=== PATIENT | male | born 1975 | race Caucasian/White ===

== ENCOUNTER 2016-11-05 21:11 | Inpatient (IN) | payer OTHER ==
--- NOTE | 2016-11-05 21:33 | HP ---
CIWA Score - CIWA Score Nausea/Vomitin-Mild Nausea/No Vomiting Muscle Tremors: 3 Anxiety: 3 Agitation: 3 Paroxysmal Sweats: 2 Orientation: 1-Uncertain about Date Tacttile Disturbances: 1-Very Mild Itch/Numbness Auditory Disturbances: 0-None Visual Disturbances: 0-None Headache: 2-Mild CIWA-Ar Total Score: 16 Admission ROS BHS - HPI Chief Complaint: WITHDRAWAL SYMPTOMS Allergies/Adverse Reactions: Allergies Allergy/AdvReac Type Severity Reaction Status Date / Time No Known Allergies Allergy Verified 11/05/16 21:30 History of Present Illness: 41 Y.O. MAN WITH AN EXTENSIVE HISTORY OF ALCOHOL AND MARIJUANA DEPENDENCE IS SEEKING DETOX. HIS LAST ADMISSION HERE WAS IN 2012. HE REPORTS HE DOES NOT HAVE A SIGNIFICANT PERIOD OF SOBRIETY. Exam Limitations: Intoxication - Ebola screening Have you traveled outside of the country in the last 21 days: No Have you had contact with anyone from an Ebola affected area: No Do you have a fever: No - Review of Systems Constitutional: Loss of Appetite EENT: reports: No Symptoms Reported Respiratory: reports: No Symptoms reported Cardiac: reports: No Symptoms Reported GI: reports: No Symptoms Reported : reports: No Symptoms Reported Musculoskeletal: reports: No Symptoms Reported Integumentary: reports: No Symptoms Reported Neuro: reports: Numbness, Seizure (2 YEARS PRIOR), Tingling, Tremors Endocrine: reports: No Symptoms Reported Hematology: reports: No Symptoms Reported Psychiatric: reports: Mood/Affect Appropiate Other Systems: Reviewed and Negative Patient History - Patient Medical History Hx Anemia: No Hx Asthma: No Hx Chronic Obstructive Pulmonary Disease (COPD): No Hx Cancer: No Hx Cardiac Disorders: No Hx Congestive Heart Failure: No Hx Hypertension: No Hx Hypercholesterolemia: No Hx Pacemaker: No HX Cerebrovascular Accident: No Hx Seizures: Yes (alcohol related-last episode was in 2014) Hx Dementia: No Hx Diabetes: No Hx Gastrointestinal Disorders: No Hx Liver Disease: No Hx Genitourinary Disorders: Yes (KIDNEY STONES.) Hx Sexually Transmitted Disorders: No Hx Renal Disease (ESRD): No Hx Thyroid Disease: No Hx Human Immunodeficiency Virus (HIV): No (NEG. ) Hx Hepatitis C: No Hx Depression: Yes Hx Suicide Attempt: Yes Hx Bipolar Disorder: No Hx Schizophrenia: No - Patient Surgical History Past Surgical History: Yes Hx Neurologic Surgery: No Hx Cataract Extraction: No Hx Cardiac Surgery: No Hx Lung Surgery: No Hx Breast Surgery: No Hx Breast Biopsy: No Hx Abdominal Surgery: No Hx Appendectomy: No Hx Cholecystectomy: No Hx Genitourinary Surgery: No Hx Section: No Hx Orthopedic Surgery: No Other Surgical History: removal of kidney stones, right /tendon repair, right hnad Anesthesia Reaction: No - PPD History Previous Implant?: Yes Documented Results: Negative w/o proof Implanted On Prior [facility] Admission?: Yes Date: 04/05/13 PPD to be Administered?: Yes - Reproductive History Patient is a Female of Child Bearing Age (11 -55 yrs old): No - Smoking Cessation Smoking history: Current every day smoker Have you smoked in the past 12 months: Yes Aproximately how many cigarettes per day: 20 Cigars Per Day: 0 Hx Chewing Tobacco Use: No Initiated information on smoking cessation: Yes 'Breaking Loose' booklet given: 11/05/16 - Substance & Tx. History Hx Alcohol Use: Yes Hx Substance Use: Yes Substance Use Type: Alcohol, Marijuana Hx Substance Use Treatment: Yes (DETOX AND REHAB ) - Substances Abused Alcohol Route: Oral Frequency: Daily Amount used: 1 GALLON OF [place] Age of first use: 7 Date of Last Use: 11/05/16 Marijuana/Hashish Route: Smoking Frequency: Daily Amount used: 2-3 BLUNTS Age of first use: 7 Date of Last Use: 11/05/16 Family Disease History - Family Disease History Family Disease History: CA: Mother ( ) Admission Physical Exam BHS - Vital Signs Vital Signs: Last Vital Signs Temp Pulse Resp BP Pulse Ox 97.5 F L 112 H 18 110/64 11/05/16 21:42 11/05/16 21:42 11/05/16 21:42 11/05/16 21:42 - Physical General Appearance: Yes: Intoxicated, Anxious HEENTM: Yes: Hearing grossly Normal, Normal ENT Inspection, Normocephalic, Normal Voice Respiratory: Yes: Chest Non-Tender, Lungs Clear, Normal Breath Sounds, No Respiratory Distress, No Accessory Muscle Use Neck: Yes: No masses,lesions,Nodules, Trachea in good position Breast: Yes: Breast Exam Deferred Cardiology: Yes: Tachycardia Abdominal: Yes: Normal Bowel Sounds, Non Tender, Flat, Soft Genitourinary: Yes: Other (NO COMPLAINTS REPORTED) Back: Yes: Normal Inspection Musculoskeletal: Yes: full range of Motion, Gait Steady, Pelvis Stable Extremities: Yes: Normal Capillary Refill, Normal Inspection, Normal Range of Motion, Non-Tender Neurological: Yes: Alert, Normal Mood/Affect, Normal Response Integumentary: Yes: Normal Color, Dry, Warm Lymphatic: Yes: Within Normal Limits - Diagnostic (1) Alcohol dependence with uncomplicated withdrawal Current Visit: Yes Status: Chronic (2) Cannabis dependence, uncomplicated Current Visit: Yes Status: Chronic (3) History of seizure Current Visit: Yes Status: Chronic Cleared for Admission [facility] - Detox or Rehab [facility] Level of Care: Medically Managed Detox Regimen/Protocol: Librium [facility] Breath Alcohol Content Breath Alcohol Content: 0.087 Vital Signs - Vital Signs Vital Signs Refused: No Temperature: 97.5 F Temperature Source: Oral Pulse Rate: 112 Respiratory Rate: 18 Blood Pressure: 110/64 BP Location: Left Arm Blood Pressure Position: Sitting - Height Height: 5 ft 9 in - Weight Weight: 140 lb Weight Measurement Method: Standing Scale Body Mass Index (BMI): 20.7 - Bowel Function Bowel Movement: No Urine Drug Screen - Test Device Lot Number: [id number] Expiration Date: 07/06/18 - Control Is Test Valid: Yes - Results Drug Screen Negative: No Urine Drug Screen Results: THC-Marijuana
[2016-11-05 21:42] VITALS: BMI 20.7
[2016-11-05] MEDS ORDERED: MAGNESIUM CITRATE 300 ML BOTTLE PO PRN (22:08)
[2016-11-05] MEDS ORDERED: ACETAMINOPHEN 325 MG TABLET (FP) PO PRN (22:08)
[2016-11-05] MEDS ORDERED: hydrOXYzine PAMOATE 50 MG CAPSULE (FP) PO PRN (22:08)
[2016-11-05] MEDS ORDERED: guaiFENesin/D-METHORPHAN HB 10 ML UNIT-DOSE CUPS PO PRN (22:08)
[2016-11-05] MEDS ORDERED: MENTHOL/PHENOL 1 EACH UD MM PRN (22:08)
[2016-11-05] MEDS ORDERED: MAGNESIUM HYDROX 2400MG/30ML ORAL SUSPENSION 30 ML CUP PO PRN (22:08)
[2016-11-05] MEDS ORDERED: chlordiazePOXIDE HCL 25 MG CAPSULE PO PRN (22:08)
[2016-11-05] MEDS ORDERED: LOPERAMIDE HCL 2 MG CAPSULE PO PRN (22:08)
[2016-11-05] MEDS ORDERED: NICOTINE POLACRILEX 2 MG GUM BUC PRN (22:08)
[2016-11-05] MEDS ORDERED: chlordiazePOXIDE HCL 25 MG CAPSULE PO ONE (22:08)
[2016-11-05] MEDS ORDERED: MAG HYDROX/AL HYDROX/SIMETH 30 ML UNIT-DOSE CUP PO PRN (22:08)
[2016-11-05] MEDS ORDERED: P-EPHED 60MG/TRIPROLIDI 2.5MG TABLET PO PRN (22:08)
[2016-11-06] MEDS: diphenhydrAMINE HCL 50 MG CAPSULE PO PRN ×2 (00:44→22:13)
[2016-11-06] MEDS: chlordiazePOXIDE HCL 25 MG CAPSULE PO SCH ×5 (00:52→22:13)
[2016-11-06 10:26] LABS: ALBUMIN 3.4 g/dl (3.4-5.0); ALK PHOS 48 U/L (45-117); ANION GAP 11 (8-16); BILIRUBIN,TOTAL 0.2 mg/dL (0.2-1.0); CALCIUM 8.3 mg/dL (8.5-10.1); CO2 28 mmol/L (21-32); CREATININE 0.6 mg/dL (0.7-1.3); GLUCOSE,RANDOM 75 mg/dL (74-106); SGOT/AST 40 U/L (15-37); SGPT/ALT 57 U/L (12-78); TOT PROT 5.9 g/dl (6.4-8.2)
[2016-11-06 10:29] LABS: URINE APPEARANCE CLEAR; URINE BILIRUBIN NEGATIVE (NEGATIVE); URINE BLOOD NEGATIVE (NEGATIVE); URINE COLOR LTYELLOW; URINE GLUCOSE (UA) NEGATIVE (NEGATIVE); URINE KETONE NEGATIVE (NEGATIVE); URINE LEUK ESTERASE NEGATIVE (NEGATIVE); URINE NITRITE NEGATIVE (NEGATIVE); URINE PROTEIN NEGATIVE (NEGATIVE); URINE UROBILINOGEN NEGATIVE E.U./dl (0.2-1.0)
[2016-11-06] MEDS: NICOTINE 21 MG/24 HOURS TOPICAL PATCH TD SCH (10:29)
[2016-11-06] MEDS: PRENATAL VITAMINS W/ FOLIC ACID TABLET (FP) PO SCH (10:29)
[2016-11-06 10:32] LABS: MCH 34.8 pg (25.7-33.7); MCHC 34.3 g/dl (32.0-35.9); MEAN CELL VOLUME 101.6 fl (80-96); MEAN PLT VOLUME 6.8 fl (7.5-11.1); PLATELET COUNT 431 K/MM3 (134-434); RDW 14.7 % (11.9-15.9)
--- NOTE | 2016-11-06 14:58 | PN ---
S CIWA - CIWA Score Nausea/Vomitin Muscle Tremors: 4-Moderate,w/Arms Extend Anxiety: 4-Mod. Anxious/Guarded Agitation: 4-Moderately Restless Paroxysmal Sweats: No Perspiration Orientation: 0-Oriented Tacttile Disturbances: 1-Very Mild Itch/Numbness Auditory Disturbances: 0-None Visual Disturbances: 0-None Headache: 3-Moderate CIWA-Ar Total Score: 19 BHS Progress Note (SOAP) Subjective: Anxious, sweating, nausea, headache, tremor, chills Objective: 11/06/16 14:57 Last Vital Signs Temp Pulse Resp BP Pulse Ox 97 F L 114 H 19 127/71 11/06/16 13:42 11/06/16 13:42 11/06/16 13:42 11/06/16 13:42 Laboratory Tests 11/06/16 11/06/16 11/06/16 07:45 07:45 07:45 WBC 7.0 D RBC 3.75 L D Hgb 13.1 D Hct 38.1 D MCV 101.6 H MCHC 34.3 RDW 14.7 Plt Count 431 D MPV 6.8 L Sodium 144 Potassium 4.3 Chloride 105 Carbon Dioxide 28 Anion Gap 11 BUN 14 D Creatinine 0.6 L D Creat Clearance w eGFR > 60 Random Glucose 75 D Calcium 8.3 L Total Bilirubin 0.2 D AST 40 H ALT 57 D Alkaline Phosphatase 48 D Total Protein 5.9 L D Albumin 3.4 D Urine Color Urine Appearance Urine pH Ur Specific [place] Urine Protein Urine Glucose (UA) Urine Ketones Urine Blood Urine Nitrite Urine Bilirubin Urine Urobilinogen Ur Leukocyte Esterase RPR Titer Nonreactive 11/06/16 07:45 WBC RBC Hgb Hct MCV MCHC RDW Plt Count MPV Sodium Potassium Chloride Carbon Dioxide Anion Gap BUN Creatinine Creat Clearance w eGFR Random Glucose Calcium Total Bilirubin AST ALT Alkaline Phosphatase Total Protein Albumin Urine Color Ltyellow Urine Appearance Clear Urine pH 6.0 Ur Specific [place] 1.018 Urine Protein Negative Urine Glucose (UA) Negative Urine Ketones Negative Urine Blood Negative Urine Nitrite Negative Urine Bilirubin Negative Urine Urobilinogen Negative Ur Leukocyte Esterase Negative RPR Titer Labs noted Assessment: 11/06/16 14:58 Withdrawal symptoms Plan: Continue detox
[2016-11-06] MEDS: THIAMINE HCL 100 MG TABLET (FP) PO SCH (22:13)
[2016-11-07] MEDS: chlordiazePOXIDE HCL 25 MG CAPSULE PO SCH ×3 (05:38→17:43)
[2016-11-07] MEDS: PRENATAL VITAMINS W/ FOLIC ACID TABLET (FP) PO SCH (10:20)
[2016-11-07] MEDS: NICOTINE 21 MG/24 HOURS TOPICAL PATCH TD SCH (10:20)
--- NOTE | 2016-11-07 11:04 | PN ---
S CIWA - CIWA Score Nausea/Vomitin-No Nausea/No Vomiting Muscle Tremors: 4-Moderate,w/Arms Extend Anxiety: 3 Agitation: 3 Paroxysmal Sweats: 3 Orientation: 0-Oriented Tacttile Disturbances: 0-None Auditory Disturbances: 0-None Visual Disturbances: 0-None Headache: 0-None Present CIWA-Ar Total Score: 13 BHS Progress Note (SOAP) Subjective: Anxiety,tremors,sweating,interrupted sleep,restless Objective: 11/07/16 11:03 Vital Signs - 8 hr 11/07/16 11/07/16 11/07/16 03:42 06:26 09:40 Temperature 96.4 F L 97 F L Pulse Rate 86 80 Respiratory 18 18 18 Rate Blood Pressure 144/97 134/83 Laboratory Tests 11/06/16 11/06/16 11/06/16 07:45 07:45 07:45 WBC 7.0 D RBC 3.75 L D Hgb 13.1 D Hct 38.1 D MCV 101.6 H MCHC 34.3 RDW 14.7 Plt Count 431 D MPV 6.8 L Sodium 144 Potassium 4.3 Chloride 105 Carbon Dioxide 28 Anion Gap 11 BUN 14 D Creatinine 0.6 L D Creat Clearance w eGFR > 60 Random Glucose 75 D Calcium 8.3 L Total Bilirubin 0.2 D AST 40 H ALT 57 D Alkaline Phosphatase 48 D Total Protein 5.9 L D Albumin 3.4 D Urine Color Urine Appearance Urine pH Ur Specific [place] Urine Protein Urine Glucose (UA) Urine Ketones Urine Blood Urine Nitrite Urine Bilirubin Urine Urobilinogen Ur Leukocyte Esterase RPR Titer Nonreactive 11/06/16 07:45 WBC RBC Hgb Hct MCV MCHC RDW Plt Count MPV Sodium Potassium Chloride Carbon Dioxide Anion Gap BUN Creatinine Creat Clearance w eGFR Random Glucose Calcium Total Bilirubin AST ALT Alkaline Phosphatase Total Protein Albumin Urine Color Ltyellow Urine Appearance Clear Urine pH 6.0 Ur Specific [place] 1.018 Urine Protein Negative Urine Glucose (UA) Negative Urine Ketones Negative Urine Blood Negative Urine Nitrite Negative Urine Bilirubin Negative Urine Urobilinogen Negative Ur Leukocyte Esterase Negative RPR Titer labs noted Assessment: 11/07/16 11:03 Withdrawal sx. Plan: Continue detox
[2016-11-07] MEDS ORDERED: INFLUENZA VACCINE 45 MCG/0.5 ML (MDV 16-17) IM ONE (12:00)
[2016-11-07] MEDS: IBUPROFEN 400 MG TABLET (FP) PO PRN ×2 (17:44→23:42)
[2016-11-07] MEDS: chlordiazePOXIDE 5 MG CAPSULE PO SCH (22:14)
[2016-11-07] MEDS: THIAMINE HCL 100 MG TABLET (FP) PO SCH (22:14)
[2016-11-07] MEDS: diphenhydrAMINE HCL 50 MG CAPSULE PO PRN (22:14)
[2016-11-08] MEDS: chlordiazePOXIDE 5 MG CAPSULE PO SCH ×3 (05:39→17:18)
[2016-11-08] MEDS: PRENATAL VITAMINS W/ FOLIC ACID TABLET (FP) PO SCH (10:19)
[2016-11-08] MEDS: NICOTINE 21 MG/24 HOURS TOPICAL PATCH TD SCH (10:19)
--- NOTE | 2016-11-08 10:32 | PN ---
BHS Progress Note (SOAP) Subjective: Sweating,interrupted sleep,restless Objective: 11/08/16 10:30 Vital Signs - 8 hr 11/08/16 11/08/16 11/08/16 03:29 06:10 09:30 Temperature 96.0 F L 97.9 F Pulse Rate 85 99 H Respiratory 18 16 18 Rate Blood Pressure 116/79 121/75 Laboratory Tests 11/06/16 11/06/16 11/06/16 07:45 07:45 07:45 WBC 7.0 D RBC 3.75 L D Hgb 13.1 D Hct 38.1 D MCV 101.6 H MCHC 34.3 RDW 14.7 Plt Count 431 D MPV 6.8 L Sodium 144 Potassium 4.3 Chloride 105 Carbon Dioxide 28 Anion Gap 11 BUN 14 D Creatinine 0.6 L D Creat Clearance w eGFR > 60 Random Glucose 75 D Calcium 8.3 L Total Bilirubin 0.2 D AST 40 H ALT 57 D Alkaline Phosphatase 48 D Total Protein 5.9 L D Albumin 3.4 D Urine Color Urine Appearance Urine pH Ur Specific [place] Urine Protein Urine Glucose (UA) Urine Ketones Urine Blood Urine Nitrite Urine Bilirubin Urine Urobilinogen Ur Leukocyte Esterase RPR Titer Nonreactive 11/06/16 07:45 WBC RBC Hgb Hct MCV MCHC RDW Plt Count MPV Sodium Potassium Chloride Carbon Dioxide Anion Gap BUN Creatinine Creat Clearance w eGFR Random Glucose Calcium Total Bilirubin AST ALT Alkaline Phosphatase Total Protein Albumin Urine Color Ltyellow Urine Appearance Clear Urine pH 6.0 Ur Specific [place] 1.018 Urine Protein Negative Urine Glucose (UA) Negative Urine Ketones Negative Urine Blood Negative Urine Nitrite Negative Urine Bilirubin Negative Urine Urobilinogen Negative Ur Leukocyte Esterase Negative RPR Titer labs noted Assessment: 11/08/16 10:31 Withdrawal sx. Plan: Continue detox
[2016-11-08] MEDS: chlordiazePOXIDE HCL 10 MG CAPSULE PO SCH (22:19)
[2016-11-08] MEDS: THIAMINE HCL 100 MG TABLET (FP) PO SCH (22:19)
[2016-11-08] MEDS: diphenhydrAMINE HCL 50 MG CAPSULE PO PRN (22:19)
--- NOTE | 2016-11-08 23:01 | EKG ---
Test Reason : Blood Pressure : / mmHG Vent. Rate : 095 BPM Atrial Rate : 095 BPM P-R Int : 180 ms QRS Dur : 086 ms QT Int : 330 ms P-R-T Axes : 057 081 057 degrees QTc Int : 414 ms NORMAL SINUS RHYTHM POSSIBLE LEFT ATRIAL ENLARGEMENT NONSPECIFIC T WAVE ABNORMALITY BORDERLINE ECG WHEN COMPARED WITH ECG OF 10-FEB-2015 17:41, NO SIGNIFICANT CHANGE WAS FOUND Confirmed by PRUDENCE BROUSSARD, CRHIST ([id number]) on 11/08/2016 11:01:02 PM Referred By: Confirmed By:CHRIST FOSS MD
[2016-11-09] MEDS: diphenhydrAMINE HCL 50 MG CAPSULE PO PRN (00:19)
[2016-11-09] MEDS: chlordiazePOXIDE HCL 10 MG CAPSULE PO SCH (05:26)
[2016-11-09 06:07] VITALS: BP 114/77; PULSE 93; TEMP 96.7
[2016-11-09] MEDS: NICOTINE 21 MG/24 HOURS TOPICAL PATCH TD SCH (09:29)
[2016-11-09] MEDS: PRENATAL VITAMINS W/ FOLIC ACID TABLET (FP) PO SCH (09:29)
--- NOTE | 2016-11-09 10:26 | DS ---
[facility] Detox Discharge Summary Admission Date: 11/05/16 Discharge Date: 11/09/16 - History Present History: Alcohol Dependence, Cannabis Dependence Additional Comments: DETOX COMPLETED. ALERT O X 3. NAD. Pertinent Past History: SEIZURE HX HX KIDNEY STONES - Physical Exam Results Vital Signs: Vital Signs Temperature 96.7 F L 11/09/16 06:06 Pulse Rate 93 H 11/09/16 06:06 Respiratory Rate 16 11/09/16 06:06 Blood Pressure 114/77 11/09/16 06:06 O2 Sat by Pulse Oximetry (%) Pertinent Admission Physical Exam Findings: WITHDRAWAL SX Laboratory Last Values WBC 7.0 K/mm3 (4.0-10.0) D 11/06/16 07:45 RBC 3.75 M/mm3 (4.00-5.60) L D 11/06/16 07:45 Hgb 13.1 GM/dL (11.7-16.9) D 11/06/16 07:45 Hct 38.1 % (35.4-49) D 11/06/16 07:45 MCV 101.6 fl (80-96) H 11/06/16 07:45 MCHC 34.3 g/dl (32.0-35.9) 11/06/16 07:45 RDW 14.7 % (11.9-15.9) 11/06/16 07:45 Plt Count 431 K/MM3 (134-434) D 11/06/16 07:45 MPV 6.8 fl (7.5-11.1) L 11/06/16 07:45 Sodium 144 mmol/L (136-145) 11/06/16 07:45 Potassium 4.3 mmol/L (3.5-5.1) 11/06/16 07:45 Chloride 105 mmol/L (98-107) 11/06/16 07:45 Carbon Dioxide 28 mmol/L (21-32) 11/06/16 07:45 Anion Gap 11 (8-16) 11/06/16 07:45 BUN 14 mg/dL (7-18) D 11/06/16 07:45 Creatinine 0.6 mg/dL (0.7-1.3) L D 11/06/16 07:45 Creat Clearance w eGFR > 60 (>60) 11/06/16 07:45 Random Glucose 75 mg/dL (74-106) D 11/06/16 07:45 Calcium 8.3 mg/dL (8.5-10.1) L 11/06/16 07:45 Total Bilirubin 0.2 mg/dL (0.2-1.0) D 11/06/16 07:45 AST 40 U/L (15-37) H 11/06/16 07:45 ALT 57 U/L (12-78) D 11/06/16 07:45 Alkaline Phosphatase 48 U/L (45-117) D 11/06/16 07:45 Total Protein 5.9 g/dl (6.4-8.2) L D 11/06/16 07:45 Albumin 3.4 g/dl (3.4-5.0) D 11/06/16 07:45 Urine Color Ltyellow 11/06/16 07:45 Urine Appearance Clear 11/06/16 07:45 Urine pH 6.0 (5.0-8.0) 11/06/16 07:45 Ur Specific [place] 1.018 (1.001-1.035) 11/06/16 07:45 Urine Protein Negative (NEGATIVE) 11/06/16 07:45 Urine Glucose (UA) Negative (NEGATIVE) 11/06/16 07:45 Urine Ketones Negative (NEGATIVE) 11/06/16 07:45 Urine Blood Negative (NEGATIVE) 11/06/16 07:45 Urine Nitrite Negative (NEGATIVE) 11/06/16 07:45 Urine Bilirubin Negative (NEGATIVE) 11/06/16 07:45 Urine Urobilinogen Negative E.U./dl (0.2-1.0) 11/06/16 07:45 Ur Leukocyte Esterase Negative (NEGATIVE) 11/06/16 07:45 RPR Titer Nonreactive (NONREACTIVE) 11/06/16 07:45 - Treatment Hospital Course: Detox Protocol Followed, Detoxed Safely, Responded well, Discharged Condition Good, Rehab Referral Accepted - Medication Discharge Medications: Ambulatory Orders NK [No Known Home Medication] 11/06/16 - Diagnosis (1) Seizure Status: Active (2) Alcohol dependence with uncomplicated withdrawal Status: Acute (3) Cannabis dependence, uncomplicated Status: Acute (4) History of seizure Status: Chronic - AMA Did Patient Leave Against Medical Advice: No
== END 2016-11-09 09:52 | disposition home or self-care (01) | DRG 775 ==
LOC: YASAS 21:11 → Y3N 21:14
PROVIDERS: ADMIT Internal Medicine; ATTEND Internal Medicine
PROC: HZ2ZZZZ Detoxification Services for Substance Abuse Treatment (ICD-10-PCS; principal; 2016-11-05)
DX: F10.230 Alcohol dependence with withdrawal, uncomplicated (principal); F12.20 Cannabis dependence, uncomplicated; F17.210 Nicotine dependence, cigarettes, uncomplicated; R00.0 Tachycardia, unspecified; Z86.69 Personal history of other diseases of the nervous system and sense organs; Z87.442 Personal history of urinary calculi; Z91.5 Personal history of self-harm
CPT/HCPCS: 36415; 80053; 81003; 85027; 86593; 93005; 93010; G0008; Q2037

== ENCOUNTER 2017-08-10 08:31 | Inpatient (IN) | payer OTHER ==
[2017-08-10 09:54] VITALS: BMI 21.4
--- NOTE | 2017-08-10 10:32 | HP ---
CIWA Score - CIWA Score Nausea/Vomitin-Int. Nausea w/Dry Heave Muscle Tremors: 4-Moderate,w/Arms Extend Anxiety: 4-Mod. Anxious/Guarded Agitation: 1-Slight > Activity Paroxysmal Sweats: 3 Orientation: 0-Oriented Tacttile Disturbances: 1-Very Mild Itch/Numbness Auditory Disturbances: 0-None Visual Disturbances: 0-None Headache: 2-Mild CIWA-Ar Total Score: 19 Admission ROS [facility] - HPI Chief Complaint: I want detox from alcohol and marijuana, I'm using too much Allergies/Adverse Reactions: Allergies Allergy/AdvReac Type Severity Reaction Status Date / Time No Known Allergies Allergy Verified 08/10/17 10:01 History of Present Illness: 42 y/o man presented to [facility] requesting detox from alcohol and cannabis dependence. Patient stated that he was here at [facility] in November 2016 for detox and is presently interested in rehab. He reports history of alcohol related seizure with last breakthrough seizure 2 weeks ago. Exam Limitations: No Limitations - Ebola screening Have you traveled outside of the country in the last 21 days: No (N) Have you had contact with anyone from an Ebola affected area: No Have you been sick,other than usual withdrawal symptoms: No Do you have a fever: No - Review of Systems Constitutional: Diaphoresis, Loss of Appetite, Changes in sleep EENT: reports: Blurred Vision (sometimes) Respiratory: reports: No Symptoms reported Cardiac: reports: No Symptoms Reported GI: reports: Poor Appetite : reports: No Symptoms Reported Musculoskeletal: reports: No Symptoms Reported Integumentary: reports: No Symptoms Reported Neuro: reports: Headache, Numbness, Seizure (seizure alcohol related 2 weeks ago ; usually have seizure 2-3 times/year), Tingling, Tremors Endocrine: reports: Increased Urine (during the daytime somewhat with alcohol consumption) Hematology: reports: No Symptoms Reported Psychiatric: reports: Anxious, Depressed (depressed: lost job 6 months ago, got laid off. Lost family, got ) Patient History - Patient Medical History Hx Anemia: No Hx Asthma: No Hx Chronic Obstructive Pulmonary Disease (COPD): No Hx Cancer: No Hx Cardiac Disorders: No Hx Congestive Heart Failure: No Hx Hypertension: No Hx Hypercholesterolemia: No Hx Pacemaker: No HX Cerebrovascular Accident: No Hx Seizures: Yes (alcohol related-last episode was 2 weeks ago) Hx Dementia: No Hx Diabetes: No Hx Gastrointestinal Disorders: No Hx Liver Disease: No Hx Genitourinary Disorders: No Hx Sexually Transmitted Disorders: No Hx Renal Disease (ESRD): No Hx Thyroid Disease: No Hx Human Immunodeficiency Virus (HIV): No (NEG. 2 year ago, agree to retesting) Hx Hepatitis C: No Hx Depression: Yes (depressed x 2 years due to divorce) Hx Suicide Attempt: Yes (3 years ago OD on anxiety pills (30 pills), passed out/ hospitalized x 2 wks) Hx Bipolar Disorder: No Hx Schizophrenia: No Other Medical History: denies - Patient Surgical History Past Surgical History: Yes Hx Neurologic Surgery: No Hx Cataract Extraction: No Hx Cardiac Surgery: No Hx Lung Surgery: No Hx Breast Surgery: No Hx Breast Biopsy: No Hx Abdominal Surgery: No Hx Appendectomy: No Hx Cholecystectomy: No Hx Genitourinary Surgery: No Hx Section: No Hx Orthopedic Surgery: No Other Surgical History: removal of R kidney stones 10 yrs ago, right /tendon repair R hand 6yrs ago Anesthesia Reaction: No - PPD History Previous Implant?: Yes Documented Results: Negative w/proof Implanted On Prior [facility] Admission?: Yes Date: 11/07/16 Results: 0 mm PPD to be Administered?: No - Reproductive History Patient is a Female of Child Bearing Age (11 -55 yrs old): No (male patient) - Smoking Cessation Smoking history: Current every day smoker Have you smoked in the past 12 months: Yes Aproximately how many cigarettes per day: 20 (started at age 7; 1ppd started 2006) Cigars Per Day: 0 Hx Chewing Tobacco Use: No Initiated information on smoking cessation: Yes 'Breaking Loose' booklet given: 08/10/17 - Substance & Tx. History Substance Use Type: Alcohol, Marijuana Hx Substance Use Treatment: Yes - Substances Abused Alcohol-vodka/beer Route: Oral Frequency: Daily Amount used: 2-3 pts vodka daily and 6 six pack beer daily (18 ounce beer) Age of first use: 8 Date of Last Use: 08/10/17 (last drink 1 hour ago) Marijuana Route: Smoking Frequency: 3-6 times per week Amount used: $20 Age of first use: 12 Date of Last Use: 08/10/17 Family Disease History - Family Disease History Family Disease History: CA: Mother ( age 65 from breast cancer mets to bone) Admission Physical Exam [facility] - Vital Signs Vital Signs: Vital Signs - 24 hr 08/10/17 09:52 Temperature 97.1 F L Pulse Rate 109 H Respiratory 18 Rate Blood Pressure 128/82 - Physical General Appearance: Yes: Within Normal Limits HEENTM: Yes: Within Normal Limits, EOMI, Hearing grossly Normal Respiratory: Yes: Within Normal Limits, Chest Non-Tender, Lungs Clear, Normal Breath Sounds Neck: Yes: Within Normal Limits, No masses,lesions,Nodules, Supple Breast: Yes: Within Normal Limits Cardiology: Yes: Within Normal Limits, S1, S2, Tachycardia (apical rate 112 bpm) Abdominal: Yes: Within Normal Limits Genitourinary: Yes: Within Normal Limits Back: Yes: Within Normal Limits, Normal Inspection Musculoskeletal: Yes: Within Normal Limits, full range of Motion, Gait Steady Extremities: Yes: Within Normal Limits Neurological: Yes: Within Normal Limits, 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 NML intact, Fully Oriented, Alert Integumentary: Yes: Within Normal Limits Lymphatic: Yes: Within Normal Limits - Diagnostic (1) Depression Current Visit: Yes Status: Chronic (2) Anxiety Current Visit: Yes Status: Chronic (3) Alcohol dependence with uncomplicated withdrawal Current Visit: Yes Status: Acute (4) Cannabis dependence, uncomplicated Current Visit: Yes Status: Chronic (5) History of seizure Current Visit: Yes Status: Acute (6) Nicotine dependence Current Visit: Yes Status: Chronic Cleared for Admission [facility] - Detox or Rehab [facility] Level of Care: Medically Managed [facility] Breath Alcohol Content Breath Alcohol Content: 0.220 Urine Drug Screen - Results Drug Screen Negative: No Urine Drug Screen Results: THC-Marijuana
[2017-08-10] MEDS ORDERED: MAG HYDROX/AL HYDROX/SIMETH 30 ML UNIT-DOSE CUP PO PRN (11:07)
[2017-08-10] MEDS ORDERED: MENTHOL/PHENOL 1 EACH UD MM PRN (11:07)
[2017-08-10] MEDS ORDERED: ACETAMINOPHEN 325 MG TABLET (FP) PO PRN (11:07)
[2017-08-10] MEDS ORDERED: IBUPROFEN 400 MG TABLET (FP) PO PRN (11:07)
[2017-08-10] MEDS ORDERED: MAGNESIUM HYDROX 2400MG/30ML ORAL SUSPENSION 30 ML CUP PO PRN (11:07)
[2017-08-10] MEDS ORDERED: guaiFENesin/D-METHORPHAN HB 10 ML UNIT-DOSE CUPS PO PRN (11:07)
[2017-08-10] MEDS ORDERED: MAGNESIUM CITRATE 300 ML BOTTLE PO PRN (11:07)
[2017-08-10] MEDS ORDERED: LOPERAMIDE HCL 2 MG CAPSULE PO PRN (11:07)
[2017-08-10] MEDS ORDERED: P-EPHED 60MG/TRIPROLIDI 2.5MG TABLET PO PRN (11:07)
[2017-08-10] MEDS: chlordiazePOXIDE HCL 25 MG CAPSULE PO SCH ×3 (12:22→22:17)
[2017-08-10] MEDS ORDERED: NICOTINE 21 MG/24 HOURS TOPICAL PATCH TD SCH (13:00)
[2017-08-10] MEDS: NICOTINE 21 MG/24 HOURS TOPICAL PATCH TD SCH (13:51)
[2017-08-10] MEDS: PHENYTOIN NA EXTENDED 100 MG CAPSULE (FP) PO SCH ×2 (13:56→22:17)
[2017-08-10] MEDS: chlordiazePOXIDE HCL 25 MG CAPSULE PO PRN (13:57)
[2017-08-10] MEDS ORDERED: PHENYTOIN NA EXTENDED 100 MG CAPSULE (FP) PO SCH (14:00)
--- NOTE | 2017-08-10 15:36 | EKG ---
Test Reason : Blood Pressure : / mmHG Vent. Rate : 097 BPM Atrial Rate : 097 BPM P-R Int : 174 ms QRS Dur : 084 ms QT Int : 360 ms P-R-T Axes : 069 083 065 degrees QTc Int : 457 ms POOR DATA QUALITY, INTERPRETATION MAY BE ADVERSELY AFFECTED NORMAL SINUS RHYTHM NORMAL ECG WHEN COMPARED WITH ECG OF 05-NOV-2016 21:56, NO SIGNIFICANT CHANGE WAS FOUND Confirmed by DESTINY BROUSSARD, FLORA ([id number]) on 08/10/2017 3:36:19 PM Referred By: Confirmed By:FLORA DIXON MD
[2017-08-10 15:50] LABS: URINE APPEARANCE SLCLOUDY; URINE BILIRUBIN NEGATIVE (NEGATIVE); URINE BLOOD NEGATIVE (NEGATIVE); URINE COLOR YELLOW; URINE GLUCOSE (UA) NEGATIVE (NEGATIVE); URINE KETONE TRACE (NEGATIVE); URINE LEUK ESTERASE NEGATIVE (NEGATIVE); URINE NITRITE NEGATIVE (NEGATIVE); URINE PROTEIN NEGATIVE (NEGATIVE); URINE UROBILINOGEN NEGATIVE mg/dL (0.2-1.0)
--- NOTE | 2017-08-10 17:30 | CONSULT ---
[facility] Psychiatric Consult - Data Date of interview: 08/10/17 Admission source: [facility] Identifying data: Pt. is a 42 year old male, , father of one, unemployed and homeless. Substance Abuse History: Following information confirmed by Mr. Traore: - Smoking Cessation. Smoking history: Current every day smoker. Have you smoked in the past 12 months: Yes. Aproximately how many cigarettes per day: 20 ( started at age 7; 1ppd started 2006). Cigars Per Day: 0. Hx Chewing Tobacco Use: No. Initiated information on smoking cessation: Yes. 'Breaking Loose' booklet given: 08/10/17. - Substance & Tx. History. Substance Use Type: Alcohol, Marijuana. Hx Substance Use Treatment: Yes. - Substances Abused. Alcohol-vodka/beer. Route: Oral. Frequency: Daily. Amount used: 2-3 pts vodka daily and 6 six pack beer daily (18 ounce beer). Age of first use: 8. Date of Last Use: 08/10/17 (last drink 1 hour ago). Marijuana. Route: Smoking. Frequency: 3-6 times per week. Amount used: $20. Age of first use: 12. Date of Last Use: 08/10/17 Medical History: Seizures (alcohol related last epiosde 2 weeks ago) Psychiatric History: Pt. denies h/o psychiatric hospitalizations and OPC. Pt. reports taking the medication trazodone after it was prescribed to him approximately 6-7 years ago by his PCP. Reports not taking trazodone in several years. Pt. reports h/o one suicide attempt approximately 8 years ago by overdosing on pills. Pt. currently denies suicidal and homicidal ideation. Physical/Sexual Abuse/Trauma History: Denies. Mental Status Exam - Mental Status Exam Alert and Oriented to: Time, Place, Person Cognitive Function: Good Patient Appearance: Unkempt Mood: Sad Affect: Mood Congruent Patient Behavior: Appropriate, Cooperative Speech Pattern: Appropriate Voice Loudness: Normal Thought Process: Goal Oriented Thought Disorder: Not Present Hallucinations: Denies Suicidal Ideation: Denies Homicidal Ideation: Denies Insight/Judgement: Poor Sleep: Poorly Appetite: Fair Muscle strength/Tone: Normal Gait/Station: Normal Psychiatric Findings - Problem List ([place] 1, 2,3) (1) Alcohol dependence with uncomplicated withdrawal Current Visit: Yes Status: Acute (2) Cannabis dependence, uncomplicated Current Visit: Yes Status: Chronic (3) Insomnia Current Visit: Yes Status: Acute (4) Nicotine dependence Current Visit: Yes Status: Chronic - Initial Treatment Plan Initial Treatment Plan: Psychoeducation provided. Detoxification in progress. Trazodone 50mg qhs ordered for insomnia. Pt. reports favorable effects from taking trazodone. Benefits and side effects (Priapism) discussed. Verbal consent given. Will continue to monitor.
[2017-08-10] MEDS: THIAMINE HCL 100 MG TABLET (FP) PO SCH (22:16)
[2017-08-10] MEDS: traZODone HCL 50 MG TABLET (FP) PO SCH (22:17)
[2017-08-11] MEDS: chlordiazePOXIDE HCL 25 MG CAPSULE PO SCH ×4 (05:18→22:35)
[2017-08-11] MEDS: PHENYTOIN NA EXTENDED 100 MG CAPSULE (FP) PO SCH ×3 (05:18→22:35)
[2017-08-11] MEDS ORDERED: PHENYTOIN NA EXTENDED 100 MG CAPSULE (FP) PO ONE (05:57)
--- NOTE | 2017-08-11 06:00 | PN ---
[facility] Progress Note Note: dilantin level less than 2.5,will give loadind dose of dilantin 300 mgs po now then tid.seizure precaution, repeat dilantin level in am
--- NOTE | 2017-08-11 09:51 | PN ---
[facility] CIWA - CIWA Score Nausea/Vomitin Muscle Tremors: 3 Anxiety: 3 Agitation: 3 Paroxysmal Sweats: 2 Orientation: 0-Oriented Tacttile Disturbances: 1-Very Mild Itch/Numbness Auditory Disturbances: 1-Very Mild Visual Disturbances: 0-None Headache: 2-Mild CIWA-Ar Total Score: 18 [facility] Progress Note (SOAP) Subjective: ALERT,IRRITABLE,ANXIOUS,INTERRUPTED SLEEP,TREMOR Objective: 08/11/17 09:48 Vital Signs Temperature 96 F L 08/11/17 09:33 Pulse Rate 92 H 08/11/17 09:33 Respiratory Rate 18 08/11/17 09:33 Blood Pressure 143/92 08/11/17 09:33 O2 Sat by Pulse Oximetry (%) EKG NSR NORMAL ECG Assessment: 08/11/17 09:49 WITHDRAWAL SYMPTOM Plan: CONTINUE DETOX,HAD LODING DOSE OF DILANTIN 300 MGS PO THS AM THEN 100 MGS PO TID ,REPEAT DILANTIN LEVEL IN AM,SEIZURE PRECAUTION,LAST SEIZURE 1 WEEK AGO
[2017-08-11 10:05] LABS: HEMATOCRIT 45.7 % (35.4-49); HEMOGLOBIN 15.2 GM/dL (11.7-16.9); MCH 33.2 pg (25.7-33.7); MCHC 33.2 g/dl (32.0-35.9); MEAN CELL VOLUME 99.7 fl (80-96); MEAN PLT VOLUME 7.6 fl (7.5-11.1); PLATELET COUNT 356 K/MM3 (134-434); RBC 4.59 M/mm3 (4.00-5.60); RDW 14.6 % (11.9-15.9); WHITE BLOOD COUNT 7.5 K/mm3 (4.0-10.0)
[2017-08-11] MEDS: PRENATAL VITAMINS W/ FOLIC ACID TABLET (FP) PO SCH (10:13)
[2017-08-11] MEDS: NICOTINE 21 MG/24 HOURS TOPICAL PATCH TD SCH (10:13)
[2017-08-11 10:42] LABS: CHLORIDE 101 mmol/L (98-107); POTASSIUM 3.7 mmol/L (3.5-5.1); SODIUM 137 mmol/L (136-145)
[2017-08-11 10:49] LABS: ALBUMIN 4.5 g/dl (3.4-5.0); ALK PHOS 89 U/L (45-117); ANION GAP 10 (8-16); BILIRUBIN,TOTAL 0.3 mg/dL (0.2-1.0); BLOOD UREA NITROGEN 7 mg/dL (7-18); CALCIUM 9.1 mg/dL (8.5-10.1); CO2 26 mmol/L (21-32); CREATININE 0.9 mg/dL (0.7-1.3); GLUCOSE,RANDOM 190 mg/dL (74-106); SGOT/AST 36 U/L (15-37); SGPT/ALT 26 U/L (12-78); TOT PROT 7.8 g/dl (6.4-8.2)
[2017-08-11] MEDS ORDERED: FLU VACCINE QUAD 60 MCG/0.5 ML (MDV 17-18) IM ONE (12:00)
[2017-08-11] MEDS: traZODone HCL 50 MG TABLET (FP) PO SCH (22:35)
[2017-08-11] MEDS: THIAMINE HCL 100 MG TABLET (FP) PO SCH (22:35)
[2017-08-12] MEDS: chlordiazePOXIDE HCL 25 MG CAPSULE PO PRN ×2 (01:55→13:58)
[2017-08-12] MEDS: chlordiazePOXIDE HCL 25 MG CAPSULE PO SCH (05:21)
[2017-08-12] MEDS: PHENYTOIN NA EXTENDED 100 MG CAPSULE (FP) PO SCH ×3 (05:21→22:21)
[2017-08-12] MEDS: PRENATAL VITAMINS W/ FOLIC ACID TABLET (FP) PO SCH (10:23)
[2017-08-12] MEDS: chlordiazePOXIDE 5 MG CAPSULE PO SCH ×3 (10:23→22:21)
[2017-08-12] MEDS: NICOTINE 21 MG/24 HOURS TOPICAL PATCH TD SCH (10:23)
--- NOTE | 2017-08-12 10:24 | PN ---
S CIWA - CIWA Score Nausea/Vomitin Muscle Tremors: 3 Anxiety: 3 Agitation: 2 Paroxysmal Sweats: 1-Minimal Palms Moist Orientation: 0-Oriented Tacttile Disturbances: 1-Very Mild Itch/Numbness Auditory Disturbances: 1-Very Mild Visual Disturbances: 0-None Headache: 2-Mild CIWA-Ar Total Score: 16 [facility] Progress Note (SOAP) Subjective: ALERT,IRRITABLE,ANXIOUS,INTERRUPTED SLEEP,TREMOR Objective: 08/12/17 10:22 Vital Signs Temperature 97.9 F 08/12/17 10:08 Pulse Rate 94 H 08/12/17 10:08 Respiratory Rate 18 08/12/17 10:08 Blood Pressure 141/76 08/12/17 10:08 O2 Sat by Pulse Oximetry (%) Laboratory Last Values WBC 7.5 K/mm3 (4.0-10.0) 08/11/17 06:00 RBC 4.59 M/mm3 (4.00-5.60) D 08/11/17 06:00 Hgb 15.2 GM/dL (11.7-16.9) D 08/11/17 06:00 Hct 45.7 % (35.4-49) D 08/11/17 06:00 MCV 99.7 fl (80-96) H 08/11/17 06:00 MCH 33.2 pg (25.7-33.7) 08/11/17 06:00 MCHC 33.2 g/dl (32.0-35.9) 08/11/17 06:00 RDW 14.6 % (11.9-15.9) 08/11/17 06:00 Plt Count 356 K/MM3 (134-434) 08/11/17 06:00 MPV 7.6 fl (7.5-11.1) D 08/11/17 06:00 Sodium 137 mmol/L (136-145) 08/11/17 06:00 Potassium 3.7 mmol/L (3.5-5.1) 08/11/17 06:00 Chloride 101 mmol/L (98-107) 08/11/17 06:00 Carbon Dioxide 26 mmol/L (21-32) 08/11/17 06:00 Anion Gap 10 (8-16) 08/11/17 06:00 BUN 7 mg/dL (7-18) D 08/11/17 06:00 Creatinine 0.9 mg/dL (0.7-1.3) D 08/11/17 06:00 Creat Clearance w eGFR > 60 (>60) 08/11/17 06:00 Random Glucose 190 mg/dL (74-106) H D 08/11/17 06:00 Calcium 9.1 mg/dL (8.5-10.1) 08/11/17 06:00 Total Bilirubin 0.3 mg/dL (0.2-1.0) D 08/11/17 06:00 AST 36 U/L (15-37) 08/11/17 06:00 ALT 26 U/L (12-78) D 08/11/17 06:00 Alkaline Phosphatase 89 U/L (45-117) D 08/11/17 06:00 Total Protein 7.8 g/dl (6.4-8.2) D 08/11/17 06:00 Albumin 4.5 g/dl (3.4-5.0) D 08/11/17 06:00 Urine Color Yellow 08/10/17 13:00 Urine Appearance Slcloudy 08/10/17 13:00 Urine pH 5.0 (5.0-8.0) 08/10/17 13:00 Ur Specific [place] 1.014 (1.001-1.035) 08/10/17 13:00 Urine Protein Negative (NEGATIVE) 08/10/17 13:00 Urine Glucose (UA) Negative (NEGATIVE) 08/10/17 13:00 Urine Ketones Trace (NEGATIVE) H 08/10/17 13:00 Urine Blood Negative (NEGATIVE) 08/10/17 13:00 Urine Nitrite Negative (NEGATIVE) 08/10/17 13:00 Urine Bilirubin Negative (NEGATIVE) 08/10/17 13:00 Urine Urobilinogen Negative mg/dL (0.2-1.0) 08/10/17 13:00 Phenytoin < 2.5 ug/ml (10.0-20.0) L 08/10/17 11:15 RPR Titer Nonreactive (NONREACTIVE) 08/11/17 06:00 Hepatitis C Antibody 0.1 s/co ratio (0.0-0.9) 08/10/17 11:00 HIV 1&2 Antibody Screen Negative 08/10/17 11:00 HIV P24 Antigen Negative 08/10/17 11:00 REPAET DILANTIN LEVEL PENDING Assessment: 08/12/17 10:23 WITHDRAWAL SYMPTOM Plan: CONTINUE DETOX,CONTINUE DILANTIN 100 MGS PO TID,SEIZURE PRECAUTION
--- NOTE | 2017-08-12 10:28 | PN ---
[facility] Progress Note Note: INITIAL GLUCOSE 200,BGM MONITORING BID
[2017-08-12] MEDS: NICOTINE POLACRILEX 4 MG GUM BUC PRN ×2 (17:57→22:24)
[2017-08-12] MEDS: THIAMINE HCL 100 MG TABLET (FP) PO SCH (22:21)
[2017-08-12] MEDS: traZODone HCL 50 MG TABLET (FP) PO SCH (22:21)
[2017-08-13] MEDS: chlordiazePOXIDE 5 MG CAPSULE PO SCH (05:29)
[2017-08-13] MEDS: PHENYTOIN NA EXTENDED 100 MG CAPSULE (FP) PO SCH ×3 (05:30→22:25)
[2017-08-13] MEDS: NICOTINE 21 MG/24 HOURS TOPICAL PATCH TD SCH (10:26)
[2017-08-13] MEDS: PRENATAL VITAMINS W/ FOLIC ACID TABLET (FP) PO SCH (10:26)
--- NOTE | 2017-08-13 10:26 | PN ---
[facility] Progress Note (SOAP) Subjective: tremor anxiety agitation Objective: 08/13/17 10:25 Vital Signs Temperature 97.7 F 08/13/17 06:31 Pulse Rate 83 08/13/17 06:31 Respiratory Rate 18 08/13/17 06:31 Blood Pressure 125/69 08/13/17 06:31 O2 Sat by Pulse Oximetry (%) Laboratory Last Values WBC 7.5 K/mm3 (4.0-10.0) 08/11/17 06:00 RBC 4.59 M/mm3 (4.00-5.60) D 08/11/17 06:00 Hgb 15.2 GM/dL (11.7-16.9) D 08/11/17 06:00 Hct 45.7 % (35.4-49) D 08/11/17 06:00 MCV 99.7 fl (80-96) H 08/11/17 06:00 MCH 33.2 pg (25.7-33.7) 08/11/17 06:00 MCHC 33.2 g/dl (32.0-35.9) 08/11/17 06:00 RDW 14.6 % (11.9-15.9) 08/11/17 06:00 Plt Count 356 K/MM3 (134-434) 08/11/17 06:00 MPV 7.6 fl (7.5-11.1) D 08/11/17 06:00 Sodium 137 mmol/L (136-145) 08/11/17 06:00 Potassium 3.7 mmol/L (3.5-5.1) 08/11/17 06:00 Chloride 101 mmol/L (98-107) 08/11/17 06:00 Carbon Dioxide 26 mmol/L (21-32) 08/11/17 06:00 Anion Gap 10 (8-16) 08/11/17 06:00 BUN 7 mg/dL (7-18) D 08/11/17 06:00 Creatinine 0.9 mg/dL (0.7-1.3) D 08/11/17 06:00 Creat Clearance w eGFR > 60 (>60) 08/11/17 06:00 POC Glucometer 161 UNITS (80-120) 08/12/17 16:36 Random Glucose 190 mg/dL (74-106) H D 08/11/17 06:00 Calcium 9.1 mg/dL (8.5-10.1) 08/11/17 06:00 Total Bilirubin 0.3 mg/dL (0.2-1.0) D 08/11/17 06:00 AST 36 U/L (15-37) 08/11/17 06:00 ALT 26 U/L (12-78) D 08/11/17 06:00 Alkaline Phosphatase 89 U/L (45-117) D 08/11/17 06:00 Total Protein 7.8 g/dl (6.4-8.2) D 08/11/17 06:00 Albumin 4.5 g/dl (3.4-5.0) D 08/11/17 06:00 Urine Color Yellow 08/10/17 13:00 Urine Appearance Slcloudy 08/10/17 13:00 Urine pH 5.0 (5.0-8.0) 08/10/17 13:00 Ur Specific [place] 1.014 (1.001-1.035) 08/10/17 13:00 Urine Protein Negative (NEGATIVE) 08/10/17 13:00 Urine Glucose (UA) Negative (NEGATIVE) 08/10/17 13:00 Urine Ketones Trace (NEGATIVE) H 08/10/17 13:00 Urine Blood Negative (NEGATIVE) 08/10/17 13:00 Urine Nitrite Negative (NEGATIVE) 08/10/17 13:00 Urine Bilirubin Negative (NEGATIVE) 08/10/17 13:00 Urine Urobilinogen Negative mg/dL (0.2-1.0) 08/10/17 13:00 Phenytoin 12.4 ug/ml (10.0-20.0) D 08/12/17 08:00 RPR Titer Nonreactive (NONREACTIVE) 08/11/17 06:00 Hepatitis C Antibody 0.1 s/co ratio (0.0-0.9) 08/10/17 11:00 HIV 1&2 Antibody Screen Negative 08/10/17 11:00 HIV P24 Antigen Negative 08/10/17 11:00 lab noted Assessment: 08/13/17 10:26 withdrawal sx Plan: continue detox
[2017-08-13] MEDS: chlordiazePOXIDE HCL 10 MG CAPSULE PO SCH ×3 (11:00→22:25)
[2017-08-13] MEDS: NICOTINE POLACRILEX 4 MG GUM BUC PRN ×2 (15:45→22:25)
[2017-08-13] MEDS: traZODone HCL 50 MG TABLET (FP) PO SCH (22:25)
[2017-08-13] MEDS: THIAMINE HCL 100 MG TABLET (FP) PO SCH (22:25)
[2017-08-14] MEDS: PHENYTOIN NA EXTENDED 100 MG CAPSULE (FP) PO SCH (05:20)
[2017-08-14] MEDS: chlordiazePOXIDE HCL 10 MG CAPSULE PO SCH (05:20)
[2017-08-14] MEDS: NICOTINE POLACRILEX 4 MG GUM BUC PRN (05:22)
--- NOTE | 2017-08-14 08:29 | DS ---
[facility] Detox Discharge Summary Admission Date: 08/10/17 - History Present History: Alcohol Dependence, Cannabis Dependence Additional Comments: FOLLOW UP WITH AFTER CARE PROGRAM ARRANGEMENT Pertinent Past History: NICOTINE DEPENDENCE SEIZURE ANXIETY - Physical Exam Results Vital Signs: Vital Signs Temperature 97 F L 08/14/17 06:04 Pulse Rate 88 08/14/17 06:04 Respiratory Rate 18 08/14/17 06:04 Blood Pressure 142/79 08/14/17 06:04 O2 Sat by Pulse Oximetry (%) Pertinent Admission Physical Exam Findings: WITHDRAWAL SYMPTOM - Treatment Hospital Course: Detox Protocol Followed, Detoxed Safely, Responded well, Discharged Condition Good Patient has Accepted a Rehab Referral to: [facility] - Medication Discharge Medications: Ambulatory Orders Phenytoin Na Extended [Dilantin -] 100 mg PO TID 08/10/17 - Diagnosis (1) Alcohol dependence with uncomplicated withdrawal Current Visit: Yes Status: Acute (2) History of seizure Current Visit: Yes Status: Acute (3) Anxiety Current Visit: Yes Status: Chronic (4) Cannabis dependence, uncomplicated Current Visit: Yes Status: Chronic (5) Nicotine dependence Current Visit: Yes Status: Chronic (6) Weight decreased Current Visit: No Status: Active (7) Asthmatic bronchitis Current Visit: No Status: Acute - AMA Did Patient Leave Against Medical Advice: No
[2017-08-14 10:22] VITALS: BP 136/92; PULSE 103; TEMP 97.7
== END 2017-08-14 09:30 | disposition home or self-care (01) | DRG 775 ==
LOC: YASAS 08:31 → Y6N 11:26
PROVIDERS: ADMIT Internal Medicine; ATTEND Internal Medicine
PROC: HZ2ZZZZ Detoxification Services for Substance Abuse Treatment (ICD-10-PCS; principal; 2017-08-10)
DX: F10.230 Alcohol dependence with withdrawal, uncomplicated (principal); F12.20 Cannabis dependence, uncomplicated; F17.210 Nicotine dependence, cigarettes, uncomplicated; F41.9 Anxiety disorder, unspecified; G47.00 Insomnia, unspecified; G40.509 Epileptic seizures related to external causes, not intractable, without status epilepticus; R63.4 Abnormal weight loss; Z68.21 Body mass index [BMI] 21.0-21.9, adult
CPT/HCPCS: 36415; 80053; 80185; 81003; 82962; 85027; 86593; 86803; 87389; 90688; 93005; 93010

== ENCOUNTER 2017-08-17 11:48 | Inpatient (IN) | payer OTHER ==
[2017-08-17 12:31] VITALS: BMI 22.1
[2017-08-17] MEDS ORDERED: ACETAMINOPHEN 325 MG TABLET (FP) PO PRN (13:43)
[2017-08-17] MEDS ORDERED: IBUPROFEN 400 MG TABLET (FP) PO PRN (13:43)
[2017-08-17] MEDS ORDERED: guaiFENesin/D-METHORPHAN HB 10 ML UNIT-DOSE CUPS PO PRN (13:43)
[2017-08-17] MEDS ORDERED: MAGNESIUM HYDROX 2400MG/30ML ORAL SUSPENSION 30 ML CUP PO PRN (13:43)
[2017-08-17] MEDS ORDERED: P-EPHED 60MG/TRIPROLIDI 2.5MG TABLET PO PRN (13:43)
[2017-08-17] MEDS ORDERED: MAG HYDROX/AL HYDROX/SIMETH 30 ML UNIT-DOSE CUP PO PRN (13:43)
[2017-08-17] MEDS ORDERED: MAGNESIUM CITRATE 300 ML BOTTLE PO PRN (13:43)
[2017-08-17] MEDS ORDERED: MENTHOL/PHENOL 1 EACH UD MM PRN (13:43)
[2017-08-17] MEDS ORDERED: LOPERAMIDE HCL 2 MG CAPSULE PO PRN (13:43)
--- NOTE | 2017-08-17 13:43 | HP ---
[facility] Re[facility] Assess/Revision - Admission History Admitted to Rehab from: [facility] - Vital signs Vital Signs: Vital Signs Period Temp Pulse Resp BP Sys/Angel Pulse Ox Last 24 Hr 98.3 F 115 18 130/90 - Findings Detox History & Physical reviewed: Yes Concur with findings: Yes
--- NOTE | 2017-08-17 13:49 | HP ---
[facility] Re[facility] Assess/Revision - Vital signs Vital Signs: Vital Signs Period Temp Pulse Resp BP Sys/Angel Pulse Ox Last 24 Hr 98.3 F 115 18 130/90 Inpatient Rehab Admission - Initial Determination Are CD services needed?: Yes Free of communicable disease: Yes Not in need of hospitalization: Yes - Rehab Admission Criteria Poor recovery environment: Yes Comorbidities: Yes
[2017-08-17] MEDS: PHENYTOIN NA EXTENDED 100 MG CAPSULE (FP) PO SCH ×2 (16:13→21:26)
--- NOTE | 2017-08-17 21:04 | PN ---
[facility] Progress Note Note: Psychiatry Attending's on-call note : Made aware of patient's arrival to unit. Asked to enter medications orders. Admitted from [facility].Complaint : insomnia. Diagnosed with MDD/Anxiety Disorder (self-report). Mr Traore admits to past treatment with seroquel. NOT adherent for over two months.Dose : uncertain. Wishes to resume that medication. Records ([facility]) : read. Side effects/benefits discussed. Consent (verbal) given. Seroquel 50 mg po hs. Ordered. Spoke to patient via telephone.
[2017-08-17] MEDS: THIAMINE HCL 100 MG TABLET (FP) PO SCH (21:26)
[2017-08-17] MEDS: QUEtiapine FUMARATE 50 MG TABLET PO SCH (21:27)
[2017-08-17 23:37] LABS: URINE APPEARANCE CLEAR; URINE BILIRUBIN NEGATIVE (NEGATIVE); URINE BLOOD NEGATIVE (NEGATIVE); URINE COLOR LTYELLOW; URINE GLUCOSE (UA) NEGATIVE (NEGATIVE); URINE KETONE NEGATIVE (NEGATIVE); URINE LEUK ESTERASE NEGATIVE (NEGATIVE); URINE NITRITE NEGATIVE (NEGATIVE); URINE PROTEIN NEGATIVE (NEGATIVE); URINE UROBILINOGEN NEGATIVE mg/dL (0.2-1.0)
[2017-08-18] MEDS: PHENYTOIN NA EXTENDED 100 MG CAPSULE (FP) PO SCH ×3 (06:26→21:50)
[2017-08-18] MEDS: NICOTINE POLACRILEX 4 MG GUM BUC PRN ×4 (06:27→21:52)
[2017-08-18] MEDS: NICOTINE 21 MG/24 HOURS TOPICAL PATCH TD SCH (10:09)
[2017-08-18] MEDS: PRENATAL VITAMINS W/ FOLIC ACID TABLET (FP) PO SCH (10:09)
[2017-08-18] MEDS: hydrOXYzine PAMOATE 50 MG CAPSULE (FP) PO PRN ×3 (10:10→21:52)
[2017-08-18] MEDS ORDERED: PHENYTOIN NA EXTENDED 100 MG CAPSULE (FP) PO ONE (11:57)
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
[2017-08-18] MEDS: QUEtiapine FUMARATE 50 MG TABLET PO SCH (21:50)
[2017-08-18] MEDS: THIAMINE HCL 100 MG TABLET (FP) PO SCH (21:50)
[2017-08-18] MEDS ORDERED: QUEtiapine FUMARATE 25 MG TABLET (FP) PO SCH (22:00)
[2017-08-19] MEDS: PHENYTOIN NA EXTENDED 100 MG CAPSULE (FP) PO SCH ×3 (06:24→21:32)
[2017-08-19] MEDS: hydrOXYzine PAMOATE 50 MG CAPSULE (FP) PO PRN ×3 (06:24→21:33)
[2017-08-19] MEDS: NICOTINE POLACRILEX 4 MG GUM BUC PRN ×3 (08:56→21:33)
[2017-08-19] MEDS: PRENATAL VITAMINS W/ FOLIC ACID TABLET (FP) PO SCH (09:00)
[2017-08-19] MEDS: NICOTINE 21 MG/24 HOURS TOPICAL PATCH TD SCH (09:00)
[2017-08-19] MEDS: THIAMINE HCL 100 MG TABLET (FP) PO SCH (21:32)
[2017-08-19] MEDS: QUEtiapine FUMARATE 50 MG TABLET PO SCH (21:32)
[2017-08-20] MEDS: hydrOXYzine PAMOATE 50 MG CAPSULE (FP) PO PRN ×3 (06:22→21:28)
[2017-08-20] MEDS: PHENYTOIN NA EXTENDED 100 MG CAPSULE (FP) PO SCH ×3 (06:22→21:27)
[2017-08-20] MEDS: NICOTINE POLACRILEX 4 MG GUM BUC PRN ×5 (06:23→21:29)
[2017-08-20] MEDS: NICOTINE 21 MG/24 HOURS TOPICAL PATCH TD SCH (09:43)
[2017-08-20] MEDS: PRENATAL VITAMINS W/ FOLIC ACID TABLET (FP) PO SCH (09:43)
[2017-08-20] MEDS: THIAMINE HCL 100 MG TABLET (FP) PO SCH (21:27)
[2017-08-20] MEDS: QUEtiapine FUMARATE 50 MG TABLET PO SCH (21:27)
[2017-08-21] MEDS: PHENYTOIN NA EXTENDED 100 MG CAPSULE (FP) PO SCH ×3 (06:17→21:22)
[2017-08-21] MEDS: NICOTINE POLACRILEX 4 MG GUM BUC PRN ×3 (06:18→21:23)
[2017-08-21] MEDS: hydrOXYzine PAMOATE 50 MG CAPSULE (FP) PO PRN ×4 (06:19→21:22)
[2017-08-21] MEDS: PRENATAL VITAMINS W/ FOLIC ACID TABLET (FP) PO SCH (10:38)
[2017-08-21] MEDS: NICOTINE 21 MG/24 HOURS TOPICAL PATCH TD SCH (10:39)
[2017-08-21] MEDS: THIAMINE HCL 100 MG TABLET (FP) PO SCH (21:22)
[2017-08-21] MEDS: QUEtiapine FUMARATE 50 MG TABLET PO SCH (21:22)
[2017-08-22] MEDS: PHENYTOIN NA EXTENDED 100 MG CAPSULE (FP) PO SCH ×3 (06:19→21:39)
[2017-08-22] MEDS: NICOTINE POLACRILEX 4 MG GUM BUC PRN ×4 (06:20→21:40)
[2017-08-22] MEDS: hydrOXYzine PAMOATE 50 MG CAPSULE (FP) PO PRN ×4 (06:20→21:39)
[2017-08-22] MEDS: PRENATAL VITAMINS W/ FOLIC ACID TABLET (FP) PO SCH (10:29)
[2017-08-22] MEDS: NICOTINE 21 MG/24 HOURS TOPICAL PATCH TD SCH (10:30)
--- NOTE | 2017-08-22 10:43 | PN ---
Psychiatric Progress Note Vital Signs: Vital Signs Period Temp Pulse Resp BP Sys/Angel Pulse Ox Last 24 Hr 97.8 F 74 16-18 111/69 Date of Session: 08/22/17 Chief Complaint:: "anxious" HPI: Patient is addressing alcohol, nicotine dependence comorbid anxiety, mood disorder and insomnia. ROS: WNL Current Medications: Active Medications Generic Name Dose Route Start Last Admin Trade Name Freq PRN Reason Stop Dose Admin Acamprosate 666 mg 08/22/17 14:00 Campral - PO TID JEB Acetaminophen 650 mg 08/17/17 13:43 08/18/17 21:50 Tylenol - PO 650 mg Q4H PRN Administration FEVER Al Hydroxide/Mg Hydroxide 30 ml 08/17/17 13:43 Mylanta Oral Suspension - PO Q6H PRN DYSPEPSIA Eucalyptus/Menthol/Phenol/Sorbitol 1 each 08/17/17 13:43 Cepastat Lozenge - MM Q4H PRN SORE THROAT Guaifenesin 10 ml 08/17/17 13:43 Robitussin Dm - PO Q6H PRN COUGH Hydroxyzine Pamoate 50 mg 08/17/17 13:43 08/22/17 10:31 Vistaril - PO 50 mg Q4H PRN Administration AGITATION Ibuprofen 400 mg 08/17/17 13:43 Motrin - PO Q6H PRN Pain level 4-6 Loperamide HCl 4 mg 08/17/17 13:43 Imodium - PO Q6H PRN DIARRHEA Magnesium Citrate 300 ml 08/17/17 13:43 Citroma - PO Q48H PRN CONSTIPATION Magnesium Hydroxide 30 ml 08/17/17 13:43 Milk Of Magnesia - PO DAILY PRN CONSTIPATION Nicotine 21 mg 08/18/17 10:00 08/22/17 10:30 Nicoderm Patch - TD 21 mg DAILY JEB Administration Nicotine Polacrilex 4 mg 08/17/17 13:43 08/22/17 06:20 Nicorette Gum - BUC 4 mg Q2H PRN Administration NICOTINE REPLACEMENT RX Phenytoin Sodium 100 mg 08/17/17 14:00 08/22/17 06:19 Dilantin - PO 100 mg TID JEB Administration Multivit/Folic Acid/Iron 1 tab 08/18/17 10:00 08/22/17 10:29 Vitamins (Sjr) - PO 1 tab DAILY JEB Administration Pseudoephedrine/Triprolidine 1 combo 08/17/17 13:43 Actifed - PO TID PRN NASAL CONGESTION Quetiapine Fumarate 75 mg 08/22/17 10:34 Seroquel - PO 08/22/17 10:35 ONCE ONE Quetiapine Fumarate 75 mg 08/22/17 22:00 Seroquel - PO BID JEB Thiamine HCl 100 mg 08/17/17 22:00 08/21/17 21:22 Vitamin B1 - PO 100 mg HS JEB Administration Provider note:: Patient reports he feels very anxious and craving for drinking, he reports that feels very uncomfortable "shanae and hand tremors", reviewed medications with the patient, will add Campral 666 mg po tid, patient made aware of Vistaaril PRN for anxiety order, increase seroquel, continue to monitor progress. Psychoeducation regarding medications and supportive therapy provided. Total face to face time:: 15 Mental Status Exam - Mental Status Exam Alert and Oriented to: Time, Place, Person Cognitive Function: Grossly Intact Patient Appearance: Unkempt (fine hands tremor) Mood: Sad, Anxious Affect: Mood Congruent Patient Behavior: Cooperative Speech Pattern: Clear, Appropriate Voice Loudness: Normal Thought Process: Goal Oriented Thought Disorder: Not Present Hallucinations: Denies Suicidal Ideation: Denies Homicidal Ideation: Denies Insight/Judgement: Fair Sleep: Fair Appetite: Fair Muscle strength/Tone: Normal Gait/Station: Normal Psychiatric Treatment Plan - Problem List (1) Alcohol dependence Current Visit: Yes (2) Mood disorder Current Visit: Yes (3) History of seizure Current Visit: No (4) Insomnia Current Visit: No (5) Anxiety Current Visit: No (6) Nicotine dependence Current Visit: No
[2017-08-22] MEDS ORDERED: QUEtiapine FUMARATE 25 MG TABLET (FP) PO ONE (10:57)
[2017-08-22] MEDS: ACAMPROSATE CALCIUM 333 MG TABLET.DR PO SCH ×2 (14:10→21:38)
[2017-08-22] MEDS: QUEtiapine FUMARATE 25 MG TABLET (FP) PO SCH (21:39)
[2017-08-22] MEDS: THIAMINE HCL 100 MG TABLET (FP) PO SCH (21:39)
[2017-08-23] MEDS: PHENYTOIN NA EXTENDED 100 MG CAPSULE (FP) PO SCH ×3 (06:08→21:33)
[2017-08-23] MEDS: ACAMPROSATE CALCIUM 333 MG TABLET.DR PO SCH ×3 (06:08→21:33)
[2017-08-23] MEDS: hydrOXYzine PAMOATE 50 MG CAPSULE (FP) PO PRN ×4 (06:09→21:35)
[2017-08-23] MEDS: NICOTINE POLACRILEX 4 MG GUM BUC PRN ×4 (06:10→21:35)
[2017-08-23] MEDS: NICOTINE 21 MG/24 HOURS TOPICAL PATCH TD SCH (09:51)
[2017-08-23] MEDS: PRENATAL VITAMINS W/ FOLIC ACID TABLET (FP) PO SCH (09:51)
[2017-08-23] MEDS: QUEtiapine FUMARATE 25 MG TABLET (FP) PO SCH ×2 (09:51→21:33)
[2017-08-23] MEDS: THIAMINE HCL 100 MG TABLET (FP) PO SCH (21:34)
[2017-08-24] MEDS: PHENYTOIN NA EXTENDED 100 MG CAPSULE (FP) PO SCH ×3 (06:18→21:35)
[2017-08-24] MEDS: ACAMPROSATE CALCIUM 333 MG TABLET.DR PO SCH ×3 (06:18→21:34)
[2017-08-24] MEDS: NICOTINE POLACRILEX 4 MG GUM BUC PRN ×4 (06:19→21:37)
[2017-08-24] MEDS: hydrOXYzine PAMOATE 50 MG CAPSULE (FP) PO PRN ×4 (06:19→21:37)
[2017-08-24] MEDS: NICOTINE 21 MG/24 HOURS TOPICAL PATCH TD SCH (10:16)
[2017-08-24] MEDS: PRENATAL VITAMINS W/ FOLIC ACID TABLET (FP) PO SCH (10:16)
[2017-08-24] MEDS: QUEtiapine FUMARATE 25 MG TABLET (FP) PO SCH ×2 (10:16→21:35)
--- NOTE | 2017-08-24 11:35 | PN ---
[facility] Progress Note (SOAP) Subjective: c/o insomnia Objective: 08/24/17 11:35 Vital Signs - 24 hr 08/24/17 08/24/17 08/24/17 00:30 03:30 07:21 Temperature 97.8 F Pulse Rate 79 Respiratory 18 18 Rate Blood Pressure 116/85 Laboratory Tests 08/17/17 08/18/17 08/19/17 21:00 07:30 06:25 POC Glucometer 103 Urine Color Ltyellow Urine Appearance Clear Urine pH 6.0 Ur Specific [place] 1.004 Urine Protein Negative Urine Glucose (UA) Negative Urine Ketones Negative Urine Blood Negative Urine Nitrite Negative Urine Bilirubin Negative Urine Urobilinogen Negative Ur Leukocyte Esterase Negative Phenytoin 8.7 L D 08/20/17 08/21/17 08/22/17 06:21 06:20 06:19 POC Glucometer 100 105 106 Urine Color Urine Appearance Urine pH Ur Specific [place] Urine Protein Urine Glucose (UA) Urine Ketones Urine Blood Urine Nitrite Urine Bilirubin Urine Urobilinogen Ur Leukocyte Esterase Phenytoin 08/24/17 06:16 POC Glucometer 102 Urine Color Urine Appearance Urine pH Ur Specific [place] Urine Protein Urine Glucose (UA) Urine Ketones Urine Blood Urine Nitrite Urine Bilirubin Urine Urobilinogen Ur Leukocyte Esterase Phenytoin labs reveiwed Assessment: 08/24/17 11:35 benadryl prn ordered 50mg qHS
[2017-08-24] MEDS ORDERED: PT OWN MED DRAWER 7, Y5N ONE (19:37)
[2017-08-24] MEDS: THIAMINE HCL 100 MG TABLET (FP) PO SCH (21:35)
[2017-08-25] MEDS: ACAMPROSATE CALCIUM 333 MG TABLET.DR PO SCH ×3 (06:17→21:25)
[2017-08-25] MEDS: NICOTINE POLACRILEX 4 MG GUM BUC PRN ×4 (06:18→21:26)
[2017-08-25] MEDS: hydrOXYzine PAMOATE 50 MG CAPSULE (FP) PO PRN ×4 (06:18→21:26)
[2017-08-25] MEDS: PHENYTOIN NA EXTENDED 100 MG CAPSULE (FP) PO SCH ×3 (06:18→21:25)
[2017-08-25] MEDS: PRENATAL VITAMINS W/ FOLIC ACID TABLET (FP) PO SCH (10:06)
[2017-08-25] MEDS: NICOTINE 21 MG/24 HOURS TOPICAL PATCH TD SCH (10:06)
[2017-08-25] MEDS: QUEtiapine FUMARATE 25 MG TABLET (FP) PO SCH ×2 (10:06→21:25)
[2017-08-25] MEDS: THIAMINE HCL 100 MG TABLET (FP) PO SCH (21:25)
[2017-08-26] MEDS: ACAMPROSATE CALCIUM 333 MG TABLET.DR PO SCH ×3 (06:34→21:19)
[2017-08-26] MEDS: PHENYTOIN NA EXTENDED 100 MG CAPSULE (FP) PO SCH ×3 (06:34→21:19)
[2017-08-26] MEDS: hydrOXYzine PAMOATE 50 MG CAPSULE (FP) PO PRN ×4 (06:35→21:18)
[2017-08-26] MEDS: NICOTINE POLACRILEX 4 MG GUM BUC PRN ×4 (06:36→21:19)
[2017-08-26] MEDS: PRENATAL VITAMINS W/ FOLIC ACID TABLET (FP) PO SCH (10:14)
[2017-08-26] MEDS: QUEtiapine FUMARATE 25 MG TABLET (FP) PO SCH ×2 (10:14→21:19)
[2017-08-26] MEDS: NICOTINE 21 MG/24 HOURS TOPICAL PATCH TD SCH (10:15)
[2017-08-26] MEDS: THIAMINE HCL 100 MG TABLET (FP) PO SCH (21:18)
[2017-08-27] MEDS: ACAMPROSATE CALCIUM 333 MG TABLET.DR PO SCH ×3 (06:40→21:21)
[2017-08-27] MEDS: PHENYTOIN NA EXTENDED 100 MG CAPSULE (FP) PO SCH ×3 (06:41→21:21)
[2017-08-27] MEDS: hydrOXYzine PAMOATE 50 MG CAPSULE (FP) PO PRN ×4 (06:41→21:21)
[2017-08-27] MEDS: QUEtiapine FUMARATE 25 MG TABLET (FP) PO SCH ×2 (09:58→21:21)
[2017-08-27] MEDS: NICOTINE 21 MG/24 HOURS TOPICAL PATCH TD SCH (09:58)
[2017-08-27] MEDS: NICOTINE POLACRILEX 4 MG GUM BUC PRN ×4 (09:59→21:21)
[2017-08-27] MEDS: PRENATAL VITAMINS W/ FOLIC ACID TABLET (FP) PO SCH (09:59)
[2017-08-27] MEDS: THIAMINE HCL 100 MG TABLET (FP) PO SCH (21:21)
[2017-08-28] MEDS: PHENYTOIN NA EXTENDED 100 MG CAPSULE (FP) PO SCH ×3 (06:21→21:35)
[2017-08-28] MEDS: ACAMPROSATE CALCIUM 333 MG TABLET.DR PO SCH ×3 (06:21→21:35)
[2017-08-28] MEDS: NICOTINE POLACRILEX 4 MG GUM BUC PRN ×4 (06:21→21:36)
[2017-08-28] MEDS: hydrOXYzine PAMOATE 50 MG CAPSULE (FP) PO PRN ×4 (06:21→21:35)
[2017-08-28] MEDS: QUEtiapine FUMARATE 25 MG TABLET (FP) PO SCH ×2 (10:17→21:35)
[2017-08-28] MEDS: PRENATAL VITAMINS W/ FOLIC ACID TABLET (FP) PO SCH (10:17)
[2017-08-28] MEDS: NICOTINE 21 MG/24 HOURS TOPICAL PATCH TD SCH (10:18)
[2017-08-28] MEDS: THIAMINE HCL 100 MG TABLET (FP) PO SCH (21:35)
[2017-08-29] MEDS: hydrOXYzine PAMOATE 50 MG CAPSULE (FP) PO PRN ×5 (02:10→21:36)
[2017-08-29] MEDS: PHENYTOIN NA EXTENDED 100 MG CAPSULE (FP) PO SCH ×3 (06:17→21:35)
[2017-08-29] MEDS: ACAMPROSATE CALCIUM 333 MG TABLET.DR PO SCH ×3 (06:17→21:35)
[2017-08-29] MEDS: NICOTINE POLACRILEX 4 MG GUM BUC PRN ×4 (06:18→21:37)
[2017-08-29] MEDS: QUEtiapine FUMARATE 25 MG TABLET (FP) PO SCH (10:09)
[2017-08-29] MEDS: PRENATAL VITAMINS W/ FOLIC ACID TABLET (FP) PO SCH (10:09)
[2017-08-29] MEDS: NICOTINE 21 MG/24 HOURS TOPICAL PATCH TD SCH (10:09)
--- NOTE | 2017-08-29 15:42 | PN ---
Psychiatric Progress Note Vital Signs: Vital Signs Period Temp Pulse Resp BP Sys/Angel Pulse Ox Last 24 Hr 97.8 F 81 18-18 115/79 Date of Session: 08/29/17 Chief Complaint:: progress update HPI: Patient is addressing alcohol, nicotine dependence comorbid anxiety, mood disorder and insomnia. ROS: WNL Current Medications: Active Medications Generic Name Dose Route Start Last Admin Trade Name Freq PRN Reason Stop Dose Admin Acamprosate 666 mg 08/22/17 14:00 08/29/17 14:24 Campral - PO 666 mg TID JEB Administration Acetaminophen 650 mg 08/17/17 13:43 08/18/17 21:50 Tylenol - PO 650 mg Q4H PRN Administration FEVER Al Hydroxide/Mg Hydroxide 30 ml 08/17/17 13:43 Mylanta Oral Suspension - PO Q6H PRN DYSPEPSIA Diphenhydramine HCl 50 mg 08/24/17 11:35 Benadryl - PO HS PRN INSOMNIA Eucalyptus/Menthol/Phenol/Sorbitol 1 each 08/17/17 13:43 Cepastat Lozenge - MM Q4H PRN SORE THROAT Guaifenesin 10 ml 08/17/17 13:43 Robitussin Dm - PO Q6H PRN COUGH Hydroxyzine Pamoate 50 mg 08/17/17 13:43 08/29/17 14:24 Vistaril - PO 50 mg Q4H PRN Administration AGITATION Ibuprofen 400 mg 08/17/17 13:43 Motrin - PO Q6H PRN Pain level 4-6 Loperamide HCl 4 mg 08/17/17 13:43 Imodium - PO Q6H PRN DIARRHEA Magnesium Citrate 300 ml 08/17/17 13:43 Citroma - PO Q48H PRN CONSTIPATION Magnesium Hydroxide 30 ml 08/17/17 13:43 Milk Of Magnesia - PO DAILY PRN CONSTIPATION Nicotine 21 mg 08/18/17 10:00 08/29/17 10:09 Nicoderm Patch - TD 21 mg DAILY JEB Administration Nicotine Polacrilex 4 mg 08/17/17 13:43 08/29/17 14:24 Nicorette Gum - BUC 4 mg Q2H PRN Administration NICOTINE REPLACEMENT RX Phenytoin Sodium 100 mg 08/17/17 14:00 08/29/17 14:23 Dilantin - PO 100 mg TID JEB Administration Multivit/Folic Acid/Iron 1 tab 08/18/17 10:00 08/29/17 10:09 Vitamins (Sjr) - PO 1 tab DAILY JEB Administration Pseudoephedrine/Triprolidine 1 combo 08/17/17 13:43 Actifed - PO TID PRN NASAL CONGESTION Quetiapine Fumarate 150 mg 08/29/17 15:32 Seroquel - PO BID JEB Thiamine HCl 100 mg 08/17/17 22:00 08/28/17 21:35 Vitamin B1 - PO 100 mg HS JEB Administration Medication(s) Change(s): increase seroquel 150 mg po bid Current Side Effect: No Lab tests ordered: No Lab tests reviewed: Yes Provider note:: Patient was seen today, he continues to c/o anxiety, mood swings and irritability, reports was on seroquel 300 mg po bid, reviewed medications with the patient, will increase 150 mg po bid, continue to monitor. He reports that Campral effective, he craiving for alcohol have decreased. Side- effects and benefits discussed with the patient, will continue to monitor progress. Total face to face time:: 25 Mental Status Exam - Mental Status Exam Alert and Oriented to: Time, Place, Person Cognitive Function: Good Patient Appearance: Well Groomed Mood: Depressed, Sad, Anxious Affect: Appropriate, Mood Congruent Patient Behavior: Cooperative Speech Pattern: Clear Voice Loudness: Normal Thought Process: Goal Oriented Thought Disorder: Not Present Hallucinations: Denies Suicidal Ideation: Denies Homicidal Ideation: Denies Insight/Judgement: Fair Sleep: Fair Appetite: Fair Muscle strength/Tone: Normal Gait/Station: Normal Psychiatric Treatment Plan - Problem List (1) Alcohol dependence Current Visit: Yes (2) Mood disorder Current Visit: Yes (3) History of seizure Current Visit: No (4) Insomnia Current Visit: No (5) Anxiety Current Visit: No (6) Nicotine dependence Current Visit: No
[2017-08-29] MEDS: THIAMINE HCL 100 MG TABLET (FP) PO SCH (21:35)
[2017-08-29] MEDS: QUEtiapine FUMARATE 50 MG TABLET PO SCH (21:36)
[2017-08-30] MEDS: hydrOXYzine PAMOATE 50 MG CAPSULE (FP) PO PRN ×5 (02:17→23:50)
[2017-08-30] MEDS: PHENYTOIN NA EXTENDED 100 MG CAPSULE (FP) PO SCH ×3 (06:17→21:31)
[2017-08-30] MEDS: ACAMPROSATE CALCIUM 333 MG TABLET.DR PO SCH ×3 (06:17→21:31)
[2017-08-30] MEDS: NICOTINE POLACRILEX 4 MG GUM BUC PRN ×3 (06:18→21:33)
[2017-08-30] MEDS: PRENATAL VITAMINS W/ FOLIC ACID TABLET (FP) PO SCH (10:37)
[2017-08-30] MEDS: QUEtiapine FUMARATE 50 MG TABLET PO SCH ×2 (10:37→21:31)
[2017-08-30] MEDS: NICOTINE 21 MG/24 HOURS TOPICAL PATCH TD SCH (10:38)
[2017-08-30] MEDS: THIAMINE HCL 100 MG TABLET (FP) PO SCH (21:31)
[2017-08-30] MEDS: diphenhydrAMINE HCL 50 MG CAPSULE PO PRN (21:32)
[2017-08-31] MEDS: PHENYTOIN NA EXTENDED 100 MG CAPSULE (FP) PO SCH ×3 (06:13→21:44)
[2017-08-31] MEDS: ACAMPROSATE CALCIUM 333 MG TABLET.DR PO SCH ×3 (06:13→21:44)
[2017-08-31] MEDS: NICOTINE POLACRILEX 4 MG GUM BUC PRN ×3 (06:14→21:46)
[2017-08-31] MEDS: hydrOXYzine PAMOATE 50 MG CAPSULE (FP) PO PRN ×3 (06:14→14:02)
[2017-08-31] MEDS: NICOTINE 21 MG/24 HOURS TOPICAL PATCH TD SCH (10:15)
[2017-08-31] MEDS: PRENATAL VITAMINS W/ FOLIC ACID TABLET (FP) PO SCH (10:15)
[2017-08-31] MEDS: QUEtiapine FUMARATE 50 MG TABLET PO SCH ×2 (10:15→21:44)
[2017-08-31] MEDS: diphenhydrAMINE HCL 50 MG CAPSULE PO PRN (21:46)
[2017-08-31] MEDS: THIAMINE HCL 100 MG TABLET (FP) PO SCH (22:21)
[2017-09-01] MEDS: hydrOXYzine PAMOATE 50 MG CAPSULE (FP) PO PRN ×5 (01:00→21:29)
[2017-09-01] MEDS: NICOTINE POLACRILEX 4 MG GUM BUC PRN ×4 (06:07→21:30)
[2017-09-01] MEDS: PHENYTOIN NA EXTENDED 100 MG CAPSULE (FP) PO SCH ×3 (06:07→21:28)
[2017-09-01] MEDS: ACAMPROSATE CALCIUM 333 MG TABLET.DR PO SCH ×3 (06:07→21:28)
[2017-09-01] MEDS: PRENATAL VITAMINS W/ FOLIC ACID TABLET (FP) PO SCH (10:20)
[2017-09-01] MEDS: NICOTINE 21 MG/24 HOURS TOPICAL PATCH TD SCH (10:20)
[2017-09-01] MEDS: QUEtiapine FUMARATE 50 MG TABLET PO SCH ×2 (10:21→21:28)
[2017-09-01] MEDS: THIAMINE HCL 100 MG TABLET (FP) PO SCH (21:28)
[2017-09-02] MEDS: ACAMPROSATE CALCIUM 333 MG TABLET.DR PO SCH ×3 (06:15→21:29)
[2017-09-02] MEDS: PHENYTOIN NA EXTENDED 100 MG CAPSULE (FP) PO SCH ×3 (06:15→21:29)
[2017-09-02] MEDS: NICOTINE POLACRILEX 4 MG GUM BUC PRN ×4 (06:16→21:30)
[2017-09-02] MEDS: hydrOXYzine PAMOATE 50 MG CAPSULE (FP) PO PRN ×3 (06:16→14:09)
[2017-09-02] MEDS: PRENATAL VITAMINS W/ FOLIC ACID TABLET (FP) PO SCH (10:19)
[2017-09-02] MEDS: QUEtiapine FUMARATE 50 MG TABLET PO SCH ×2 (10:19→21:29)
[2017-09-02] MEDS: NICOTINE 21 MG/24 HOURS TOPICAL PATCH TD SCH (10:20)
[2017-09-02] MEDS: THIAMINE HCL 100 MG TABLET (FP) PO SCH (21:29)
[2017-09-02] MEDS: diphenhydrAMINE HCL 50 MG CAPSULE PO PRN (21:30)
[2017-09-03] MEDS: PHENYTOIN NA EXTENDED 100 MG CAPSULE (FP) PO SCH ×3 (06:22→21:25)
[2017-09-03] MEDS: ACAMPROSATE CALCIUM 333 MG TABLET.DR PO SCH ×3 (06:22→21:25)
[2017-09-03] MEDS: hydrOXYzine PAMOATE 50 MG CAPSULE (FP) PO PRN ×4 (06:23→21:25)
[2017-09-03] MEDS: NICOTINE POLACRILEX 4 MG GUM BUC PRN ×4 (06:24→21:26)
[2017-09-03] MEDS: QUEtiapine FUMARATE 50 MG TABLET PO SCH ×2 (10:13→21:25)
[2017-09-03] MEDS: PRENATAL VITAMINS W/ FOLIC ACID TABLET (FP) PO SCH (10:13)
[2017-09-03] MEDS: NICOTINE 21 MG/24 HOURS TOPICAL PATCH TD SCH (10:13)
[2017-09-03] MEDS: THIAMINE HCL 100 MG TABLET (FP) PO SCH (21:25)
[2017-09-03] MEDS: diphenhydrAMINE HCL 50 MG CAPSULE PO PRN (23:42)
[2017-09-04] MEDS: hydrOXYzine PAMOATE 50 MG CAPSULE (FP) PO PRN ×4 (06:10→21:37)
[2017-09-04] MEDS: PHENYTOIN NA EXTENDED 100 MG CAPSULE (FP) PO SCH ×3 (06:10→21:36)
[2017-09-04] MEDS: ACAMPROSATE CALCIUM 333 MG TABLET.DR PO SCH ×3 (06:10→21:36)
[2017-09-04] MEDS: NICOTINE POLACRILEX 4 MG GUM BUC PRN ×4 (06:11→21:38)
[2017-09-04] MEDS: QUEtiapine FUMARATE 50 MG TABLET PO SCH ×2 (10:27→21:36)
[2017-09-04] MEDS: PRENATAL VITAMINS W/ FOLIC ACID TABLET (FP) PO SCH (10:27)
[2017-09-04] MEDS: NICOTINE 21 MG/24 HOURS TOPICAL PATCH TD SCH (10:27)
[2017-09-04] MEDS: THIAMINE HCL 100 MG TABLET (FP) PO SCH (21:36)
[2017-09-05] MEDS: ACAMPROSATE CALCIUM 333 MG TABLET.DR PO SCH ×3 (06:14→21:26)
[2017-09-05] MEDS: PHENYTOIN NA EXTENDED 100 MG CAPSULE (FP) PO SCH ×3 (06:14→21:26)
[2017-09-05] MEDS: hydrOXYzine PAMOATE 50 MG CAPSULE (FP) PO PRN ×4 (06:17→21:27)
[2017-09-05] MEDS: NICOTINE POLACRILEX 4 MG GUM BUC PRN ×4 (06:17→21:27)
[2017-09-05] MEDS: QUEtiapine FUMARATE 50 MG TABLET PO SCH ×2 (10:17→21:26)
[2017-09-05] MEDS: NICOTINE 21 MG/24 HOURS TOPICAL PATCH TD SCH (10:17)
[2017-09-05] MEDS: PRENATAL VITAMINS W/ FOLIC ACID TABLET (FP) PO SCH (10:17)
[2017-09-05] MEDS: THIAMINE HCL 100 MG TABLET (FP) PO SCH (21:26)
[2017-09-06] MEDS: PHENYTOIN NA EXTENDED 100 MG CAPSULE (FP) PO SCH ×3 (06:07→21:29)
[2017-09-06] MEDS: ACAMPROSATE CALCIUM 333 MG TABLET.DR PO SCH ×3 (06:07→21:29)
[2017-09-06] MEDS: NICOTINE POLACRILEX 4 MG GUM BUC PRN ×4 (06:08→21:30)
[2017-09-06] MEDS: hydrOXYzine PAMOATE 50 MG CAPSULE (FP) PO PRN ×4 (06:08→21:29)
[2017-09-06] MEDS: PRENATAL VITAMINS W/ FOLIC ACID TABLET (FP) PO SCH (10:26)
[2017-09-06] MEDS: NICOTINE 21 MG/24 HOURS TOPICAL PATCH TD SCH (10:26)
[2017-09-06] MEDS: QUEtiapine FUMARATE 50 MG TABLET PO SCH ×2 (10:26→21:29)
[2017-09-06] MEDS: THIAMINE HCL 100 MG TABLET (FP) PO SCH (21:29)
[2017-09-07] MEDS: diphenhydrAMINE HCL 50 MG CAPSULE PO PRN (00:34)
[2017-09-07] MEDS: NICOTINE POLACRILEX 4 MG GUM BUC PRN ×4 (06:14→21:27)
[2017-09-07] MEDS: hydrOXYzine PAMOATE 50 MG CAPSULE (FP) PO PRN ×4 (06:14→21:26)
[2017-09-07] MEDS: PHENYTOIN NA EXTENDED 100 MG CAPSULE (FP) PO SCH ×3 (06:14→21:26)
[2017-09-07] MEDS: ACAMPROSATE CALCIUM 333 MG TABLET.DR PO SCH ×3 (06:14→21:26)
[2017-09-07] MEDS: NICOTINE 21 MG/24 HOURS TOPICAL PATCH TD SCH (10:15)
[2017-09-07] MEDS: QUEtiapine FUMARATE 50 MG TABLET PO SCH ×2 (10:15→21:26)
[2017-09-07] MEDS: PRENATAL VITAMINS W/ FOLIC ACID TABLET (FP) PO SCH (10:15)
[2017-09-07] MEDS: THIAMINE HCL 100 MG TABLET (FP) PO SCH (21:26)
[2017-09-08] MEDS: diphenhydrAMINE HCL 50 MG CAPSULE PO PRN (01:01)
[2017-09-08] MEDS: ACAMPROSATE CALCIUM 333 MG TABLET.DR PO SCH ×3 (06:10→21:30)
[2017-09-08] MEDS: PHENYTOIN NA EXTENDED 100 MG CAPSULE (FP) PO SCH ×3 (06:10→21:30)
[2017-09-08] MEDS: hydrOXYzine PAMOATE 50 MG CAPSULE (FP) PO PRN ×4 (06:11→21:31)
[2017-09-08] MEDS: NICOTINE POLACRILEX 4 MG GUM BUC PRN ×4 (06:11→21:32)
[2017-09-08] MEDS: QUEtiapine FUMARATE 50 MG TABLET PO SCH ×2 (10:15→21:30)
[2017-09-08] MEDS: PRENATAL VITAMINS W/ FOLIC ACID TABLET (FP) PO SCH (10:16)
[2017-09-08] MEDS: NICOTINE 21 MG/24 HOURS TOPICAL PATCH TD SCH (10:16)
[2017-09-08] MEDS: THIAMINE HCL 100 MG TABLET (FP) PO SCH (21:30)
[2017-09-09] MEDS: ACAMPROSATE CALCIUM 333 MG TABLET.DR PO SCH ×3 (06:34→21:51)
[2017-09-09] MEDS: NICOTINE POLACRILEX 4 MG GUM BUC PRN ×4 (06:34→21:52)
[2017-09-09] MEDS: PHENYTOIN NA EXTENDED 100 MG CAPSULE (FP) PO SCH ×3 (06:34→21:51)
[2017-09-09] MEDS: hydrOXYzine PAMOATE 50 MG CAPSULE (FP) PO PRN ×4 (06:34→21:52)
[2017-09-09] MEDS: PRENATAL VITAMINS W/ FOLIC ACID TABLET (FP) PO SCH (10:21)
[2017-09-09] MEDS: QUEtiapine FUMARATE 50 MG TABLET PO SCH ×2 (10:21→21:51)
[2017-09-09] MEDS: NICOTINE 21 MG/24 HOURS TOPICAL PATCH TD SCH (10:23)
[2017-09-09] MEDS: THIAMINE HCL 100 MG TABLET (FP) PO SCH (21:51)
[2017-09-10] MEDS: ACAMPROSATE CALCIUM 333 MG TABLET.DR PO SCH ×3 (06:25→21:43)
[2017-09-10] MEDS: hydrOXYzine PAMOATE 50 MG CAPSULE (FP) PO PRN ×4 (06:25→21:43)
[2017-09-10] MEDS: NICOTINE POLACRILEX 4 MG GUM BUC PRN ×4 (06:25→21:45)
[2017-09-10] MEDS: PHENYTOIN NA EXTENDED 100 MG CAPSULE (FP) PO SCH ×3 (06:25→21:43)
[2017-09-10] MEDS: NICOTINE 21 MG/24 HOURS TOPICAL PATCH TD SCH (10:36)
[2017-09-10] MEDS: QUEtiapine FUMARATE 50 MG TABLET PO SCH ×2 (10:36→21:43)
[2017-09-10] MEDS: PRENATAL VITAMINS W/ FOLIC ACID TABLET (FP) PO SCH (10:36)
[2017-09-10] MEDS: THIAMINE HCL 100 MG TABLET (FP) PO SCH (21:43)
[2017-09-11] MEDS: ACAMPROSATE CALCIUM 333 MG TABLET.DR PO SCH ×3 (06:04→21:36)
[2017-09-11] MEDS: PHENYTOIN NA EXTENDED 100 MG CAPSULE (FP) PO SCH ×3 (06:04→21:37)
[2017-09-11] MEDS: hydrOXYzine PAMOATE 50 MG CAPSULE (FP) PO PRN ×4 (06:05→21:37)
[2017-09-11] MEDS: NICOTINE POLACRILEX 4 MG GUM BUC PRN ×4 (06:05→21:38)
[2017-09-11] MEDS: QUEtiapine FUMARATE 50 MG TABLET PO SCH ×2 (10:40→21:36)
[2017-09-11] MEDS: NICOTINE 21 MG/24 HOURS TOPICAL PATCH TD SCH (10:41)
[2017-09-11] MEDS: PRENATAL VITAMINS W/ FOLIC ACID TABLET (FP) PO SCH (10:41)
[2017-09-11] MEDS: THIAMINE HCL 100 MG TABLET (FP) PO SCH (21:37)
[2017-09-12] MEDS: ACAMPROSATE CALCIUM 333 MG TABLET.DR PO SCH ×3 (06:07→21:20)
[2017-09-12] MEDS: PHENYTOIN NA EXTENDED 100 MG CAPSULE (FP) PO SCH ×3 (06:07→21:20)
[2017-09-12] MEDS: NICOTINE POLACRILEX 4 MG GUM BUC PRN ×4 (06:08→21:21)
[2017-09-12] MEDS: hydrOXYzine PAMOATE 50 MG CAPSULE (FP) PO PRN ×4 (06:08→21:20)
[2017-09-12] MEDS: NICOTINE 21 MG/24 HOURS TOPICAL PATCH TD SCH (10:40)
[2017-09-12] MEDS: QUEtiapine FUMARATE 50 MG TABLET PO SCH ×2 (10:40→21:20)
[2017-09-12] MEDS: PRENATAL VITAMINS W/ FOLIC ACID TABLET (FP) PO SCH (10:40)
[2017-09-12] MEDS: THIAMINE HCL 100 MG TABLET (FP) PO SCH (21:20)
[2017-09-13] MEDS: PHENYTOIN NA EXTENDED 100 MG CAPSULE (FP) PO SCH ×3 (06:04→21:33)
[2017-09-13] MEDS: ACAMPROSATE CALCIUM 333 MG TABLET.DR PO SCH ×3 (06:04→21:33)
[2017-09-13] MEDS: NICOTINE POLACRILEX 4 MG GUM BUC PRN ×4 (06:04→21:35)
[2017-09-13] MEDS: hydrOXYzine PAMOATE 50 MG CAPSULE (FP) PO PRN ×4 (06:04→21:33)
[2017-09-13] MEDS: NICOTINE 21 MG/24 HOURS TOPICAL PATCH TD SCH (10:18)
[2017-09-13] MEDS: PRENATAL VITAMINS W/ FOLIC ACID TABLET (FP) PO SCH (10:18)
[2017-09-13] MEDS: QUEtiapine FUMARATE 50 MG TABLET PO SCH ×2 (10:18→21:33)
[2017-09-13] MEDS: THIAMINE HCL 100 MG TABLET (FP) PO SCH (21:33)
[2017-09-14] MEDS: hydrOXYzine PAMOATE 50 MG CAPSULE (FP) PO PRN ×2 (06:07→10:20)
[2017-09-14] MEDS: PHENYTOIN NA EXTENDED 100 MG CAPSULE (FP) PO SCH (06:07)
[2017-09-14] MEDS: NICOTINE POLACRILEX 4 MG GUM BUC PRN (06:07)
[2017-09-14] MEDS: ACAMPROSATE CALCIUM 333 MG TABLET.DR PO SCH (06:07)
[2017-09-14 06:58] VITALS: BP 144/73; PULSE 93; TEMP 98.3
[2017-09-14] MEDS: QUEtiapine FUMARATE 50 MG TABLET PO SCH (10:20)
[2017-09-14] MEDS: PRENATAL VITAMINS W/ FOLIC ACID TABLET (FP) PO SCH (10:20)
--- NOTE | 2017-09-14 10:34 | PN ---
Psychiatric Progress Note Vital Signs: Vital Signs Period Temp Pulse Resp BP Sys/Angel Pulse Ox Last 24 Hr 98.3 F 93 16-18 144/73 Date of Session: 09/14/17 Chief Complaint:: discharge visit HPI: Patient is addressing alcohol, nicotine dependence comorbid anxiety, mood disorder and insomnia. ROS: Alcohol related seizures medically managed. Current Medications: Active Medications Generic Name Dose Route Start Last Admin Trade Name Freq PRN Reason Stop Dose Admin Acamprosate 666 mg 08/22/17 14:00 09/14/17 06:07 Campral - PO 666 mg TID JEB Administration Acetaminophen 650 mg 08/17/17 13:43 08/18/17 21:50 Tylenol - PO 650 mg Q4H PRN Administration FEVER Al Hydroxide/Mg Hydroxide 30 ml 08/17/17 13:43 Mylanta Oral Suspension - PO Q6H PRN DYSPEPSIA Diphenhydramine HCl 50 mg 08/24/17 11:35 09/08/17 01:01 Benadryl - PO 50 mg HS PRN Administration INSOMNIA Eucalyptus/Menthol/Phenol/Sorbitol 1 each 08/17/17 13:43 Cepastat Lozenge - MM Q4H PRN SORE THROAT Guaifenesin 10 ml 08/17/17 13:43 Robitussin Dm - PO Q6H PRN COUGH Hydroxyzine Pamoate 50 mg 08/17/17 13:43 09/14/17 10:20 Vistaril - PO 50 mg Q4H PRN Administration AGITATION Ibuprofen 400 mg 08/17/17 13:43 Motrin - PO Q6H PRN Pain level 4-6 Loperamide HCl 4 mg 08/17/17 13:43 Imodium - PO Q6H PRN DIARRHEA Magnesium Citrate 300 ml 08/17/17 13:43 Citroma - PO Q48H PRN CONSTIPATION Magnesium Hydroxide 30 ml 08/17/17 13:43 Milk Of Magnesia - PO DAILY PRN CONSTIPATION Nicotine 21 mg 08/18/17 10:00 09/13/17 10:18 Nicoderm Patch - TD 21 mg DAILY JEB Administration Nicotine Polacrilex 4 mg 08/17/17 13:43 09/14/17 06:07 Nicorette Gum - BUC 4 mg Q2H PRN Administration NICOTINE REPLACEMENT RX Phenytoin Sodium 100 mg 08/17/17 14:00 09/14/17 06:07 Dilantin - PO 100 mg TID JEB Administration Multivit/Folic Acid/Iron 1 tab 08/18/17 10:00 09/14/17 10:20 Vitamins (Sjr) - PO 1 tab DAILY JEB Administration Pseudoephedrine/Triprolidine 1 combo 08/17/17 13:43 Actifed - PO TID PRN NASAL CONGESTION Quetiapine Fumarate 150 mg 08/29/17 22:00 09/14/17 10:20 Seroquel - PO 150 mg BID JEB Administration Thiamine HCl 100 mg 08/17/17 22:00 09/13/17 21:33 Vitamin B1 - PO 100 mg HS JEB Administration Current Side Effect: No Lab tests ordered: No Lab tests reviewed: Yes Provider note:: Patient has completed today his treatment and met his goals, will continue to address his issues at [facility] in the [facility] term inpatient treatment program. Patient reports ahs been feeling much better, he is less anxious, his sleep habit improved and reports no craiving for alcohol since has been taking Campral. Patient focused on importance to continue maintain abstinence, utilazing all supports available to porevent relapses, patient was enouraged to use alterantive ways to prevent relapses, scripts for Campar and Seroquel for 30 days e-transferred to [facility] pharmacy. Patient is stable for discharge today. Total face to face time:: 35 Mental Status Exam - Mental Status Exam Alert and Oriented to: Time, Place, Person Cognitive Function: Good Patient Appearance: Well Groomed Mood: Hopeful Affect: Appropriate, Mood Congruent Patient Behavior: Appropriate, Cooperative Speech Pattern: Clear, Appropriate Voice Loudness: Normal Thought Process: Intact, Goal Oriented Thought Disorder: Not Present Hallucinations: Denies Suicidal Ideation: Denies Homicidal Ideation: Denies Insight/Judgement: Fair Sleep: Well Appetite: Good Muscle strength/Tone: Normal Gait/Station: Normal Psychiatric Treatment Plan - Problem List (1) Alcohol dependence Current Visit: Yes (2) Mood disorder Current Visit: Yes (3) History of seizure Current Visit: No (4) Insomnia Current Visit: No (5) Anxiety Current Visit: No (6) Nicotine dependence Current Visit: No
[2017-09-14] MEDS: NICOTINE 21 MG/24 HOURS TOPICAL PATCH TD SCH (10:36)
== END 2017-09-14 12:30 | disposition home or self-care (01) | DRG 772 ==
LOC: YASAS 11:48 → Y5N 14:35
PROVIDERS: ADMIT Psychiatry & Neurology Psychiatry; ATTEND Psychiatry & Neurology Psychiatry
PROC: HZ42ZZZ Group Counseling for Substance Abuse Treatment, Cognitive-Behavioral (ICD-10-PCS; principal; 2017-08-17)
DX: F10.20 Alcohol dependence, uncomplicated (principal); F17.210 Nicotine dependence, cigarettes, uncomplicated; F39 Unspecified mood [affective] disorder; F41.9 Anxiety disorder, unspecified; G47.00 Insomnia, unspecified; Z86.69 Personal history of other diseases of the nervous system and sense organs
CPT/HCPCS: 36415; 80185; 81003; 82962

== ENCOUNTER 2017-12-12 19:13 | Inpatient (IN) | payer OTHER ==
[2017-12-12 22:35] VITALS: BMI 26.6
--- NOTE | 2017-12-13 01:24 | HP ---
CIWA Score - CIWA Score Nausea/Vomitin-Mild Nausea/No Vomiting Muscle Tremors: 4-Moderate,w/Arms Extend Anxiety: 4-Mod. Anxious/Guarded Agitation: 4-Moderately Restless Paroxysmal Sweats: No Perspiration Orientation: 0-Oriented Tacttile Disturbances: 0-None Auditory Disturbances: 0-None Visual Disturbances: 0-None Headache: 4-Moderately Severe CIWA-Ar Total Score: 17 Admission ROS S - HPI Chief Complaint: alcohol withdrawal symptoms Allergies/Adverse Reactions: Allergies Allergy/AdvReac Type Severity Reaction Status Date / Time No Known Allergies Allergy Verified 08/17/17 13:25 History of Present Illness: 42 years old male with a long history of alcohol dependence is seeking admission to detox. Patient has been in previous detox and reports 9 months of sobriety. He has past medical history of seizures, asthmatic bronchitis, depression and anxiety. He reports suicide attempt in 2016 and denies suicidal ideation at this time. Exam Limitations: No Limitations - Ebola screening Have you traveled outside of the country in the last 21 days: No ([place]) Have you had contact with anyone from an Ebola affected area: No Have you been sick,other than usual withdrawal symptoms: No Do you have a fever: No - Review of Systems Constitutional: Chills, Malaise, Night Sweats, Changes in sleep EENT: reports: Other (uses prescription glasses) Respiratory: reports: No Symptoms reported Cardiac: reports: No Symptoms Reported GI: reports: Poor Appetite, Poor Fluid Intake, Abdominal cramping : reports: No Symptoms Reported Musculoskeletal: reports: No Symptoms Reported Integumentary: reports: Dryness, Flushing Neuro: reports: Tingling, Tremors Endocrine: reports: No Symptoms Reported Hematology: reports: No Symptoms Reported Psychiatric: reports: Anxious, Depressed Other Systems: Reviewed and Negative Patient History - Patient Medical History Hx Anemia: No Hx Asthma: No Hx Chronic Obstructive Pulmonary Disease (COPD): No Hx Cancer: No Hx Cardiac Disorders: No Hx Congestive Heart Failure: No Hx Hypertension: No Hx Hypercholesterolemia: No Hx Pacemaker: No HX Cerebrovascular Accident: No Hx Seizures: Yes (Phenytoin) Hx Dementia: No Hx Diabetes: No Hx Gastrointestinal Disorders: No Hx Liver Disease: No Hx Genitourinary Disorders: No Hx Sexually Transmitted Disorders: No Hx Renal Disease (ESRD): No Hx Thyroid Disease: No Hx Human Immunodeficiency Virus (HIV): No (Negative 2015) Hx Hepatitis C: No Hx Depression: Yes (Remeron, Seroquel) Hx Suicide Attempt: No (Attempt in 2016, denies suicidal ideation now) Hx Bipolar Disorder: No Hx Schizophrenia: No - Patient Surgical History Past Surgical History: Yes Hx Neurologic Surgery: No Hx Cataract Extraction: No Hx Cardiac Surgery: No Hx Lung Surgery: No Hx Breast Surgery: No Hx Breast Biopsy: No Hx Abdominal Surgery: No Hx Appendectomy: No Hx Cholecystectomy: No Hx Genitourinary Surgery: No Hx Section: No Hx Orthopedic Surgery: No Other Surgical History: removal of R kidney stones 10 yrs ago, right /tendon repair R hand 6yrs ago Anesthesia Reaction: No - PPD History Previous Implant?: Yes Documented Results: Negative w/proof Implanted On Prior [facility] Admission?: Yes Date: 11/07/16 Results: 0 mm PPD to be Administered?: Yes - Reproductive History Patient is a Female of Child Bearing Age (11 -55 yrs old): No (Male) - Smoking Cessation Smoking history: Current every day smoker Have you smoked in the past 12 months: Yes Aproximately how many cigarettes per day: 40 Cigars Per Day: 0 Hx Chewing Tobacco Use: No Initiated information on smoking cessation: Yes 'Breaking Loose' booklet given: 12/13/17 - Substance & Tx. History Hx Alcohol Use: Yes Substance Use Type: Alcohol Hx Substance Use Treatment: Yes ([facility]) - Substances Abused Alcohol Route: Oral Frequency: Daily Amount used: BEER - 6 packs, GIN/VODKA - 2 Gallons Age of first use: 8 Date of Last Use: 12/12/17 Family Disease History - Family Disease History Family Disease History: CA: Mother ( age 65 from breast cancer mets to bone) Admission Physical Exam S - Vital Signs Vital Signs: Vital Signs - 24 hr 12/12/17 22:33 Temperature 98.7 F Pulse Rate 108 H Respiratory 20 Rate Blood Pressure 135/82 - Physical General Appearance: Yes: Moderate Distress, Tremorous, Irritable, Sweating, Anxious HEENTM: Yes: EOMI, Normal ENT Inspection, Normal Voice, SARIAH Respiratory: Yes: Lungs Clear, Normal Breath Sounds, No Respiratory Distress Neck: Yes: Supple Breast: Yes: Breast Exam Deferred Cardiology: Yes: Tachycardia Abdominal: Yes: Normal Bowel Sounds, Soft Genitourinary: Yes: Within Normal Limits Back: Yes: Normal Inspection Musculoskeletal: Yes: Within Normal Limits Extremities: Yes: Tremors Neurological: Yes: Alert, Normal Mood/Affect Integumentary: Yes: Dry Lymphatic: Yes: Within Normal Limits - Diagnostic (1) Seizure Current Visit: Yes Status: Acute (2) Alcohol dependence with uncomplicated withdrawal Current Visit: Yes Status: Chronic (3) Asthmatic bronchitis Current Visit: Yes Status: Chronic (4) Anxiety Current Visit: Yes Status: Chronic (5) Depression Current Visit: Yes Status: Chronic Qualifiers: Depression Type: unspecified Qualified Code(s): F32.9 - Major depressive disorder, single episode, unspecified (6) Nicotine dependence Current Visit: Yes Status: Chronic Cleared for Admission [facility] - Detox or Rehab [facility] Level of Care: Medically Managed Detox Regimen/Protocol: Librium [facility] Breath Alcohol Content Breath Alcohol Content: 0.102 Urine Drug Screen - Results Drug Screen Negative: Yes
[2017-12-13] MEDS ORDERED: chlordiazePOXIDE HCL 25 MG CAPSULE PO PRN (01:35)
[2017-12-13] MEDS ORDERED: MAG HYDROX/AL HYDROX/SIMETH 30 ML UNIT-DOSE CUP PO PRN (01:35)
[2017-12-13] MEDS ORDERED: MAGNESIUM HYDROX 2400MG/30ML ORAL SUSPENSION 30 ML CUP PO PRN (01:35)
[2017-12-13] MEDS ORDERED: ACETAMINOPHEN 325 MG TABLET (FP) PO PRN (01:35)
[2017-12-13] MEDS ORDERED: MENTHOL/PHENOL 1 EACH UD MM PRN (01:35)
[2017-12-13] MEDS ORDERED: MAGNESIUM CITRATE 300 ML BOTTLE PO PRN (01:35)
[2017-12-13] MEDS ORDERED: chlordiazePOXIDE HCL 25 MG CAPSULE PO ONE (01:35)
[2017-12-13] MEDS ORDERED: P-EPHED 60MG/TRIPROLIDI 2.5MG TABLET PO PRN (01:35)
[2017-12-13] MEDS ORDERED: IBUPROFEN 400 MG TABLET (FP) PO PRN (01:35)
[2017-12-13] MEDS ORDERED: LOPERAMIDE HCL 2 MG CAPSULE PO PRN (01:35)
[2017-12-13] MEDS ORDERED: guaiFENesin/D-METHORPHAN HB 10 ML UNIT-DOSE CUPS PO PRN (01:35)
[2017-12-13] MEDS: chlordiazePOXIDE HCL 25 MG CAPSULE PO SCH ×4 (06:00→22:27)
[2017-12-13] MEDS: PHENYTOIN NA EXTENDED 100 MG CAPSULE (FP) PO SCH ×3 (07:00→22:28)
[2017-12-13] MEDS: NICOTINE 14 MG/24 HOURS TOPICAL PATCH TD SCH (10:15)
[2017-12-13] MEDS: levETIRAcetam 500 MG TABLET (FP) PO SCH ×2 (10:15→22:28)
[2017-12-13] MEDS: PRENATAL VITAMINS W/ FOLIC ACID TABLET (FP) PO SCH (10:15)
[2017-12-13] MEDS: ASPIRIN 81 MG CHEWABLE TABLETS PO SCH (10:15)
--- NOTE | 2017-12-13 11:39 | PN ---
[facility] Progress Note Note: ADMITTED EARLIER TODAY.C/O BACK PAIN AND FATIGUE. ALERT O X 3. PLAN: MOTRIN PRN INCREASE PO FLUIDS
--- NOTE | 2017-12-13 13:31 | CONSULT ---
[facility] Psychiatric Consult - Data Date of interview: 12/13/17 Admission source: [facility] Identifying data: Readmission to [facility] for this 42 y/o male seeking detox treatment on for alcohol and cannabis dependence ( toxicology is negative on admission).Patient is ,a father of one, homeless,unemployed and supported on food stamps. Substance Abuse History: Confirmed by patient in this session.Details in current [facility] report : Smoking history: Current every day smoker. Have you smoked in the past 12 months: Yes. Aproximately how many cigarettes per day: 40. Cigars Per Day: 0. Hx Chewing Tobacco Use: No. Initiated information on smoking cessation: Yes. 'Breaking Loose' booklet given: 12/13/17. - Substance & Tx. History. Hx Alcohol Use: Yes. Substance Use Type: Alcohol. Hx Substance Use Treatment: Yes ([facility]). - Substances Abused. Alcohol. Route: Oral. Frequency: Daily. Amount used: BEER - 6 packs, GIN/VODKA - 2 Gallons. Age of first use: 8. Date of Last Use: 12/12/17 Medical History: History of withdrawal-related seizures,lithotripsy 10 years ago and orthosurgery (tendon repair in right hand). Psychiatric History: No reported history of psychiatric hospitalizations.Patient sees a psychiatrist, Dr Meehan, at a mental health clinic in [facility], for medication management.Diagnosed with MDD and Anxiety Disorder.Prescribed a regimen of seroquel 300 mg/bid + remeron 45 mg/hs.Mr Traore denies history of suicide attempts in this interview. Physical/Sexual Abuse/Trauma History: Patient denies. Additional Comment: Drug Screen is negative. Mental Status Exam - Mental Status Exam Alert and Oriented to: Time, Place, Person Cognitive Function: Good Patient Appearance: Well Groomed (tattoos on both forearms) Mood: Withdrawn, Anxious Affect: Mood Congruent Patient Behavior: Fatigued, Cooperative Speech Pattern: Clear, Appropriate Voice Loudness: Normal Thought Process: Goal Oriented Thought Disorder: Not Present Hallucinations: Denies Suicidal Ideation: Denies Homicidal Ideation: Denies Insight/Judgement: Poor Sleep: Poorly, Difficulty falling asleep Appetite: Good Muscle strength/Tone: Normal Gait/Station: Normal Psychiatric Findings - Problem List ([place] 1, 2,3) (1) Alcohol dependence with uncomplicated withdrawal Current Visit: Yes Status: Chronic (2) Nicotine dependence Current Visit: Yes Status: Acute (3) MDD (major depressive disorder) Current Visit: Yes Status: Chronic Comment: As per existing records and self -report. (4) Insomnia Current Visit: Yes Status: Acute - Initial Treatment Plan Initial Treatment Plan: Psychoeducation.Sleep hygiene.Detoxification.Medications : remeron 15 mg po hs + seroquel 200 mg po hs.Side effects/benefits of both drugs are discussed with the patient.Mr Traore agrees with this careplan.Observation.
--- NOTE | 2017-12-13 13:53 | EKG ---
Test Reason : Blood Pressure : / mmHG Vent. Rate : 120 BPM Atrial Rate : 120 BPM P-R Int : 126 ms QRS Dur : 088 ms QT Int : 328 ms P-R-T Axes : 065 082 037 degrees QTc Int : 463 ms SINUS TACHYCARDIA OTHERWISE NORMAL ECG WHEN COMPARED WITH ECG OF 17-AUG-2017 22:39, NO SIGNIFICANT CHANGE WAS FOUND Confirmed by JOSE G ORDAZ MD ([id number]) on 12/13/2017 1:53:01 PM Referred By: Confirmed By:JOSE G ORDAZ MD
[2017-12-13] MEDS: NICOTINE POLACRILEX 2 MG GUM BC PRN ×2 (17:33→22:32)
[2017-12-13] MEDS: THIAMINE HCL 100 MG TABLET (FP) PO SCH (22:27)
[2017-12-13] MEDS: ATORVASTATIN CA 10 MG TABLET (FP) PO SCH (22:28)
[2017-12-13] MEDS: MIRTAZAPINE 15 MG TABLET (FP) PO SCH (22:28)
[2017-12-13] MEDS: QUEtiapine FUMARATE 200 MG TABLET PO SCH (22:28)
[2017-12-13] MEDS: MELATONIN 5 MG TABLETS PO PRN (22:30)
[2017-12-13 23:11] LABS: URINE APPEARANCE CLEAR; URINE BILIRUBIN NEGATIVE (<2.0 mg/dL); URINE COLOR YELLOW; URINE GLUCOSE (UA) NEGATIVE (NEGATIVE); URINE KETONE NEGATIVE (NEGATIVE); URINE LEUK ESTERASE NEGATIVE (NEGATIVE); URINE NITRITE NEGATIVE (NEGATIVE); URINE PROTEIN NEGATIVE (NEGATIVE); URINE UROBILINOGEN NEGATIVE mg/dL (0.2-1.0)
[2017-12-14] MEDS: chlordiazePOXIDE HCL 25 MG CAPSULE PO SCH ×4 (05:25→23:04)
[2017-12-14] MEDS: PHENYTOIN NA EXTENDED 100 MG CAPSULE (FP) PO SCH ×3 (05:25→23:04)
[2017-12-14 10:05] LABS: HEMATOCRIT 41.3 % (35.4-49); HEMOGLOBIN 14.3 GM/dL (11.7-16.9); MCH 32.8 pg (25.7-33.7); MCHC 34.5 g/dl (32.0-35.9); MEAN CELL VOLUME 94.9 fl (80-96); MEAN PLT VOLUME 7.6 fl (7.5-11.1); PLATELET COUNT 318 K/MM3 (134-434); RBC 4.36 M/mm3 (4.00-5.60); RDW 13.6 % (11.9-15.9); WHITE BLOOD COUNT 8.2 K/mm3 (4.0-10.0)
[2017-12-14 10:13] LABS: CHLORIDE 110 mmol/L (98-107); SODIUM 142 mmol/L (136-145)
[2017-12-14] MEDS: PRENATAL VITAMINS W/ FOLIC ACID TABLET (FP) PO SCH (10:17)
[2017-12-14] MEDS: levETIRAcetam 500 MG TABLET (FP) PO SCH ×2 (10:18→23:04)
[2017-12-14] MEDS: NICOTINE 14 MG/24 HOURS TOPICAL PATCH TD SCH (10:18)
[2017-12-14] MEDS: ASPIRIN 81 MG CHEWABLE TABLETS PO SCH (10:18)
[2017-12-14 10:35] LABS: ALBUMIN 3.5 g/dl (3.4-5.0); ALK PHOS 90 U/L (45-117); ANION GAP 8 (8-16); BILIRUBIN,TOTAL 0.4 mg/dL (0.2-1.0); BLOOD UREA NITROGEN 12 mg/dL (7-18); CALCIUM 8.2 mg/dL (8.5-10.1); CO2 24 mmol/L (21-32); CREATININE 0.7 mg/dL (0.7-1.3); GLUCOSE,RANDOM 103 mg/dL (74-106); SGOT/AST 27 U/L (15-37); SGPT/ALT 25 U/L (12-78); TOT PROT 6.1 g/dl (6.4-8.2)
--- NOTE | 2017-12-14 11:22 | PN ---
[facility] CIWA - CIWA Score Nausea/Vomitin-No Nausea/No Vomiting Muscle Tremors: 4-Moderate,w/Arms Extend Anxiety: 4-Mod. Anxious/Guarded Agitation: 4-Moderately Restless Paroxysmal Sweats: 1-Minimal Palms Moist Orientation: 0-Oriented Tacttile Disturbances: 0-None Auditory Disturbances: 0-None Visual Disturbances: 0-None Headache: 0-None Present CIWA-Ar Total Score: 13 S Progress Note (SOAP) Subjective: ANXIETY,SWEATS,TREMORS,FATIGUE. Objective: 12/14/17 11:21 Vital Signs 12/14/17 12/14/17 12/14/17 03:30 06:22 06:30 Temperature 97.1 F L Pulse Rate 86 Respiratory 18 18 18 Rate Blood Pressure 106/69 12/14/17 09:22 Temperature 98.8 F Pulse Rate 83 Respiratory 18 Rate Blood Pressure 132/76 Laboratory Last Values WBC 8.2 K/mm3 (4.0-10.0) 12/14/17 07:00 RBC 4.36 M/mm3 (4.00-5.60) 12/14/17 07:00 Hgb 14.3 GM/dL (11.7-16.9) 12/14/17 07:00 Hct 41.3 % (35.4-49) 12/14/17 07:00 MCV 94.9 fl (80-96) 12/14/17 07:00 MCH 32.8 pg (25.7-33.7) 12/14/17 07:00 MCHC 34.5 g/dl (32.0-35.9) 12/14/17 07:00 RDW 13.6 % (11.9-15.9) 12/14/17 07:00 Plt Count 318 K/MM3 (134-434) 12/14/17 07:00 MPV 7.6 fl (7.5-11.1) 12/14/17 07:00 Sodium 142 mmol/L (136-145) 12/14/17 07:00 Potassium 4.0 mmol/L (3.5-5.1) 12/14/17 07:00 Chloride 110 mmol/L (98-107) H 12/14/17 07:00 Carbon Dioxide 24 mmol/L (21-32) 12/14/17 07:00 Anion Gap 8 (8-16) 12/14/17 07:00 BUN 12 mg/dL (7-18) D 12/14/17 07:00 Creatinine 0.7 mg/dL (0.7-1.3) D 12/14/17 07:00 Creat Clearance w eGFR > 60 (>60) 12/14/17 07:00 Random Glucose 103 mg/dL (74-106) D 12/14/17 07:00 Calcium 8.2 mg/dL (8.5-10.1) L 12/14/17 07:00 Total Bilirubin 0.4 mg/dL (0.2-1.0) D 12/14/17 07:00 AST 27 U/L (15-37) D 12/14/17 07:00 ALT 25 U/L (12-78) 12/14/17 07:00 Alkaline Phosphatase 90 U/L (45-117) 12/14/17 07:00 Total Protein 6.1 g/dl (6.4-8.2) L D 12/14/17 07:00 Albumin 3.5 g/dl (3.4-5.0) D 12/14/17 07:00 Urine Color Yellow 12/13/17 21:29 Urine Appearance Clear 12/13/17 21:29 Urine pH 5.0 (5.0-8.0) 12/13/17 21:29 Ur Specific [place] 1.025 (1.001-1.035) 12/13/17 21:29 Urine Protein Negative (NEGATIVE) 12/13/17 21:29 Urine Glucose (UA) Negative (NEGATIVE) 12/13/17 21:29 Urine Ketones Negative (NEGATIVE) 12/13/17 21:29 Urine Blood Negative (NEGATIVE) 12/13/17 21:29 Urine Nitrite Negative (NEGATIVE) 12/13/17 21:29 Urine Bilirubin Negative (<2.0 mg/dL) 12/13/17 21:29 Urine Urobilinogen Negative mg/dL (0.2-1.0) 12/13/17 21:29 Ur Leukocyte Esterase Negative (NEGATIVE) 12/13/17 21:29 Assessment: 12/14/17 11:21 WITHDRAWAL SX Plan: CONTINUE DETOX
[2017-12-14] MEDS: NICOTINE POLACRILEX 2 MG GUM BC PRN (14:54)
[2017-12-14] MEDS: QUEtiapine FUMARATE 200 MG TABLET PO SCH (23:05)
[2017-12-14] MEDS: ATORVASTATIN CA 10 MG TABLET (FP) PO SCH (23:05)
[2017-12-14] MEDS: MIRTAZAPINE 15 MG TABLET (FP) PO SCH (23:05)
[2017-12-14] MEDS: MELATONIN 5 MG TABLETS PO PRN (23:06)
[2017-12-14] MEDS: THIAMINE HCL 100 MG TABLET (FP) PO SCH (23:29)
[2017-12-15] MEDS: chlordiazePOXIDE 5 MG CAPSULE PO SCH ×4 (05:09→22:13)
[2017-12-15] MEDS: PHENYTOIN NA EXTENDED 100 MG CAPSULE (FP) PO SCH ×3 (05:09→22:12)
[2017-12-15] MEDS: PRENATAL VITAMINS W/ FOLIC ACID TABLET (FP) PO SCH (10:16)
[2017-12-15] MEDS: ASPIRIN 81 MG CHEWABLE TABLETS PO SCH (10:16)
[2017-12-15] MEDS: levETIRAcetam 500 MG TABLET (FP) PO SCH ×2 (10:16→22:12)
[2017-12-15] MEDS: NICOTINE 14 MG/24 HOURS TOPICAL PATCH TD SCH (10:17)
[2017-12-15] MEDS: NICOTINE POLACRILEX 2 MG GUM BC PRN ×3 (10:18→22:19)
--- NOTE | 2017-12-15 12:18 | PN ---
S CIWA - CIWA Score Nausea/Vomitin-No Nausea/No Vomiting Muscle Tremors: 3 Anxiety: 4-Mod. Anxious/Guarded Agitation: 3 Paroxysmal Sweats: 1-Minimal Palms Moist Orientation: 0-Oriented Tacttile Disturbances: 0-None Auditory Disturbances: 0-None Visual Disturbances: 0-None Headache: 0-None Present CIWA-Ar Total Score: 11 BHS Progress Note (SOAP) Subjective: ANXIETY,SWEATS. OOB AMBULATING WITH STEADY GAIT, Objective: 12/15/17 12:17 Vital Signs 12/15/17 12/15/17 06:19 10:00 Temperature 97.9 F 96.8 F L Pulse Rate 82 92 H Respiratory 18 16 Rate Blood Pressure 101/65 119/74 Laboratory Tests 12/13/17 12/14/17 12/14/17 21:29 07:00 07:00 WBC 8.2 RBC 4.36 Hgb 14.3 Hct 41.3 MCV 94.9 MCH 32.8 MCHC 34.5 RDW 13.6 Plt Count 318 MPV 7.6 Sodium 142 Potassium 4.0 Chloride 110 H Carbon Dioxide 24 Anion Gap 8 BUN 12 D Creatinine 0.7 D Creat Clearance w eGFR > 60 Random Glucose 103 D Calcium 8.2 L Total Bilirubin 0.4 D AST 27 D ALT 25 Alkaline Phosphatase 90 Total Protein 6.1 L D Albumin 3.5 D Urine Color Yellow Urine Appearance Clear Urine pH 5.0 Ur Specific [place] 1.025 Urine Protein Negative Urine Glucose (UA) Negative Urine Ketones Negative Urine Blood Negative Urine Nitrite Negative Urine Bilirubin Negative Urine Urobilinogen Negative Ur Leukocyte Esterase Negative RPR Titer 12/14/17 07:00 WBC RBC Hgb Hct MCV MCH MCHC RDW Plt Count MPV Sodium Potassium Chloride Carbon Dioxide Anion Gap BUN Creatinine Creat Clearance w eGFR Random Glucose Calcium Total Bilirubin AST ALT Alkaline Phosphatase Total Protein Albumin Urine Color Urine Appearance Urine pH Ur Specific [place] Urine Protein Urine Glucose (UA) Urine Ketones Urine Blood Urine Nitrite Urine Bilirubin Urine Urobilinogen Ur Leukocyte Esterase RPR Titer Nonreactive Assessment: 12/15/17 12:18 WITHDRAWAL SX Plan: CONTINUE DETOX
[2017-12-15] MEDS ORDERED: ALBUTEROL SO4 18 GM HFA INHALER IH PRN (12:23)
[2017-12-15] MEDS: THIAMINE HCL 100 MG TABLET (FP) PO SCH (22:12)
[2017-12-15] MEDS: ATORVASTATIN CA 10 MG TABLET (FP) PO SCH (22:12)
[2017-12-15] MEDS: MIRTAZAPINE 15 MG TABLET (FP) PO SCH (22:13)
[2017-12-15] MEDS: QUEtiapine FUMARATE 200 MG TABLET PO SCH (22:13)
[2017-12-15] MEDS: MELATONIN 5 MG TABLETS PO PRN (22:18)
[2017-12-16] MEDS ORDERED: chlordiazePOXIDE HCL 10 MG CAPSULE PO SCH (05:00)
[2017-12-16] MEDS: PHENYTOIN NA EXTENDED 100 MG CAPSULE (FP) PO SCH (05:29)
[2017-12-16 06:20] VITALS: BP 122/77; PULSE 87; TEMP 96.4
--- NOTE | 2017-12-16 18:01 | PN ---
[facility] Progress Note (SOAP) Subjective: Patient denies current Detox symptoms and reports that he feels well overall. Objective: PATIENT A & O X 3, OBSERVED AMBULATING ON UNIT. NO ACUTE DISTRESS. 12/16/17 18:00 Vital Signs Temperature 96.4 F L 12/16/17 06:19 Pulse Rate 87 12/16/17 06:19 Respiratory Rate 18 12/16/17 06:19 Blood Pressure 122/77 12/16/17 06:19 O2 Sat by Pulse Oximetry (%) Laboratory Tests 12/13/17 12/14/17 12/14/17 21:29 07:00 07:00 WBC 8.2 RBC 4.36 Hgb 14.3 Hct 41.3 MCV 94.9 MCH 32.8 MCHC 34.5 RDW 13.6 Plt Count 318 MPV 7.6 Sodium 142 Potassium 4.0 Chloride 110 H Carbon Dioxide 24 Anion Gap 8 BUN 12 D Creatinine 0.7 D Creat Clearance w eGFR > 60 Random Glucose 103 D Calcium 8.2 L Total Bilirubin 0.4 D AST 27 D ALT 25 Alkaline Phosphatase 90 Total Protein 6.1 L D Albumin 3.5 D Urine Color Yellow Urine Appearance Clear Urine pH 5.0 Ur Specific [place] 1.025 Urine Protein Negative Urine Glucose (UA) Negative Urine Ketones Negative Urine Blood Negative Urine Nitrite Negative Urine Bilirubin Negative Urine Urobilinogen Negative Ur Leukocyte Esterase Negative RPR Titer 12/14/17 07:00 WBC RBC Hgb Hct MCV MCH MCHC RDW Plt Count MPV Sodium Potassium Chloride Carbon Dioxide Anion Gap BUN Creatinine Creat Clearance w eGFR Random Glucose Calcium Total Bilirubin AST ALT Alkaline Phosphatase Total Protein Albumin Urine Color Urine Appearance Urine pH Ur Specific [place] Urine Protein Urine Glucose (UA) Urine Ketones Urine Blood Urine Nitrite Urine Bilirubin Urine Urobilinogen Ur Leukocyte Esterase RPR Titer Nonreactive LABS NOTED. Assessment: 12/16/17 18:00 COMPLETION OF DETOX REGIMEN. Plan: PATIENT SCHEDULED FOR DISCHARGE FROM DETOX UNIT TODAY.
--- NOTE | 2017-12-16 18:06 | DS ---
[facility] Detox Discharge Summary Admission Date: 12/12/17 Discharge Date: 12/16/17 - History Present History: Alcohol Dependence Additional Comments: PATIENT GOING HOME FOR THE WEEKEND, THEN WILL GO TO [facility] ([place] ) ON 12/18/2017 FOR AFTERCARE. PATIENT WAS DISCHARGED FROM DETOX UNIT IN STABLE MEDICAL CONDITION. Pertinent Past History: History of Seizure, Depression, Anxiety, Asthmatic Bronchitis, Nicotine Dependence. - Physical Exam Results Vital Signs: Vital Signs Temperature 96.4 F L 12/16/17 06:19 Pulse Rate 87 12/16/17 06:19 Respiratory Rate 18 12/16/17 06:19 Blood Pressure 122/77 12/16/17 06:19 O2 Sat by Pulse Oximetry (%) Pertinent Admission Physical Exam Findings: WITHDRAWAL SYMPTOMS. Laboratory Tests 12/13/17 12/14/17 12/14/17 21:29 07:00 07:00 WBC 8.2 RBC 4.36 Hgb 14.3 Hct 41.3 MCV 94.9 MCH 32.8 MCHC 34.5 RDW 13.6 Plt Count 318 MPV 7.6 Sodium 142 Potassium 4.0 Chloride 110 H Carbon Dioxide 24 Anion Gap 8 BUN 12 D Creatinine 0.7 D Creat Clearance w eGFR > 60 Random Glucose 103 D Calcium 8.2 L Total Bilirubin 0.4 D AST 27 D ALT 25 Alkaline Phosphatase 90 Total Protein 6.1 L D Albumin 3.5 D Urine Color Yellow Urine Appearance Clear Urine pH 5.0 Ur Specific [place] 1.025 Urine Protein Negative Urine Glucose (UA) Negative Urine Ketones Negative Urine Blood Negative Urine Nitrite Negative Urine Bilirubin Negative Urine Urobilinogen Negative Ur Leukocyte Esterase Negative RPR Titer 12/14/17 07:00 WBC RBC Hgb Hct MCV MCH MCHC RDW Plt Count MPV Sodium Potassium Chloride Carbon Dioxide Anion Gap BUN Creatinine Creat Clearance w eGFR Random Glucose Calcium Total Bilirubin AST ALT Alkaline Phosphatase Total Protein Albumin Urine Color Urine Appearance Urine pH Ur Specific [place] Urine Protein Urine Glucose (UA) Urine Ketones Urine Blood Urine Nitrite Urine Bilirubin Urine Urobilinogen Ur Leukocyte Esterase RPR Titer Nonreactive LABS NOTED. - Treatment Hospital Course: Detox Protocol Followed, Detoxed Safely, Responded well, Discharged Condition Good, Rehab Referral Accepted Patient has Accepted a Rehab Referral to: [facility] ([place] - Medication Discharge Medications: Ambulatory Orders Aspirin 81 mg PO DAILY 12/13/17 Atorvastatin Ca [Lipitor] 10 mg PO HS 12/13/17 Mirtazapine [Remeron [DO NOT STOCK]] 45 mg PO DAILY 12/13/17 Quetiapine Fumarate [Seroquel] 300 mg PO BID 12/13/17 levETIRAcetam [Keppra -] 500 mg PO BID 12/13/17 Albuterol Sulfate Inhaler - [Ventolin Hfa Inhaler -] 1 - 2 inh PO Q4H PRN - Diagnosis (1) Weight decreased Status: Active (2) Alcohol dependence with uncomplicated withdrawal Status: Acute (3) Insomnia Status: Acute Qualifiers: Insomnia type: unspecified Qualified Code(s): G47.00 - Insomnia, unspecified (4) Nicotine dependence Status: Acute Qualifiers: Nicotine product type: cigarettes Substance use status: in withdrawal Qualified Code(s): F17.213 - Nicotine dependence, cigarettes, with withdrawal (5) Seizure Status: Acute (6) Anxiety Status: Chronic (7) Asthmatic bronchitis Status: Chronic Qualifiers: Asthma severity: mild Asthma persistence: intermittent Asthma complication type: uncomplicated Qualified Code(s): J45.20 - Mild intermittent asthma, uncomplicated (8) MDD (major depressive disorder) Status: Chronic Qualifiers: Major depression recurrence: unspecified whether recurrent Active/ Remission status: remission status unspecified Qualified Code(s): F32.9 - Major depressive disorder, single episode, unspecified - AMA Did Patient Leave Against Medical Advice: No
== END 2017-12-16 09:00 | disposition home or self-care (01) | DRG 776 ==
LOC: YASAS 19:13 → Y3N 23:52
PROVIDERS: ADMIT Internal Medicine; ATTEND Internal Medicine
PROC: HZ2ZZZZ Detoxification Services for Substance Abuse Treatment (ICD-10-PCS; principal; 2017-12-12)
DX: F17.213 Nicotine dependence, cigarettes, with withdrawal (principal); F41.9 Anxiety disorder, unspecified; F33.9 Major depressive disorder, recurrent, unspecified; G47.00 Insomnia, unspecified; J45.20 Mild intermittent asthma, uncomplicated; Z86.69 Personal history of other diseases of the nervous system and sense organs; Z91.5 Personal history of self-harm
CPT/HCPCS: 36415; 80053; 81003; 85027; 86593; 93005; 93010

== ENCOUNTER 2018-01-03 19:06 | Inpatient (IN) | payer OTHER ==
[2018-01-03 20:56] VITALS: BMI 23.6
--- NOTE | 2018-01-03 23:51 | HP ---
CIWA Score - CIWA Score Nausea/Vomitin (vomiting x 2) Muscle Tremors: 3 Anxiety: 4-Mod. Anxious/Guarded Agitation: 1-Slight > Activity Paroxysmal Sweats: 1-Minimal Palms Moist Orientation: 0-Oriented Tacttile Disturbances: 0-None Auditory Disturbances: 0-None Visual Disturbances: 0-None Headache: 4-Moderately Severe CIWA-Ar Total Score: 16 Admission ROS S - HPI Chief Complaint: Alcohol withdrawal symptoms Allergies/Adverse Reactions: Allergies Allergy/AdvReac Type Severity Reaction Status Date / Time No Known Allergies Allergy Verified 12/13/17 03:19 History of Present Illness: 42 years old male with a long history of alcohol dependence is seeking admission to detox. Patient has been in previous detox and reports 9 months of sobriety. He has past medical history of seizures, asthmatic bronchitis, depression and anxiety. He reports suicide attempt in 2016 and denies suicidal ideation at this time. Exam Limitations: No Limitations - Ebola screening Have you traveled outside of the country in the last 21 days: No Have you had contact with anyone from an Ebola affected area: No Have you been sick,other than usual withdrawal symptoms: No Do you have a fever: No - Review of Systems Constitutional: Chills, Malaise, Changes in sleep, Weakness EENT: reports: No Symptoms Reported Respiratory: reports: No Symptoms reported Cardiac: reports: No Symptoms Reported GI: reports: Poor Appetite, Poor Fluid Intake, Vomiting (x 2), Abdominal cramping : reports: No Symptoms Reported Musculoskeletal: reports: No Symptoms Reported Integumentary: reports: Dryness, Flushing Neuro: reports: Tingling, Tremors Endocrine: reports: No Symptoms Reported Hematology: reports: No Symptoms Reported Psychiatric: reports: Anxious, Depressed Other Systems: Reviewed and Negative Patient History - Patient Medical History Hx Anemia: No Hx Asthma: No Hx Chronic Obstructive Pulmonary Disease (COPD): No Hx Cancer: No Hx Cardiac Disorders: No Hx Congestive Heart Failure: No Hx Hypertension: No Hx Hypercholesterolemia: No Hx Pacemaker: No HX Cerebrovascular Accident: No Hx Seizures: Yes (Phenytoin) Hx Dementia: No Hx Diabetes: No Hx Gastrointestinal Disorders: No Hx Liver Disease: No Hx Genitourinary Disorders: No Hx Sexually Transmitted Disorders: No Hx Renal Disease (ESRD): No Hx Thyroid Disease: No Hx Human Immunodeficiency Virus (HIV): No (Negative 2015) Hx Hepatitis C: No Hx Depression: Yes (Remeron, Seroquel) Hx Suicide Attempt: No (Attempt in 2016, denies suicidal ideation now) Hx Bipolar Disorder: No Hx Schizophrenia: No - Patient Surgical History Past Surgical History: Yes Hx Neurologic Surgery: No Hx Cataract Extraction: No Hx Cardiac Surgery: No Hx Lung Surgery: No Hx Abdominal Surgery: No Hx Appendectomy: No Hx Cholecystectomy: No Hx Genitourinary Surgery: No Hx Section: No Hx Orthopedic Surgery: No Other Surgical History: removal of R kidney stones 10 yrs ago, right /tendon repair R hand 6yrs ago Anesthesia Reaction: No - PPD History Previous Implant?: Yes Documented Results: Negative w/proof Date: 12/15/17 Results: 0 mm PPD to be Administered?: No - Reproductive History Patient is a Female of Child Bearing Age (11 -55 yrs old): No (Male) - Smoking Cessation Smoking history: Current every day smoker Have you smoked in the past 12 months: Yes Aproximately how many cigarettes per day: 40 Cigars Per Day: 0 Hx Chewing Tobacco Use: No Initiated information on smoking cessation: Yes 'Breaking Loose' booklet given: 01/03/18 Family Disease History - Family Disease History Family Disease History: CA: Mother ( age 65 from breast cancer mets to bone) Admission Physical Exam [facility] - Vital Signs Vital Signs: Vital Signs - 24 hr 01/03/18 20:53 Temperature 97.8 F Pulse Rate 100 H Respiratory 18 Rate Blood Pressure 160/98 - Physical General Appearance: Yes: Moderate Distress, Tremorous, Irritable, Sweating, Anxious HEENTM: Yes: EOMI, Normal ENT Inspection, Normocephalic, Normal Voice, SARIAH Respiratory: Yes: Lungs Clear, Normal Breath Sounds, No Respiratory Distress Neck: Yes: Supple Breast: Yes: Breast Exam Deferred Cardiology: Yes: Regular Rhythm, Regular Rate, S1, S2 Abdominal: Yes: Normal Bowel Sounds, Soft Genitourinary: Yes: Within Normal Limits Back: Yes: Normal Inspection Neurological: Yes: Alert, Normal Mood/Affect Lymphatic: Yes: Within Normal Limits - Diagnostic (1) Alcohol dependence with uncomplicated withdrawal Current Visit: Yes Status: Chronic (2) Nicotine dependence Current Visit: Yes Status: Chronic Qualifiers: Nicotine product type: cigarettes Substance use status: in withdrawal Qualified Code(s): F17.213 - Nicotine dependence, cigarettes, with withdrawal (3) Seizure Current Visit: Yes Status: Chronic (4) Anxiety Current Visit: Yes Status: Chronic (5) Asthmatic bronchitis Current Visit: No Status: Chronic Qualifiers: Asthma severity: mild Asthma persistence: intermittent Asthma complication type: uncomplicated Qualified Code(s): J45.20 - Mild intermittent asthma, uncomplicated (6) Cannabis dependence, uncomplicated Current Visit: Yes Status: Chronic (7) Depression Current Visit: Yes Status: Chronic Qualifiers: Depression Type: unspecified Qualified Code(s): F32.9 - Major depressive disorder, single episode, unspecified Cleared for Admission S - Detox or Rehab [facility] Level of Care: Medically Managed Detox Regimen/Protocol: Librium [facility] Breath Alcohol Content Breath Alcohol Content: 0.198 Urine Drug Screen - Results Drug Screen Negative: No Urine Drug Screen Results: THC-Marijuana, BZO-Benzodiazepines
[2018-01-03] MEDS ORDERED: guaiFENesin/D-METHORPHAN HB 10 ML UNIT-DOSE CUPS PO PRN (23:53)
[2018-01-03] MEDS ORDERED: MAGNESIUM CITRATE 300 ML BOTTLE PO PRN (23:53)
[2018-01-03] MEDS ORDERED: P-EPHED 60MG/TRIPROLIDI 2.5MG TABLET PO PRN (23:53)
[2018-01-03] MEDS ORDERED: MAGNESIUM HYDROX 2400MG/30ML ORAL SUSPENSION 30 ML CUP PO PRN (23:53)
[2018-01-03] MEDS ORDERED: ACETAMINOPHEN 325 MG TABLET (FP) PO PRN (23:53)
[2018-01-03] MEDS ORDERED: chlordiazePOXIDE HCL 25 MG CAPSULE PO PRN (23:53)
[2018-01-03] MEDS ORDERED: chlordiazePOXIDE HCL 25 MG CAPSULE PO ONE (23:53)
[2018-01-03] MEDS ORDERED: LOPERAMIDE HCL 2 MG CAPSULE PO PRN (23:53)
[2018-01-03] MEDS ORDERED: IBUPROFEN 400 MG TABLET (FP) PO PRN (23:53)
[2018-01-03] MEDS ORDERED: MENTHOL/PHENOL 1 EACH UD MM PRN (23:53)
[2018-01-04] MEDS ORDERED: chlordiazePOXIDE HCL 25 MG CAPSULE PO PRN ×2 (00:11)
[2018-01-04] MEDS: chlordiazePOXIDE HCL 25 MG CAPSULE PO SCH ×6 (01:39→22:27)
[2018-01-04] MEDS ORDERED: cloNIDine HCL 0.1 MG TABLET PO ONE (01:44)
[2018-01-04] MEDS ORDERED: ALBUTEROL SO4 18 GM HFA INHALER IH PRN (01:44)
[2018-01-04] MEDS ORDERED: chlordiazePOXIDE HCL 25 MG CAPSULE PO SCH ×2 (05:00)
--- NOTE | 2018-01-04 07:41 | CONSULT ---
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 Reports no psychiatric hospitalization history, reports withdrawal symptoms. Substance Abuse History: Urine Drug Screen Results: THC-Marijuana, BZO- Benzodiazepines. - Smoking Cessation. Smoking history: Current every day smoker. Have you smoked in the past 12 months: Yes. Aproximately how many cigarettes per day: 40. Cigars Per Day: 0. Hx Chewing Tobacco Use: No. Initiated information on smoking cessation: Yes. 'Breaking Loose' booklet given : 01/03/18 Medical History: Asthma Psychiatric History: Patient reports history of depression and anxiety, MDD, denies suicidal, homicidal history, reports taking prior to admission: Seroquel 300mg po bid. Remeron 45mg po qhs Physical/Sexual Abuse/Trauma History: Denies Additional Comment: Urine Drug Screen Results: THC-Marijuana, BZO- Benzodiazepines. Seroquel 300mg po bid. Remeron 45mg po qhs Mental Status Exam - Mental Status Exam Alert and Oriented to: Person Cognitive Function: Fair Patient Appearance: Unkempt Mood: Sad Affect: Flat Patient Behavior: Appropriate Speech Pattern: Appropriate Voice Loudness: Mildly Soft/Quiet Thought Process: Circumstantial Thought Disorder: Being Controlled Hallucinations: Denies Suicidal Ideation: Denies Homicidal Ideation: Denies Insight/Judgement: Fair Sleep: Difficulty falling asleep Appetite: Weight loss Muscle strength/Tone: Mild Hypotonicity Gait/Station: Normal Additional Comments: Seroquel 300mg po bid. Remeron 45mg po qhs Psychiatric Findings - Problem List ([place] 1, 2,3) (1) Alcohol dependence with uncomplicated withdrawal Current Visit: Yes Status: Chronic (2) Anxiety Current Visit: Yes Status: Chronic (3) Cannabis dependence, uncomplicated Current Visit: Yes Status: Chronic (4) Nicotine dependence Current Visit: Yes Status: Chronic Qualifiers: Nicotine product type: cigarettes Substance use status: in withdrawal Qualified Code(s): F17.213 - Nicotine dependence, cigarettes, with withdrawal (5) Mood disorder Current Visit: No Status: Acute (6) MDD (major depressive disorder) Current Visit: No Status: Chronic Qualifiers: Major depression recurrence: unspecified whether recurrent Active/ Remission status: remission status unspecified Qualified Code(s): F32.9 - Major depressive disorder, single episode, unspecified Comment: As per existing records and self-report. - Initial Treatment Plan Initial Treatment Plan: Seroquel 300mg po bid. Remeron 45mg po qhs
[2018-01-04 10:03] LABS: HEMATOCRIT 45.2 % (35.4-49); HEMOGLOBIN 15.5 GM/dL (11.7-16.9); MCH 32.8 pg (25.7-33.7); MCHC 34.3 g/dl (32.0-35.9); MEAN CELL VOLUME 95.6 fl (80-96); MEAN PLT VOLUME 7.3 fl (7.5-11.1); PLATELET COUNT 321 K/MM3 (134-434); RBC 4.73 M/mm3 (4.00-5.60); RDW 14.3 % (11.9-15.9); WHITE BLOOD COUNT 6.9 K/mm3 (4.0-10.0)
[2018-01-04 10:24] LABS: BLOOD UREA NITROGEN 7 mg/dL (7-18)
[2018-01-04 10:26] LABS: ALBUMIN 3.9 g/dl (3.4-5.0); ALK PHOS 94 U/L (45-117); ANION GAP 11 (8-16); BILIRUBIN,TOTAL 0.5 mg/dL (0.2-1.0); CALCIUM 8.4 mg/dL (8.5-10.1); CHLORIDE 105 mmol/L (98-107); CO2 26 mmol/L (21-32); CREATININE 0.7 mg/dL (0.7-1.3); GLUCOSE,RANDOM 81 mg/dL (74-106); SGOT/AST 45 U/L (15-37); SGPT/ALT 39 U/L (12-78); SODIUM 142 mmol/L (136-145); TOT PROT 6.7 g/dl (6.4-8.2)
[2018-01-04] MEDS: ASPIRIN 81 MG CHEWABLE TABLETS PO SCH (10:29)
[2018-01-04] MEDS: MIRTAZAPINE 15 MG TABLET (FP) PO SCH (10:29)
[2018-01-04] MEDS: QUEtiapine FUMARATE 300 MG TABLET PO SCH ×2 (10:29→22:27)
[2018-01-04] MEDS: levETIRAcetam 500 MG TABLET (FP) PO SCH ×2 (10:29→22:27)
[2018-01-04] MEDS: PRENATAL VITAMINS W/ FOLIC ACID TABLET (FP) PO SCH (10:29)
[2018-01-04] MEDS: NICOTINE 14 MG/24 HOURS TOPICAL PATCH TD SCH (10:30)
--- NOTE | 2018-01-04 11:33 | PN ---
S CIWA - CIWA Score Nausea/Vomitin Muscle Tremors: 3 Anxiety: 2 Agitation: 2 Paroxysmal Sweats: 1-Minimal Palms Moist Orientation: 0-Oriented Tacttile Disturbances: 1-Very Mild Itch/Numbness Auditory Disturbances: 1-Very Mild Visual Disturbances: 0-None Headache: 2-Mild CIWA-Ar Total Score: 15 S Progress Note (SOAP) Subjective: alert,irritable,anxious,interrupted sleep,tremor Objective: 01/04/18 11:31 Vital Signs Temperature 98.2 F 01/04/18 09:55 Pulse Rate 96 H 01/04/18 09:55 Respiratory Rate 18 01/04/18 09:55 Blood Pressure 128/73 01/04/18 09:55 O2 Sat by Pulse Oximetry (%) ekg sinus tachycardia prolong qt 338/438 Laboratory Last Values WBC 6.9 K/mm3 (4.0-10.0) 01/04/18 07:00 RBC 4.73 M/mm3 (4.00-5.60) 01/04/18 07:00 Hgb 15.5 GM/dL (11.7-16.9) 01/04/18 07:00 Hct 45.2 % (35.4-49) 01/04/18 07:00 MCV 95.6 fl (80-96) 01/04/18 07:00 MCH 32.8 pg (25.7-33.7) 01/04/18 07:00 MCHC 34.3 g/dl (32.0-35.9) 01/04/18 07:00 RDW 14.3 % (11.9-15.9) 01/04/18 07:00 Plt Count 321 K/MM3 (134-434) 01/04/18 07:00 MPV 7.3 fl (7.5-11.1) L 01/04/18 07:00 Sodium 142 mmol/L (136-145) 01/04/18 07:00 Potassium 4.0 mmol/L (3.5-5.1) 01/04/18 07:00 Chloride 105 mmol/L (98-107) 01/04/18 07:00 Carbon Dioxide 26 mmol/L (21-32) 01/04/18 07:00 Anion Gap 11 (8-16) 01/04/18 07:00 BUN 7 mg/dL (7-18) D 01/04/18 07:00 Creatinine 0.7 mg/dL (0.7-1.3) 01/04/18 07:00 Creat Clearance w eGFR > 60 (>60) 01/04/18 07:00 Random Glucose 81 mg/dL (74-106) D 01/04/18 07:00 Calcium 8.4 mg/dL (8.5-10.1) L 01/04/18 07:00 Total Bilirubin 0.5 mg/dL (0.2-1.0) D 01/04/18 07:00 AST 45 U/L (15-37) H D 01/04/18 07:00 ALT 39 U/L (12-78) D 01/04/18 07:00 Alkaline Phosphatase 94 U/L (45-117) 01/04/18 07:00 Total Protein 6.7 g/dl (6.4-8.2) 01/04/18 07:00 Albumin 3.9 g/dl (3.4-5.0) 01/04/18 07:00 Assessment: 01/04/18 11:33 withdrawal symptom Plan: continue detox
[2018-01-04 13:59] LABS: URINE APPEARANCE CLEAR; URINE BILIRUBIN NEGATIVE (<2.0 mg/dL); URINE BLOOD NEGATIVE (NEGATIVE); URINE COLOR YELLOW; URINE GLUCOSE (UA) NEGATIVE (NEGATIVE); URINE KETONE 1+ (NEGATIVE); URINE LEUK ESTERASE NEGATIVE (NEGATIVE); URINE NITRITE NEGATIVE (NEGATIVE); URINE PROTEIN NEGATIVE (NEGATIVE)
[2018-01-04] MEDS: THIAMINE HCL 100 MG TABLET (FP) PO SCH (22:27)
[2018-01-04] MEDS: MELATONIN 5 MG TABLETS PO PRN (22:27)
[2018-01-04] MEDS: ATORVASTATIN CA 10 MG TABLET (FP) PO SCH (22:27)
[2018-01-04] MEDS: NICOTINE POLACRILEX 2 MG GUM BC PRN (22:30)
[2018-01-05] MEDS ORDERED: chlordiazePOXIDE HCL 25 MG CAPSULE PO SCH (05:00)
[2018-01-05] MEDS ORDERED: chlordiazePOXIDE 5 MG CAPSULE PO SCH (05:00)
[2018-01-05] MEDS: chlordiazePOXIDE HCL 25 MG CAPSULE PO SCH ×4 (06:02→22:15)
--- NOTE | 2018-01-05 10:24 | EKG ---
Test Reason : Blood Pressure : / mmHG Vent. Rate : 101 BPM Atrial Rate : 101 BPM P-R Int : 122 ms QRS Dur : 082 ms QT Int : 338 ms P-R-T Axes : 074 082 063 degrees QTc Int : 438 ms SINUS TACHYCARDIA EARLY REPOLARIZATION Confirmed by NOAH PITTS MD ([id number]) on 01/05/2018 10:24:42 AM Referred By: Confirmed By:NOAH PITTS MD
[2018-01-05] MEDS: ASPIRIN 81 MG CHEWABLE TABLETS PO SCH (11:02)
[2018-01-05] MEDS: NICOTINE 14 MG/24 HOURS TOPICAL PATCH TD SCH (11:02)
[2018-01-05] MEDS: PRENATAL VITAMINS W/ FOLIC ACID TABLET (FP) PO SCH (11:02)
[2018-01-05] MEDS: QUEtiapine FUMARATE 300 MG TABLET PO SCH ×2 (11:02→22:15)
[2018-01-05] MEDS: levETIRAcetam 500 MG TABLET (FP) PO SCH ×2 (11:02→22:15)
[2018-01-05] MEDS: MIRTAZAPINE 15 MG TABLET (FP) PO SCH (11:03)
--- NOTE | 2018-01-05 12:24 | PN ---
S CIWA - CIWA Score Nausea/Vomitin Muscle Tremors: 3 Anxiety: 2 Agitation: 1-Slight > Activity Paroxysmal Sweats: 1-Minimal Palms Moist Orientation: 0-Oriented Tacttile Disturbances: 1-Very Mild Itch/Numbness Auditory Disturbances: 1-Very Mild Visual Disturbances: 0-None Headache: 2-Mild CIWA-Ar Total Score: 14 S Progress Note (SOAP) Subjective: alert,irritable,anxious,interrupted sleep,tremor Objective: 01/05/18 12:23 Vital Signs Temperature 97.2 F L 01/05/18 09:00 Pulse Rate 97 H 01/05/18 09:00 Respiratory Rate 18 01/05/18 09:00 Blood Pressure 121/74 01/05/18 09:00 O2 Sat by Pulse Oximetry (%) Laboratory Last Values WBC 6.9 K/mm3 (4.0-10.0) 01/04/18 07:00 RBC 4.73 M/mm3 (4.00-5.60) 01/04/18 07:00 Hgb 15.5 GM/dL (11.7-16.9) 01/04/18 07:00 Hct 45.2 % (35.4-49) 01/04/18 07:00 MCV 95.6 fl (80-96) 01/04/18 07:00 MCH 32.8 pg (25.7-33.7) 01/04/18 07:00 MCHC 34.3 g/dl (32.0-35.9) 01/04/18 07:00 RDW 14.3 % (11.9-15.9) 01/04/18 07:00 Plt Count 321 K/MM3 (134-434) 01/04/18 07:00 MPV 7.3 fl (7.5-11.1) L 01/04/18 07:00 Sodium 142 mmol/L (136-145) 01/04/18 07:00 Potassium 4.0 mmol/L (3.5-5.1) 01/04/18 07:00 Chloride 105 mmol/L (98-107) 01/04/18 07:00 Carbon Dioxide 26 mmol/L (21-32) 01/04/18 07:00 Anion Gap 11 (8-16) 01/04/18 07:00 BUN 7 mg/dL (7-18) D 01/04/18 07:00 Creatinine 0.7 mg/dL (0.7-1.3) 01/04/18 07:00 Creat Clearance w eGFR > 60 (>60) 01/04/18 07:00 Random Glucose 81 mg/dL (74-106) D 01/04/18 07:00 Calcium 8.4 mg/dL (8.5-10.1) L 01/04/18 07:00 Total Bilirubin 0.5 mg/dL (0.2-1.0) D 01/04/18 07:00 AST 45 U/L (15-37) H D 01/04/18 07:00 ALT 39 U/L (12-78) D 01/04/18 07:00 Alkaline Phosphatase 94 U/L (45-117) 01/04/18 07:00 Total Protein 6.7 g/dl (6.4-8.2) 01/04/18 07:00 Albumin 3.9 g/dl (3.4-5.0) 01/04/18 07:00 Urine Color Yellow 01/04/18 10:45 Urine Appearance Clear 01/04/18 10:45 Urine pH 5.0 (5.0-8.0) 01/04/18 10:45 Ur Specific [place] 1.016 (1.001-1.035) 01/04/18 10:45 Urine Protein Negative (NEGATIVE) 01/04/18 10:45 Urine Glucose (UA) Negative (NEGATIVE) 01/04/18 10:45 Urine Ketones 1+ (NEGATIVE) H 01/04/18 10:45 Urine Blood Negative (NEGATIVE) 01/04/18 10:45 Urine Nitrite Negative (NEGATIVE) 01/04/18 10:45 Urine Bilirubin Negative (<2.0 mg/dL) 01/04/18 10:45 Urine Urobilinogen 2.0 mg/dL (0.2-1.0) 01/04/18 10:45 Ur Leukocyte Esterase Negative (NEGATIVE) 01/04/18 10:45 RPR Titer Nonreactive (NONREACTIVE) 01/04/18 07:00 Assessment: 01/05/18 12:24 withdrawal symptom Plan: continue detox
[2018-01-05] MEDS: ATORVASTATIN CA 10 MG TABLET (FP) PO SCH (22:15)
[2018-01-05] MEDS: THIAMINE HCL 100 MG TABLET (FP) PO SCH (22:15)
[2018-01-06] MEDS ORDERED: chlordiazePOXIDE HCL 10 MG CAPSULE PO SCH (05:00)
[2018-01-06] MEDS ORDERED: chlordiazePOXIDE 5 MG CAPSULE PO SCH (05:00)
[2018-01-06] MEDS: chlordiazePOXIDE 5 MG CAPSULE PO SCH ×4 (05:45→22:22)
[2018-01-06] MEDS: MAG HYDROX/AL HYDROX/SIMETH 30 ML UNIT-DOSE CUP PO PRN ×2 (05:46→19:51)
[2018-01-06] MEDS: PRENATAL VITAMINS W/ FOLIC ACID TABLET (FP) PO SCH (10:41)
[2018-01-06] MEDS: NICOTINE 14 MG/24 HOURS TOPICAL PATCH TD SCH (10:41)
[2018-01-06] MEDS: QUEtiapine FUMARATE 300 MG TABLET PO SCH ×2 (10:41→22:22)
[2018-01-06] MEDS: levETIRAcetam 500 MG TABLET (FP) PO SCH ×2 (10:41→22:22)
[2018-01-06] MEDS: ASPIRIN 81 MG CHEWABLE TABLETS PO SCH (10:41)
[2018-01-06] MEDS: MIRTAZAPINE 15 MG TABLET (FP) PO SCH (10:43)
--- NOTE | 2018-01-06 11:55 | PN ---
S Progress Note Note: c/o of restlessness, difficulty sleeping, anxious Vital Signs Temperature 97.9 F 01/06/18 10:00 Pulse Rate 96 H 01/06/18 10:00 Respiratory Rate 18 01/06/18 10:00 Blood Pressure 137/89 01/06/18 10:00 O2 Sat by Pulse Oximetry (%) Laboratory Last Values WBC 6.9 K/mm3 (4.0-10.0) 01/04/18 07:00 RBC 4.73 M/mm3 (4.00-5.60) 01/04/18 07:00 Hgb 15.5 GM/dL (11.7-16.9) 01/04/18 07:00 Hct 45.2 % (35.4-49) 01/04/18 07:00 MCV 95.6 fl (80-96) 01/04/18 07:00 MCH 32.8 pg (25.7-33.7) 01/04/18 07:00 MCHC 34.3 g/dl (32.0-35.9) 01/04/18 07:00 RDW 14.3 % (11.9-15.9) 01/04/18 07:00 Plt Count 321 K/MM3 (134-434) 01/04/18 07:00 MPV 7.3 fl (7.5-11.1) L 01/04/18 07:00 Sodium 142 mmol/L (136-145) 01/04/18 07:00 Potassium 4.0 mmol/L (3.5-5.1) 01/04/18 07:00 Chloride 105 mmol/L (98-107) 01/04/18 07:00 Carbon Dioxide 26 mmol/L (21-32) 01/04/18 07:00 Anion Gap 11 (8-16) 01/04/18 07:00 BUN 7 mg/dL (7-18) D 01/04/18 07:00 Creatinine 0.7 mg/dL (0.7-1.3) 01/04/18 07:00 Creat Clearance w eGFR > 60 (>60) 01/04/18 07:00 Random Glucose 81 mg/dL (74-106) D 01/04/18 07:00 Calcium 8.4 mg/dL (8.5-10.1) L 01/04/18 07:00 Total Bilirubin 0.5 mg/dL (0.2-1.0) D 01/04/18 07:00 AST 45 U/L (15-37) H D 01/04/18 07:00 ALT 39 U/L (12-78) D 01/04/18 07:00 Alkaline Phosphatase 94 U/L (45-117) 01/04/18 07:00 Total Protein 6.7 g/dl (6.4-8.2) 01/04/18 07:00 Albumin 3.9 g/dl (3.4-5.0) 01/04/18 07:00 Urine Color Yellow 01/04/18 10:45 Urine Appearance Clear 01/04/18 10:45 Urine pH 5.0 (5.0-8.0) 01/04/18 10:45 Ur Specific [place] 1.016 (1.001-1.035) 01/04/18 10:45 Urine Protein Negative (NEGATIVE) 01/04/18 10:45 Urine Glucose (UA) Negative (NEGATIVE) 01/04/18 10:45 Urine Ketones 1+ (NEGATIVE) H 01/04/18 10:45 Urine Blood Negative (NEGATIVE) 01/04/18 10:45 Urine Nitrite Negative (NEGATIVE) 01/04/18 10:45 Urine Bilirubin Negative (<2.0 mg/dL) 01/04/18 10:45 Urine Urobilinogen 2.0 mg/dL (0.2-1.0) 01/04/18 10:45 Ur Leukocyte Esterase Negative (NEGATIVE) 01/04/18 10:45 RPR Titer Nonreactive (NONREACTIVE) 01/04/18 07:00 AOx3, in no distress no adventitious breath sounds ambulating in the unit with out difficulty withdrawal sx continue detox continue to monitor
[2018-01-06] MEDS: NICOTINE POLACRILEX 2 MG GUM BC PRN ×2 (17:15→22:25)
[2018-01-06] MEDS: ATORVASTATIN CA 10 MG TABLET (FP) PO SCH (22:22)
[2018-01-06] MEDS: THIAMINE HCL 100 MG TABLET (FP) PO SCH (22:22)
[2018-01-06] MEDS: MELATONIN 5 MG TABLETS PO PRN (22:22)
[2018-01-07] MEDS ORDERED: chlordiazePOXIDE HCL 10 MG CAPSULE PO SCH (05:00)
[2018-01-07] MEDS: chlordiazePOXIDE HCL 10 MG CAPSULE PO SCH ×4 (05:46→22:43)
--- NOTE | 2018-01-07 08:51 | DS ---
[facility] Detox Discharge Summary Admission Date: 01/03/18 Discharge Date: 01/07/18 - History Present History: Alcohol Dependence Additional Comments: 42 years old male admitted 01/03/18 for alcohol withdrawal sx completed alcohol detox regimen tolerated well denies alcohol withdrawal sx alert oriented x 3 no acute distress social with peers in day room aftercare [facility]' brief motivational intervention to maintain sobriety - Physical Exam Results Vital Signs: Vital Signs Temperature 97.7 F 01/07/18 06:00 Pulse Rate 90 01/07/18 06:00 Respiratory Rate 18 01/07/18 06:00 Blood Pressure 122/71 01/07/18 06:00 O2 Sat by Pulse Oximetry (%) Pertinent Admission Physical Exam Findings: alcohol withdrawal sx Vital Signs Temperature 97.7 F 01/07/18 06:00 Pulse Rate 90 01/07/18 06:00 Respiratory Rate 18 01/07/18 06:00 Blood Pressure 122/71 01/07/18 06:00 O2 Sat by Pulse Oximetry (%) Laboratory Last Values WBC 6.9 K/mm3 (4.0-10.0) 01/04/18 07:00 RBC 4.73 M/mm3 (4.00-5.60) 01/04/18 07:00 Hgb 15.5 GM/dL (11.7-16.9) 01/04/18 07:00 Hct 45.2 % (35.4-49) 01/04/18 07:00 MCV 95.6 fl (80-96) 01/04/18 07:00 MCH 32.8 pg (25.7-33.7) 01/04/18 07:00 MCHC 34.3 g/dl (32.0-35.9) 01/04/18 07:00 RDW 14.3 % (11.9-15.9) 01/04/18 07:00 Plt Count 321 K/MM3 (134-434) 01/04/18 07:00 MPV 7.3 fl (7.5-11.1) L 01/04/18 07:00 Sodium 142 mmol/L (136-145) 01/04/18 07:00 Potassium 4.0 mmol/L (3.5-5.1) 01/04/18 07:00 Chloride 105 mmol/L (98-107) 01/04/18 07:00 Carbon Dioxide 26 mmol/L (21-32) 01/04/18 07:00 Anion Gap 11 (8-16) 01/04/18 07:00 BUN 7 mg/dL (7-18) D 01/04/18 07:00 Creatinine 0.7 mg/dL (0.7-1.3) 01/04/18 07:00 Creat Clearance w eGFR > 60 (>60) 01/04/18 07:00 Random Glucose 81 mg/dL (74-106) D 01/04/18 07:00 Calcium 8.4 mg/dL (8.5-10.1) L 01/04/18 07:00 Total Bilirubin 0.5 mg/dL (0.2-1.0) D 01/04/18 07:00 AST 45 U/L (15-37) H D 01/04/18 07:00 ALT 39 U/L (12-78) D 01/04/18 07:00 Alkaline Phosphatase 94 U/L (45-117) 01/04/18 07:00 Total Protein 6.7 g/dl (6.4-8.2) 01/04/18 07:00 Albumin 3.9 g/dl (3.4-5.0) 01/04/18 07:00 Urine Color Yellow 01/04/18 10:45 Urine Appearance Clear 01/04/18 10:45 Urine pH 5.0 (5.0-8.0) 01/04/18 10:45 Ur Specific [place] 1.016 (1.001-1.035) 01/04/18 10:45 Urine Protein Negative (NEGATIVE) 01/04/18 10:45 Urine Glucose (UA) Negative (NEGATIVE) 01/04/18 10:45 Urine Ketones 1+ (NEGATIVE) H 01/04/18 10:45 Urine Blood Negative (NEGATIVE) 01/04/18 10:45 Urine Nitrite Negative (NEGATIVE) 01/04/18 10:45 Urine Bilirubin Negative (<2.0 mg/dL) 01/04/18 10:45 Urine Urobilinogen 2.0 mg/dL (0.2-1.0) 01/04/18 10:45 Ur Leukocyte Esterase Negative (NEGATIVE) 01/04/18 10:45 RPR Titer Nonreactive (NONREACTIVE) 01/04/18 07:00 lab noted - Treatment Hospital Course: Detox Protocol Followed, Detoxed Safely, Responded well, Discharged Condition Good, Rehab Referral Accepted Patient has Accepted a Rehab Referral to: [facility] - Medication Discharge Medications: Ambulatory Orders Mirtazapine [Remeron -] 45 mg PO DAILY #30 tab 01/04/18 Quetiapine Fumarate [Seroquel] 300 mg PO BID #60 tablet 01/04/18 levETIRAcetam [Keppra -] 500 mg PO BID #60 tablet 01/07/18 - Diagnosis (1) Asthma Current Visit: Yes Status: Chronic Qualifiers: Asthma severity: mild Asthma persistence: intermittent Asthma complication type: with status asthmaticus Qualified Code(s): J45.22 - Mild intermittent asthma with status asthmaticus (2) Alcohol dependence with uncomplicated withdrawal Current Visit: Yes Status: Acute (3) Nicotine dependence Current Visit: Yes Status: Acute Qualifiers: Nicotine product type: cigarettes Substance use status: in withdrawal Qualified Code(s): F17.213 - Nicotine dependence, cigarettes, with withdrawal (4) Seizure Current Visit: Yes Status: Chronic - AMA Did Patient Leave Against Medical Advice: No
[2018-01-07] MEDS: PRENATAL VITAMINS W/ FOLIC ACID TABLET (FP) PO SCH (10:29)
[2018-01-07] MEDS: ASPIRIN 81 MG CHEWABLE TABLETS PO SCH (10:29)
[2018-01-07] MEDS: MIRTAZAPINE 15 MG TABLET (FP) PO SCH (10:30)
[2018-01-07] MEDS: NICOTINE 14 MG/24 HOURS TOPICAL PATCH TD SCH (10:30)
[2018-01-07] MEDS: levETIRAcetam 500 MG TABLET (FP) PO SCH ×2 (10:30→22:43)
[2018-01-07] MEDS: QUEtiapine FUMARATE 300 MG TABLET PO SCH ×2 (10:30→22:42)
--- NOTE | 2018-01-07 12:16 | PN ---
[facility] Progress Note Note: patient became depressed that not able to transfer from detox to rehab [facility] patient expressed fear of relapse that craving for alcohol sinus tachycardia denies chest pain no dizziness no shortness of breath patient is asymptomatic playing cards with peers in day room cardiac [id number] begin propranolol
[2018-01-07] MEDS: NICOTINE POLACRILEX 2 MG GUM BC PRN (17:21)
[2018-01-07] MEDS ORDERED: QUEtiapine FUMARATE 100 MG TABLET (FP) ONE (20:26)
[2018-01-07] MEDS: ATORVASTATIN CA 10 MG TABLET (FP) PO SCH (22:42)
[2018-01-07] MEDS: MELATONIN 5 MG TABLETS PO PRN (22:43)
[2018-01-07] MEDS: THIAMINE HCL 100 MG TABLET (FP) PO SCH (22:43)
[2018-01-08] MEDS: NICOTINE POLACRILEX 2 MG GUM BC PRN ×2 (00:14→10:27)
[2018-01-08] MEDS: MAG HYDROX/AL HYDROX/SIMETH 30 ML UNIT-DOSE CUP PO PRN (04:00)
[2018-01-08 06:22] VITALS: TEMP 97.3
--- NOTE | 2018-01-08 08:48 | PN ---
S Progress Note (SOAP) Subjective: alert,no complaint Objective: 01/08/18 08:47 Vital Signs Temperature 97.3 F L 01/08/18 06:22 Pulse Rate 89 01/08/18 06:22 Respiratory Rate 18 01/08/18 06:22 Blood Pressure 134/80 01/08/18 06:22 O2 Sat by Pulse Oximetry (%) Assessment: 01/08/18 08:47 detox completed,no withdrawal symptom Plan: discharge today,follow up with after care program as arrangement
--- NOTE | 2018-01-08 08:51 | DS ---
[facility] Detox Discharge Summary Admission Date: 01/03/18 Discharge Date: 01/08/18 - History Present History: Alcohol Dependence, Cannabis Dependence Additional Comments: follow up with after care program as arrangement Pertinent Past History: ncotine dependence asthma seizure anxiety and depression insomnia - Physical Exam Results Vital Signs: Vital Signs Temperature 97.3 F L 01/08/18 06:22 Pulse Rate 89 01/08/18 06:22 Respiratory Rate 18 01/08/18 06:22 Blood Pressure 134/80 01/08/18 06:22 O2 Sat by Pulse Oximetry (%) Pertinent Admission Physical Exam Findings: withdrawal signs and symptom Vital Signs Temperature 97.3 F L 01/08/18 06:22 Pulse Rate 89 01/08/18 06:22 Respiratory Rate 18 01/08/18 06:22 Blood Pressure 134/80 01/08/18 06:22 O2 Sat by Pulse Oximetry (%) Laboratory Last Values WBC 6.9 K/mm3 (4.0-10.0) 01/04/18 07:00 RBC 4.73 M/mm3 (4.00-5.60) 01/04/18 07:00 Hgb 15.5 GM/dL (11.7-16.9) 01/04/18 07:00 Hct 45.2 % (35.4-49) 01/04/18 07:00 MCV 95.6 fl (80-96) 01/04/18 07:00 MCH 32.8 pg (25.7-33.7) 01/04/18 07:00 MCHC 34.3 g/dl (32.0-35.9) 01/04/18 07:00 RDW 14.3 % (11.9-15.9) 01/04/18 07:00 Plt Count 321 K/MM3 (134-434) 01/04/18 07:00 MPV 7.3 fl (7.5-11.1) L 01/04/18 07:00 Sodium 142 mmol/L (136-145) 01/04/18 07:00 Potassium 4.0 mmol/L (3.5-5.1) 01/04/18 07:00 Chloride 105 mmol/L (98-107) 01/04/18 07:00 Carbon Dioxide 26 mmol/L (21-32) 01/04/18 07:00 Anion Gap 11 (8-16) 01/04/18 07:00 BUN 7 mg/dL (7-18) D 01/04/18 07:00 Creatinine 0.7 mg/dL (0.7-1.3) 01/04/18 07:00 Creat Clearance w eGFR > 60 (>60) 01/04/18 07:00 Random Glucose 81 mg/dL (74-106) D 01/04/18 07:00 Calcium 8.4 mg/dL (8.5-10.1) L 01/04/18 07:00 Total Bilirubin 0.5 mg/dL (0.2-1.0) D 01/04/18 07:00 AST 45 U/L (15-37) H D 01/04/18 07:00 ALT 39 U/L (12-78) D 01/04/18 07:00 Alkaline Phosphatase 94 U/L (45-117) 01/04/18 07:00 Total Protein 6.7 g/dl (6.4-8.2) 01/04/18 07:00 Albumin 3.9 g/dl (3.4-5.0) 01/04/18 07:00 Urine Color Yellow 01/04/18 10:45 Urine Appearance Clear 01/04/18 10:45 Urine pH 5.0 (5.0-8.0) 01/04/18 10:45 Ur Specific [place] 1.016 (1.001-1.035) 01/04/18 10:45 Urine Protein Negative (NEGATIVE) 01/04/18 10:45 Urine Glucose (UA) Negative (NEGATIVE) 01/04/18 10:45 Urine Ketones 1+ (NEGATIVE) H 01/04/18 10:45 Urine Blood Negative (NEGATIVE) 01/04/18 10:45 Urine Nitrite Negative (NEGATIVE) 01/04/18 10:45 Urine Bilirubin Negative (<2.0 mg/dL) 01/04/18 10:45 Urine Urobilinogen 2.0 mg/dL (0.2-1.0) 01/04/18 10:45 Ur Leukocyte Esterase Negative (NEGATIVE) 01/04/18 10:45 RPR Titer Nonreactive (NONREACTIVE) 01/04/18 07:00 - Treatment Hospital Course: Detox Protocol Followed, Detoxed Safely, Responded well, Discharged Condition Good, Rehab Referral Accepted Patient has Accepted a Re[facility] Referral to: [facility] - Medication Discharge Medications: Ambulatory Orders Mirtazapine [Remeron -] 45 mg PO DAILY #30 tab 01/04/18 Quetiapine Fumarate [Seroquel] 300 mg PO BID #60 tablet 01/04/18 levETIRAcetam [Keppra -] 500 mg PO BID #60 tablet 01/07/18 - Diagnosis (1) Alcohol dependence with uncomplicated withdrawal Current Visit: Yes Status: Acute (2) Cannabis dependence, uncomplicated Current Visit: Yes Status: Chronic (3) Nicotine dependence Current Visit: Yes Status: Acute Qualifiers: Nicotine product type: cigarettes Substance use status: in withdrawal Qualified Code(s): F17.213 - Nicotine dependence, cigarettes, with withdrawal (4) Seizure Current Visit: Yes Status: Chronic (5) Insomnia Current Visit: No Status: Acute (6) History of asthma Current Visit: Yes Status: Chronic
[2018-01-08 09:47] VITALS: BP 112/65; PULSE 87
[2018-01-08] MEDS: PRENATAL VITAMINS W/ FOLIC ACID TABLET (FP) PO SCH (10:24)
[2018-01-08] MEDS: ASPIRIN 81 MG CHEWABLE TABLETS PO SCH (10:24)
[2018-01-08] MEDS: MIRTAZAPINE 15 MG TABLET (FP) PO SCH (10:24)
[2018-01-08] MEDS: NICOTINE 14 MG/24 HOURS TOPICAL PATCH TD SCH (10:24)
[2018-01-08] MEDS: QUEtiapine FUMARATE 300 MG TABLET PO SCH (10:24)
[2018-01-08] MEDS: levETIRAcetam 500 MG TABLET (FP) PO SCH (10:27)
== END 2018-01-08 12:46 | disposition home or self-care (01) | DRG 775 ==
LOC: YASAS 19:06 → Y6N 22:36
PROVIDERS: ADMIT Surgery; ATTEND Surgery
PROC: HZ2ZZZZ Detoxification Services for Substance Abuse Treatment (ICD-10-PCS; principal; 2018-01-03)
DX: F10.230 Alcohol dependence with withdrawal, uncomplicated (principal); F12.20 Cannabis dependence, uncomplicated; F17.210 Nicotine dependence, cigarettes, uncomplicated; F39 Unspecified mood [affective] disorder; F41.9 Anxiety disorder, unspecified; F32.9 Major depressive disorder, single episode, unspecified; J45.22 Mild intermittent asthma with status asthmaticus; G40.909 Epilepsy, unspecified, not intractable, without status epilepticus; Z91.5 Personal history of self-harm
CPT/HCPCS: 36415; 80053; 81003; 84443; 85027; 86593; 93005; 93010; J0735

== ENCOUNTER 2018-01-08 13:06 | Inpatient (IN) | payer OTHER ==
[2018-01-08 13:36] VITALS: BMI 24.2
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
--- NOTE | 2018-01-08 14:09 | HP ---
MAR[facility]SSARD Rehab Assess/Revision - Admission History Admitted to Rehab from: [facility] [place] Date of Admission to Rehab: 01/08/18 - Vital signs Vital Signs: Vital Signs Period Temp Pulse Resp BP Sys/Angel Pulse Ox Last 24 Hr 98.6 F 104 20 122/71 - Findings Detox History & Physical reviewed: Yes Concur with findings: Yes Comments/Additional Findings: transferred from detox to rehab admission as per protocol Inpatient Rehab Admission - Rehab Admission Criteria Previous failed treatment: Yes Poor recovery environment: Yes Comorbidities: Yes Lacks judgement: No Patient is meeting Inpatient Rehab admission criteria:: Yes
[2018-01-08] MEDS ORDERED: MENTHOL/PHENOL 1 EACH UD MM PRN (14:10)
[2018-01-08] MEDS ORDERED: P-EPHED 60MG/TRIPROLIDI 2.5MG TABLET PO PRN (14:10)
[2018-01-08] MEDS ORDERED: MAGNESIUM CITRATE 300 ML BOTTLE PO PRN (14:10)
[2018-01-08] MEDS ORDERED: MAGNESIUM HYDROX 2400MG/30ML ORAL SUSPENSION 30 ML CUP PO PRN (14:10)
[2018-01-08] MEDS ORDERED: LOPERAMIDE HCL 2 MG CAPSULE PO PRN (14:10)
[2018-01-08] MEDS ORDERED: guaiFENesin/D-METHORPHAN HB 10 ML UNIT-DOSE CUPS PO PRN (14:10)
[2018-01-08] MEDS ORDERED: MAG HYDROX/AL HYDROX/SIMETH 30 ML UNIT-DOSE CUP PO PRN (14:10)
[2018-01-08] MEDS ORDERED: ALBUTEROL SO4 18 GM HFA INHALER IH PRN (14:10)
[2018-01-08] MEDS: ATORVASTATIN CA 10 MG TABLET (FP) PO SCH (21:33)
[2018-01-08] MEDS: levETIRAcetam 500 MG TABLET (FP) PO SCH (21:33)
[2018-01-08] MEDS: QUEtiapine FUMARATE 300 MG TABLET PO SCH (21:33)
[2018-01-08] MEDS: MIRTAZAPINE 15 MG TABLET (FP) PO SCH (21:33)
[2018-01-08] MEDS: THIAMINE HCL 100 MG TABLET (FP) PO SCH (21:34)
[2018-01-08] MEDS: MELATONIN 5 MG TABLETS PO PRN (21:34)
[2018-01-08] MEDS: SUVOREXANT 10 MG TABLET PO PRN (21:35)
[2018-01-08] MEDS: NICOTINE POLACRILEX 2 MG GUM BUC PRN (22:11)
[2018-01-09] MEDS: QUEtiapine FUMARATE 300 MG TABLET PO SCH ×2 (09:41→21:33)
[2018-01-09] MEDS: ASPIRIN 81 MG CHEWABLE TABLETS PO SCH (09:41)
[2018-01-09] MEDS: levETIRAcetam 500 MG TABLET (FP) PO SCH ×2 (09:41→21:33)
[2018-01-09] MEDS: PRENATAL VITAMINS W/ FOLIC ACID TABLET (FP) PO SCH (09:41)
[2018-01-09] MEDS: NICOTINE 14 MG/24 HOURS TOPICAL PATCH TD PRN (09:44)
[2018-01-09] MEDS: NICOTINE POLACRILEX 2 MG GUM BUC PRN ×2 (09:45→21:34)
[2018-01-09] MEDS: ATORVASTATIN CA 10 MG TABLET (FP) PO SCH (21:33)
[2018-01-09] MEDS: MELATONIN 5 MG TABLETS PO PRN (21:33)
[2018-01-09] MEDS: SUVOREXANT 10 MG TABLET PO PRN (21:33)
[2018-01-09] MEDS: MIRTAZAPINE 15 MG TABLET (FP) PO SCH (21:33)
[2018-01-09] MEDS: THIAMINE HCL 100 MG TABLET (FP) PO SCH (21:33)
[2018-01-10] MEDS: PRENATAL VITAMINS W/ FOLIC ACID TABLET (FP) PO SCH (09:43)
[2018-01-10] MEDS: ASPIRIN 81 MG CHEWABLE TABLETS PO SCH (09:43)
[2018-01-10] MEDS: QUEtiapine FUMARATE 300 MG TABLET PO SCH ×2 (09:43→21:22)
[2018-01-10] MEDS: levETIRAcetam 500 MG TABLET (FP) PO SCH ×2 (09:43→21:22)
[2018-01-10] MEDS: NICOTINE 14 MG/24 HOURS TOPICAL PATCH TD PRN (09:44)
[2018-01-10] MEDS: NICOTINE POLACRILEX 2 MG GUM BUC PRN ×2 (09:45→21:23)
[2018-01-10] MEDS: THIAMINE HCL 100 MG TABLET (FP) PO SCH (21:22)
[2018-01-10] MEDS: MIRTAZAPINE 15 MG TABLET (FP) PO SCH (21:22)
[2018-01-10] MEDS: SUVOREXANT 10 MG TABLET PO PRN (21:22)
[2018-01-10] MEDS: ATORVASTATIN CA 10 MG TABLET (FP) PO SCH (21:22)
[2018-01-10] MEDS: MELATONIN 5 MG TABLETS PO PRN (21:22)
[2018-01-11] MEDS: ASPIRIN 81 MG CHEWABLE TABLETS PO SCH (09:51)
[2018-01-11] MEDS: QUEtiapine FUMARATE 300 MG TABLET PO SCH ×2 (09:51→21:30)
[2018-01-11] MEDS: PRENATAL VITAMINS W/ FOLIC ACID TABLET (FP) PO SCH (09:51)
[2018-01-11] MEDS: levETIRAcetam 500 MG TABLET (FP) PO SCH ×2 (09:51→21:30)
[2018-01-11] MEDS: NICOTINE 14 MG/24 HOURS TOPICAL PATCH TD PRN (09:52)
[2018-01-11] MEDS: NICOTINE POLACRILEX 2 MG GUM BUC PRN ×3 (09:54→21:33)
[2018-01-11] MEDS: ACETAMINOPHEN 325 MG TABLET (FP) PO PRN (14:51)
[2018-01-11] MEDS: ATORVASTATIN CA 10 MG TABLET (FP) PO SCH (21:30)
[2018-01-11] MEDS: THIAMINE HCL 100 MG TABLET (FP) PO SCH (21:30)
[2018-01-11] MEDS: MIRTAZAPINE 15 MG TABLET (FP) PO SCH (21:30)
[2018-01-11] MEDS: MELATONIN 5 MG TABLETS PO PRN (21:31)
[2018-01-11] MEDS: SUVOREXANT 10 MG TABLET PO PRN (21:32)
[2018-01-11] MEDS ORDERED: SUVOREXANT 10 MG TABLET PO PRN (22:00)
[2018-01-12] MEDS: levETIRAcetam 500 MG TABLET (FP) PO SCH ×2 (09:30→21:28)
[2018-01-12] MEDS: QUEtiapine FUMARATE 300 MG TABLET PO SCH ×2 (09:30→21:28)
[2018-01-12] MEDS: NICOTINE 14 MG/24 HOURS TOPICAL PATCH TD PRN (09:30)
[2018-01-12] MEDS: PRENATAL VITAMINS W/ FOLIC ACID TABLET (FP) PO SCH (09:30)
[2018-01-12] MEDS: ASPIRIN 81 MG CHEWABLE TABLETS PO SCH (09:30)
[2018-01-12] MEDS: NICOTINE POLACRILEX 2 MG GUM BUC PRN ×3 (09:31→21:30)
[2018-01-12] MEDS: ACETAMINOPHEN 325 MG TABLET (FP) PO PRN (14:28)
[2018-01-12] MEDS: ATORVASTATIN CA 10 MG TABLET (FP) PO SCH (21:28)
[2018-01-12] MEDS: SUVOREXANT 10 MG TABLET PO PRN (21:28)
[2018-01-12] MEDS: THIAMINE HCL 100 MG TABLET (FP) PO SCH (21:28)
[2018-01-12] MEDS: MELATONIN 5 MG TABLETS PO PRN (21:28)
[2018-01-12] MEDS: MIRTAZAPINE 15 MG TABLET (FP) PO SCH (21:28)
[2018-01-13] MEDS: QUEtiapine FUMARATE 300 MG TABLET PO SCH ×2 (09:34→21:33)
[2018-01-13] MEDS: levETIRAcetam 500 MG TABLET (FP) PO SCH ×2 (09:34→21:33)
[2018-01-13] MEDS: PRENATAL VITAMINS W/ FOLIC ACID TABLET (FP) PO SCH (09:34)
[2018-01-13] MEDS: ASPIRIN 81 MG CHEWABLE TABLETS PO SCH (09:34)
[2018-01-13] MEDS: NICOTINE 14 MG/24 HOURS TOPICAL PATCH TD PRN (09:35)
[2018-01-13] MEDS: NICOTINE POLACRILEX 2 MG GUM BUC PRN ×2 (09:35→21:34)
[2018-01-13] MEDS: ACETAMINOPHEN 325 MG TABLET (FP) PO PRN (09:36)
[2018-01-13] MEDS: THIAMINE HCL 100 MG TABLET (FP) PO SCH (21:32)
[2018-01-13] MEDS: MELATONIN 5 MG TABLETS PO PRN (21:32)
[2018-01-13] MEDS: ATORVASTATIN CA 10 MG TABLET (FP) PO SCH (21:33)
[2018-01-13] MEDS: MIRTAZAPINE 15 MG TABLET (FP) PO SCH (21:33)
[2018-01-13] MEDS: SUVOREXANT 10 MG TABLET PO PRN (21:33)
[2018-01-14] MEDS: ASPIRIN 81 MG CHEWABLE TABLETS PO SCH (09:30)
[2018-01-14] MEDS: PRENATAL VITAMINS W/ FOLIC ACID TABLET (FP) PO SCH (09:30)
[2018-01-14] MEDS: levETIRAcetam 500 MG TABLET (FP) PO SCH ×2 (09:30→21:28)
[2018-01-14] MEDS: QUEtiapine FUMARATE 300 MG TABLET PO SCH ×2 (09:30→21:28)
[2018-01-14] MEDS: NICOTINE 14 MG/24 HOURS TOPICAL PATCH TD PRN (09:31)
[2018-01-14] MEDS: ACETAMINOPHEN 325 MG TABLET (FP) PO PRN (09:31)
[2018-01-14] MEDS: NICOTINE POLACRILEX 2 MG GUM BUC PRN (09:32)
[2018-01-14] MEDS: MIRTAZAPINE 15 MG TABLET (FP) PO SCH (21:28)
[2018-01-14] MEDS: ATORVASTATIN CA 10 MG TABLET (FP) PO SCH (21:28)
[2018-01-14] MEDS: SUVOREXANT 10 MG TABLET PO PRN (21:28)
[2018-01-14] MEDS: MELATONIN 5 MG TABLETS PO PRN (21:28)
[2018-01-14] MEDS: THIAMINE HCL 100 MG TABLET (FP) PO SCH (21:28)
[2018-01-15] MEDS: levETIRAcetam 500 MG TABLET (FP) PO SCH ×2 (09:36→21:47)
[2018-01-15] MEDS: ASPIRIN 81 MG CHEWABLE TABLETS PO SCH (09:36)
[2018-01-15] MEDS: QUEtiapine FUMARATE 300 MG TABLET PO SCH ×2 (09:36→21:46)
[2018-01-15] MEDS: PRENATAL VITAMINS W/ FOLIC ACID TABLET (FP) PO SCH (09:36)
[2018-01-15] MEDS: ACETAMINOPHEN 325 MG TABLET (FP) PO PRN ×2 (09:36→21:47)
[2018-01-15] MEDS: NICOTINE 14 MG/24 HOURS TOPICAL PATCH TD PRN (09:37)
[2018-01-15] MEDS: NICOTINE POLACRILEX 2 MG GUM BUC PRN (09:39)
[2018-01-15] MEDS: MIRTAZAPINE 15 MG TABLET (FP) PO SCH (21:46)
[2018-01-15] MEDS: SUVOREXANT 10 MG TABLET PO PRN (21:46)
[2018-01-15] MEDS: THIAMINE HCL 100 MG TABLET (FP) PO SCH (21:46)
[2018-01-15] MEDS: ATORVASTATIN CA 10 MG TABLET (FP) PO SCH (21:46)
[2018-01-15] MEDS: MELATONIN 5 MG TABLETS PO PRN (21:47)
--- NOTE | 2018-01-16 06:55 | PN ---
Psychiatric Progress Note Vital Signs: Vital Signs Period Temp Pulse Resp BP Sys/Angel Pulse Ox Last 24 Hr 97.9 F 86 18-18 129/85 Date of Session: 01/19/18 Chief Complaint:: Discharge Note HPI: Patient addressing Alcohol and Cannabis Dependence comorbid with Nicotine Dependence, Mood Disorder, Substance-Induced Mood Disorder and Substance- Induced Sleep Disorder ROS: Asthma Current Medications: Active Medications Generic Name Dose Route Start Last Admin Trade Name Freq PRN Reason Stop Dose Admin Acetaminophen 650 mg 01/08/18 14:10 01/15/18 21:47 Tylenol - PO 650 mg Q4H PRN Administration FEVER Al Hydroxide/Mg Hydroxide 30 ml 01/08/18 14:10 Mylanta Oral Suspension - PO Q6H PRN DYSPEPSIA Albuterol Sulfate 2 puff 01/08/18 14:10 Ventolin Hfa Inhaler - IH Q4H PRN ASTHMA Aspirin 81 mg 01/09/18 10:00 01/15/18 09:36 Asa - PO 81 mg DAILY JEB Administration Atorvastatin Calcium 10 mg 01/08/18 22:00 01/15/18 21:46 Lipitor - PO 10 mg HS JEB Administration Eucalyptus/Menthol/Phenol/Sorbitol 1 each 01/08/18 14:10 Cepastat Lozenge - MM Q4H PRN SORE THROAT Guaifenesin 10 ml 01/08/18 14:10 Robitussin Dm - PO Q6H PRN COUGH Levetiracetam 500 mg 01/08/18 22:00 01/15/18 21:47 Keppra - PO 500 mg BID JEB Administration Loperamide HCl 4 mg 01/08/18 14:10 Imodium - PO Q6H PRN DIARRHEA Magnesium Citrate 300 ml 01/08/18 14:10 Citroma - PO Q48H PRN CONSTIPATION Magnesium Hydroxide 30 ml 01/08/18 14:10 Milk Of Magnesia - PO DAILY PRN CONSTIPATION Melatonin 5 mg 01/08/18 22:00 01/15/18 21:47 Melatonin PO 5 mg HS PRN Administration INSOMNIA Mirtazapine 45 mg 01/08/18 22:00 01/15/18 21:46 Remeron - PO 45 mg HS JEB Administration Nicotine 14 mg 01/08/18 15:10 01/15/18 09:37 Nicoderm Patch - TD 14 mg DAILY PRN Administration WITHDRAWAL(CONT SUBST) Nicotine Polacrilex 2 mg 01/08/18 14:10 01/15/18 09:39 Nicorette Gum - BUC 2 mg Q2H PRN Administration NICOTINE REPLACEMENT RX Multivit/Folic Acid/Iron 1 tab 01/09/18 10:00 01/15/18 09:36 Vitamins (Sjr) - PO 1 tab DAILY JEB Administration Pseudoephedrine/Triprolidine 1 combo 01/08/18 14:10 Actifed - PO TID PRN NASAL CONGESTION Quetiapine Fumarate 300 mg 01/08/18 22:00 01/15/18 21:46 Seroquel - PO 300 mg BID JEB Administration Suvorexant 10 mg 01/14/18 22:00 01/15/18 21:46 Belsomra PO 10 mg HS PRN Administration INSOMNIA Thiamine HCl 100 mg 01/08/18 22:00 01/15/18 21:46 Vitamin B1 - PO 100 mg HS JEB Administration Current Side Effect: No Lab tests ordered: Yes Lab tests reviewed: Yes Provider note:: Patient will complete this program on 01/19/18. He has met his treatment goals and will continue to address his issues in [facility] residetial program at [facility]. He responded well to Seroquel 300 mg po BID and Remeron 45 mg po HS. Scripts for 30 days supply of these medications are electronicaly transmitted to [facility] at [address] [place] [address] [id number]. He is stable for discharge on 01/19/18 Total face to face time:: 35 Mental Status Exam - Mental Status Exam Alert and Oriented to: Time, Place, Person Cognitive Function: Fair Patient Appearance: Well Groomed Mood: Hopeful, Euthymic Affect: Appropriate Patient Behavior: Cooperative Speech Pattern: Clear Voice Loudness: Normal Thought Process: Intact, Goal Oriented Thought Disorder: Not Present Hallucinations: Denies Suicidal Ideation: Denies Homicidal Ideation: Denies Insight/Judgement: Fair Sleep: Fair Appetite: Fair Muscle strength/Tone: Normal Gait/Station: Normal Psychiatric Treatment Plan - Problem List (1) Alcohol dependence Current Visit: No (2) Cannabis dependence Current Visit: Yes (3) Nicotine dependence Current Visit: No Qualifiers: Nicotine product type: cigarettes Substance use status: in withdrawal Qualified Code(s): F17.213 - Nicotine dependence, cigarettes, with withdrawal (4) Mood disorder Current Visit: Yes (5) Substance induced mood disorder Current Visit: Yes (6) Substance-induced sleep disorder Current Visit: Yes (7) Asthma Current Visit: No Qualifiers: Asthma severity: mild Asthma persistence: intermittent Asthma complication type: with status asthmaticus Qualified Code(s): J45.22 - Mild intermittent asthma with status asthmaticus Initial treatment plan: Patient is discharged tomorrow and 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
[2018-01-16] MEDS: PRENATAL VITAMINS W/ FOLIC ACID TABLET (FP) PO SCH (09:20)
[2018-01-16] MEDS: levETIRAcetam 500 MG TABLET (FP) PO SCH ×2 (09:21→21:31)
[2018-01-16] MEDS: NICOTINE 14 MG/24 HOURS TOPICAL PATCH TD PRN (09:21)
[2018-01-16] MEDS: ASPIRIN 81 MG CHEWABLE TABLETS PO SCH (09:21)
[2018-01-16] MEDS: ACETAMINOPHEN 325 MG TABLET (FP) PO PRN ×2 (09:21→16:59)
[2018-01-16] MEDS: QUEtiapine FUMARATE 300 MG TABLET PO SCH ×2 (09:21→21:31)
[2018-01-16] MEDS: NICOTINE POLACRILEX 2 MG GUM BUC PRN ×2 (17:00→21:31)
[2018-01-16] MEDS: ATORVASTATIN CA 10 MG TABLET (FP) PO SCH (21:31)
[2018-01-16] MEDS: MIRTAZAPINE 15 MG TABLET (FP) PO SCH (21:31)
[2018-01-16] MEDS: THIAMINE HCL 100 MG TABLET (FP) PO SCH (21:31)
[2018-01-16] MEDS: SUVOREXANT 10 MG TABLET PO PRN (21:33)
[2018-01-16] MEDS: MELATONIN 5 MG TABLETS PO PRN (21:34)
[2018-01-17 06:58] VITALS: TEMP 98
[2018-01-17] MEDS: ASPIRIN 81 MG CHEWABLE TABLETS PO SCH (09:43)
[2018-01-17] MEDS: levETIRAcetam 500 MG TABLET (FP) PO SCH ×2 (09:43→21:12)
[2018-01-17] MEDS: ACETAMINOPHEN 325 MG TABLET (FP) PO PRN ×2 (09:43→21:12)
[2018-01-17] MEDS: QUEtiapine FUMARATE 300 MG TABLET PO SCH ×2 (09:43→21:12)
[2018-01-17] MEDS: PRENATAL VITAMINS W/ FOLIC ACID TABLET (FP) PO SCH (09:43)
[2018-01-17] MEDS: NICOTINE 14 MG/24 HOURS TOPICAL PATCH TD PRN (09:45)
[2018-01-17] MEDS: ATORVASTATIN CA 10 MG TABLET (FP) PO SCH (21:11)
[2018-01-17] MEDS: MELATONIN 5 MG TABLETS PO PRN (21:11)
[2018-01-17] MEDS: SUVOREXANT 10 MG TABLET PO PRN (21:11)
[2018-01-17] MEDS: MIRTAZAPINE 15 MG TABLET (FP) PO SCH (21:11)
[2018-01-17] MEDS: THIAMINE HCL 100 MG TABLET (FP) PO SCH (21:11)
[2018-01-17] MEDS: NICOTINE POLACRILEX 2 MG GUM BUC PRN (21:14)
[2018-01-17] MEDS ORDERED: SUVOREXANT 10 MG TABLET PO PRN (22:00)
[2018-01-18] MEDS: ACETAMINOPHEN 325 MG TABLET (FP) PO PRN (09:56)
[2018-01-18] MEDS: levETIRAcetam 500 MG TABLET (FP) PO SCH ×2 (09:56→21:37)
[2018-01-18] MEDS: PRENATAL VITAMINS W/ FOLIC ACID TABLET (FP) PO SCH (09:56)
[2018-01-18] MEDS: ASPIRIN 81 MG CHEWABLE TABLETS PO SCH (09:56)
[2018-01-18] MEDS: QUEtiapine FUMARATE 300 MG TABLET PO SCH ×2 (09:56→21:37)
[2018-01-18] MEDS: NICOTINE POLACRILEX 2 MG GUM BUC PRN ×3 (09:59→21:39)
--- NOTE | 2018-01-18 12:56 | PN ---
Psychiatric Progress Note Vital Signs: Vital Signs Period Temp Pulse Resp BP Sys/Angel Pulse Ox Last 24 Hr 18 Date of Session: 01/18/18 Chief Complaint:: Discharge Note HPI: Patient addressing Alcohol and Cannabis Dependence comorbid with Nicotine Dependence, Mood Disorder, Substance-Induced Mood Disorder and Substance- Induced Sleep Disorder ROS: Asthma Current Medications: Active Medications Generic Name Dose Route Start Last Admin Trade Name Freq PRN Reason Stop Dose Admin Acetaminophen 650 mg 01/08/18 14:10 01/18/18 09:56 Tylenol - PO 650 mg Q4H PRN Administration FEVER Al Hydroxide/Mg Hydroxide 30 ml 01/08/18 14:10 Mylanta Oral Suspension - PO Q6H PRN DYSPEPSIA Albuterol Sulfate 2 puff 01/08/18 14:10 Ventolin Hfa Inhaler - IH Q4H PRN ASTHMA Aspirin 81 mg 01/09/18 10:00 01/18/18 09:56 Asa - PO 81 mg DAILY JEB Administration Atorvastatin Calcium 10 mg 01/08/18 22:00 01/17/18 21:11 Lipitor - PO 10 mg HS JEB Administration Eucalyptus/Menthol/Phenol/Sorbitol 1 each 01/08/18 14:10 Cepastat Lozenge - MM Q4H PRN SORE THROAT Guaifenesin 10 ml 01/08/18 14:10 Robitussin Dm - PO Q6H PRN COUGH Levetiracetam 500 mg 01/08/18 22:00 01/18/18 09:56 Keppra - PO 500 mg BID JEB Administration Loperamide HCl 4 mg 01/08/18 14:10 Imodium - PO Q6H PRN DIARRHEA Magnesium Citrate 300 ml 01/08/18 14:10 Citroma - PO Q48H PRN CONSTIPATION Magnesium Hydroxide 30 ml 01/08/18 14:10 Milk Of Magnesia - PO DAILY PRN CONSTIPATION Melatonin 5 mg 01/08/18 22:00 01/17/18 21:11 Melatonin PO 5 mg HS PRN Administration INSOMNIA Mirtazapine 45 mg 01/08/18 22:00 01/17/18 21:11 Remeron - PO 45 mg HS JEB Administration Nicotine 14 mg 01/08/18 15:10 01/17/18 09:45 Nicoderm Patch - TD 14 mg DAILY PRN Administration WITHDRAWAL(CONT SUBST) Nicotine Polacrilex 2 mg 01/08/18 14:10 01/18/18 09:59 Nicorette Gum - BUC 2 mg Q2H PRN Administration NICOTINE REPLACEMENT RX Multivit/Folic Acid/Iron 1 tab 01/09/18 10:00 01/18/18 09:56 Vitamins (Sjr) - PO 1 tab DAILY JEB Administration Pseudoephedrine/Triprolidine 1 combo 01/08/18 14:10 Actifed - PO TID PRN NASAL CONGESTION Quetiapine Fumarate 300 mg 01/08/18 22:00 01/18/18 09:56 Seroquel - PO 300 mg BID JEB Administration Suvorexant 10 mg 01/17/18 22:00 Belsomra PO HS PRN INSOMNIA Thiamine HCl 100 mg 01/08/18 22:00 01/17/18 21:11 Vitamin B1 - PO 100 mg HS JEB Administration Provider note:: Patient will complete this program on 01/19/18. He has met his treatment goals and will continue to address his issues in [facility] residential treatment at [facility]. He responded well to Seroquel 300 mg po BID and Remeron 45 mg po HS. Scripts for 30 days supply of these medications are electronically transmitted to [facility] at [address] [place] [address] [phone]. He is stable for discharge today Mental Status Exam - Mental Status Exam Alert and Oriented to: Time, Place, Person Cognitive Function: Fair Patient Appearance: Well Groomed Mood: Hopeful, Euthymic Affect: Appropriate Patient Behavior: Cooperative Speech Pattern: Clear Voice Loudness: Normal Thought Process: Intact, Goal Oriented Thought Disorder: Not Present Hallucinations: Denies Suicidal Ideation: Denies Homicidal Ideation: Denies Insight/Judgement: Fair Sleep: Fair Appetite: Good Muscle strength/Tone: Normal Gait/Station: Normal Psychiatric Treatment Plan - Problem List (1) Alcohol dependence Current Visit: No (2) Cannabis dependence Current Visit: Yes (3) Nicotine dependence Current Visit: No Qualifiers: Nicotine product type: cigarettes Substance use status: in withdrawal Qualified Code(s): F17.213 - Nicotine dependence, cigarettes, with withdrawal (4) Mood disorder Current Visit: Yes (5) Substance induced mood disorder Current Visit: Yes (6) Substance-induced sleep disorder Current Visit: Yes (7) Asthma Current Visit: No Qualifiers: Asthma severity: mild Asthma persistence: intermittent Asthma complication type: with status asthmaticus Qualified Code(s): J45.22 - Mild intermittent asthma with status asthmaticus Initial treatment plan: Patient will be discharged tomorrow and 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
--- NOTE | 2018-01-18 15:46 | PN ---
[facility] Progress Note Note: Patient schedule for d/c tomorrow. Home meds sent to pharmacy. Patient to follow up with PMD 1-2 weeks post discharge.
[2018-01-18] MEDS: ATORVASTATIN CA 10 MG TABLET (FP) PO SCH (21:37)
[2018-01-18] MEDS: MIRTAZAPINE 15 MG TABLET (FP) PO SCH (21:37)
[2018-01-18] MEDS: THIAMINE HCL 100 MG TABLET (FP) PO SCH (21:37)
[2018-01-18] MEDS: MELATONIN 5 MG TABLETS PO PRN (21:39)
[2018-01-19 06:46] VITALS: BP 123/78; PULSE 111
[2018-01-19] MEDS ORDERED: PT OWN MED DRAWER 7, Y5N ONE (08:34)
[2018-01-19] MEDS: NICOTINE POLACRILEX 2 MG GUM BUC PRN (08:36)
== END 2018-01-19 08:55 | disposition home or self-care (01) | DRG 772 ==
LOC: YASAS 13:06 → Y3W 13:09
PROVIDERS: ADMIT Psychiatry & Neurology Psychiatry; ATTEND Psychiatry & Neurology Psychiatry
PROC: HZ42ZZZ Group Counseling for Substance Abuse Treatment, Cognitive-Behavioral (ICD-10-PCS; principal; 2018-01-08)
DX: F10.20 Alcohol dependence, uncomplicated (principal); F12.20 Cannabis dependence, uncomplicated; F17.213 Nicotine dependence, cigarettes, with withdrawal; F39 Unspecified mood [affective] disorder; F19.24 Other psychoactive substance dependence with psychoactive substance-induced mood disorder; F19.282 Other psychoactive substance dependence with psychoactive substance-induced sleep disorder; F33.9 Major depressive disorder, recurrent, unspecified; J45.22 Mild intermittent asthma with status asthmaticus; Z86.69 Personal history of other diseases of the nervous system and sense organs
CPT/HCPCS: 36415; 87389

== ENCOUNTER 2018-02-21 17:53 | Inpatient (IN) | payer OTHER ==
[2018-02-21 18:20] VITALS: BMI 24.0
--- NOTE | 2018-02-21 21:44 | HP ---
CIWA Score - CIWA Score Nausea/Vomitin (vomiting x 3) Muscle Tremors: 4-Moderate,w/Arms Extend Anxiety: 3 Agitation: 3 Paroxysmal Sweats: 4-Forehead w/Sweat Beads Orientation: 0-Oriented Tacttile Disturbances: 0-None Auditory Disturbances: 0-None Visual Disturbances: 0-None Headache: 3-Moderate CIWA-Ar Total Score: 20 Admission ROS [facility] - HPI Chief Complaint: Alcohol withdrawal symptoms Allergies/Adverse Reactions: Allergies Allergy/AdvReac Type Severity Reaction Status Date / Time No Known Allergies Allergy Verified 02/21/18 19:02 History of Present Illness: 42 years old male with a long history of alcohol dependence is seeking admission to detox. Patient has been to previous detox and reports a year of sobriety. He has medical history of kidney stones, anxiety and depression. He reports suicide attempt in 2013 and denies suicidal ideation at this time. - Ebola screening Have you traveled outside of the country in the last 21 days: No (N) Have you had contact with anyone from an Ebola affected area: No Have you been sick,other than usual withdrawal symptoms: No Do you have a fever: No - Review of Systems Constitutional: Chills, Loss of Appetite, Malaise, Night Sweats, Changes in sleep EENT: reports: Sinus Pressure, Other (uses reading glasses) Respiratory: reports: No Symptoms reported Cardiac: reports: No Symptoms Reported GI: reports: Nausea, Poor Appetite, Poor Fluid Intake : reports: No Symptoms Reported Musculoskeletal: reports: Muscle Pain Integumentary: reports: Dryness Neuro: reports: Headache, Tingling Endocrine: reports: Unexplained Weight Loss (Lost about 20 pounds) Hematology: reports: No Symptoms Reported Psychiatric: reports: Anxious, Depressed Other Systems: Reviewed and Negative Patient History - Patient Medical History Hx Anemia: No Hx Asthma: Yes (Not on medication) Hx Chronic Obstructive Pulmonary Disease (COPD): No Hx Cancer: No Hx Cardiac Disorders: Yes (Syncope) Hx Congestive Heart Failure: No Hx Hypertension: No Hx Hypercholesterolemia: No Hx Pacemaker: No HX Cerebrovascular Accident: No Hx Seizures: Yes ( Dilantin- Last day medicated -2 weeks ago) Hx Dementia: No Hx Diabetes: No Hx Gastrointestinal Disorders: No Hx Liver Disease: No Hx Genitourinary Disorders: No Hx Sexually Transmitted Disorders: No Hx Renal Disease (ESRD): No Hx Thyroid Disease: No Hx Human Immunodeficiency Virus (HIV): No (Negative 2015) Hx Hepatitis C: No Hx Depression: Yes (Seroquel and Remeron) Hx Suicide Attempt: Yes (Attempt in 2013. Denies suicide attempt or ideation at this time) Hx Bipolar Disorder: No Hx Schizophrenia: No Other Medical History: Anxiety disorder- Not on medication - Patient Surgical History Past Surgical History: Yes Hx Neurologic Surgery: No Hx Cataract Extraction: No Hx Cardiac Surgery: No Hx Lung Surgery: No Hx Abdominal Surgery: No Hx Appendectomy: No Hx Cholecystectomy: No Hx Genitourinary Surgery: No Hx Orthopedic Surgery: No Other Surgical History: removal of R kidney stones 10 yrs ago, right /tendon repair R hand 6yrs ago Anesthesia Reaction: No - PPD History Previous Implant?: Yes Documented Results: Negative w/proof Implanted On Prior [facility] Admission?: Yes Date: 12/15/17 Results: 0 mm - Smoking Cessation Smoking history: Current every day smoker Have you smoked in the past 12 months: Yes Aproximately how many cigarettes per day: 40 Cigars Per Day: 0 Hx Chewing Tobacco Use: No Initiated information on smoking cessation: Yes 'Breaking Loose' booklet given: 02/21/18 - Substances Abused Alcohol Route: Oral Frequency: Daily Amount used: BEER - 36CANS Age of first use: 7 Date of Last Use: 02/21/18 Marijuana/Hashish Route: Smoking Frequency: Daily Amount used: $40 Age of first use: 8 Date of Last Use: 02/21/18 Family Disease History - Family Disease History Family Disease History: CA: Mother ( age 65 from breast cancer mets to bone) Admission Physical Exam S - Vital Signs Vital Signs: Vital Signs - 24 hr 02/21/18 18:17 Temperature 99.9 F H Pulse Rate 109 H Respiratory 20 Rate Blood Pressure 152/101 - Physical General Appearance: Yes: Moderate Distress, Tremorous, Irritable, Sweating, Anxious HEENTM: Yes: EOMI, Normal ENT Inspection, Normocephalic, Normal Voice, SARIAH Respiratory: Yes: Lungs Clear, Normal Breath Sounds, No Respiratory Distress Neck: Yes: Supple Breast: Yes: Breast Exam Deferred Cardiology: Yes: Regular Rhythm, Regular Rate Abdominal: Yes: Normal Bowel Sounds Genitourinary: Yes: Within Normal Limits Back: Yes: Normal Inspection Musculoskeletal: Yes: Muscle weakness Extremities: Yes: Tremors Neurological: Yes: Normal Mood/Affect, Normal Response Integumentary: Yes: Dry Lymphatic: Yes: Within Normal Limits - Diagnostic (1) Syncope Current Visit: No Status: Chronic (2) Alcohol dependence with uncomplicated withdrawal Current Visit: Yes Status: Chronic (3) Anxiety Current Visit: Yes Status: Chronic (4) Asthma Current Visit: Yes Status: Chronic Qualifiers: Asthma severity: mild Asthma persistence: intermittent Asthma complication type: with status asthmaticus Qualified Code(s): J45.22 - Mild intermittent asthma with status asthmaticus (5) Cannabis dependence, uncomplicated Current Visit: Yes Status: Chronic (6) Depression Current Visit: Yes Status: Chronic Qualifiers: Depression Type: unspecified Qualified Code(s): F32.9 - Major depressive disorder, single episode, unspecified (7) Nicotine dependence Current Visit: Yes Status: Chronic Qualifiers: Nicotine product type: cigarettes Substance use status: in withdrawal Qualified Code(s): F17.213 - Nicotine dependence, cigarettes, with withdrawal (8) Seizure Current Visit: No Status: Chronic (9) Kidney stones Current Visit: Yes Status: Chronic Cleared for Admission [facility] - Detox or Rehab [facility] Level of Care: Medically Managed Detox Regimen/Protocol: Librium [facility] Breath Alcohol Content Breath Alcohol Content: 0 Urine Drug Screen - Results Drug Screen Negative: No Urine Drug Screen Results: THC-Marijuana, BZO-Benzodiazepines
[2018-02-21] MEDS ORDERED: IBUPROFEN 400 MG TABLET (FP) PO PRN (22:02)
[2018-02-21] MEDS ORDERED: MAGNESIUM HYDROX 2400MG/30ML ORAL SUSPENSION 30 ML CUP PO PRN (22:02)
[2018-02-21] MEDS ORDERED: chlordiazePOXIDE HCL 25 MG CAPSULE PO PRN (22:02)
[2018-02-21] MEDS ORDERED: MAGNESIUM CITRATE 300 ML BOTTLE PO PRN (22:02)
[2018-02-21] MEDS ORDERED: guaiFENesin/D-METHORPHAN HB 10 ML UNIT-DOSE CUPS PO PRN (22:02)
[2018-02-21] MEDS ORDERED: MAG HYDROX/AL HYDROX/SIMETH 30 ML UNIT-DOSE CUP PO PRN (22:02)
[2018-02-21] MEDS ORDERED: P-EPHED 60MG/TRIPROLIDI 2.5MG TABLET PO PRN (22:02)
[2018-02-21] MEDS ORDERED: ACETAMINOPHEN 325 MG TABLET (FP) PO PRN (22:02)
[2018-02-21] MEDS ORDERED: LOPERAMIDE HCL 2 MG CAPSULE PO PRN (22:02)
[2018-02-21] MEDS ORDERED: MENTHOL/PHENOL 1 EACH UD MM PRN (22:02)
[2018-02-21] MEDS: chlordiazePOXIDE HCL 25 MG CAPSULE PO SCH (22:44)
[2018-02-22 02:13] LABS: URINE APPEARANCE CLEAR; URINE COLOR AMBER; URINE GLUCOSE (UA) NEGATIVE (NEGATIVE); URINE KETONE 2+ (NEGATIVE); URINE LEUK ESTERASE NEGATIVE (NEGATIVE); URINE NITRITE NEGATIVE (NEGATIVE); URINE UROBILINOGEN 4.0 E.U/dl mg/dL (0.2-1.0)
[2018-02-22 02:35] LABS: URINE PROTEIN 2+ (NEGATIVE)
[2018-02-22 02:40] LABS: EPI CELLS RARE /HPF (FEW); URINE BACTERIA RARE /hpf (NONE SEEN); URINE HYALINE CAST 8 /lpf; URINE MUCUS MANY
[2018-02-22] MEDS: chlordiazePOXIDE HCL 25 MG CAPSULE PO SCH ×4 (05:11→22:13)
[2018-02-22] MEDS ORDERED: NICOTINE 7 MG/24 HOURS TOPICAL PATCH TD SCH (10:00)
[2018-02-22] MEDS: NICOTINE 14 MG/24 HOURS TOPICAL PATCH TD SCH (10:17)
[2018-02-22] MEDS: PRENATAL VITAMINS W/ FOLIC ACID TABLET (FP) PO SCH (10:17)
[2018-02-22 10:19] LABS: HEMATOCRIT 45.9 % (35.4-49); HEMOGLOBIN 15.9 GM/dL (11.7-16.9); MCH 33.4 pg (25.7-33.7); MCHC 34.6 g/dl (32.0-35.9); MEAN CELL VOLUME 96.6 fl (80-96); MEAN PLT VOLUME 7.9 fl (7.5-11.1); PLATELET COUNT 257 K/MM3 (134-434); RBC 4.76 M/mm3 (4.00-5.60); RDW 14.5 % (11.9-15.9); WHITE BLOOD COUNT 7.6 K/mm3 (4.0-10.0)
[2018-02-22] MEDS: NICOTINE POLACRILEX 2 MG GUM BC PRN (10:19)
[2018-02-22 10:47] LABS: ALK PHOS 80 U/L (45-117); ANION GAP 7 (8-16); BILIRUBIN,TOTAL 0.8 mg/dL (0.2-1.0); BLOOD UREA NITROGEN 7 mg/dL (7-18); CALCIUM 8.9 mg/dL (8.5-10.1); CHLORIDE 102 mmol/L (98-107); CO2 31 mmol/L (21-32); CREATININE 0.7 mg/dL (0.7-1.3); GLUCOSE,RANDOM 92 mg/dL (74-106); POTASSIUM 3.9 mmol/L (3.5-5.1); SGOT/AST 59 U/L (15-37); SGPT/ALT 69 U/L (12-78); SODIUM 140 mmol/L (136-145); TOT PROT 6.9 g/dl (6.4-8.2)
--- NOTE | 2018-02-22 14:04 | PN ---
[facility] CIWA - CIWA Score Nausea/Vomitin-No Nausea/No Vomiting Muscle Tremors: 3 Anxiety: 2 Agitation: 2 Paroxysmal Sweats: 3 Orientation: 0-Oriented Tacttile Disturbances: 2-Mild Itch/Numbness/Burn Auditory Disturbances: 0-None Visual Disturbances: 2-Mild Sensitivity Headache: 0-None Present CIWA-Ar Total Score: 14 S Progress Note (SOAP) Subjective: Interrupted Sleep, Body Aches, Diarrhea, Tremors, Sweating, Fatigue. Objective: PATIENT A & O X 3, OBSERVED AMBULATING ON UNIT. NO ACUTE DISTRESS. PATIENT DENIES CHEST PAIN. 02/22/18 14:02 Vital Signs Temperature 97.2 F L 02/22/18 10:20 Pulse Rate 94 H 02/22/18 10:20 Respiratory Rate 18 02/22/18 10:20 Blood Pressure 120/72 02/22/18 10:20 O2 Sat by Pulse Oximetry (%) Laboratory Tests 02/21/18 02/22/18 02/22/18 22:36 07:30 07:30 WBC 7.6 RBC 4.76 Hgb 15.9 Hct 45.9 MCV 96.6 H MCH 33.4 MCHC 34.6 RDW 14.5 Plt Count 257 MPV 7.9 Sodium 140 Potassium 3.9 Chloride 102 Carbon Dioxide 31 Anion Gap 7 L BUN 7 Creatinine 0.7 Creat Clearance w eGFR > 60 Random Glucose 92 Calcium 8.9 Total Bilirubin 0.8 AST 59 H D ALT 69 D Alkaline Phosphatase 80 Total Protein 6.9 Albumin 4.0 Urine Color Mahi Urine Appearance Clear Urine pH 6.0 Ur Specific [place] 1.028 Urine Protein 2+ H Urine Glucose (UA) Negative Urine Ketones 2+ H Urine Blood Negative Urine Nitrite Negative Urine Bilirubin 2.0 Urine Urobilinogen 4.0 e.u/dl Ur Leukocyte Esterase Negative Urine WBC (Auto) 2 Urine RBC (Auto) 1 Ur Epithelial Cells Rare Urine Bacteria Rare Hyaline Casts 8 Urine Mucus Many RPR Titer 02/22/18 07:30 WBC RBC Hgb Hct MCV MCH MCHC RDW Plt Count MPV Sodium Potassium Chloride Carbon Dioxide Anion Gap BUN Creatinine Creat Clearance w eGFR Random Glucose Calcium Total Bilirubin AST ALT Alkaline Phosphatase Total Protein Albumin Urine Color Urine Appearance Urine pH Ur Specific [place] Urine Protein Urine Glucose (UA) Urine Ketones Urine Blood Urine Nitrite Urine Bilirubin Urine Urobilinogen Ur Leukocyte Esterase Urine WBC (Auto) Urine RBC (Auto) Ur Epithelial Cells Urine Bacteria Hyaline Casts Urine Mucus RPR Titer Nonreactive LABS NOTED. Assessment: 02/22/18 14:02 WITHDRAWAL SYMPTOMS. Plan: CONTINUE DETOX. INCREASE DAILY PO FLUID INTAKE. PRN IMMODIUM FOR DIARRHEA.
--- NOTE | 2018-02-22 14:26 | EKG ---
Test Reason : Blood Pressure : / mmHG Vent. Rate : 080 BPM Atrial Rate : 080 BPM P-R Int : 136 ms QRS Dur : 094 ms QT Int : 370 ms P-R-T Axes : 050 078 049 degrees QTc Int : 426 ms NORMAL SINUS RHYTHM NORMAL ECG WHEN COMPARED WITH ECG OF 04-JAN-2018 11:04, NO SIGNIFICANT CHANGE WAS FOUND Confirmed by FLORA DIXON MD ([id number]) on 02/22/2018 2:26:14 PM Referred By: Confirmed By:FLORA DIXON MD
--- NOTE | 2018-02-22 14:41 | CONSULT ---
[facility] Psychiatric Consult - Data Date of interview: 02/22/18 Admission source: [facility] Identifying data: Patient is a 42 year old divored male, father of one, unemployed (not receiving financial assistance) and currently homeless. This is one of multiple admissions to detox at [facility]. Patient admitted to for alcohol and marijuana dependence. Substance Abuse History: - Smoking Cessation. Smoking history: Current every day smoker. Have you smoked in the past 12 months: Yes. Aproximately how many cigarettes per day: 40. Cigars Per Day: 0. Hx Chewing Tobacco Use: No. Initiated information on smoking cessation: Yes. 'Breaking Loose' booklet given : 02/21/18. - Substances Abused. Alcohol. Route: Oral. Frequency: Daily. Amount used: BEER - 36CANS. Age of first use: 7. Date of Last Use: . Marijuana/Hashish. Route: Smoking. Frequency: Daily. Amount used: $ 40. Age of first use: 8. Date of Last Use: 02/21/18 Medical History: Asthma, Syncope, Seizures Psychiatric History: Patient reports one psychiatric hospitalization approximately 3 years ago at [facility] for suicidal ideation. Most recent OPD was provided four months ago at [facility]. Diagnosis of depression and anxiety. Pt. is prescribed Seroquel 300mg BID + Mirtzapine 45mg qhs. Pt. denies h/o suicide attempt. Physical/Sexual Abuse/Trauma History: Denies. Mental Status Exam - Mental Status Exam Alert and Oriented to: Time, Place, Person Cognitive Function: Good Patient Appearance: Well Groomed Mood: Euthymic Affect: Mood Congruent Patient Behavior: Appropriate, Cooperative Speech Pattern: Clear, Appropriate Voice Loudness: Normal Thought Process: Intact, Goal Oriented Thought Disorder: Not Present Hallucinations: Denies Suicidal Ideation: Denies Homicidal Ideation: Denies Insight/Judgement: Poor Sleep: Poorly Appetite: Fair Muscle strength/Tone: Normal Gait/Station: Normal Psychiatric Findings - Problem List ([place] 1, 2,3) (1) Alcohol dependence with uncomplicated withdrawal Current Visit: Yes Status: Acute (2) Asthma Current Visit: Yes Status: Chronic Qualifiers: Asthma severity: mild Asthma persistence: intermittent Asthma complication type: with status asthmaticus Qualified Code(s): J45.22 - Mild intermittent asthma with status asthmaticus (3) Cannabis dependence, uncomplicated Current Visit: Yes Status: Chronic (4) Nicotine dependence Current Visit: Yes Status: Chronic Qualifiers: Nicotine product type: cigarettes Substance use status: in withdrawal Qualified Code(s): F17.213 - Nicotine dependence, cigarettes, with withdrawal (5) Seizure Current Visit: Yes Status: Chronic (6) Syncope Current Visit: Yes Status: Chronic (7) Mood disorder Current Visit: Yes Status: Acute (8) Substance induced mood disorder Current Visit: Yes Status: Acute - Initial Treatment Plan Initial Treatment Plan: Psychoeducation provided. Detoxification in progress. Seroquel 200mg BID + Mirtzapine 15mg qhs ordered. Doses reduced due to risk of oversedation. Patient in agreement with plan. Benefits and side effects discussed. Verbal consent given.
[2018-02-22] MEDS: THIAMINE HCL 100 MG TABLET (FP) PO SCH (22:13)
[2018-02-22] MEDS: QUEtiapine FUMARATE 200 MG TABLET PO SCH (22:13)
[2018-02-23] MEDS: chlordiazePOXIDE HCL 25 MG CAPSULE PO SCH ×3 (05:15→17:24)
[2018-02-23] MEDS: NICOTINE 14 MG/24 HOURS TOPICAL PATCH TD SCH (10:15)
[2018-02-23] MEDS: PRENATAL VITAMINS W/ FOLIC ACID TABLET (FP) PO SCH (10:15)
[2018-02-23] MEDS: NICOTINE POLACRILEX 2 MG GUM BC PRN (10:15)
[2018-02-23] MEDS: QUEtiapine FUMARATE 200 MG TABLET PO SCH ×2 (10:15→22:13)
[2018-02-23] MEDS: MIRTAZAPINE 15 MG TABLET (FP) PO SCH (10:15)
--- NOTE | 2018-02-23 13:55 | PN ---
[facility] CIWA - CIWA Score Nausea/Vomitin-No Nausea/No Vomiting Muscle Tremors: 2 Anxiety: 4-Mod. Anxious/Guarded Agitation: 3 Paroxysmal Sweats: 3 Orientation: 2-Disoriented Date<2 days Tacttile Disturbances: 1-Very Mild Itch/Numbness Auditory Disturbances: 0-None Visual Disturbances: 0-None Headache: 0-None Present CIWA-Ar Total Score: 15 S Progress Note (SOAP) Subjective: Sweating, Fatigue, Anxious. Objective: PATIENT A & O X 2 (UNCERTAIN ABOUT CURRENT DAY / DATE). PATIENT OBSERVED AMBULATING ON UNIT. NO ACUTE DISTRESS. 02/23/18 13:52 Vital Signs Temperature 96 F L 02/23/18 09:22 Pulse Rate 101 H 02/23/18 09:22 Respiratory Rate 20 02/23/18 09:22 Blood Pressure 125/73 02/23/18 09:22 O2 Sat by Pulse Oximetry (%) Laboratory Tests 02/21/18 02/22/18 02/22/18 22:36 07:30 07:30 WBC 7.6 RBC 4.76 Hgb 15.9 Hct 45.9 MCV 96.6 H MCH 33.4 MCHC 34.6 RDW 14.5 Plt Count 257 MPV 7.9 Sodium 140 Potassium 3.9 Chloride 102 Carbon Dioxide 31 Anion Gap 7 L BUN 7 Creatinine 0.7 Creat Clearance w eGFR > 60 Random Glucose 92 Calcium 8.9 Total Bilirubin 0.8 AST 59 H D ALT 69 D Alkaline Phosphatase 80 Total Protein 6.9 Albumin 4.0 Urine Color [place] Urine Appearance Clear Urine pH 6.0 Ur Specific [place] 1.028 Urine Protein 2+ H Urine Glucose (UA) Negative Urine Ketones 2+ H Urine Blood Negative Urine Nitrite Negative Urine Bilirubin 2.0 Urine Urobilinogen 4.0 e.u/dl Ur Leukocyte Esterase Negative Urine WBC (Auto) 2 Urine RBC (Auto) 1 Ur Epithelial Cells Rare Urine Bacteria Rare Hyaline Casts 8 Urine Mucus Many RPR Titer 02/22/18 07:30 WBC RBC Hgb Hct MCV MCH MCHC RDW Plt Count MPV Sodium Potassium Chloride Carbon Dioxide Anion Gap BUN Creatinine Creat Clearance w eGFR Random Glucose Calcium Total Bilirubin AST ALT Alkaline Phosphatase Total Protein Albumin Urine Color Urine Appearance Urine pH Ur Specific [place] Urine Protein Urine Glucose (UA) Urine Ketones Urine Blood Urine Nitrite Urine Bilirubin Urine Urobilinogen Ur Leukocyte Esterase Urine WBC (Auto) Urine RBC (Auto) Ur Epithelial Cells Urine Bacteria Hyaline Casts Urine Mucus RPR Titer Nonreactive LABS NOTED. Assessment: 02/23/18 13:53 WITHDRAWAL SYMPTOMS. Plan: CONTINUE DETOX. INCREASE DAILY PO FLUID INTAKE. ENCOURAGE AMBULATION.
[2018-02-23] MEDS: THIAMINE HCL 100 MG TABLET (FP) PO SCH (22:13)
[2018-02-23] MEDS: chlordiazePOXIDE 5 MG CAPSULE PO SCH (22:13)
[2018-02-23] MEDS: MELATONIN 5 MG TABLETS PO PRN (22:13)
[2018-02-24] MEDS: chlordiazePOXIDE 5 MG CAPSULE PO SCH ×3 (05:14→17:23)
[2018-02-24] MEDS: MIRTAZAPINE 15 MG TABLET (FP) PO SCH (10:19)
[2018-02-24] MEDS: PRENATAL VITAMINS W/ FOLIC ACID TABLET (FP) PO SCH (10:19)
[2018-02-24] MEDS: NICOTINE 14 MG/24 HOURS TOPICAL PATCH TD SCH (10:19)
[2018-02-24] MEDS: QUEtiapine FUMARATE 200 MG TABLET PO SCH ×2 (10:19→22:05)
[2018-02-24] MEDS: NICOTINE POLACRILEX 2 MG GUM BC PRN (10:20)
--- NOTE | 2018-02-24 14:15 | PN ---
[facility] Progress Note (SOAP) Subjective: Sweating, Anxious. Objective: PATIENT A & O X 3, OBSERVED AMBULATING ON UNIT. NO ACUTE DISTRESS. 02/24/18 14:13 Vital Signs Temperature 99.0 F 02/24/18 10:51 Pulse Rate 52 L 02/24/18 10:51 Respiratory Rate 20 02/24/18 10:51 Blood Pressure 100/57 02/24/18 10:51 O2 Sat by Pulse Oximetry (%) Laboratory Tests 02/21/18 02/22/18 02/22/18 22:36 07:30 07:30 WBC 7.6 RBC 4.76 Hgb 15.9 Hct 45.9 MCV 96.6 H MCH 33.4 MCHC 34.6 RDW 14.5 Plt Count 257 MPV 7.9 Sodium 140 Potassium 3.9 Chloride 102 Carbon Dioxide 31 Anion Gap 7 L BUN 7 Creatinine 0.7 Creat Clearance w eGFR > 60 Random Glucose 92 Calcium 8.9 Total Bilirubin 0.8 AST 59 H D ALT 69 D Alkaline Phosphatase 80 Total Protein 6.9 Albumin 4.0 Urine Color Mahi Urine Appearance Clear Urine pH 6.0 Ur Specific [place] 1.028 Urine Protein 2+ H Urine Glucose (UA) Negative Urine Ketones 2+ H Urine Blood Negative Urine Nitrite Negative Urine Bilirubin 2.0 Urine Urobilinogen 4.0 e.u/dl Ur Leukocyte Esterase Negative Urine WBC (Auto) 2 Urine RBC (Auto) 1 Ur Epithelial Cells Rare Urine Bacteria Rare Hyaline Casts 8 Urine Mucus Many RPR Titer 02/22/18 07:30 WBC RBC Hgb Hct MCV MCH MCHC RDW Plt Count MPV Sodium Potassium Chloride Carbon Dioxide Anion Gap BUN Creatinine Creat Clearance w eGFR Random Glucose Calcium Total Bilirubin AST ALT Alkaline Phosphatase Total Protein Albumin Urine Color Urine Appearance Urine pH Ur Specific [place] Urine Protein Urine Glucose (UA) Urine Ketones Urine Blood Urine Nitrite Urine Bilirubin Urine Urobilinogen Ur Leukocyte Esterase Urine WBC (Auto) Urine RBC (Auto) Ur Epithelial Cells Urine Bacteria Hyaline Casts Urine Mucus RPR Titer Nonreactive LABS NOTED. Assessment: 02/24/18 14:14 WITHDRAWAL SYMPTOMS. Plan: CONTINUE DETOX. INCREASE DAILY PO FLUID INTAKE. PATIENT SCHEDULED FOR D/C TOMORROW.
[2018-02-24] MEDS: THIAMINE HCL 100 MG TABLET (FP) PO SCH (22:05)
[2018-02-24] MEDS: chlordiazePOXIDE HCL 10 MG CAPSULE PO SCH (22:05)
[2018-02-24] MEDS: MELATONIN 5 MG TABLETS PO PRN (23:10)
[2018-02-25] MEDS: chlordiazePOXIDE HCL 10 MG CAPSULE PO SCH ×2 (06:03→10:55)
[2018-02-25 06:41] VITALS: BP 128/87; PULSE 94; TEMP 97
[2018-02-25] MEDS: NICOTINE 14 MG/24 HOURS TOPICAL PATCH TD SCH (10:55)
[2018-02-25] MEDS: MIRTAZAPINE 15 MG TABLET (FP) PO SCH (10:55)
[2018-02-25] MEDS: PRENATAL VITAMINS W/ FOLIC ACID TABLET (FP) PO SCH (10:55)
[2018-02-25] MEDS: QUEtiapine FUMARATE 200 MG TABLET PO SCH (10:56)
== END 2018-02-25 12:05 | disposition home or self-care (01) | DRG 775 ==
LOC: YASAS 17:53 → Y3N 20:31
PROVIDERS: ADMIT Surgery; ATTEND Surgery
PROC: HZ2ZZZZ Detoxification Services for Substance Abuse Treatment (ICD-10-PCS; principal; 2018-02-21)
DX: F10.230 Alcohol dependence with withdrawal, uncomplicated (principal); F12.20 Cannabis dependence, uncomplicated; F17.213 Nicotine dependence, cigarettes, with withdrawal; F39 Unspecified mood [affective] disorder; F32.9 Major depressive disorder, single episode, unspecified; F41.9 Anxiety disorder, unspecified; F19.24 Other psychoactive substance dependence with psychoactive substance-induced mood disorder; R56.9 Unspecified convulsions; R55 Syncope and collapse; Z87.442 Personal history of urinary calculi; Z91.5 Personal history of self-harm
CPT/HCPCS: 36415; 80053; 81003; 81015; 85027; 86593; 93005; 93010

== ENCOUNTER 2018-04-24 16:46 | Inpatient (IN) | payer OTHER ==
[2018-04-24 18:24] VITALS: BMI 23.1
--- NOTE | 2018-04-24 18:37 | HP ---
"CIWA Score - CIWA Score Nausea/Vomitin-Mild Nausea/No Vomiting Muscle Tremors: 4-Moderate,w/Arms Extend Anxiety: 1-Mildly Anxious Agitation: 3 Paroxysmal Sweats: 3 (Perspiration on greg only.) Orientation: 3-Disoriented Date>2 days (Knows month and year only. Was off on date by 10 days and did not know day of week.) Tacttile Disturbances: 0-None Auditory Disturbances: 0-None Visual Disturbances: 0-None Headache: 2-Mild CIWA-Ar Total Score: 17 Admission [facility] Chief Complaint: Here for alcohol withdrawal. Allergies/Adverse Reactions: Allergies Allergy/AdvReac Type Severity Reaction Status Date / Time No Known Allergies Allergy Verified 03/06/18 19:19 History of Present Illness: Started drinking at age 7. Marijuana use began at age 8. Denies other illicit substances. Longest sobriety 8 months, while in a controlled environment. Hx of seizure and blackouts. States taking Keppra until 1 week ago. Search Terms: Santino Traore, 1975 Search Date: 04/24/2018 07:14:25 PM The Drug Utilization Report below displays all of the controlled substance prescriptions, if any, that your patient has filled in the last twelve months. The information displayed on this report is compiled from pharmacy submissions to the Department, and accurately reflects the information as submitted by the pharmacies. This report was requested by: Heavenly Jaime | Reference #: [id number] There are no results for the search terms that you entered. - Ebola screening Have you traveled outside of the country in the last 21 days: No Have you had contact with anyone from an Ebola affected area: No Have you been sick,other than usual withdrawal symptoms: No Do you have a fever: No - Review of Systems Constitutional: Diaphoresis, Changes in sleep (Difficulty staying asleep) EENT: reports: Blurred Vision (Wears glasses) Respiratory: reports: No Symptoms reported Cardiac: reports: No Symptoms Reported GI: reports: Nausea Musculoskeletal: reports: No Symptoms Reported Neuro: reports: No Symptoms reported Endocrine: reports: No Symptoms Reported Hematology: reports: No Symptoms Reported Psychiatric: reports: Agitated, Anxious, Depressed (Denies thoughts of harming self or others) Patient History - Patient Medical History Hx Anemia: No Hx Asthma: Yes (Not on medication. No recent exacerbations) Hx Chronic Obstructive Pulmonary Disease (COPD): No Hx Cancer: No Hx Cardiac Disorders: Yes (Syncope in past. Denies current problems.) Hx Congestive Heart Failure: No Hx Hypertension: No Hx Hypercholesterolemia: No Hx Pacemaker: No HX Cerebrovascular Accident: No Hx Seizures: Yes ( Dilantin- Last day medicated -1 weeks ago) Hx Dementia: No Hx Diabetes: No Hx Gastrointestinal Disorders: No Hx Liver Disease: No Hx Genitourinary Disorders: No Hx Sexually Transmitted Disorders: No (Denies ) Hx Renal Disease (ESRD): No Hx Thyroid Disease: No Hx Human Immunodeficiency Virus (HIV): No (Negative 2015) Hx Hepatitis C: No Hx Depression: Yes (Seroquel and Remeron - last took 1 week ago) Hx Suicide Attempt: Yes (Attempt in 2013. Denies suicide attempt or ideation at this time) Hx Bipolar Disorder: No Hx Schizophrenia: No - Patient Surgical History Past Surgical History: Yes Hx Neurologic Surgery: No Hx Cataract Extraction: No Hx Cardiac Surgery: No Hx Lung Surgery: No Hx Breast Surgery: No Hx Breast Biopsy: No Hx Abdominal Surgery: No Hx Appendectomy: No Hx Cholecystectomy: No Hx Genitourinary Surgery: No Hx Section: No Hx Orthopedic Surgery: No Other Surgical History: removal of R kidney stones 10 yrs ago, right /tendon repair R hand 6yrs ago Anesthesia Reaction: No - PPD History Previous Implant?: Yes Documented Results: Negative w/proof Implanted On Prior [facility] Admission?: Yes Date: 12/15/17 Results: 0 mm PPD to be Administered?: No - Smoking Cessation Smoking history: Current every day smoker Have you smoked in the past 12 months: Yes Aproximately how many cigarettes per day: 30 Cigars Per Day: 0 Hx Chewing Tobacco Use: No Initiated information on smoking cessation: Yes 'Breaking Loose' booklet given: 04/24/18 - Substance & Tx. History Hx Alcohol Use: Yes Hx Substance Use: Yes Substance Use Type: Alcohol, Marijuana Hx Substance Use Treatment: Yes (multiple detoxes, long and short term rehabs) - Substances Abused Alcohol Route: Oral Frequency: Daily Amount used: 2 gallons of vodka/rum/gin Age of first use: 7 Date of Last Use: 04/24/18 Marijuana/Hashish Route: Smoking Frequency: 3-6 times per week Amount used: $40 Age of first use: 8 Date of Last Use: 04/24/18 Family Disease History - Family Disease History Family Disease History: CA: Mother ( age 65 from breast cancer mets to bone) Admission Physical Exam [facility] - Vital Signs Vital Signs: Vital Signs - 24 hr 04/24/18 18:22 Temperature 98.9 F Pulse Rate 102 H Respiratory 20 Rate Blood Pressure 144/92 - Physical General Appearance: Yes: Appropriately Dressed, Mild Distress, Tremorous, Sweating, Anxious HEENTM: Yes: EOMI, Hearing grossly Normal, Normocephalic, Normal Voice, SARIAH, Other (Dry mucous membranes) Respiratory: Yes: Chest Non-Tender, Lungs Clear Neck: Yes: No masses,lesions,Nodules, Supple Breast: Yes: Breast Exam Deferred Cardiology: Yes: Regular Rhythm, S1, S2, Tachycardia Abdominal: Yes: Non Tender, Flat, Soft, Increased Bowel Sounds Genitourinary: Yes: Within Normal Limits Back: Yes: Normal Inspection Musculoskeletal: Yes: full range of Motion, Gait Steady Extremities: Yes: Normal Capillary Refill, Normal Range of Motion, Tremors Neurological: Yes: travel pta II-XII NML intact, Alert, Motor Strength 5/5, Normal Mood /Affect Integumentary: Yes: Normal Color, Dry (Decreased skin turgot. Dry mucoous membranes. Dry skin except for increased moisture on face.), Warm Lymphatic: Yes: Within Normal Limits - Diagnostic (1) Alcohol dependence with uncomplicated withdrawal Current Visit: Yes Status: Acute (2) Cannabis dependence, uncomplicated Current Visit: Yes Status: Chronic (3) History of asthma Current Visit: No Status: Inactive (4) History of seizure Current Visit: Yes Status: Chronic (5) Nicotine dependence Current Visit: Yes Status: Chronic Qualifiers: Nicotine product type: cigarettes Substance use status: in withdrawal Qualified Code(s): F17.213 - Nicotine dependence, cigarettes, with withdrawal (6) Dehydration Current Visit: Yes Status: Acute Cleared for Admission [facility] - Detox or Rehab [facility] Level of Care: Medically Managed Detox Regimen/Protocol: Librium [facility] Breath Alcohol Content Breath Alcohol Content: 0.087 Urine Drug Screen - Results Drug Screen Negative: No Urine Drug Screen Results: THC-Marijuana"
[2018-04-24] MEDS ORDERED: MAG HYDROX/AL HYDROX/SIMETH 30 ML UNIT-DOSE CUP PO PRN (19:02)
[2018-04-24] MEDS ORDERED: guaiFENesin/D-METHORPHAN HB 10 ML UNIT-DOSE CUPS PO PRN (19:02)
[2018-04-24] MEDS ORDERED: ACETAMINOPHEN 325 MG TABLET (FP) PO PRN (19:02)
[2018-04-24] MEDS ORDERED: MAGNESIUM HYDROX 2400MG/30ML ORAL SUSPENSION 30 ML CUP PO PRN (19:02)
[2018-04-24] MEDS ORDERED: hydrOXYzine PAMOATE 50 MG CAPSULE (FP) PO PRN (19:02)
[2018-04-24] MEDS ORDERED: P-EPHED 60MG/TRIPROLIDI 2.5MG TABLET PO PRN (19:02)
[2018-04-24] MEDS ORDERED: MENTHOL/PHENOL 1 EACH UD MM PRN (19:02)
[2018-04-24] MEDS ORDERED: LOPERAMIDE HCL 2 MG CAPSULE PO PRN (19:02)
[2018-04-24] MEDS ORDERED: IBUPROFEN 400 MG TABLET (FP) PO PRN (19:02)
[2018-04-24] MEDS ORDERED: chlordiazePOXIDE HCL 25 MG CAPSULE PO ONE (19:02)
[2018-04-24] MEDS ORDERED: MAGNESIUM CITRATE 300 ML BOTTLE PO PRN (19:02)
[2018-04-24] MEDS ORDERED: MELATONIN 5 MG TABLETS PO PRN (22:00)
[2018-04-24] MEDS: ATORVASTATIN CA 10 MG TABLET (FP) PO SCH (22:06)
[2018-04-24] MEDS: THIAMINE HCL 100 MG TABLET (FP) PO SCH (22:06)
[2018-04-24] MEDS: levETIRAcetam 500 MG TABLET (FP) PO SCH (22:06)
[2018-04-24] MEDS: chlordiazePOXIDE HCL 25 MG CAPSULE PO SCH (22:06)
[2018-04-25 02:55] LABS: URINE APPEARANCE CLEAR; URINE BILIRUBIN NEGATIVE (<2.0 mg/dL); URINE COLOR LTYELLOW; URINE GLUCOSE (UA) NEGATIVE (NEGATIVE); URINE KETONE TRACE (NEGATIVE); URINE LEUK ESTERASE NEGATIVE (NEGATIVE); URINE NITRITE NEGATIVE (NEGATIVE); URINE PROTEIN NEGATIVE (NEGATIVE); URINE UROBILINOGEN NEGATIVE mg/dL (0.2-1.0)
[2018-04-25] MEDS: chlordiazePOXIDE HCL 25 MG CAPSULE PO SCH ×4 (05:30→22:18)
--- NOTE | 2018-04-25 09:33 | PN ---
S CIWA - CIWA Score Nausea/Vomitin-Int. Nausea w/Dry Heave Muscle Tremors: 2 Anxiety: 3 Agitation: 2 Paroxysmal Sweats: 3 Orientation: 0-Oriented Tacttile Disturbances: 1-Very Mild Itch/Numbness Auditory Disturbances: 0-None Visual Disturbances: 0-None Headache: 0-None Present CIWA-Ar Total Score: 15 S Progress Note (SOAP) Subjective: interrupted sleep, sweats, nausea Objective: 04/25/18 09:30 Vital Signs Temperature 97.5 F L 04/25/18 09:21 Pulse Rate 90 04/25/18 09:21 Respiratory Rate 18 04/25/18 09:21 Blood Pressure 133/68 04/25/18 09:21 O2 Sat by Pulse Oximetry (%) Laboratory Tests 04/24/18 22:57 Urine Color Ltyellow Urine Appearance Clear Urine pH 6.0 Ur Specific [place] 1.005 Urine Protein Negative Urine Glucose (UA) Negative Urine Ketones Trace H Urine Blood Negative Urine Nitrite Negative Urine Bilirubin Negative Urine Urobilinogen Negative Ur Leukocyte Esterase Negative pending labs pt sitting up in bed attempting to eat Assessment: 04/25/18 09:32 withdrawal sx's Plan: cont. detox increase fluids f/up pending labs [place] prn
[2018-04-25] MEDS: levETIRAcetam 500 MG TABLET (FP) PO SCH ×2 (10:12→22:16)
[2018-04-25] MEDS: ASPIRIN 81 MG CHEWABLE TABLETS PO SCH (10:12)
[2018-04-25] MEDS: PRENATAL VITAMINS W/ FOLIC ACID TABLET (FP) PO SCH (10:12)
[2018-04-25] MEDS: NICOTINE 21 MG/24 HOURS TOPICAL PATCH TD SCH (10:12)
[2018-04-25 10:15] LABS: HEMATOCRIT 47.1 % (35.4-49); HEMOGLOBIN 15.9 GM/dL (11.7-16.9); MCH 33.1 pg (25.7-33.7); MCHC 33.7 g/dl (32.0-35.9); MEAN CELL VOLUME 98.2 fl (80-96); MEAN PLT VOLUME 7.3 fl (7.5-11.1); PLATELET COUNT 370 K/MM3 (134-434); RDW 13.6 % (11.9-15.9); WHITE BLOOD COUNT 12.5 K/mm3 (4.0-10.0)
--- NOTE | 2018-04-25 10:21 | CONSULT ---
[facility] Psychiatric Consult - Data Date of interview: 04/25/18 Admission source: [facility] Identifying data: Patient is a 43 year old male, , father of one, unemployed (denies receiving financial assistance) and is currently homeless. This is one of [facility] admissions. Pt. admitted to for alcohol and marijuana dependence. Substance Abuse History: Smoking Cessation. Smoking history: Current every day smoker. Have you smoked in the past 12 months: Yes. Aproximately how many cigarettes per day: 30. Cigars Per Day: 0. Hx Chewing Tobacco Use: No. Initiated information on smoking cessation: Yes. 'Breaking Loose' booklet given : 04/24/18. - Substance & Tx. History. Hx Alcohol Use: Yes. Hx Substance Use : Yes. Substance Use Type: Alcohol, Marijuana. Hx Substance Use Treatment: Yes (multiple detoxes, long and short term rehabs). - Substances Abused. Alcohol. Route: Oral. Frequency: Daily. Amount used: 2 gallons of vodka/rum/ gin. Age of first use: 7. Date of Last Use: 04/24/18. Marijuana/Hashish. Route: Smoking. Frequency: 3-6 times per week. Amount used: $40. Age of first use: 8. Date of Last Use: 04/24/18 Medical History: Asthma, Syncope, Seizures, removal of R kidney stones 10 yrs ago, right /tendon repair R hand 6yrs ago Psychiatric History: Patient denies h/o psychiatric hospitalizations. Most recent outpatient psychiatric services was provided four months ago in [place], [place] by Dr. Jaime. While receiving psychiatric treatment from Dr. Jaime, Mr. Traore was prescribed Serooquel 300mg BID + Mirtzapine 45 mg qhs. Pt. reports sub-optimal adherence to medications (has medication from January prescription due to nonadherence. Took medication last week). Mr. Traore was seen by Dr. Porter while in rehab in January of 2018 and prescribed Seroquel 300mg BID + Mirtzapine 45mg qhs. Patient was seen by marketing copywriter while in detox on and was resumed on his medication but on lower dosages due to risk of oversedation. Mr. Traore reports two suicide attempts most recently 2 years ago via overdose. Pt. requesting to resume medication. Physical/Sexual Abuse/Trauma History: denies. Mental Status Exam - Mental Status Exam Alert and Oriented to: Time, Place, Person Cognitive Function: Good Patient Appearance: Well Groomed Mood: Sad, Euthymic Affect: Mood Congruent Patient Behavior: Appropriate, Cooperative Speech Pattern: Clear, Appropriate Voice Loudness: Normal Thought Process: Intact, Goal Oriented Thought Disorder: Not Present Hallucinations: Denies Suicidal Ideation: Denies Homicidal Ideation: Denies Insight/Judgement: Poor Sleep: Poorly Appetite: Fair Muscle strength/Tone: Normal Gait/Station: Normal Psychiatric Findings - Problem List ([place] 1, 2,3) (1) Alcohol dependence with uncomplicated withdrawal Status: Acute (2) Cannabis dependence, uncomplicated Status: Chronic (3) Nicotine dependence Status: Chronic Qualifiers: Nicotine product type: cigarettes Substance use status: in withdrawal Qualified Code(s): F17.213 - Nicotine dependence, cigarettes, with withdrawal (4) Substance induced mood disorder Status: Acute (5) Substance-induced sleep disorder Status: Acute (6) Mood disorder Status: Chronic - Initial Treatment Plan Initial Treatment Plan: Psychoeducation provided. Detoxification in progress. Will order Seroquel 100mg BID (lower dose due to risk of oversedation) + Mirtzapine 15mg qhs. Benefits and side effects discussed. Verbal consent given.
[2018-04-25 11:13] LABS: ALBUMIN 3.9 g/dl (3.4-5.0); ALK PHOS 78 U/L (45-117); ANION GAP 6 MMOL/L (8-16); BLOOD UREA NITROGEN 8 mg/dL (7-18); CALCIUM 9.2 mg/dL (8.5-10.1); CHLORIDE 102 mmol/L (98-107); CO2 31 mmol/L (21-32); CREATININE 0.7 mg/dL (0.55-1.3); GLUCOSE,RANDOM 88 mg/dL (74-106); POTASSIUM 4.2 mmol/L (3.5-5.1); SGOT/AST 31 U/L (15-37); SGPT/ALT 23 U/L (13-61); SODIUM 139 mmol/L (136-145); TOT PROT 6.7 g/dl (6.4-8.2)
[2018-04-25] MEDS: QUEtiapine FUMARATE 100 MG TABLET (FP) PO SCH ×2 (11:24→22:16)
[2018-04-25] MEDS: NICOTINE POLACRILEX 4 MG GUM BUC PRN (11:25)
--- NOTE | 2018-04-25 12:59 | EKG ---
Test Reason : Blood Pressure : / mmHG Vent. Rate : 098 BPM Atrial Rate : 098 BPM P-R Int : 130 ms QRS Dur : 088 ms QT Int : 344 ms P-R-T Axes : 075 083 052 degrees QTc Int : 439 ms NORMAL SINUS RHYTHM NORMAL ECG WHEN COMPARED WITH ECG OF 21-FEB-2018 22:17, NO SIGNIFICANT CHANGE WAS FOUND Confirmed by JOSE G ORDAZ MD ([id number]) on 04/25/2018 12:58:43 PM Referred By: Confirmed By:JOSE G ORDAZ MD
[2018-04-25] MEDS: ATORVASTATIN CA 10 MG TABLET (FP) PO SCH (22:16)
[2018-04-25] MEDS: THIAMINE HCL 100 MG TABLET (FP) PO SCH (22:16)
[2018-04-25] MEDS: MIRTAZAPINE 15 MG TABLET (FP) PO SCH (22:17)
[2018-04-26] MEDS: chlordiazePOXIDE HCL 25 MG CAPSULE PO SCH ×3 (05:07→17:36)
--- NOTE | 2018-04-26 10:25 | PN ---
S CIWA - CIWA Score Nausea/Vomitin-Mild Nausea/No Vomiting Muscle Tremors: 4-Moderate,w/Arms Extend Anxiety: 3 Agitation: 2 Paroxysmal Sweats: 1-Minimal Palms Moist Orientation: 0-Oriented Tacttile Disturbances: 1-Very Mild Itch/Numbness Auditory Disturbances: 0-None Visual Disturbances: 0-None Headache: 0-None Present CIWA-Ar Total Score: 12 [facility] Progress Note (SOAP) Subjective: sweat tremor restlessness anxiety irritable Objective: 04/26/18 10:24 Vital Signs Temperature 98 F 04/26/18 09:52 Pulse Rate 71 04/26/18 09:52 Respiratory Rate 18 04/26/18 09:52 Blood Pressure 98/62 04/26/18 09:52 O2 Sat by Pulse Oximetry (%) Laboratory Last Values WBC 12.5 K/mm3 (4.0-10.0) H 04/25/18 07:00 RBC 4.80 M/mm3 (4.00-5.60) 04/25/18 07:00 Hgb 15.9 GM/dL (11.7-16.9) 04/25/18 07:00 Hct 47.1 % (35.4-49) 04/25/18 07:00 MCV 98.2 fl (80-96) H 04/25/18 07:00 MCH 33.1 pg (25.7-33.7) 04/25/18 07:00 MCHC 33.7 g/dl (32.0-35.9) 04/25/18 07:00 RDW 13.6 % (11.9-15.9) 04/25/18 07:00 Plt Count 370 K/MM3 (134-434) D 04/25/18 07:00 MPV 7.3 fl (7.5-11.1) L 04/25/18 07:00 Sodium 139 mmol/L (136-145) 04/25/18 07:00 Potassium 4.2 mmol/L (3.5-5.1) 04/25/18 07:00 Chloride 102 mmol/L (98-107) 04/25/18 07:00 Carbon Dioxide 31 mmol/L (21-32) 04/25/18 07:00 Anion Gap 6 MMOL/L (8-16) L 04/25/18 07:00 BUN 8 mg/dL (7-18) 04/25/18 07:00 Creatinine 0.7 mg/dL (0.55-1.3) 04/25/18 07:00 Creat Clearance w eGFR > 60 (>60) 04/25/18 07:00 Random Glucose 88 mg/dL (74-106) 04/25/18 07:00 Calcium 9.2 mg/dL (8.5-10.1) 04/25/18 07:00 Total Bilirubin 1.0 mg/dL (0.2-1) 04/25/18 07:00 AST 31 U/L (15-37) 04/25/18 07:00 ALT 23 U/L (13-61) 04/25/18 07:00 Alkaline Phosphatase 78 U/L (45-117) 04/25/18 07:00 Total Protein 6.7 g/dl (6.4-8.2) 04/25/18 07:00 Albumin 3.9 g/dl (3.4-5.0) 04/25/18 07:00 Urine Color Ltyellow 04/24/18 22:57 Urine Appearance Clear 04/24/18 22:57 Urine pH 6.0 (5.0-8.0) 04/24/18 22:57 Ur Specific [place] 1.005 (1.001-1.035) 04/24/18 22:57 Urine Protein Negative (NEGATIVE) 04/24/18 22:57 Urine Glucose (UA) Negative (NEGATIVE) 04/24/18 22:57 Urine Ketones Trace (NEGATIVE) H 04/24/18 22:57 Urine Blood Negative (NEGATIVE) 04/24/18 22:57 Urine Nitrite Negative (NEGATIVE) 04/24/18 22:57 Urine Bilirubin Negative (<2.0 mg/dL) 04/24/18 22:57 Urine Urobilinogen Negative mg/dL (0.2-1.0) 04/24/18 22:57 Ur Leukocyte Esterase Negative (NEGATIVE) 04/24/18 22:57 RPR Titer Nonreactive (NONREACTIVE) 04/25/18 07:00 HIV 1&2 Antibody Screen Negative 04/25/18 07:00 HIV P24 Antigen Negative 04/25/18 07:00 lab noted Assessment: 04/26/18 10:25 withdrawal sx Plan: continue detox
[2018-04-26] MEDS: NICOTINE 21 MG/24 HOURS TOPICAL PATCH TD SCH (10:48)
[2018-04-26] MEDS: PRENATAL VITAMINS W/ FOLIC ACID TABLET (FP) PO SCH (10:48)
[2018-04-26] MEDS: levETIRAcetam 500 MG TABLET (FP) PO SCH ×2 (10:49→22:07)
[2018-04-26] MEDS: ASPIRIN 81 MG CHEWABLE TABLETS PO SCH (10:49)
[2018-04-26] MEDS: QUEtiapine FUMARATE 100 MG TABLET (FP) PO SCH ×2 (10:49→22:07)
[2018-04-26] MEDS: NICOTINE POLACRILEX 4 MG GUM BUC PRN ×3 (10:51→22:08)
[2018-04-26] MEDS: chlordiazePOXIDE 5 MG CAPSULE PO SCH (22:06)
[2018-04-26] MEDS: THIAMINE HCL 100 MG TABLET (FP) PO SCH (22:07)
[2018-04-26] MEDS: ATORVASTATIN CA 10 MG TABLET (FP) PO SCH (22:07)
[2018-04-26] MEDS: MIRTAZAPINE 15 MG TABLET (FP) PO SCH (22:07)
[2018-04-27] MEDS: chlordiazePOXIDE HCL 25 MG CAPSULE PO PRN ×2 (00:42→15:02)
[2018-04-27] MEDS: chlordiazePOXIDE 5 MG CAPSULE PO SCH ×3 (05:22→17:42)
[2018-04-27] MEDS: ASPIRIN 81 MG CHEWABLE TABLETS PO SCH (10:10)
[2018-04-27] MEDS: PRENATAL VITAMINS W/ FOLIC ACID TABLET (FP) PO SCH (10:10)
[2018-04-27] MEDS: QUEtiapine FUMARATE 100 MG TABLET (FP) PO SCH (10:10)
[2018-04-27] MEDS: levETIRAcetam 500 MG TABLET (FP) PO SCH (10:11)
[2018-04-27] MEDS: NICOTINE 21 MG/24 HOURS TOPICAL PATCH TD SCH (10:11)
--- NOTE | 2018-04-27 10:46 | PN ---
[facility] Progress Note (SOAP) Subjective: PATIENT PRESENT WITH MILD COLD SWEATS. DENIES N/V/D, HEADACHE AND NAUSEA. Objective: 04/27/18 10:45 Vital Signs Temperature 97.3 F L 04/27/18 09:13 Pulse Rate 80 04/27/18 09:13 Respiratory Rate 18 04/27/18 09:13 Blood Pressure 106/63 04/27/18 09:13 O2 Sat by Pulse Oximetry (%) Laboratory Tests 04/24/18 04/25/18 04/25/18 22:57 07:00 07:00 WBC 12.5 H RBC 4.80 Hgb 15.9 Hct 47.1 MCV 98.2 H MCH 33.1 MCHC 33.7 RDW 13.6 Plt Count 370 D MPV 7.3 L Sodium 139 Potassium 4.2 Chloride 102 Carbon Dioxide 31 Anion Gap 6 L BUN 8 Creatinine 0.7 Creat Clearance w eGFR > 60 Random Glucose 88 Calcium 9.2 Total Bilirubin 1.0 AST 31 ALT 23 Alkaline Phosphatase 78 Total Protein 6.7 Albumin 3.9 Urine Color Ltyellow Urine Appearance Clear Urine pH 6.0 Ur Specific [place] 1.005 Urine Protein Negative Urine Glucose (UA) Negative Urine Ketones Trace H Urine Blood Negative Urine Nitrite Negative Urine Bilirubin Negative Urine Urobilinogen Negative Ur Leukocyte Esterase Negative RPR Titer HIV 1&2 Antibody Screen HIV P24 Antigen 04/25/18 04/25/18 07:00 07:00 WBC RBC Hgb Hct MCV MCH MCHC RDW Plt Count MPV Sodium Potassium Chloride Carbon Dioxide Anion Gap BUN Creatinine Creat Clearance w eGFR Random Glucose Calcium Total Bilirubin AST ALT Alkaline Phosphatase Total Protein Albumin Urine Color Urine Appearance Urine pH Ur Specific [place] Urine Protein Urine Glucose (UA) Urine Ketones Urine Blood Urine Nitrite Urine Bilirubin Urine Urobilinogen Ur Leukocyte Esterase RPR Titer Nonreactive HIV 1&2 Antibody Screen Negative HIV P24 Antigen Negative Assessment: 04/27/18 10:45 ALERT AND ORIENTED SKIN WARM AND MOIST CAR S1S2 RESP CTA BL Plan: CONTINUE DETOX PER PROTOCOL ENCOURAGE ORAL FLUIDS
--- NOTE | 2018-04-27 15:57 | DS ---
[facility] Detox Discharge Summary Admission Date: 04/24/18 Discharge Date: 04/27/18 - History Present History: Alcohol Dependence - Physical Exam Results Vital Signs: Vital Signs Temperature 97.5 F L 04/27/18 12:51 Pulse Rate 101 H 04/27/18 12:51 Respiratory Rate 18 04/27/18 12:51 Blood Pressure 134/83 04/27/18 12:51 O2 Sat by Pulse Oximetry (%) Pertinent Admission Physical Exam Findings: PATIENT TO TRANSFER TO RE[facility] TODAY. PATIENT IS MEDICALLY STABLE. DENIES SI/HI. DISCHARGE ORDER PLACED. - Treatment Hospital Course: Detox Protocol Followed, Detoxed Safely, Responded well, Discharged Condition Good, Rehab Referral Accepted - Medication Discharge Medications: Ambulatory Orders Mirtazapine [Remeron -] 45 mg PO DAILY #30 tab 01/04/18 Albuterol Sulfate Inhaler - [Ventolin HFA Inhaler -] 2 puff IH Q4H PRN #1 inhaler 01/08/18 Aspirin [ASA -] 81 mg PO DAILY tab.chew 01/08/18 Quetiapine Fumarate [Seroquel] 300 mg PO BID #60 tablet 01/16/18 Aspirin [ASA -] 81 mg PO DAILY #30 tab.chew 01/18/18 Atorvastatin Ca [Lipitor] 10 mg PO HS 30 Days #30 tablet 01/18/18 levETIRAcetam [Keppra -] 500 mg PO BID 30 Days #60 tablet 01/18/18 - Diagnosis (1) Withdrawal syndrome Current Visit: Yes Status: Resolved - AMA Did Patient Leave Against Medical Advice: No
[2018-04-27 17:33] VITALS: BP 126/72; PULSE 109; TEMP 97.8
[2018-04-27] MEDS: NICOTINE POLACRILEX 4 MG GUM BUC PRN (17:44)
[2018-04-27] MEDS ORDERED: chlordiazePOXIDE HCL 10 MG CAPSULE PO SCH (23:00)
== END 2018-04-27 07:27 | disposition other institution (70) | DRG 775 ==
LOC: YASAS 16:46 → Y6N 19:23
PROC: HZ2ZZZZ Detoxification Services for Substance Abuse Treatment (ICD-10-PCS; principal; 2018-04-24)
DX: F10.230 Alcohol dependence with withdrawal, uncomplicated (principal); F12.20 Cannabis dependence, uncomplicated; F17.213 Nicotine dependence, cigarettes, with withdrawal; F19.24 Other psychoactive substance dependence with psychoactive substance-induced mood disorder; F19.282 Other psychoactive substance dependence with psychoactive substance-induced sleep disorder; E86.0 Dehydration; E78.5 Hyperlipidemia, unspecified; G40.909 Epilepsy, unspecified, not intractable, without status epilepticus; J45.22 Mild intermittent asthma with status asthmaticus; Z91.5 Personal history of self-harm
CPT/HCPCS: 36415; 80053; 81003; 85027; 86593; 87389; 93005; 93010

== ENCOUNTER 2018-04-27 20:13 | Inpatient (IN) | payer OTHER ==
[2018-04-27] MEDS ORDERED: MAGNESIUM HYDROX 2400MG/30ML ORAL SUSPENSION 30 ML CUP PO PRN (20:53)
[2018-04-27] MEDS ORDERED: ACETAMINOPHEN 325 MG TABLET (FP) PO PRN (20:53)
[2018-04-27] MEDS ORDERED: P-EPHED 60MG/TRIPROLIDI 2.5MG TABLET PO PRN (20:53)
[2018-04-27] MEDS ORDERED: ALBUTEROL SO4 8 GM HFA INHALER IH PRN (20:53)
[2018-04-27] MEDS ORDERED: LOPERAMIDE HCL 2 MG CAPSULE PO PRN (20:53)
[2018-04-27] MEDS ORDERED: MENTHOL/PHENOL 1 EACH UD MM PRN (20:53)
[2018-04-27] MEDS ORDERED: guaiFENesin/D-METHORPHAN HB 10 ML UNIT-DOSE CUPS PO PRN (20:53)
[2018-04-27] MEDS ORDERED: MAGNESIUM CITRATE 300 ML BOTTLE PO PRN (20:53)
--- NOTE | 2018-04-27 21:01 | PN ---
[facility] Progress Note Note: Psychiatric nurse practitioner production assembler note: Chart reviewed. Pt. seen by conventional underwriter while on detox and was resumed on Seroquel 100mg BID. Patient transferred to . Will increase Seroquel to 150mg BID (with the plan to titrate seroquel to 300mg BID)and add Mirtzapine 30mg qhs.
[2018-04-27] MEDS: THIAMINE HCL 100 MG TABLET (FP) PO SCH (21:53)
[2018-04-27] MEDS: ATORVASTATIN CA 10 MG TABLET (FP) PO SCH (21:53)
[2018-04-27] MEDS: MIRTAZAPINE 15 MG TABLET (FP) PO SCH (21:53)
[2018-04-27] MEDS: levETIRAcetam 500 MG TABLET (FP) PO SCH (21:53)
[2018-04-27] MEDS: MELATONIN 5 MG TABLETS PO PRN (21:53)
[2018-04-27] MEDS: QUEtiapine FUMARATE 300 MG TABLET PO SCH (21:54)
[2018-04-27 22:53] VITALS: BMI 23.1
--- NOTE | 2018-04-27 23:22 | HP ---
[facility] Rehab Assess/Revision - Admission History Admitted to Rehab from: [facility] Date of Admission to Rehab: 04/27/2018 - Vital signs Vital Signs: Vital Signs Period Temp Pulse Resp BP Sys/Angel Pulse Ox Last 24 Hr 97.8 F - Findings Detox History & Physical reviewed: Yes Concur with findings: Yes Inpatient Rehab Admission - Initial Determination Are CD services needed?: Yes Free of communicable disease: Yes Not in need of hospitalization: Yes - Rehab Admission Criteria Previous failed treatment: Yes Poor recovery environment: Yes Comorbidities: Yes Lacks judgement: Yes Patient is meeting Inpatient Rehab admission criteria:: Yes
[2018-04-28] MEDS: levETIRAcetam 500 MG TABLET (FP) PO SCH ×2 (09:46→21:16)
[2018-04-28] MEDS: NICOTINE 21 MG/24 HOURS TOPICAL PATCH TD SCH (09:46)
[2018-04-28] MEDS: ASPIRIN 81 MG CHEWABLE TABLETS PO SCH (09:46)
[2018-04-28] MEDS: PRENATAL VITAMINS W/ FOLIC ACID TABLET (FP) PO SCH (09:46)
[2018-04-28] MEDS: QUEtiapine FUMARATE 300 MG TABLET PO SCH ×2 (09:46→21:52)
[2018-04-28] MEDS: ATORVASTATIN CA 10 MG TABLET (FP) PO SCH (21:16)
[2018-04-28] MEDS: MIRTAZAPINE 15 MG TABLET (FP) PO SCH (21:16)
[2018-04-28] MEDS: THIAMINE HCL 100 MG TABLET (FP) PO SCH (21:17)
[2018-04-28] MEDS: NICOTINE POLACRILEX 4 MG GUM BUC PRN (21:19)
[2018-04-28] MEDS: MELATONIN 5 MG TABLETS PO PRN (21:19)
[2018-04-29] MEDS: NICOTINE 21 MG/24 HOURS TOPICAL PATCH TD SCH (09:31)
[2018-04-29] MEDS: QUEtiapine FUMARATE 300 MG TABLET PO SCH ×2 (09:31→21:30)
[2018-04-29] MEDS: PRENATAL VITAMINS W/ FOLIC ACID TABLET (FP) PO SCH (09:31)
[2018-04-29] MEDS: levETIRAcetam 500 MG TABLET (FP) PO SCH ×2 (09:31→21:32)
[2018-04-29] MEDS: ASPIRIN 81 MG CHEWABLE TABLETS PO SCH (09:31)
[2018-04-29] MEDS: NICOTINE POLACRILEX 4 MG GUM BUC PRN ×2 (16:46→21:33)
[2018-04-29] MEDS: THIAMINE HCL 100 MG TABLET (FP) PO SCH (21:30)
[2018-04-29] MEDS: ATORVASTATIN CA 10 MG TABLET (FP) PO SCH (21:30)
[2018-04-29] MEDS: MELATONIN 5 MG TABLETS PO PRN (21:30)
[2018-04-29] MEDS: MIRTAZAPINE 15 MG TABLET (FP) PO SCH (21:32)
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
[2018-04-30] MEDS: levETIRAcetam 500 MG TABLET (FP) PO SCH ×2 (09:40→21:31)
[2018-04-30] MEDS: ASPIRIN 81 MG CHEWABLE TABLETS PO SCH (09:40)
[2018-04-30] MEDS: PRENATAL VITAMINS W/ FOLIC ACID TABLET (FP) PO SCH (09:41)
[2018-04-30] MEDS: QUEtiapine FUMARATE 300 MG TABLET PO SCH ×2 (09:41→21:32)
[2018-04-30] MEDS: NICOTINE POLACRILEX 4 MG GUM BUC PRN ×2 (09:41→21:34)
[2018-04-30] MEDS: NICOTINE 21 MG/24 HOURS TOPICAL PATCH TD SCH (09:41)
[2018-04-30] MEDS: MAG HYDROX/AL HYDROX/SIMETH 30 ML UNIT-DOSE CUP PO PRN (10:27)
[2018-04-30] MEDS: THIAMINE HCL 100 MG TABLET (FP) PO SCH (21:31)
[2018-04-30] MEDS: MIRTAZAPINE 15 MG TABLET (FP) PO SCH (21:31)
[2018-04-30] MEDS: ATORVASTATIN CA 10 MG TABLET (FP) PO SCH (21:31)
[2018-04-30] MEDS: MELATONIN 5 MG TABLETS PO PRN (21:33)
[2018-04-30] MEDS: SUVOREXANT 10 MG TABLET PO PRN (21:33)
[2018-05-01] MEDS: ASPIRIN 81 MG CHEWABLE TABLETS PO SCH (09:40)
[2018-05-01] MEDS: levETIRAcetam 500 MG TABLET (FP) PO SCH ×2 (09:40→21:34)
[2018-05-01] MEDS: QUEtiapine FUMARATE 300 MG TABLET PO SCH ×2 (09:40→21:35)
[2018-05-01] MEDS: PRENATAL VITAMINS W/ FOLIC ACID TABLET (FP) PO SCH (09:40)
[2018-05-01] MEDS: NICOTINE 21 MG/24 HOURS TOPICAL PATCH TD SCH (09:41)
[2018-05-01] MEDS: NICOTINE POLACRILEX 4 MG GUM BUC PRN ×2 (09:42→21:35)
[2018-05-01] MEDS: MELATONIN 5 MG TABLETS PO PRN (21:33)
[2018-05-01] MEDS: MIRTAZAPINE 15 MG TABLET (FP) PO SCH (21:33)
[2018-05-01] MEDS: ATORVASTATIN CA 10 MG TABLET (FP) PO SCH (21:33)
[2018-05-01] MEDS: SUVOREXANT 10 MG TABLET PO PRN (21:33)
[2018-05-01] MEDS: THIAMINE HCL 100 MG TABLET (FP) PO SCH (21:33)
[2018-05-02] MEDS: NICOTINE 21 MG/24 HOURS TOPICAL PATCH TD SCH (10:11)
[2018-05-02] MEDS: levETIRAcetam 500 MG TABLET (FP) PO SCH ×2 (10:11→21:15)
[2018-05-02] MEDS: PRENATAL VITAMINS W/ FOLIC ACID TABLET (FP) PO SCH (10:11)
[2018-05-02] MEDS: ASPIRIN 81 MG CHEWABLE TABLETS PO SCH (10:11)
[2018-05-02] MEDS: QUEtiapine FUMARATE 300 MG TABLET PO SCH ×2 (10:11→21:16)
[2018-05-02] MEDS: NICOTINE POLACRILEX 4 MG GUM BUC PRN ×2 (10:12→21:17)
[2018-05-02] MEDS: MIRTAZAPINE 15 MG TABLET (FP) PO SCH (21:15)
[2018-05-02] MEDS: THIAMINE HCL 100 MG TABLET (FP) PO SCH (21:15)
[2018-05-02] MEDS: ATORVASTATIN CA 10 MG TABLET (FP) PO SCH (21:15)
[2018-05-02] MEDS: SUVOREXANT 10 MG TABLET PO PRN (21:15)
[2018-05-02] MEDS: MELATONIN 5 MG TABLETS PO PRN (21:16)
[2018-05-03] MEDS: levETIRAcetam 500 MG TABLET (FP) PO SCH ×2 (09:53→21:39)
[2018-05-03] MEDS: NICOTINE 21 MG/24 HOURS TOPICAL PATCH TD SCH (09:53)
[2018-05-03] MEDS: ASPIRIN 81 MG CHEWABLE TABLETS PO SCH (09:53)
[2018-05-03] MEDS: PRENATAL VITAMINS W/ FOLIC ACID TABLET (FP) PO SCH (09:54)
[2018-05-03] MEDS: QUEtiapine FUMARATE 300 MG TABLET PO SCH ×2 (09:54→21:42)
[2018-05-03] MEDS: MAG HYDROX/AL HYDROX/SIMETH 30 ML UNIT-DOSE CUP PO PRN (09:55)
[2018-05-03] MEDS: NICOTINE POLACRILEX 4 MG GUM BUC PRN ×2 (14:37→21:42)
[2018-05-03] MEDS: MIRTAZAPINE 15 MG TABLET (FP) PO SCH (21:39)
[2018-05-03] MEDS: SUVOREXANT 10 MG TABLET PO PRN (21:39)
[2018-05-03] MEDS: THIAMINE HCL 100 MG TABLET (FP) PO SCH (21:39)
[2018-05-03] MEDS: ATORVASTATIN CA 10 MG TABLET (FP) PO SCH (21:39)
[2018-05-03] MEDS: MELATONIN 5 MG TABLETS PO PRN (21:41)
[2018-05-04] MEDS: ASPIRIN 81 MG CHEWABLE TABLETS PO SCH (09:44)
[2018-05-04] MEDS: QUEtiapine FUMARATE 300 MG TABLET PO SCH ×2 (09:44→21:44)
[2018-05-04] MEDS: NICOTINE 21 MG/24 HOURS TOPICAL PATCH TD SCH (09:45)
[2018-05-04] MEDS: levETIRAcetam 500 MG TABLET (FP) PO SCH ×2 (09:45→21:44)
[2018-05-04] MEDS: PRENATAL VITAMINS W/ FOLIC ACID TABLET (FP) PO SCH (09:45)
[2018-05-04] MEDS: NICOTINE POLACRILEX 4 MG GUM BUC PRN ×2 (09:46→21:48)
[2018-05-04] MEDS: ATORVASTATIN CA 10 MG TABLET (FP) PO SCH (21:44)
[2018-05-04] MEDS: MELATONIN 5 MG TABLETS PO PRN (21:44)
[2018-05-04] MEDS: MIRTAZAPINE 15 MG TABLET (FP) PO SCH (21:44)
[2018-05-04] MEDS: THIAMINE HCL 100 MG TABLET (FP) PO SCH (21:44)
--- NOTE | 2018-05-04 23:27 | PN ---
[facility] Progress Note Note: Psychiatry Attending's on-call note : Called by nurse for renewal of belsomra. Chart reviewed.Medications revisited. Noted : seroquel 300 mg po bid remeron 30 mg po hs melatonin 10 mg po hs prn Will not re-order belsomra. Unit psychiatrist will follow. Discussed with nurse on duty.
[2018-05-05] MEDS: PRENATAL VITAMINS W/ FOLIC ACID TABLET (FP) PO SCH (09:33)
[2018-05-05] MEDS: levETIRAcetam 500 MG TABLET (FP) PO SCH ×2 (09:33→21:26)
[2018-05-05] MEDS: ASPIRIN 81 MG CHEWABLE TABLETS PO SCH (09:33)
[2018-05-05] MEDS: NICOTINE 21 MG/24 HOURS TOPICAL PATCH TD SCH (09:33)
[2018-05-05] MEDS: QUEtiapine FUMARATE 300 MG TABLET PO SCH ×2 (09:34→21:26)
[2018-05-05] MEDS: NICOTINE POLACRILEX 4 MG GUM BUC PRN ×3 (09:35→21:28)
--- NOTE | 2018-05-05 18:31 | PN ---
[facility] Progress Note Note: Psychiatry Attending's on-call note : Met with patient to discuss medications for insomnia. Chart reviewed. Sleep hygiene principles revisited with the patient. Melatonin is discontinued. Belsomra 10 mg po hs prn. Renewed at patient's request. Side effects/benefits discussed. Patient agrees.
[2018-05-05] MEDS: MIRTAZAPINE 15 MG TABLET (FP) PO SCH (21:26)
[2018-05-05] MEDS: THIAMINE HCL 100 MG TABLET (FP) PO SCH (21:26)
[2018-05-05] MEDS: SUVOREXANT 10 MG TABLET PO PRN (21:26)
[2018-05-05] MEDS: ATORVASTATIN CA 10 MG TABLET (FP) PO SCH (21:27)
[2018-05-05] MEDS: hydrOXYzine PAMOATE 50 MG CAPSULE (FP) PO PRN (21:28)
[2018-05-06] MEDS: PRENATAL VITAMINS W/ FOLIC ACID TABLET (FP) PO SCH (09:26)
[2018-05-06] MEDS: NICOTINE 21 MG/24 HOURS TOPICAL PATCH TD SCH (09:26)
[2018-05-06] MEDS: QUEtiapine FUMARATE 300 MG TABLET PO SCH ×2 (09:26→21:31)
[2018-05-06] MEDS: levETIRAcetam 500 MG TABLET (FP) PO SCH ×2 (09:26→21:31)
[2018-05-06] MEDS: ASPIRIN 81 MG CHEWABLE TABLETS PO SCH (09:26)
[2018-05-06] MEDS: NICOTINE POLACRILEX 4 MG GUM BUC PRN ×3 (09:27→21:32)
[2018-05-06] MEDS: hydrOXYzine PAMOATE 50 MG CAPSULE (FP) PO PRN ×3 (09:28→21:31)
[2018-05-06] MEDS: MIRTAZAPINE 15 MG TABLET (FP) PO SCH (21:31)
[2018-05-06] MEDS: SUVOREXANT 10 MG TABLET PO PRN (21:31)
[2018-05-06] MEDS: THIAMINE HCL 100 MG TABLET (FP) PO SCH (21:31)
[2018-05-06] MEDS: ATORVASTATIN CA 10 MG TABLET (FP) PO SCH (21:31)
[2018-05-07] MEDS: PRENATAL VITAMINS W/ FOLIC ACID TABLET (FP) PO SCH (09:43)
[2018-05-07] MEDS: levETIRAcetam 500 MG TABLET (FP) PO SCH ×2 (09:43→21:10)
[2018-05-07] MEDS: QUEtiapine FUMARATE 300 MG TABLET PO SCH ×2 (09:43→21:10)
[2018-05-07] MEDS: NICOTINE 21 MG/24 HOURS TOPICAL PATCH TD SCH (09:43)
[2018-05-07] MEDS: ASPIRIN 81 MG CHEWABLE TABLETS PO SCH (09:43)
[2018-05-07] MEDS: hydrOXYzine PAMOATE 50 MG CAPSULE (FP) PO PRN ×3 (09:44→21:11)
[2018-05-07] MEDS: NICOTINE POLACRILEX 4 MG GUM BUC PRN ×3 (09:44→21:13)
[2018-05-07] MEDS: MIRTAZAPINE 15 MG TABLET (FP) PO SCH (21:10)
[2018-05-07] MEDS: ATORVASTATIN CA 10 MG TABLET (FP) PO SCH (21:10)
[2018-05-07] MEDS: THIAMINE HCL 100 MG TABLET (FP) PO SCH (21:10)
[2018-05-07] MEDS: SUVOREXANT 10 MG TABLET PO PRN (21:10)
[2018-05-08] MEDS: levETIRAcetam 500 MG TABLET (FP) PO SCH ×2 (09:39→21:28)
[2018-05-08] MEDS: NICOTINE 21 MG/24 HOURS TOPICAL PATCH TD SCH (09:39)
[2018-05-08] MEDS: QUEtiapine FUMARATE 300 MG TABLET PO SCH ×2 (09:39→21:28)
[2018-05-08] MEDS: hydrOXYzine PAMOATE 50 MG CAPSULE (FP) PO PRN ×3 (09:39→21:28)
[2018-05-08] MEDS: ASPIRIN 81 MG CHEWABLE TABLETS PO SCH (09:39)
[2018-05-08] MEDS: NICOTINE POLACRILEX 4 MG GUM BUC PRN ×2 (09:41→14:18)
[2018-05-08] MEDS: PRENATAL VITAMINS W/ FOLIC ACID TABLET (FP) PO SCH (10:28)
[2018-05-08] MEDS ORDERED: COLLOIDAL OATMEAL 1 BAR EACH TP PRN (11:47)
--- NOTE | 2018-05-08 11:47 | PN ---
[facility] Progress Note Note: C/O DRY SKIN. NO RASH OR ITCHINESS. REQUESTING SOAP CHANGE. PLAN:AVEENO SOAP.
[2018-05-08] MEDS: MIRTAZAPINE 15 MG TABLET (FP) PO SCH (21:28)
[2018-05-08] MEDS: THIAMINE HCL 100 MG TABLET (FP) PO SCH (21:28)
[2018-05-08] MEDS: ATORVASTATIN CA 10 MG TABLET (FP) PO SCH (21:28)
[2018-05-08] MEDS: SUVOREXANT 10 MG TABLET PO PRN (21:30)
[2018-05-09] MEDS: hydrOXYzine PAMOATE 50 MG CAPSULE (FP) PO PRN ×4 (06:07→21:19)
[2018-05-09] MEDS: ASPIRIN 81 MG CHEWABLE TABLETS PO SCH (09:39)
[2018-05-09] MEDS: levETIRAcetam 500 MG TABLET (FP) PO SCH ×2 (09:39→21:18)
[2018-05-09] MEDS: QUEtiapine FUMARATE 300 MG TABLET PO SCH ×2 (09:39→21:18)
[2018-05-09] MEDS: PRENATAL VITAMINS W/ FOLIC ACID TABLET (FP) PO SCH (09:39)
[2018-05-09] MEDS: NICOTINE POLACRILEX 4 MG GUM BUC PRN ×3 (09:41→21:20)
[2018-05-09] MEDS: NICOTINE 21 MG/24 HOURS TOPICAL PATCH TD SCH (09:42)
[2018-05-09] MEDS: ATORVASTATIN CA 10 MG TABLET (FP) PO SCH (21:18)
[2018-05-09] MEDS: THIAMINE HCL 100 MG TABLET (FP) PO SCH (21:18)
[2018-05-09] MEDS: MIRTAZAPINE 15 MG TABLET (FP) PO SCH (21:18)
[2018-05-09] MEDS: SUVOREXANT 10 MG TABLET PO PRN (21:19)
[2018-05-10] MEDS: hydrOXYzine PAMOATE 50 MG CAPSULE (FP) PO PRN ×3 (07:17→21:34)
[2018-05-10] MEDS: NICOTINE POLACRILEX 4 MG GUM BUC PRN ×4 (07:18→21:35)
[2018-05-10] MEDS: NICOTINE 21 MG/24 HOURS TOPICAL PATCH TD SCH (10:09)
[2018-05-10] MEDS: ASPIRIN 81 MG CHEWABLE TABLETS PO SCH (10:09)
[2018-05-10] MEDS: QUEtiapine FUMARATE 300 MG TABLET PO SCH ×2 (10:10→21:35)
[2018-05-10] MEDS: levETIRAcetam 500 MG TABLET (FP) PO SCH ×2 (10:10→21:34)
[2018-05-10] MEDS: PRENATAL VITAMINS W/ FOLIC ACID TABLET (FP) PO SCH (10:10)
[2018-05-10] MEDS: MIRTAZAPINE 15 MG TABLET (FP) PO SCH (21:34)
[2018-05-10] MEDS: THIAMINE HCL 100 MG TABLET (FP) PO SCH (21:34)
[2018-05-10] MEDS: ATORVASTATIN CA 10 MG TABLET (FP) PO SCH (21:34)
[2018-05-10] MEDS: SUVOREXANT 10 MG TABLET PO PRN (21:34)
[2018-05-11] MEDS: NICOTINE POLACRILEX 4 MG GUM BUC PRN ×4 (06:02→21:34)
[2018-05-11] MEDS: hydrOXYzine PAMOATE 50 MG CAPSULE (FP) PO PRN ×4 (06:02→21:33)
[2018-05-11] MEDS ORDERED: levETIRAcetam 250 MG TABLET (FP) PO ONE (08:25)
[2018-05-11] MEDS: levETIRAcetam 500 MG TABLET (FP) PO SCH ×2 (09:54→21:33)
[2018-05-11] MEDS: PRENATAL VITAMINS W/ FOLIC ACID TABLET (FP) PO SCH (09:54)
[2018-05-11] MEDS: ASPIRIN 81 MG CHEWABLE TABLETS PO SCH (09:54)
[2018-05-11] MEDS: QUEtiapine FUMARATE 300 MG TABLET PO SCH ×2 (09:54→21:32)
[2018-05-11] MEDS: NICOTINE 21 MG/24 HOURS TOPICAL PATCH TD SCH (09:54)
--- NOTE | 2018-05-11 15:02 | PN ---
[facility] Progress Note Note: Patient complains of difficulty to sleep despite taking Seroquel 300 mg, Belsomra 10 mg and Remeron 30 mg at bedtime. Requests that Belsomra dosage be increased to 15 mg and add Melatonin back
[2018-05-11] MEDS: SUVOREXANT 10 MG TABLET PO PRN (21:32)
[2018-05-11] MEDS: MIRTAZAPINE 15 MG TABLET (FP) PO SCH (21:32)
[2018-05-11] MEDS: ATORVASTATIN CA 10 MG TABLET (FP) PO SCH (21:33)
[2018-05-11] MEDS: THIAMINE HCL 100 MG TABLET (FP) PO SCH (21:33)
[2018-05-11] MEDS: MELATONIN 5 MG TABLETS PO PRN (21:33)
[2018-05-12] MEDS: hydrOXYzine PAMOATE 50 MG CAPSULE (FP) PO PRN ×3 (06:06→21:50)
[2018-05-12] MEDS: NICOTINE POLACRILEX 4 MG GUM BUC PRN ×3 (06:07→21:55)
[2018-05-12] MEDS: PRENATAL VITAMINS W/ FOLIC ACID TABLET (FP) PO SCH (09:36)
[2018-05-12] MEDS: QUEtiapine FUMARATE 300 MG TABLET PO SCH ×2 (09:36→21:49)
[2018-05-12] MEDS: ASPIRIN 81 MG CHEWABLE TABLETS PO SCH (09:36)
[2018-05-12] MEDS: NICOTINE 21 MG/24 HOURS TOPICAL PATCH TD SCH (09:36)
[2018-05-12] MEDS: levETIRAcetam 500 MG TABLET (FP) PO SCH ×2 (09:36→21:49)
[2018-05-12] MEDS: THIAMINE HCL 100 MG TABLET (FP) PO SCH (21:48)
[2018-05-12] MEDS: MIRTAZAPINE 15 MG TABLET (FP) PO SCH (21:49)
[2018-05-12] MEDS: ATORVASTATIN CA 10 MG TABLET (FP) PO SCH (21:49)
[2018-05-12] MEDS: MELATONIN 5 MG TABLETS PO PRN (21:49)
[2018-05-12] MEDS: SUVOREXANT 10 MG TABLET PO PRN (21:53)
[2018-05-13] MEDS: hydrOXYzine PAMOATE 50 MG CAPSULE (FP) PO PRN ×4 (06:11→22:01)
[2018-05-13] MEDS: NICOTINE POLACRILEX 4 MG GUM BUC PRN ×4 (06:11→22:02)
[2018-05-13] MEDS: levETIRAcetam 500 MG TABLET (FP) PO SCH ×2 (09:40→21:56)
[2018-05-13] MEDS: NICOTINE 21 MG/24 HOURS TOPICAL PATCH TD SCH (09:40)
[2018-05-13] MEDS: ASPIRIN 81 MG CHEWABLE TABLETS PO SCH (09:40)
[2018-05-13] MEDS: PRENATAL VITAMINS W/ FOLIC ACID TABLET (FP) PO SCH (09:41)
[2018-05-13] MEDS: QUEtiapine FUMARATE 300 MG TABLET PO SCH ×2 (09:41→21:57)
[2018-05-13] MEDS: MAG HYDROX/AL HYDROX/SIMETH 30 ML UNIT-DOSE CUP PO PRN (14:10)
[2018-05-13] MEDS: MIRTAZAPINE 15 MG TABLET (FP) PO SCH (21:56)
[2018-05-13] MEDS: ATORVASTATIN CA 10 MG TABLET (FP) PO SCH (21:56)
[2018-05-13] MEDS: THIAMINE HCL 100 MG TABLET (FP) PO SCH (21:57)
[2018-05-13] MEDS: MELATONIN 5 MG TABLETS PO PRN (22:01)
[2018-05-13] MEDS: SUVOREXANT 10 MG TABLET PO PRN (22:01)
[2018-05-14] MEDS: hydrOXYzine PAMOATE 50 MG CAPSULE (FP) PO PRN ×4 (06:07→21:59)
[2018-05-14] MEDS: NICOTINE POLACRILEX 4 MG GUM BUC PRN ×2 (06:07→13:49)
[2018-05-14] MEDS: NICOTINE 21 MG/24 HOURS TOPICAL PATCH TD SCH (09:45)
[2018-05-14] MEDS: ASPIRIN 81 MG CHEWABLE TABLETS PO SCH (09:45)
[2018-05-14] MEDS: PRENATAL VITAMINS W/ FOLIC ACID TABLET (FP) PO SCH (09:45)
[2018-05-14] MEDS: levETIRAcetam 500 MG TABLET (FP) PO SCH ×2 (09:45→21:58)
[2018-05-14] MEDS: QUEtiapine FUMARATE 300 MG TABLET PO SCH ×2 (09:45→22:00)
[2018-05-14] MEDS: IBUPROFEN 400 MG TABLET (FP) PO PRN ×2 (09:47→21:57)
[2018-05-14] MEDS: THIAMINE HCL 100 MG TABLET (FP) PO SCH (21:58)
[2018-05-14] MEDS: SUVOREXANT 15 MG TABLET PO PRN (21:58)
[2018-05-14] MEDS: MIRTAZAPINE 15 MG TABLET (FP) PO SCH (21:58)
[2018-05-14] MEDS: ATORVASTATIN CA 10 MG TABLET (FP) PO SCH (21:58)
[2018-05-14] MEDS: MELATONIN 5 MG TABLETS PO PRN (21:59)
[2018-05-15] MEDS: hydrOXYzine PAMOATE 50 MG CAPSULE (FP) PO PRN ×4 (06:02→22:08)
[2018-05-15] MEDS: NICOTINE POLACRILEX 4 MG GUM BUC PRN ×3 (06:03→14:21)
[2018-05-15] MEDS: IBUPROFEN 400 MG TABLET (FP) PO PRN ×2 (09:48→22:10)
[2018-05-15] MEDS: levETIRAcetam 500 MG TABLET (FP) PO SCH ×2 (09:48→22:08)
[2018-05-15] MEDS: QUEtiapine FUMARATE 300 MG TABLET PO SCH ×2 (09:48→22:08)
[2018-05-15] MEDS: ASPIRIN 81 MG CHEWABLE TABLETS PO SCH (09:48)
[2018-05-15] MEDS: PRENATAL VITAMINS W/ FOLIC ACID TABLET (FP) PO SCH (09:48)
[2018-05-15] MEDS: NICOTINE 21 MG/24 HOURS TOPICAL PATCH TD SCH (09:48)
[2018-05-15] MEDS: THIAMINE HCL 100 MG TABLET (FP) PO SCH (22:08)
[2018-05-15] MEDS: ATORVASTATIN CA 10 MG TABLET (FP) PO SCH (22:08)
[2018-05-15] MEDS: MELATONIN 5 MG TABLETS PO PRN (22:08)
[2018-05-15] MEDS: MIRTAZAPINE 15 MG TABLET (FP) PO SCH (22:08)
[2018-05-15] MEDS: SUVOREXANT 15 MG TABLET PO PRN (22:08)
[2018-05-16] MEDS: NICOTINE POLACRILEX 4 MG GUM BUC PRN ×3 (06:06→14:20)
[2018-05-16] MEDS: hydrOXYzine PAMOATE 50 MG CAPSULE (FP) PO PRN ×3 (06:06→22:19)
[2018-05-16] MEDS: PRENATAL VITAMINS W/ FOLIC ACID TABLET (FP) PO SCH (09:58)
[2018-05-16] MEDS: NICOTINE 21 MG/24 HOURS TOPICAL PATCH TD SCH (09:58)
[2018-05-16] MEDS: QUEtiapine FUMARATE 300 MG TABLET PO SCH ×2 (09:58→22:17)
[2018-05-16] MEDS: levETIRAcetam 500 MG TABLET (FP) PO SCH ×2 (09:58→22:17)
[2018-05-16] MEDS: ASPIRIN 81 MG CHEWABLE TABLETS PO SCH (09:58)
[2018-05-16] MEDS ORDERED: PT OWN MED DRAWER 7, Y5N ONE (10:05)
[2018-05-16] MEDS: THIAMINE HCL 100 MG TABLET (FP) PO SCH (22:17)
[2018-05-16] MEDS: ATORVASTATIN CA 10 MG TABLET (FP) PO SCH (22:17)
[2018-05-16] MEDS: MIRTAZAPINE 15 MG TABLET (FP) PO SCH (22:17)
[2018-05-16] MEDS: SUVOREXANT 15 MG TABLET PO PRN (22:18)
[2018-05-16] MEDS: MELATONIN 5 MG TABLETS PO PRN (22:19)
[2018-05-16] MEDS: IBUPROFEN 400 MG TABLET (FP) PO PRN (22:20)
[2018-05-17] MEDS: hydrOXYzine PAMOATE 50 MG CAPSULE (FP) PO PRN ×3 (07:02→21:32)
[2018-05-17] MEDS: NICOTINE POLACRILEX 4 MG GUM BUC PRN ×2 (09:47→14:31)
[2018-05-17] MEDS: ASPIRIN 81 MG CHEWABLE TABLETS PO SCH (09:47)
[2018-05-17] MEDS: levETIRAcetam 500 MG TABLET (FP) PO SCH ×2 (09:47→21:32)
[2018-05-17] MEDS: PRENATAL VITAMINS W/ FOLIC ACID TABLET (FP) PO SCH (09:47)
[2018-05-17] MEDS: NICOTINE 21 MG/24 HOURS TOPICAL PATCH TD SCH (09:47)
[2018-05-17] MEDS: QUEtiapine FUMARATE 300 MG TABLET PO SCH ×2 (09:54→21:33)
[2018-05-17] MEDS: IBUPROFEN 400 MG TABLET (FP) PO PRN ×2 (14:31→21:37)
[2018-05-17] MEDS: THIAMINE HCL 100 MG TABLET (FP) PO SCH (21:31)
[2018-05-17] MEDS: ATORVASTATIN CA 10 MG TABLET (FP) PO SCH (21:32)
[2018-05-17] MEDS: MIRTAZAPINE 15 MG TABLET (FP) PO SCH (21:32)
[2018-05-17] MEDS: MELATONIN 5 MG TABLETS PO PRN (21:32)
[2018-05-18] MEDS: hydrOXYzine PAMOATE 50 MG CAPSULE (FP) PO PRN ×3 (05:58→14:17)
[2018-05-18] MEDS: QUEtiapine FUMARATE 300 MG TABLET PO SCH ×2 (09:43→22:23)
[2018-05-18] MEDS: ASPIRIN 81 MG CHEWABLE TABLETS PO SCH (09:43)
[2018-05-18] MEDS: levETIRAcetam 500 MG TABLET (FP) PO SCH ×2 (09:43→22:22)
[2018-05-18] MEDS: NICOTINE POLACRILEX 4 MG GUM BUC PRN ×3 (09:43→22:27)
[2018-05-18] MEDS: PRENATAL VITAMINS W/ FOLIC ACID TABLET (FP) PO SCH (09:43)
[2018-05-18] MEDS: NICOTINE 21 MG/24 HOURS TOPICAL PATCH TD SCH (09:43)
[2018-05-18] MEDS: MAG HYDROX/AL HYDROX/SIMETH 30 ML UNIT-DOSE CUP PO PRN (14:17)
[2018-05-18] MEDS: MIRTAZAPINE 15 MG TABLET (FP) PO SCH (22:22)
[2018-05-18] MEDS: ATORVASTATIN CA 10 MG TABLET (FP) PO SCH (22:23)
[2018-05-18] MEDS: THIAMINE HCL 100 MG TABLET (FP) PO SCH (22:23)
[2018-05-18] MEDS: MELATONIN 5 MG TABLETS PO PRN (22:24)
[2018-05-18] MEDS: SUVOREXANT 15 MG TABLET PO PRN (22:25)
[2018-05-19] MEDS: hydrOXYzine PAMOATE 50 MG CAPSULE (FP) PO PRN ×4 (06:00→21:50)
[2018-05-19] MEDS: NICOTINE POLACRILEX 4 MG GUM BUC PRN ×3 (06:01→14:35)
[2018-05-19] MEDS: ASPIRIN 81 MG CHEWABLE TABLETS PO SCH (09:32)
[2018-05-19] MEDS: levETIRAcetam 500 MG TABLET (FP) PO SCH ×2 (09:32→21:50)
[2018-05-19] MEDS: NICOTINE 21 MG/24 HOURS TOPICAL PATCH TD SCH (09:32)
[2018-05-19] MEDS: PRENATAL VITAMINS W/ FOLIC ACID TABLET (FP) PO SCH (09:32)
[2018-05-19] MEDS: QUEtiapine FUMARATE 300 MG TABLET PO SCH ×2 (09:33→21:52)
[2018-05-19] MEDS: IBUPROFEN 400 MG TABLET (FP) PO PRN (21:50)
[2018-05-19] MEDS: MELATONIN 5 MG TABLETS PO PRN (21:50)
[2018-05-19] MEDS: SUVOREXANT 15 MG TABLET PO PRN (21:50)
[2018-05-19] MEDS: ATORVASTATIN CA 10 MG TABLET (FP) PO SCH (21:50)
[2018-05-19] MEDS: MIRTAZAPINE 15 MG TABLET (FP) PO SCH (21:50)
[2018-05-19] MEDS: THIAMINE HCL 100 MG TABLET (FP) PO SCH (21:52)
[2018-05-20] MEDS: hydrOXYzine PAMOATE 50 MG CAPSULE (FP) PO PRN ×5 (07:06→21:51)
[2018-05-20] MEDS: NICOTINE POLACRILEX 4 MG GUM BUC PRN ×4 (07:06→21:51)
[2018-05-20] MEDS: ASPIRIN 81 MG CHEWABLE TABLETS PO SCH (09:49)
[2018-05-20] MEDS: QUEtiapine FUMARATE 300 MG TABLET PO SCH ×2 (09:49→21:49)
[2018-05-20] MEDS: levETIRAcetam 500 MG TABLET (FP) PO SCH ×2 (09:49→21:48)
[2018-05-20] MEDS: PRENATAL VITAMINS W/ FOLIC ACID TABLET (FP) PO SCH (09:49)
[2018-05-20] MEDS: NICOTINE 21 MG/24 HOURS TOPICAL PATCH TD SCH (09:49)
[2018-05-20] MEDS: MIRTAZAPINE 15 MG TABLET (FP) PO SCH (21:48)
[2018-05-20] MEDS: ATORVASTATIN CA 10 MG TABLET (FP) PO SCH (21:48)
[2018-05-20] MEDS: THIAMINE HCL 100 MG TABLET (FP) PO SCH (21:48)
[2018-05-20] MEDS: SUVOREXANT 15 MG TABLET PO PRN (21:51)
[2018-05-20] MEDS: MELATONIN 5 MG TABLETS PO PRN (21:51)
[2018-05-21] MEDS: hydrOXYzine PAMOATE 50 MG CAPSULE (FP) PO PRN ×4 (06:01→21:48)
[2018-05-21] MEDS: NICOTINE POLACRILEX 4 MG GUM BUC PRN ×4 (06:01→21:48)
[2018-05-21] MEDS: PRENATAL VITAMINS W/ FOLIC ACID TABLET (FP) PO SCH (09:41)
[2018-05-21] MEDS: NICOTINE 21 MG/24 HOURS TOPICAL PATCH TD SCH (09:41)
[2018-05-21] MEDS: levETIRAcetam 500 MG TABLET (FP) PO SCH ×2 (09:41→21:45)
[2018-05-21] MEDS: ASPIRIN 81 MG CHEWABLE TABLETS PO SCH (09:41)
[2018-05-21] MEDS: QUEtiapine FUMARATE 300 MG TABLET PO SCH ×2 (09:41→21:45)
[2018-05-21] MEDS: ATORVASTATIN CA 10 MG TABLET (FP) PO SCH (21:45)
[2018-05-21] MEDS: MIRTAZAPINE 15 MG TABLET (FP) PO SCH (21:45)
[2018-05-21] MEDS: THIAMINE HCL 100 MG TABLET (FP) PO SCH (21:45)
[2018-05-21] MEDS: SUVOREXANT 15 MG TABLET PO PRN (21:47)
[2018-05-22] MEDS: hydrOXYzine PAMOATE 50 MG CAPSULE (FP) PO PRN ×6 (01:05→22:16)
[2018-05-22] MEDS: PRENATAL VITAMINS W/ FOLIC ACID TABLET (FP) PO SCH (09:48)
[2018-05-22] MEDS: ASPIRIN 81 MG CHEWABLE TABLETS PO SCH (09:48)
[2018-05-22] MEDS: levETIRAcetam 500 MG TABLET (FP) PO SCH ×2 (09:48→22:00)
[2018-05-22] MEDS: QUEtiapine FUMARATE 300 MG TABLET PO SCH ×2 (09:48→22:17)
[2018-05-22] MEDS: NICOTINE 21 MG/24 HOURS TOPICAL PATCH TD SCH (09:48)
[2018-05-22] MEDS: IBUPROFEN 400 MG TABLET (FP) PO PRN ×2 (09:49→22:16)
[2018-05-22] MEDS: NICOTINE POLACRILEX 4 MG GUM BUC PRN ×2 (09:50→14:29)
--- NOTE | 2018-05-22 13:52 | PN ---
[facility] Progress Note Note: Patient reports feeling anxious and requests that remeron dosage be increased to 45 mg po HS.
[2018-05-22] MEDS: THIAMINE HCL 100 MG TABLET (FP) PO SCH (22:15)
[2018-05-22] MEDS: ATORVASTATIN CA 10 MG TABLET (FP) PO SCH (22:16)
[2018-05-22] MEDS: SUVOREXANT 15 MG TABLET PO PRN (22:16)
[2018-05-23] MEDS: NICOTINE POLACRILEX 4 MG GUM BUC PRN ×5 (06:14→21:50)
[2018-05-23] MEDS: hydrOXYzine PAMOATE 50 MG CAPSULE (FP) PO PRN ×5 (06:14→22:47)
[2018-05-23] MEDS: IBUPROFEN 400 MG TABLET (FP) PO PRN ×2 (06:14→22:47)
[2018-05-23] MEDS: PRENATAL VITAMINS W/ FOLIC ACID TABLET (FP) PO SCH (09:38)
[2018-05-23] MEDS: NICOTINE 21 MG/24 HOURS TOPICAL PATCH TD SCH (09:38)
[2018-05-23] MEDS: ASPIRIN 81 MG CHEWABLE TABLETS PO SCH (09:38)
[2018-05-23] MEDS: levETIRAcetam 500 MG TABLET (FP) PO SCH ×2 (09:38→21:48)
[2018-05-23] MEDS: QUEtiapine FUMARATE 300 MG TABLET PO SCH ×2 (09:40→21:49)
[2018-05-23] MEDS: ATORVASTATIN CA 10 MG TABLET (FP) PO SCH (21:48)
[2018-05-23] MEDS: SUVOREXANT 15 MG TABLET PO PRN (21:48)
[2018-05-23] MEDS: THIAMINE HCL 100 MG TABLET (FP) PO SCH (21:48)
[2018-05-24] MEDS: IBUPROFEN 400 MG TABLET (FP) PO PRN (06:24)
[2018-05-24] MEDS: hydrOXYzine PAMOATE 50 MG CAPSULE (FP) PO PRN ×4 (06:25→21:40)
[2018-05-24] MEDS: NICOTINE POLACRILEX 4 MG GUM BUC PRN ×3 (06:25→14:27)
--- NOTE | 2018-05-24 07:38 | PN ---
Psychiatric Progress Note Vital Signs: Vital Signs Period Temp Pulse Resp BP Sys/Angel Pulse Ox Last 24 Hr 97.8 F 94 18-20 109/77 Date of Session: 05/24/18 Chief Complaint:: Discharge Note HPI: Patient addressing Alcohol and Cannabis Dependence comorbid with Nicotine Dependence, Mood Disorder, Substance-Induced Mood Disorder and Substance- Induced Sleep Disorder ROS: History of seizure Current Medications: Active Medications Generic Name Dose Route Start Last Admin Trade Name Freq PRN Reason Stop Dose Admin Acetaminophen 650 mg 04/27/18 20:53 Tylenol - PO Q4H PRN FEVER Al Hydroxide/Mg Hydroxide 30 ml 04/27/18 20:53 05/18/18 14:17 Mylanta Oral Suspension - PO 30 ml Q6H PRN Administration DYSPEPSIA Albuterol Sulfate 2 puff 04/27/18 20:53 Ventolin Hfa Inhaler - IH Q4H PRN ASTHMA Aspirin 81 mg 04/28/18 10:00 05/23/18 09:38 Asa - PO 81 mg DAILY JEB Administration Atorvastatin Calcium 10 mg 04/27/18 22:00 05/23/18 21:48 Lipitor - PO 10 mg HS JEB Administration Eucalyptus/Menthol/Phenol/Sorbitol 1 each 04/27/18 20:53 Cepastat Lozenge - MM Q4H PRN SORE THROAT Guaifenesin 10 ml 04/27/18 20:53 Robitussin Dm - PO Q6H PRN COUGH Hydroxyzine Pamoate 50 mg 04/27/18 20:53 05/24/18 06:25 Vistaril - PO 50 mg Q4H PRN Administration AGITATION Ibuprofen 400 mg 04/27/18 20:53 05/24/18 06:24 Motrin - PO 400 mg Q6H PRN Administration Pain Level 4-6 Levetiracetam 500 mg 04/27/18 22:00 05/23/18 21:48 Keppra - PO 500 mg BID JEB Administration Loperamide HCl 4 mg 04/27/18 20:53 Imodium - PO Q6H PRN DIARRHEA Magnesium Citrate 300 ml 04/27/18 20:53 Citroma - PO Q48H PRN CONSTIPATION Magnesium Hydroxide 30 ml 04/27/18 20:53 Milk Of Magnesia - PO DAILY PRN CONSTIPATION Mirtazapine 45 mg 05/24/18 22:00 Remeron - PO HS JEB Nicotine 21 mg 04/28/18 10:00 05/23/18 09:38 Nicoderm Patch - TD 21 mg DAILY JEB Administration Nicotine Polacrilex 4 mg 04/27/18 20:53 05/24/18 06:25 Nicorette Gum - BUC 4 mg Q2H PRN Administration NICOTINE REPLACEMENT RX Multivit/Folic Acid/Iron 1 tab 04/28/18 10:00 05/23/18 09:38 Vitamins (Sjr) - PO 1 tab DAILY JEB Administration Pseudoephedrine/Triprolidine 1 combo 04/27/18 20:53 Actifed - PO TID PRN NASAL CONGESTION Quetiapine Fumarate 300 mg 04/29/18 10:00 05/23/18 21:49 Seroquel - PO 300 mg BID JEB Administration Suvorexant 15 mg 05/24/18 22:00 Belsomra PO HS PRN INSOMNIA Thiamine HCl 100 mg 04/27/18 22:00 05/23/18 21:48 Vitamin B1 - PO 100 mg HS JEB Administration Current Side Effect: No Lab tests ordered: Yes Lab tests reviewed: Yes Provider note:: Patient will complete this program on 05/25/18. He has met his treatment goals and will continue to address his issues in jail residential treatment at [facility]. Told speech writer that from his participation in this program, he has learned to be more positive and ventilate his feelings more. He responded well to Seroquel 200 mg po BID and Remeron 45 mg po HS. Script for 30 days supply of these medications will be electronically transmitted to [facility] at [address] [place] [address]. He is stable for discharge on 05/25/18 Total face to face time:: 35 Mental Status Exam - Mental Status Exam Alert and Oriented to: Time, Place, Person Mood: Hopeful, Euthymic Affect: Appropriate Patient Behavior: Cooperative Speech Pattern: Clear Voice Loudness: Normal Thought Process: Intact, Goal Oriented Thought Disorder: Not Present Hallucinations: Denies Suicidal Ideation: Denies Homicidal Ideation: Denies Insight/Judgement: Fair Sleep: Fair Appetite: Good Muscle strength/Tone: Normal Gait/Station: Normal Psychiatric Treatment Plan - Problem List (1) Alcohol dependence Current Visit: No (2) Cannabis dependence Current Visit: No (3) Nicotine dependence Current Visit: No Qualifiers: Nicotine product type: cigarettes Substance use status: in withdrawal Qualified Code(s): F17.213 - Nicotine dependence, cigarettes, with withdrawal (4) Mood disorder Current Visit: No (5) Substance induced mood disorder Current Visit: Yes (6) Substance-induced sleep disorder Current Visit: Yes (7) History of seizure Current Visit: No (8) Hyperlipemia Current Visit: No (9) Kidney stones Current Visit: No (10) History of asthma Current Visit: No Initial treatment plan: Patient will be discharged tomorrow and referred to [facility] for icu staff nurse residential treatment
[2018-05-24] MEDS: ASPIRIN 81 MG CHEWABLE TABLETS PO SCH (09:43)
[2018-05-24] MEDS: QUEtiapine FUMARATE 300 MG TABLET PO SCH ×2 (09:43→21:41)
[2018-05-24] MEDS: PRENATAL VITAMINS W/ FOLIC ACID TABLET (FP) PO SCH (09:43)
[2018-05-24] MEDS: levETIRAcetam 500 MG TABLET (FP) PO SCH ×2 (09:43→21:40)
[2018-05-24] MEDS: NICOTINE 21 MG/24 HOURS TOPICAL PATCH TD SCH (09:43)
--- NOTE | 2018-05-24 13:31 | PN ---
[facility] Progress Note Note: PT SCHEDULED TO D/C IN A.M. PT REPORTS HE WILL GOING TO A [facility]" IN THE [place] FOR AFTERCARE. PT STATES HE WILL BE SET UP WITH MEDICAL CARE WHEN HE GETS TO THE AFTERCARE PLACE ABOVE. PT REPORTS HE HAS NO PRIMARY CARE PROVIDER EXCEPT GETTING CARE AND RX FROM [facility] EACH VISIT. 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 Vital Signs 05/24/18 06:45 Temperature 97.8 F Pulse Rate 94 H Respiratory 20 Rate Blood Pressure 109/77 NAD PLAN:FOLLOW UP WITH AFTERCARE INSTRUCTED TO SET UP APPOINTMENT WITH A PRIMARY CARE PROVIDER IN 1-2 WEEKS AFTER DISCHARGE.
[2018-05-24] MEDS: THIAMINE HCL 100 MG TABLET (FP) PO SCH (21:40)
[2018-05-24] MEDS: ATORVASTATIN CA 10 MG TABLET (FP) PO SCH (21:40)
[2018-05-24] MEDS ORDERED: MIRTAZAPINE 15 MG TABLET (FP) PO SCH (22:00)
[2018-05-24] MEDS ORDERED: SUVOREXANT 10 MG TABLET PO PRN (22:00)
[2018-05-25] MEDS: NICOTINE POLACRILEX 4 MG GUM BUC PRN ×2 (06:05→09:24)
[2018-05-25] MEDS: hydrOXYzine PAMOATE 50 MG CAPSULE (FP) PO PRN (06:05)
[2018-05-25 06:53] VITALS: BP 108/71; PULSE 102; TEMP 98.1
[2018-05-25] MEDS: QUEtiapine FUMARATE 300 MG TABLET PO SCH (09:22)
[2018-05-25] MEDS: levETIRAcetam 500 MG TABLET (FP) PO SCH (09:22)
[2018-05-25] MEDS: PRENATAL VITAMINS W/ FOLIC ACID TABLET (FP) PO SCH (09:22)
[2018-05-25] MEDS: ASPIRIN 81 MG CHEWABLE TABLETS PO SCH (09:22)
[2018-05-25] MEDS: NICOTINE 21 MG/24 HOURS TOPICAL PATCH TD SCH (09:24)
== END 2018-05-25 09:38 | disposition home or self-care (01) | DRG 772 ==
LOC: YASAS 20:13 → Y3W 20:14
PROVIDERS: ADMIT Psychiatry & Neurology Psychiatry; ATTEND Psychiatry & Neurology Psychiatry
PROC: HZ42ZZZ Group Counseling for Substance Abuse Treatment, Cognitive-Behavioral (ICD-10-PCS; principal; 2018-04-27)
DX: F10.20 Alcohol dependence, uncomplicated (principal); F12.20 Cannabis dependence, uncomplicated; F17.210 Nicotine dependence, cigarettes, uncomplicated; F39 Unspecified mood [affective] disorder; F19.24 Other psychoactive substance dependence with psychoactive substance-induced mood disorder; F19.282 Other psychoactive substance dependence with psychoactive substance-induced sleep disorder; E78.5 Hyperlipidemia, unspecified; Z87.09 Personal history of other diseases of the respiratory system; Z87.442 Personal history of urinary calculi; Z86.69 Personal history of other diseases of the nervous system and sense organs

== ENCOUNTER 2020-12-30 18:57 | Inpatient (IN) | payer OTHER ==
[2020-12-30 19:57] VITALS: BMI 20.7
[2020-12-30] MEDS ORDERED: ACETAMINOPHEN 325 MG TABLET (FP) PO PRN ×2 (20:52)
[2020-12-30] MEDS ORDERED: MENTHOL/PHENOL 1 EACH UD MM PRN (20:52)
[2020-12-30] MEDS ORDERED: BISMUTH SUBSALICYLATE 524 MG/30 ML PO PRN (20:52)
[2020-12-30] MEDS ORDERED: MAGNESIUM HYDROX 2400MG/30ML ORAL SUSPENSION 30 ML CUP PO PRN (20:52)
[2020-12-30] MEDS ORDERED: IBUPROFEN 400 MG TABLET (FP) PO PRN (20:52)
[2020-12-30] MEDS ORDERED: ONDANSETRON *ODT* 4 MG TABLET SL PRN (20:52)
[2020-12-30] MEDS ORDERED: MAGNESIUM CITRATE 300 ML BOTTLE PO PRN (20:52)
[2020-12-30] MEDS ORDERED: METHOCARBAMOL 500 MG TABLET PO PRN (20:52)
[2020-12-30] MEDS ORDERED: MAG HYDROX/AL HYDROX/SIMETH 30 ML UNIT-DOSE CUP PO PRN (20:52)
[2020-12-30] MEDS ORDERED: ALBUTEROL SO4 HFA INHALER IH PRN (22:52)
[2020-12-30] MEDS: diazePAM 5 MG TABLET PO SCH (22:55)
[2020-12-30] MEDS: MELATONIN 5 MG TABLETS PO SCH (22:55)
[2020-12-30] MEDS: THIAMINE HCL 100 MG TABLET (FP) PO SCH (22:55)
[2020-12-31] MEDS: diazePAM 5 MG TABLET PO SCH ×4 (05:39→22:14)
[2020-12-31 09:58] LABS: HEMATOCRIT 41.6 % (35.4-49); HEMOGLOBIN 14.4 GM/dL (11.7-16.9); MCH 34.5 pg (25.7-33.7); MCHC 34.7 g/dl (32.0-35.9); MEAN CELL VOLUME 99.4 fl (80-96); MEAN PLT VOLUME 7.8 fl (7.5-11.1); PLATELET COUNT 214 K/MM3 (134-434); RBC 4.18 M/mm3 (4.00-5.60); RDW 16.1 % (11.9-15.9); WHITE BLOOD COUNT 4.1 K/mm3 (4.0-10.0)
[2020-12-31 10:03] LABS: ALBUMIN 4.4 g/dl (3.4-5.0); BLOOD UREA NITROGEN 7.5 mg/dL (7-18); CALCIUM 9.6 mg/dL (8.5-10.1)
[2020-12-31 10:07] LABS: CREATININE 0.6 mg/dL (0.55-1.3)
[2020-12-31 10:08] LABS: BILIRUBIN,TOTAL 1.2 mg/dL (0.2-1)
[2020-12-31] MEDS: PRENATAL VITAMINS W/ FOLIC ACID TABLET (FP) PO SCH (10:18)
[2020-12-31] MEDS: levETIRAcetam 500 MG TABLET (FP) PO SCH ×2 (10:18→22:14)
[2020-12-31] MEDS: ASPIRIN 81 MG CHEWABLE TABLETS PO SCH (10:18)
[2020-12-31] MEDS: NICOTINE 21 MG/24 HOURS TOPICAL PATCH TD SCH (11:33)
[2020-12-31] MEDS: GABAPENTIN 300 MG CAPSULE PO SCH ×2 (13:23→22:14)
[2020-12-31] MEDS: NICOTINE POLACRILEX 2 MG GUM BUC PRN ×2 (19:12→22:15)
[2020-12-31] MEDS: ATORVASTATIN CA 10 MG TABLET (FP) PO SCH (22:14)
[2020-12-31] MEDS: MELATONIN 5 MG TABLETS PO SCH (22:14)
[2020-12-31] MEDS: QUEtiapine FUMARATE 50 MG TABLET PO SCH (22:14)
[2020-12-31] MEDS: THIAMINE HCL 100 MG TABLET (FP) PO SCH (22:14)
[2021-01-01] MEDS: diazePAM 5 MG TABLET PO SCH ×3 (05:11→22:16)
[2021-01-01] MEDS: GABAPENTIN 300 MG CAPSULE PO SCH ×3 (05:12→22:16)
[2021-01-01] MEDS: NICOTINE POLACRILEX 2 MG GUM BUC PRN ×4 (05:14→22:46)
[2021-01-01] MEDS: NICOTINE 21 MG/24 HOURS TOPICAL PATCH TD SCH (09:31)
[2021-01-01] MEDS: levETIRAcetam 500 MG TABLET (FP) PO SCH ×2 (09:31→22:16)
[2021-01-01] MEDS: PRENATAL VITAMINS W/ FOLIC ACID TABLET (FP) PO SCH (09:31)
[2021-01-01] MEDS: ASPIRIN 81 MG CHEWABLE TABLETS PO SCH (09:31)
[2021-01-01] MEDS: diazePAM 5 MG TABLET PO PRN (09:31)
[2021-01-01] MEDS ORDERED: FLU VACCINE (FLULAVAL) PF 60 MCG/0.5 ML SYRINGE 2020-2021 IM ONE (12:00)
[2021-01-01] MEDS: MELATONIN 5 MG TABLETS PO SCH (22:15)
[2021-01-01] MEDS: ATORVASTATIN CA 10 MG TABLET (FP) PO SCH (22:16)
[2021-01-01] MEDS: QUEtiapine FUMARATE 50 MG TABLET PO SCH (22:16)
[2021-01-01] MEDS: THIAMINE HCL 100 MG TABLET (FP) PO SCH (22:16)
[2021-01-02] MEDS: diazePAM 5 MG TABLET PO SCH (06:00)
[2021-01-02] MEDS: GABAPENTIN 300 MG CAPSULE PO SCH ×2 (06:00→15:01)
[2021-01-02 10:07] LABS: SARS-CoV-2 NAA Not Detected (Not Detected)
[2021-01-02] MEDS: levETIRAcetam 500 MG TABLET (FP) PO SCH (10:23)
[2021-01-02] MEDS: ASPIRIN 81 MG CHEWABLE TABLETS PO SCH (10:23)
[2021-01-02] MEDS: PRENATAL VITAMINS W/ FOLIC ACID TABLET (FP) PO SCH (10:23)
[2021-01-02] MEDS: NICOTINE 21 MG/24 HOURS TOPICAL PATCH TD SCH (10:23)
[2021-01-02] MEDS: diazePAM 5 MG TABLET PO PRN (10:51)
[2021-01-02 14:36] VITALS: BP 110/60; PULSE 108; TEMP 97.4
[2021-01-02] MEDS: NICOTINE POLACRILEX 2 MG GUM BUC PRN (15:01)
[2021-01-03] MEDS: diazePAM 5 MG TABLET PO SCH (00:33)
[2021-01-03] MEDS ORDERED: diazePAM 5 MG TABLET PO ONE (06:00)
== END 2021-01-02 18:00 | disposition home or self-care (01) | DRG 775 ==
LOC: YASAS 18:57 → Y6N 20:51
PROVIDERS: ADMIT Allergy & Immunology; ATTEND Allergy & Immunology
PROC: HZ2ZZZZ Detoxification Services for Substance Abuse Treatment (ICD-10-PCS; principal; 2020-12-30)
DX: F10.230 Alcohol dependence with withdrawal, uncomplicated (principal); F12.20 Cannabis dependence, uncomplicated; F17.210 Nicotine dependence, cigarettes, uncomplicated; F10.280 Alcohol dependence with alcohol-induced anxiety disorder; F10.282 Alcohol dependence with alcohol-induced sleep disorder; F10.24 Alcohol dependence with alcohol-induced mood disorder; F41.8 Other specified anxiety disorders; F39 Unspecified mood [affective] disorder; G40.89 Other seizures; G47.00 Insomnia, unspecified; E78.5 Hyperlipidemia, unspecified; J45.20 Mild intermittent asthma, uncomplicated; M54.5 Low back pain; G89.29 Other chronic pain; R74.01 Elevation of levels of liver transaminase levels; Z87.442 Personal history of urinary calculi
CPT/HCPCS: 36415; 80053; 85027; 86780; 93005; 93010; C9803; G0008; Q2036; U0003; U0005

== ENCOUNTER 2021-04-17 09:24 | Inpatient (IN) | payer OTHER ==
[2021-04-17 10:23] VITALS: BMI 20.2
[2021-04-17] MEDS ORDERED: BISMUTH SUBSALICYLATE 524 MG/30 ML PO PRN (14:01)
[2021-04-17] MEDS ORDERED: MAGNESIUM CITRATE 300 ML BOTTLE PO PRN (14:01)
[2021-04-17] MEDS ORDERED: MAG HYDROX/AL HYDROX/SIMETH 30 ML UNIT-DOSE CUP PO PRN (14:01)
[2021-04-17] MEDS ORDERED: IBUPROFEN 400 MG TABLET (FP) PO PRN (14:01)
[2021-04-17] MEDS ORDERED: MAGNESIUM HYDROX 2400MG/30ML ORAL SUSPENSION 30 ML CUP PO PRN (14:01)
[2021-04-17] MEDS ORDERED: ACETAMINOPHEN 325 MG TABLET (FP) PO PRN ×2 (14:01)
[2021-04-17] MEDS ORDERED: ONDANSETRON *ODT* 4 MG TABLET SL PRN (14:01)
[2021-04-17] MEDS ORDERED: METHOCARBAMOL 500 MG TABLET PO PRN (14:01)
[2021-04-17] MEDS ORDERED: LORazepam 2 MG TABLET PO ONE (14:01)
[2021-04-17] MEDS ORDERED: LORazepam 1 MG TABLET PO PRN (14:01)
[2021-04-17] MEDS ORDERED: MENTHOL/PHENOL 1 EACH UD MM PRN (14:01)
[2021-04-17] MEDS ORDERED: ALBUTEROL SO4 HFA INHALER IH PRN (14:05)
[2021-04-17] MEDS ORDERED: NICOTINE 21 MG/24 HOURS TOPICAL PATCH ONE (15:12)
[2021-04-17] MEDS ORDERED: LORazepam 2 MG TABLET ONE ×2 (15:13→22:50)
[2021-04-17] MEDS: NICOTINE 21 MG/24 HOURS TOPICAL PATCH TD SCH (15:17)
[2021-04-17] MEDS: GABAPENTIN 100 MG CAPSULE PO SCH ×2 (15:17→23:41)
[2021-04-17] MEDS: LORazepam 2 MG TABLET PO SCH ×2 (17:44→23:09)
[2021-04-17] MEDS: hydrOXYzine PAMOATE 25 MG CAPSULE (FP) PO SCH ×2 (18:42→23:14)
[2021-04-17] MEDS ORDERED: MIRTAZAPINE 15 MG TABLET (FP) PO ONE (22:00)
[2021-04-17] MEDS ORDERED: OXcarbazepine 300 MG TABLET (UD) PO ONE (22:00)
[2021-04-17] MEDS ORDERED: QUEtiapine FUMARATE 100 MG TABLET (FP) PO ONE (22:00)
[2021-04-17] MEDS ORDERED: levETIRAcetam 500 MG TABLET (FP) PO SCH (22:00)
[2021-04-17] MEDS: THIAMINE HCL 100 MG TABLET (FP) PO SCH (23:12)
[2021-04-17] MEDS: MELATONIN 5 MG TABLETS PO SCH (23:13)
[2021-04-17] MEDS: ATORVASTATIN CA 10 MG TABLET (FP) PO SCH (23:13)
[2021-04-17] MEDS: BUDESONIDE/FORMETEROL FUMARATE 80/4.5 mcg INHALER IH SCH (23:42)
[2021-04-18] MEDS ORDERED: hydrOXYzine PAMOATE 25 MG CAPSULE (FP) PO ONE ×2 (06:23→11:03)
[2021-04-18] MEDS ORDERED: LORazepam 2 MG TABLET ONE ×2 (06:23→11:02)
[2021-04-18] MEDS: LORazepam 2 MG TABLET PO SCH ×4 (06:35→22:44)
[2021-04-18] MEDS: GABAPENTIN 100 MG CAPSULE PO SCH ×2 (06:35→15:15)
[2021-04-18] MEDS: hydrOXYzine PAMOATE 25 MG CAPSULE (FP) PO SCH ×4 (06:35→20:44)
[2021-04-18] MEDS ORDERED: PNEUMOC 13-VAL CONJ-DIP CRM/PF 0.5 ML DISP.SYRIN IM ONE (10:00)
[2021-04-18] MEDS ORDERED: FLUoxetine HCL 20 MG CAPSULE PO ONE (10:00)
[2021-04-18] MEDS: ASPIRIN 81 MG CHEWABLE TABLETS PO SCH (11:10)
[2021-04-18] MEDS: NICOTINE 21 MG/24 HOURS TOPICAL PATCH TD SCH (11:10)
[2021-04-18] MEDS: BUDESONIDE/FORMETEROL FUMARATE 80/4.5 mcg INHALER IH SCH ×2 (11:11→23:33)
[2021-04-18] MEDS: PRENATAL VITAMINS W/ FOLIC ACID TABLET (FP) PO SCH (11:11)
[2021-04-18] MEDS ORDERED: cloNIDine HCL 0.1 MG TABLET PO ONE (14:25)
[2021-04-18] MEDS: NICOTINE 10 MG CARTRIDGE (INHALER) IH PRN ×2 (15:31→19:21)
[2021-04-18] MEDS: NICOTINE POLACRILEX 4 MG GUM BUC PRN ×2 (15:34→21:07)
[2021-04-18] MEDS: ATORVASTATIN CA 10 MG TABLET (FP) PO SCH (21:04)
[2021-04-18] MEDS: GABAPENTIN 300 MG CAPSULE PO SCH (21:05)
[2021-04-18] MEDS ORDERED: GABAPENTIN 300 MG CAPSULE PO SCH (22:00)
[2021-04-18] MEDS: MELATONIN 5 MG TABLETS PO SCH (22:42)
[2021-04-18] MEDS: QUEtiapine FUMARATE 100 MG TABLET (FP) PO SCH (23:31)
[2021-04-19] MEDS: hydrOXYzine PAMOATE 25 MG CAPSULE (FP) PO SCH ×6 (00:09→22:12)
[2021-04-19] MEDS: THIAMINE HCL 100 MG TABLET (FP) PO SCH ×2 (00:09→22:14)
[2021-04-19] MEDS: LORazepam 1 MG TABLET PO SCH ×4 (06:20→22:11)
[2021-04-19] MEDS: GABAPENTIN 300 MG CAPSULE PO SCH ×3 (06:42→22:13)
[2021-04-19] MEDS ORDERED: FLUoxetine HCL 20 MG CAPSULE PO SCH (10:00)
[2021-04-19] MEDS: FLUoxetine HCL 20 MG CAPSULE PO SCH (10:36)
[2021-04-19] MEDS: PRENATAL VITAMINS W/ FOLIC ACID TABLET (FP) PO SCH (10:36)
[2021-04-19] MEDS: ASPIRIN 81 MG CHEWABLE TABLETS PO SCH (10:36)
[2021-04-19] MEDS: BUDESONIDE/FORMETEROL FUMARATE 80/4.5 mcg INHALER IH SCH ×2 (10:36→22:13)
[2021-04-19] MEDS: NICOTINE 21 MG/24 HOURS TOPICAL PATCH TD SCH (10:38)
[2021-04-19] MEDS: NICOTINE POLACRILEX 4 MG GUM BUC PRN ×3 (10:38→18:13)
[2021-04-19] MEDS: NICOTINE 10 MG CARTRIDGE (INHALER) IH PRN (16:00)
[2021-04-19 16:12] LABS: HEMATOCRIT 39.2 % (35.4-49); HEMOGLOBIN 13.6 GM/dL (11.7-16.9); MCH 35.3 pg (25.7-33.7); MCHC 34.6 g/dl (32.0-35.9); MEAN PLT VOLUME 8.6 fl (7.5-11.1); PLATELET COUNT 135 10^3/uL (134-434); RBC 3.84 M/mm3 (4.00-5.60); WHITE BLOOD COUNT 4.9 K/mm3 (4.0-10.0)
[2021-04-19 17:07] LABS: BILIRUBIN,TOTAL 1.5 mg/dL (0.2-1); BLOOD UREA NITROGEN 9.8 mg/dL (7-18); CALCIUM 10.1 mg/dL (8.5-10.1); CREATININE 0.8 mg/dL (0.55-1.3); TOT PROT 7.2 g/dl (6.4-8.2)
[2021-04-19] MEDS: QUEtiapine FUMARATE 100 MG TABLET (FP) PO SCH (22:12)
[2021-04-19] MEDS: MELATONIN 5 MG TABLETS PO SCH (22:13)
[2021-04-19] MEDS: ATORVASTATIN CA 10 MG TABLET (FP) PO SCH (22:13)
[2021-04-20] MEDS ORDERED: LORazepam 0.5 MG TABLET PO PRN
[2021-04-20] MEDS: GABAPENTIN 300 MG CAPSULE PO SCH ×3 (05:30→22:32)
[2021-04-20] MEDS: hydrOXYzine PAMOATE 25 MG CAPSULE (FP) PO SCH ×5 (05:30→22:32)
[2021-04-20] MEDS: LORazepam 0.5 MG TABLET PO SCH ×4 (05:31→22:31)
[2021-04-20] MEDS: FLUoxetine HCL 20 MG CAPSULE PO SCH (10:34)
[2021-04-20] MEDS: BUDESONIDE/FORMETEROL FUMARATE 80/4.5 mcg INHALER IH SCH ×2 (10:34→22:35)
[2021-04-20] MEDS: PRENATAL VITAMINS W/ FOLIC ACID TABLET (FP) PO SCH (10:34)
[2021-04-20] MEDS: NICOTINE 21 MG/24 HOURS TOPICAL PATCH TD SCH (10:34)
[2021-04-20] MEDS: ASPIRIN 81 MG CHEWABLE TABLETS PO SCH (10:34)
[2021-04-20] MEDS: NICOTINE 10 MG CARTRIDGE (INHALER) IH PRN ×2 (16:12→22:35)
[2021-04-20] MEDS: QUEtiapine FUMARATE 100 MG TABLET (FP) PO SCH (22:32)
[2021-04-20] MEDS: THIAMINE HCL 100 MG TABLET (FP) PO SCH (22:32)
[2021-04-20] MEDS: ATORVASTATIN CA 10 MG TABLET (FP) PO SCH (22:32)
[2021-04-20] MEDS: MELATONIN 5 MG TABLETS PO SCH (22:32)
[2021-04-21] MEDS ORDERED: LORazepam 0.5 MG TABLET PO ONE (05:00)
[2021-04-21] MEDS: hydrOXYzine PAMOATE 25 MG CAPSULE (FP) PO SCH (05:32)
[2021-04-21] MEDS: GABAPENTIN 300 MG CAPSULE PO SCH (05:32)
[2021-04-21] MEDS: NICOTINE 10 MG CARTRIDGE (INHALER) IH PRN (09:02)
[2021-04-21 09:52] VITALS: BP 140/95; PULSE 106; TEMP 96.9
== END 2021-04-21 09:25 | disposition home or self-care (01) | DRG 775 ==
LOC: YASAS 09:24 → Y3N 04-18 12:16
PROVIDERS: ADMIT Allergy & Immunology; ATTEND Allergy & Immunology
PROC: HZ2ZZZZ Detoxification Services for Substance Abuse Treatment (ICD-10-PCS; principal; 2021-04-18)
DX: F10.230 Alcohol dependence with withdrawal, uncomplicated (principal); F12.20 Cannabis dependence, uncomplicated; F17.210 Nicotine dependence, cigarettes, uncomplicated; F19.282 Other psychoactive substance dependence with psychoactive substance-induced sleep disorder; F19.24 Other psychoactive substance dependence with psychoactive substance-induced mood disorder; F31.9 Bipolar disorder, unspecified; F41.9 Anxiety disorder, unspecified; G47.00 Insomnia, unspecified; J45.909 Unspecified asthma, uncomplicated; M54.5 Low back pain; G89.29 Other chronic pain; R74.8 Abnormal levels of other serum enzymes; R73.9 Hyperglycemia, unspecified; R63.4 Abnormal weight loss; Z68.20 Body mass index [BMI] 20.0-20.9, adult; Z87.442 Personal history of urinary calculi; Z86.69 Personal history of other diseases of the nervous system and sense organs
CPT/HCPCS: 36415; 80053; 85027; 86780; 90670; C9803; J0735; U0003; U0005

== ENCOUNTER 2021-05-19 16:14 | Inpatient (IN) | payer OTHER ==
[2021-05-19 16:54] VITALS: BMI 20.3
[2021-05-19] MEDS ORDERED: MAGNESIUM CITRATE 300 ML BOTTLE PO PRN (19:33)
[2021-05-19] MEDS ORDERED: ACETAMINOPHEN 325 MG TABLET (FP) PO PRN ×2 (19:33)
[2021-05-19] MEDS ORDERED: MENTHOL/PHENOL 1 EACH UD MM PRN (19:33)
[2021-05-19] MEDS ORDERED: BISMUTH SUBSALICYLATE 524 MG/30 ML PO PRN (19:33)
[2021-05-19] MEDS ORDERED: ONDANSETRON *ODT* 4 MG TABLET SL PRN (19:33)
[2021-05-19] MEDS ORDERED: MAG HYDROX/AL HYDROX/SIMETH 30 ML UNIT-DOSE CUP PO PRN (19:33)
[2021-05-19] MEDS ORDERED: MAGNESIUM HYDROX 2400MG/30ML ORAL SUSPENSION 30 ML CUP PO PRN (19:33)
[2021-05-19] MEDS ORDERED: MELATONIN 5 MG TABLETS PO SCH (22:00)
[2021-05-20] MEDS: diazePAM 5 MG TABLET PO SCH ×4 (00:56→22:37)
[2021-05-20] MEDS: THIAMINE HCL 100 MG TABLET (FP) PO SCH ×2 (00:57→22:36)
[2021-05-20] MEDS: hydrOXYzine PAMOATE 25 MG CAPSULE (FP) PO SCH ×6 (00:57→22:36)
[2021-05-20] MEDS: IBUPROFEN 400 MG TABLET (FP) PO PRN (00:58)
[2021-05-20 10:58] LABS: ALBUMIN 3.8 g/dl (3.4-5.0); BLOOD UREA NITROGEN 6.8 mg/dL (7-18); CALCIUM 9.1 mg/dL (8.5-10.1)
[2021-05-20] MEDS: NICOTINE 14 MG/24 HOURS TOPICAL PATCH TD SCH (10:58)
[2021-05-20 11:00] LABS: HEMOGLOBIN 12.1 GM/dL (11.7-16.9); MCH 34.9 pg (25.7-33.7); MCHC 34.6 g/dl (32.0-35.9); MEAN CELL VOLUME 100.8 fl (80-96); MEAN PLT VOLUME 7.5 fl (7.5-11.1); PLATELET COUNT 276 10^3/uL (134-434); RBC 3.47 M/mm3 (4.00-5.60); RDW 14.3 % (11.9-15.9); WHITE BLOOD COUNT 4.2 K/mm3 (4.0-10.0)
[2021-05-20] MEDS: PRENATAL VITAMINS W/ FOLIC ACID TABLET (FP) PO SCH (11:00)
[2021-05-20] MEDS: METHOCARBAMOL 500 MG TABLET PO PRN ×2 (11:01→18:24)
[2021-05-20 11:03] LABS: BILIRUBIN,TOTAL 0.4 mg/dL (0.2-1); TOT PROT 7.1 g/dl (6.4-8.2)
[2021-05-20 11:08] LABS: CREATININE 0.4 mg/dL (0.55-1.3)
[2021-05-20] MEDS: NICOTINE POLACRILEX 2 MG GUM BUC PRN ×3 (11:45→21:02)
[2021-05-20] MEDS ORDERED: QUEtiapine FUMARATE 50 MG TABLET PO PRN (11:51)
[2021-05-20] MEDS: FLUoxetine HCL 20 MG CAPSULE PO SCH (12:13)
[2021-05-20] MEDS: GABAPENTIN 300 MG CAPSULE PO SCH ×4 (12:13→23:49)
[2021-05-20] MEDS: levETIRAcetam 500 MG TABLET (FP) PO SCH ×2 (12:13→22:36)
[2021-05-20] MEDS: NICOTINE 10 MG CARTRIDGE (INHALER) IH PRN ×2 (18:19→22:45)
[2021-05-20] MEDS: QUEtiapine FUMARATE 100 MG TABLET (FP) PO SCH (22:36)
[2021-05-21] MEDS: hydrOXYzine PAMOATE 25 MG CAPSULE (FP) PO SCH ×5 (05:49→23:15)
[2021-05-21] MEDS: GABAPENTIN 300 MG CAPSULE PO SCH ×5 (05:49→23:15)
[2021-05-21] MEDS: diazePAM 5 MG TABLET PO SCH ×3 (05:51→22:42)
[2021-05-21] MEDS: NICOTINE POLACRILEX 2 MG GUM BUC PRN ×2 (05:52→10:38)
[2021-05-21] MEDS: METHOCARBAMOL 500 MG TABLET PO PRN ×2 (05:52→22:45)
[2021-05-21] MEDS: FLUoxetine HCL 20 MG CAPSULE PO SCH (10:33)
[2021-05-21] MEDS: levETIRAcetam 500 MG TABLET (FP) PO SCH ×2 (10:33→22:40)
[2021-05-21] MEDS: PRENATAL VITAMINS W/ FOLIC ACID TABLET (FP) PO SCH (10:33)
[2021-05-21] MEDS: NICOTINE 14 MG/24 HOURS TOPICAL PATCH TD SCH (10:34)
[2021-05-21] MEDS: amLODIPine BESYLATE 10 MG TABLET (FP) PO SCH (10:34)
[2021-05-21] MEDS: diazePAM 5 MG TABLET PO PRN ×2 (10:36→17:57)
[2021-05-21] MEDS: NICOTINE 10 MG CARTRIDGE (INHALER) IH PRN ×2 (13:46→22:51)
[2021-05-21] MEDS: THIAMINE HCL 100 MG TABLET (FP) PO SCH (22:40)
[2021-05-21] MEDS: QUEtiapine FUMARATE 100 MG TABLET (FP) PO SCH (22:40)
[2021-05-22] MEDS: GABAPENTIN 300 MG CAPSULE PO SCH ×5 (05:47→22:52)
[2021-05-22] MEDS: hydrOXYzine PAMOATE 25 MG CAPSULE (FP) PO SCH ×5 (05:47→22:34)
[2021-05-22] MEDS: diazePAM 5 MG TABLET PO SCH ×3 (05:48→18:23)
[2021-05-22] MEDS: FLUoxetine HCL 20 MG CAPSULE PO SCH (10:40)
[2021-05-22] MEDS: PRENATAL VITAMINS W/ FOLIC ACID TABLET (FP) PO SCH (10:40)
[2021-05-22] MEDS: amLODIPine BESYLATE 10 MG TABLET (FP) PO SCH (10:40)
[2021-05-22] MEDS: levETIRAcetam 500 MG TABLET (FP) PO SCH ×2 (10:40→22:34)
[2021-05-22] MEDS: NICOTINE 14 MG/24 HOURS TOPICAL PATCH TD SCH (10:41)
[2021-05-22] MEDS: METHOCARBAMOL 500 MG TABLET PO PRN (10:44)
[2021-05-22] MEDS: diazePAM 5 MG TABLET PO PRN ×2 (10:44→14:59)
[2021-05-22] MEDS: NICOTINE 10 MG CARTRIDGE (INHALER) IH PRN (10:46)
[2021-05-22] MEDS: NICOTINE POLACRILEX 2 MG GUM BUC PRN (17:04)
[2021-05-22] MEDS: QUEtiapine FUMARATE 100 MG TABLET (FP) PO SCH (22:34)
[2021-05-22] MEDS: THIAMINE HCL 100 MG TABLET (FP) PO SCH (22:34)
[2021-05-23] MEDS: NICOTINE 10 MG CARTRIDGE (INHALER) IH PRN ×2 (00:04→10:39)
[2021-05-23] MEDS: hydrOXYzine PAMOATE 25 MG CAPSULE (FP) PO SCH ×2 (05:50→10:35)
[2021-05-23] MEDS: GABAPENTIN 300 MG CAPSULE PO SCH ×2 (05:52→10:34)
[2021-05-23] MEDS ORDERED: diazePAM 5 MG TABLET PO ONE (06:00)
[2021-05-23] MEDS: METHOCARBAMOL 500 MG TABLET PO PRN (06:13)
[2021-05-23] MEDS: diazePAM 5 MG TABLET PO SCH (06:15)
[2021-05-23] MEDS ORDERED: ALBUTEROL SO4 HFA INHALER IH ONE (06:16)
[2021-05-23] MEDS: ALBUTEROL SO4 HFA INHALER IH PRN ×2 (06:17→10:38)
[2021-05-23 06:48] VITALS: BP 117/47; PULSE 90; TEMP 97.5
[2021-05-23] MEDS: NICOTINE 14 MG/24 HOURS TOPICAL PATCH TD SCH (10:34)
[2021-05-23] MEDS: amLODIPine BESYLATE 10 MG TABLET (FP) PO SCH (10:34)
[2021-05-23] MEDS: levETIRAcetam 500 MG TABLET (FP) PO SCH (10:34)
[2021-05-23] MEDS: PRENATAL VITAMINS W/ FOLIC ACID TABLET (FP) PO SCH (10:35)
[2021-05-23] MEDS: FLUoxetine HCL 20 MG CAPSULE PO SCH (10:35)
[2021-05-23] MEDS: IBUPROFEN 400 MG TABLET (FP) PO PRN (10:40)
== END 2021-05-23 11:51 | disposition home or self-care (01) | DRG 775 ==
LOC: YASAS 16:14 → Y6N 21:48
PROVIDERS: ADMIT Allergy & Immunology; ATTEND Allergy & Immunology
PROC: HZ2ZZZZ Detoxification Services for Substance Abuse Treatment (ICD-10-PCS; principal; 2021-05-19)
DX: F10.230 Alcohol dependence with withdrawal, uncomplicated (principal); F12.20 Cannabis dependence, uncomplicated; F17.210 Nicotine dependence, cigarettes, uncomplicated; F31.9 Bipolar disorder, unspecified; F19.280 Other psychoactive substance dependence with psychoactive substance-induced anxiety disorder; F19.282 Other psychoactive substance dependence with psychoactive substance-induced sleep disorder; I10 Essential (primary) hypertension; G89.29 Other chronic pain; J45.20 Mild intermittent asthma, uncomplicated; G40.909 Epilepsy, unspecified, not intractable, without status epilepticus
CPT/HCPCS: 36415; 80053; 85027; 86780; C9803; U0003; U0005

== ENCOUNTER 2021-06-19 16:54 | Inpatient (IN) | payer OTHER ==
[2021-06-19 17:20] VITALS: BMI 21.9
[2021-06-19] MEDS ORDERED: MAGNESIUM CITRATE 300 ML BOTTLE PO PRN (18:05)
[2021-06-19] MEDS ORDERED: BISMUTH SUBSALICYLATE 524 MG/30 ML PO PRN (18:05)
[2021-06-19] MEDS ORDERED: MENTHOL/PHENOL 1 EACH UD MM PRN (18:05)
[2021-06-19] MEDS ORDERED: NICOTINE POLACRILEX 2 MG GUM BUC PRN (18:05)
[2021-06-19] MEDS ORDERED: IBUPROFEN 400 MG TABLET (FP) PO PRN (18:05)
[2021-06-19] MEDS ORDERED: MAGNESIUM HYDROX 2400MG/30ML ORAL SUSPENSION 30 ML CUP PO PRN (18:05)
[2021-06-19] MEDS ORDERED: ACETAMINOPHEN 325 MG TABLET (FP) PO PRN ×2 (18:05)
[2021-06-19] MEDS ORDERED: METHOCARBAMOL 500 MG TABLET PO PRN (18:05)
[2021-06-19] MEDS ORDERED: ONDANSETRON *ODT* 4 MG TABLET SL PRN (18:05)
[2021-06-19] MEDS ORDERED: hydrOXYzine PAMOATE 25 MG CAPSULE (FP) PO PRN (18:05)
[2021-06-19] MEDS ORDERED: MAG HYDROX/AL HYDROX/SIMETH 30 ML UNIT-DOSE CUP PO PRN (18:05)
[2021-06-19] MEDS ORDERED: diazePAM 5 MG TABLET PO PRN (18:08)
[2021-06-19] MEDS ORDERED: ALBUTEROL SO4 HFA INHALER IH PRN (19:03)
[2021-06-19] MEDS ORDERED: MIRTAZAPINE 15 MG TABLET (FP) PO ONE (22:00)
[2021-06-19] MEDS ORDERED: MELATONIN 5 MG TABLETS PO SCH (22:00)
[2021-06-19] MEDS ORDERED: THIAMINE HCL 100 MG TABLET (FP) PO SCH (22:00)
[2021-06-19] MEDS: levETIRAcetam 500 MG TABLET (FP) PO SCH (22:10)
[2021-06-19] MEDS: diazePAM 5 MG TABLET PO SCH (22:10)
[2021-06-19] MEDS: NICOTINE 10 MG CARTRIDGE (INHALER) IH PRN (22:18)
[2021-06-19] MEDS ORDERED: QUEtiapine FUMARATE 100 MG TABLET (FP) PO ONE (23:00)
[2021-06-19] MEDS: OXcarbazepine 300 MG TABLET (UD) PO SCH (23:57)
[2021-06-20] MEDS: diazePAM 5 MG TABLET PO SCH (05:49)
[2021-06-20 09:30] VITALS: BP 145/84; PULSE 83; TEMP 98.4
[2021-06-20] MEDS ORDERED: ATORVASTATIN CA 10 MG TABLET (FP) PO SCH (10:00)
[2021-06-20] MEDS ORDERED: ASPIRIN 81 MG CHEWABLE TABLETS PO SCH (10:00)
[2021-06-20] MEDS ORDERED: PANTOPRAZOLE 40 MG TABLET PO SCH (10:00)
[2021-06-20] MEDS ORDERED: PRENATAL VITAMINS W/ FOLIC ACID TABLET (FP) PO SCH (10:00)
[2021-06-20] MEDS: OXcarbazepine 300 MG TABLET (UD) PO SCH (10:07)
[2021-06-20] MEDS: levETIRAcetam 500 MG TABLET (FP) PO SCH (10:07)
[2021-06-20] MEDS: NICOTINE 10 MG CARTRIDGE (INHALER) IH PRN (12:12)
[2021-06-20] MEDS ORDERED: GABAPENTIN 300 MG CAPSULE PO SCH (14:00)
[2021-06-20] MEDS ORDERED: QUEtiapine FUMARATE 100 MG TABLET (FP) PO SCH (22:00)
[2021-06-21] MEDS ORDERED: diazePAM 5 MG TABLET PO SCH (06:00)
[2021-06-21] MEDS ORDERED: FLUoxetine HCL 20 MG CAPSULE PO SCH (10:00)
[2021-06-22] MEDS ORDERED: diazePAM 5 MG TABLET PO ONE (06:00)
== END 2021-06-20 13:34 | disposition left against medical advice (07) | DRG 770 ==
LOC: YASAS 16:54 → Y6N 18:44
PROVIDERS: ADMIT Allergy & Immunology; ATTEND Allergy & Immunology
PROC: HZ2ZZZZ Detoxification Services for Substance Abuse Treatment (ICD-10-PCS; principal; 2021-06-19)
DX: F10.230 Alcohol dependence with withdrawal, uncomplicated (principal); F12.20 Cannabis dependence, uncomplicated; F17.210 Nicotine dependence, cigarettes, uncomplicated; F10.282 Alcohol dependence with alcohol-induced sleep disorder; F10.24 Alcohol dependence with alcohol-induced mood disorder; F31.9 Bipolar disorder, unspecified; F41.8 Other specified anxiety disorders; I10 Essential (primary) hypertension; J45.909 Unspecified asthma, uncomplicated; M54.50 Low back pain, unspecified; G89.29 Other chronic pain; R73.9 Hyperglycemia, unspecified; R63.4 Abnormal weight loss; Z68.23 Body mass index [BMI] 23.0-23.9, adult; Z86.69 Personal history of other diseases of the nervous system and sense organs; Z56.0 Unemployment, unspecified; Z59.00 Homelessness unspecified
CPT/HCPCS: C9803; U0003; U0005

== ENCOUNTER 2021-08-10 16:08 | Inpatient (IN) | payer OTHER ==
[2021-08-10] MEDS ORDERED: BISMUTH SUBSALICYLATE 524 MG/30 ML PO PRN (22:55)
[2021-08-10] MEDS ORDERED: P-EPHED 60MG/TRIPROLIDI 2.5MG TABLET PO PRN (22:55)
[2021-08-10] MEDS ORDERED: MAGNESIUM CITRATE 300 ML BOTTLE PO PRN (22:55)
[2021-08-10] MEDS ORDERED: ACETAMINOPHEN 325 MG TABLET (FP) PO PRN ×2 (22:55)
[2021-08-10] MEDS ORDERED: DICYCLOMINE HCL 10 MG CAPSULE PO PRN (22:55)
[2021-08-10] MEDS ORDERED: MAG HYDROX/AL HYDROX/SIMETH 30 ML UNIT-DOSE CUP PO PRN (22:55)
[2021-08-10] MEDS ORDERED: MAGNESIUM HYDROX 2400MG/30ML ORAL SUSPENSION 30 ML CUP PO PRN (22:55)
[2021-08-10] MEDS ORDERED: IBUPROFEN 400 MG TABLET (FP) PO PRN (22:55)
[2021-08-10] MEDS ORDERED: guaiFENesin 200 MG/10 ML 10 ML UNIT-DOSE CUPS PO PRN (22:55)
[2021-08-10] MEDS ORDERED: ONDANSETRON *ODT* 4 MG TABLET SL PRN (22:55)
[2021-08-10] MEDS ORDERED: MENTHOL/PHENOL 1 EACH UD MM PRN (22:55)
[2021-08-10] MEDS ORDERED: METHOCARBAMOL 500 MG TABLET PO PRN (22:55)
[2021-08-10] MEDS ORDERED: hydrOXYzine PAMOATE 25 MG CAPSULE (FP) PO PRN (22:55)
[2021-08-10 23:06] VITALS: BMI 19.5
[2021-08-11 10:30] LABS: HEMATOCRIT 42.1 % (35.4-49); HEMOGLOBIN 14.9 GM/dL (11.7-16.9); MCH 34.1 pg (25.7-33.7); MCHC 35.3 g/dl (32.0-35.9); MEAN CELL VOLUME 96.4 fl (80-96); MEAN PLT VOLUME 8.4 fl (7.5-11.1); PLATELET COUNT 277 10^3/uL (134-434); RBC 4.37 M/mm3 (4.00-5.60); RDW 13.6 % (11.9-15.9); WHITE BLOOD COUNT 6.1 K/mm3 (4.0-10.0)
[2021-08-11 10:33] LABS: CHLORIDE 74 mmol/L (98-107); SODIUM 123 mmol/L (136-145)
[2021-08-11] MEDS: PRENATAL VITAMINS W/ FOLIC ACID TABLET (FP) PO SCH (10:53)
[2021-08-11 11:05] LABS: CALCIUM 9.2 mg/dL (8.5-10.1)
[2021-08-11 11:06] LABS: ALBUMIN 3.6 g/dl (3.4-5.0); BLOOD UREA NITROGEN 13.2 mg/dL (7-18); CO2 30 mmol/L (21-32); GLUCOSE,RANDOM 74 mg/dL (74-106)
[2021-08-11 11:07] LABS: CREATININE 0.9 mg/dL (0.55-1.3); SGOT/AST 105 U/L (15-37); SGPT/ALT 95 U/L (13-61)
[2021-08-11 11:08] LABS: BILIRUBIN,TOTAL 0.5 mg/dL (0.2-1); TOT PROT 7.4 g/dl (6.4-8.2)
[2021-08-11 11:10] LABS: ALK PHOS 83 U/L (45-117)
[2021-08-11 11:11] LABS: ANION GAP 19 MMOL/L (8-16)
[2021-08-11] MEDS ORDERED: POTASSIUM CHLORIDE ORAL LIQUID 20 MEQ/15 ML PO ONE (11:41)
[2021-08-11] MEDS ORDERED: chlordiazePOXIDE HCL 25 MG CAPSULE PO PRN (12:13)
[2021-08-11] MEDS: chlordiazePOXIDE HCL 25 MG CAPSULE PO SCH ×3 (14:32→23:58)
[2021-08-11] MEDS: MIRTAZAPINE 15 MG TABLET (FP) PO SCH (23:57)
[2021-08-11] MEDS: QUEtiapine FUMARATE 100 MG TABLET (FP) PO SCH (23:57)
[2021-08-11] MEDS: POTASSIUM CHLORIDE ORAL LIQUID 20 MEQ/15 ML PO SCH (23:57)
[2021-08-11] MEDS: MELATONIN 5 MG TABLETS PO SCH (23:57)
[2021-08-11] MEDS: THIAMINE HCL 100 MG TABLET (FP) PO SCH (23:57)
[2021-08-12] MEDS: chlordiazePOXIDE HCL 25 MG CAPSULE PO SCH ×4 (06:13→23:51)
[2021-08-12] MEDS: POTASSIUM CHLORIDE ORAL LIQUID 20 MEQ/15 ML PO SCH ×2 (10:36→23:51)
[2021-08-12] MEDS: PRENATAL VITAMINS W/ FOLIC ACID TABLET (FP) PO SCH (10:36)
[2021-08-12 11:51] LABS: INR 1.02 (0.83-1.09); PROTHROMBIN TIME (PATIENT) 11.4 SEC (9.7-13.0)
[2021-08-12 12:32] LABS: ALBUMIN 3.8 g/dl (3.4-5.0); BLOOD UREA NITROGEN 17.4 mg/dL (7-18); CALCIUM 9.3 mg/dL (8.5-10.1)
[2021-08-12 12:33] LABS: BILIRUBIN,TOTAL 0.4 mg/dL (0.2-1); TOT PROT 7.3 g/dl (6.4-8.2)
[2021-08-12 12:35] LABS: CREATININE 0.9 mg/dL (0.55-1.3)
[2021-08-12] MEDS: MELATONIN 5 MG TABLETS PO SCH (23:52)
[2021-08-12] MEDS: THIAMINE HCL 100 MG TABLET (FP) PO SCH (23:52)
[2021-08-12] MEDS: QUEtiapine FUMARATE 100 MG TABLET (FP) PO SCH (23:52)
[2021-08-12] MEDS: MIRTAZAPINE 15 MG TABLET (FP) PO SCH (23:52)
[2021-08-13] MEDS: chlordiazePOXIDE HCL 25 MG CAPSULE PO SCH ×4 (05:44→22:27)
[2021-08-13] MEDS: PRENATAL VITAMINS W/ FOLIC ACID TABLET (FP) PO SCH (10:59)
[2021-08-13] MEDS: MIRTAZAPINE 15 MG TABLET (FP) PO SCH (22:27)
[2021-08-13] MEDS: QUEtiapine FUMARATE 100 MG TABLET (FP) PO SCH (22:28)
[2021-08-13] MEDS: MELATONIN 5 MG TABLETS PO SCH (22:28)
[2021-08-13] MEDS: THIAMINE HCL 100 MG TABLET (FP) PO SCH (22:28)
[2021-08-14] MEDS ORDERED: chlordiazePOXIDE HCL 10 MG CAPSULE PO PRN
[2021-08-14] MEDS: chlordiazePOXIDE HCL 10 MG CAPSULE PO SCH ×4 (07:41→22:42)
[2021-08-14] MEDS: PRENATAL VITAMINS W/ FOLIC ACID TABLET (FP) PO SCH (12:06)
[2021-08-14] MEDS: THIAMINE HCL 100 MG TABLET (FP) PO SCH (21:40)
[2021-08-14] MEDS: MIRTAZAPINE 15 MG TABLET (FP) PO SCH (21:40)
[2021-08-14] MEDS: MELATONIN 5 MG TABLETS PO SCH (21:40)
[2021-08-14] MEDS: QUEtiapine FUMARATE 100 MG TABLET (FP) PO SCH (21:40)
[2021-08-15] MEDS ORDERED: chlordiazePOXIDE HCL 10 MG CAPSULE PO SCH (05:00)
[2021-08-15] MEDS: PRENATAL VITAMINS W/ FOLIC ACID TABLET (FP) PO SCH (10:41)
[2021-08-15 14:19] VITALS: TEMP 97.1
[2021-08-15 16:51] VITALS: BP 107/93; PULSE 99
[2021-08-16] MEDS ORDERED: chlordiazePOXIDE HCL 10 MG CAPSULE PO ONE (05:00)
== END 2021-08-15 16:45 | disposition home or self-care (01) | DRG 775 ==
LOC: YASAS 16:08 → Y3N 08-11 01:01 → UNDOADMIN 08-11 01:01 → Y3N 08-13 20:20
PROVIDERS: ADMIT Allergy & Immunology; ATTEND Allergy & Immunology
PROC: HZ2ZZZZ Detoxification Services for Substance Abuse Treatment (ICD-10-PCS; principal; 2021-08-11)
DX: F10.230 Alcohol dependence with withdrawal, uncomplicated (principal); F12.20 Cannabis dependence, uncomplicated; F17.210 Nicotine dependence, cigarettes, uncomplicated; F19.24 Other psychoactive substance dependence with psychoactive substance-induced mood disorder; F32.A Depression, unspecified; U07.1 COVID-19; E87.6 Hypokalemia; E78.5 Hyperlipidemia, unspecified; I10 Essential (primary) hypertension; J45.20 Mild intermittent asthma, uncomplicated; G40.909 Epilepsy, unspecified, not intractable, without status epilepticus
CPT/HCPCS: 36415; 80053; 84132; 85027; 85610; 86780; C9803-CS; U0003; U0005

== ENCOUNTER 2021-08-18 16:25 | Inpatient (IN) | payer OTHER ==
[2021-08-18 18:56] VITALS: BMI 20.7
[2021-08-18] MEDS ORDERED: MAGNESIUM HYDROX 2400MG/30ML ORAL SUSPENSION 30 ML CUP PO PRN (20:36)
[2021-08-18] MEDS ORDERED: MAG HYDROX/AL HYDROX/SIMETH 30 ML UNIT-DOSE CUP PO PRN (20:36)
[2021-08-18] MEDS ORDERED: ONDANSETRON *ODT* 4 MG TABLET SL PRN (20:36)
[2021-08-18] MEDS ORDERED: MAGNESIUM CITRATE 300 ML BOTTLE PO PRN (20:36)
[2021-08-18] MEDS ORDERED: NICOTINE POLACRILEX 2 MG GUM BUC PRN (20:36)
[2021-08-18] MEDS ORDERED: DICYCLOMINE HCL 10 MG CAPSULE PO PRN (20:36)
[2021-08-18] MEDS ORDERED: MENTHOL/PHENOL 1 EACH UD MM PRN (20:36)
[2021-08-18] MEDS ORDERED: BISMUTH SUBSALICYLATE 524 MG/30 ML PO PRN (20:36)
[2021-08-18] MEDS ORDERED: METHOCARBAMOL 500 MG TABLET PO PRN (20:36)
[2021-08-18] MEDS ORDERED: ACETAMINOPHEN 325 MG TABLET (FP) PO PRN ×2 (20:36)
[2021-08-18] MEDS ORDERED: IBUPROFEN 400 MG TABLET (FP) PO PRN (20:36)
[2021-08-19] MEDS: levETIRAcetam 500 MG TABLET (FP) PO SCH ×3 (02:03→22:24)
[2021-08-19] MEDS: ASPIRIN 81 MG CHEWABLE TABLETS PO SCH ×2 (02:03→11:51)
[2021-08-19] MEDS: MELATONIN 5 MG TABLETS PO SCH ×2 (02:04→22:25)
[2021-08-19] MEDS: OXcarbazepine 300 MG TABLET (UD) PO SCH ×3 (02:04→22:24)
[2021-08-19] MEDS: THIAMINE HCL 100 MG TABLET (FP) PO SCH ×2 (02:07→22:24)
[2021-08-19] MEDS ORDERED: diazePAM 5 MG TABLET PO PRN (10:25)
[2021-08-19] MEDS: PRENATAL VITAMINS W/ FOLIC ACID TABLET (FP) PO SCH (11:51)
[2021-08-19] MEDS: diazePAM 5 MG TABLET PO SCH ×3 (11:58→22:25)
[2021-08-20] MEDS: diazePAM 5 MG TABLET PO SCH ×4 (06:30→22:29)
[2021-08-20] MEDS: PRENATAL VITAMINS W/ FOLIC ACID TABLET (FP) PO SCH (11:41)
[2021-08-20] MEDS: ASPIRIN 81 MG CHEWABLE TABLETS PO SCH (11:41)
[2021-08-20] MEDS: levETIRAcetam 500 MG TABLET (FP) PO SCH ×2 (11:41→21:51)
[2021-08-20] MEDS: OXcarbazepine 300 MG TABLET (UD) PO SCH ×2 (11:41→21:51)
[2021-08-20] MEDS: THIAMINE HCL 100 MG TABLET (FP) PO SCH (21:51)
[2021-08-20] MEDS: MELATONIN 5 MG TABLETS PO SCH (21:51)
[2021-08-21] MEDS ORDERED: diazePAM 5 MG TABLET PO SCH (06:00)
[2021-08-21 10:00] VITALS: BP 107/61; PULSE 92; TEMP 97.5
[2021-08-21] MEDS: OXcarbazepine 300 MG TABLET (UD) PO SCH (10:35)
[2021-08-21] MEDS: levETIRAcetam 500 MG TABLET (FP) PO SCH (10:35)
[2021-08-21] MEDS: ASPIRIN 81 MG CHEWABLE TABLETS PO SCH (10:35)
[2021-08-21] MEDS: PRENATAL VITAMINS W/ FOLIC ACID TABLET (FP) PO SCH (10:36)
[2021-08-22] MEDS ORDERED: diazePAM 5 MG TABLET PO ONE (06:00)
== END 2021-08-21 13:48 | disposition home or self-care (01) | DRG 775 ==
LOC: YASAS 16:25 → Y3N 08-19 01:07 → UNDOADMIN 08-19 01:07
PROVIDERS: ADMIT Allergy & Immunology; ATTEND Allergy & Immunology
PROC: HZ2ZZZZ Detoxification Services for Substance Abuse Treatment (ICD-10-PCS; principal; 2021-08-19)
DX: F10.230 Alcohol dependence with withdrawal, uncomplicated (principal); F13.20 Sedative, hypnotic or anxiolytic dependence, uncomplicated; F12.20 Cannabis dependence, uncomplicated; F17.210 Nicotine dependence, cigarettes, uncomplicated; F41.9 Anxiety disorder, unspecified; F32.A Depression, unspecified; U07.1 COVID-19; I10 Essential (primary) hypertension; E78.5 Hyperlipidemia, unspecified; G40.909 Epilepsy, unspecified, not intractable, without status epilepticus; J45.20 Mild intermittent asthma, uncomplicated; M54.50 Low back pain, unspecified; G89.29 Other chronic pain
CPT/HCPCS: C9803; U0003; U0005

== ENCOUNTER 2021-09-06 08:49 | Inpatient (IN) | payer OTHER ==
[2021-09-06 09:22] VITALS: BMI 21.6
[2021-09-06] MEDS ORDERED: ACETAMINOPHEN 325 MG TABLET (FP) PO PRN ×2 (09:47)
[2021-09-06] MEDS ORDERED: MAGNESIUM HYDROX 2400MG/30ML ORAL SUSPENSION 30 ML CUP PO PRN (09:47)
[2021-09-06] MEDS ORDERED: MAGNESIUM CITRATE 300 ML BOTTLE PO PRN (09:47)
[2021-09-06] MEDS ORDERED: chlordiazePOXIDE HCL 25 MG CAPSULE PO PRN (09:47)
[2021-09-06] MEDS ORDERED: ONDANSETRON *ODT* 4 MG TABLET SL PRN (09:47)
[2021-09-06] MEDS ORDERED: IBUPROFEN 400 MG TABLET (FP) PO PRN (09:47)
[2021-09-06] MEDS ORDERED: MENTHOL/PHENOL 1 EACH UD MM PRN (09:47)
[2021-09-06] MEDS ORDERED: BISMUTH SUBSALICYLATE 524 MG/30 ML PO PRN (09:47)
[2021-09-06] MEDS ORDERED: MAG HYDROX/AL HYDROX/SIMETH 30 ML UNIT-DOSE CUP PO PRN (09:47)
[2021-09-06] MEDS ORDERED: levETIRAcetam 500 MG TABLET (FP) PO SCH (10:00)
[2021-09-06] MEDS ORDERED: chlordiazePOXIDE HCL 25 MG CAPSULE ONE (10:47)
[2021-09-06] MEDS ORDERED: ASPIRIN 81 MG CHEWABLE TABLETS ONE (10:47)
[2021-09-06] MEDS: ASPIRIN 81 MG CHEWABLE TABLETS PO SCH (10:50)
[2021-09-06] MEDS: chlordiazePOXIDE HCL 25 MG CAPSULE PO SCH ×3 (10:50→22:20)
[2021-09-06] MEDS: PRENATAL VITAMINS W/ FOLIC ACID TABLET (FP) PO SCH (12:13)
[2021-09-06] MEDS: hydrOXYzine PAMOATE 25 MG CAPSULE (FP) PO SCH ×4 (12:14→22:24)
[2021-09-06] MEDS: METHOCARBAMOL 500 MG TABLET PO PRN (12:14)
[2021-09-06] MEDS: ATORVASTATIN CA 10 MG TABLET (FP) PO SCH (12:14)
[2021-09-06] MEDS: ALBUTEROL SO4 HFA INHALER IH PRN ×3 (12:16→22:24)
[2021-09-06] MEDS: NICOTINE 21 MG/24 HOURS TOPICAL PATCH TD SCH (12:16)
[2021-09-06] MEDS: OXcarbazepine 300 MG TABLET (UD) PO SCH ×2 (14:36→22:15)
[2021-09-06 14:45] LABS: HEMATOCRIT 29.6 % (35.4-49); HEMOGLOBIN 9.9 GM/dL (11.7-16.9); MCH 34.7 pg (25.7-33.7); MCHC 33.5 g/dl (32.0-35.9); MEAN CELL VOLUME 103.5 fl (80-96); PLATELET COUNT 568 10^3/uL (134-434); RBC 2.86 M/mm3 (4.00-5.60); RDW 16.6 % (11.9-15.9); WHITE BLOOD COUNT 10.3 K/mm3 (4.0-10.0)
[2021-09-06 14:53] LABS: ALBUMIN 3.3 g/dl (3.4-5.0); BLOOD UREA NITROGEN 7.3 mg/dL (7-18); CALCIUM 8.8 mg/dL (8.5-10.1)
[2021-09-06 14:56] LABS: CREATININE 0.6 mg/dL (0.55-1.3)
[2021-09-06 14:58] LABS: BILIRUBIN,TOTAL 0.6 mg/dL (0.2-1); TOT PROT 6.4 g/dl (6.4-8.2)
[2021-09-06] MEDS ORDERED: MELATONIN 5 MG TABLETS PO SCH (22:00)
[2021-09-06] MEDS: MIRTAZAPINE 15 MG TABLET (FP) PO SCH (22:18)
[2021-09-06] MEDS: NICOTINE 10 MG CARTRIDGE (INHALER) IH PRN (22:19)
[2021-09-06] MEDS: QUEtiapine FUMARATE 100 MG TABLET (FP) PO SCH (22:24)
[2021-09-06] MEDS: THIAMINE HCL 100 MG TABLET (FP) PO SCH (22:24)
[2021-09-07] MEDS: ALBUTEROL SO4 HFA INHALER IH PRN (05:26)
[2021-09-07] MEDS: hydrOXYzine PAMOATE 25 MG CAPSULE (FP) PO SCH ×5 (05:26→22:24)
[2021-09-07] MEDS: chlordiazePOXIDE HCL 25 MG CAPSULE PO SCH ×4 (05:26→22:22)
[2021-09-07] MEDS: PRENATAL VITAMINS W/ FOLIC ACID TABLET (FP) PO SCH (10:36)
[2021-09-07] MEDS: OXcarbazepine 300 MG TABLET (UD) PO SCH ×2 (10:37→22:22)
[2021-09-07] MEDS: METHOCARBAMOL 500 MG TABLET PO PRN (10:37)
[2021-09-07] MEDS: NICOTINE 21 MG/24 HOURS TOPICAL PATCH TD SCH (10:37)
[2021-09-07] MEDS: ATORVASTATIN CA 10 MG TABLET (FP) PO SCH (10:37)
[2021-09-07] MEDS: ASPIRIN 81 MG CHEWABLE TABLETS PO SCH (10:37)
[2021-09-07] MEDS: MIRTAZAPINE 15 MG TABLET (FP) PO SCH (22:22)
[2021-09-07] MEDS: QUEtiapine FUMARATE 100 MG TABLET (FP) PO SCH (22:22)
[2021-09-07] MEDS: THIAMINE HCL 100 MG TABLET (FP) PO SCH (22:22)
[2021-09-08] MEDS: chlordiazePOXIDE HCL 25 MG CAPSULE PO SCH ×4 (05:42→22:56)
[2021-09-08] MEDS: hydrOXYzine PAMOATE 25 MG CAPSULE (FP) PO SCH ×5 (05:42→22:54)
[2021-09-08 09:33] LABS: BASO % 0.7 % (0-2.0); EOS % 3.9 % (0-4.5); HEMOGLOBIN 9.1 GM/dL (11.7-16.9); LYMPH % 26.8 % (8-40); MCH 34.3 pg (25.7-33.7); MCHC 33.8 g/dl (32.0-35.9); MEAN CELL VOLUME 101.4 fl (80-96); MEAN PLT VOLUME 6.8 fl (7.5-11.1); MONO % 7.7 % (3.8-10.2); NEUT % 60.9 % (42.8-82.8); PLATELET COUNT 460 10^3/uL (134-434); RBC 2.66 M/mm3 (4.00-5.60); RDW 16.8 % (11.9-15.9); WHITE BLOOD COUNT 8.5 K/mm3 (4.0-10.0)
[2021-09-08 09:34] LABS: RETICULOCYTES 5.15 % (0.5-1.5)
[2021-09-08] MEDS: ASPIRIN 81 MG CHEWABLE TABLETS PO SCH (10:30)
[2021-09-08] MEDS: PRENATAL VITAMINS W/ FOLIC ACID TABLET (FP) PO SCH (10:30)
[2021-09-08] MEDS: ATORVASTATIN CA 10 MG TABLET (FP) PO SCH (10:31)
[2021-09-08] MEDS: OXcarbazepine 300 MG TABLET (UD) PO SCH ×2 (10:31→22:58)
[2021-09-08] MEDS: NICOTINE 21 MG/24 HOURS TOPICAL PATCH TD SCH (10:31)
[2021-09-08] MEDS: NICOTINE 10 MG CARTRIDGE (INHALER) IH PRN ×3 (10:33→22:59)
[2021-09-08] MEDS: ALBUTEROL SO4 HFA INHALER IH PRN (18:18)
[2021-09-08] MEDS: THIAMINE HCL 100 MG TABLET (FP) PO SCH (22:54)
[2021-09-08] MEDS: QUEtiapine FUMARATE 100 MG TABLET (FP) PO SCH (22:54)
[2021-09-08] MEDS: MIRTAZAPINE 15 MG TABLET (FP) PO SCH (22:55)
[2021-09-08] MEDS: METHOCARBAMOL 500 MG TABLET PO PRN (22:55)
[2021-09-09] MEDS ORDERED: chlordiazePOXIDE HCL 10 MG CAPSULE PO PRN
[2021-09-09] MEDS: chlordiazePOXIDE HCL 10 MG CAPSULE PO SCH ×2 (05:46→10:18)
[2021-09-09] MEDS: hydrOXYzine PAMOATE 25 MG CAPSULE (FP) PO SCH ×3 (05:46→15:02)
[2021-09-09] MEDS: OXcarbazepine 300 MG TABLET (UD) PO SCH (10:17)
[2021-09-09] MEDS: PRENATAL VITAMINS W/ FOLIC ACID TABLET (FP) PO SCH (10:17)
[2021-09-09] MEDS: METHOCARBAMOL 500 MG TABLET PO PRN (10:18)
[2021-09-09] MEDS: ASPIRIN 81 MG CHEWABLE TABLETS PO SCH (10:18)
[2021-09-09] MEDS: ATORVASTATIN CA 10 MG TABLET (FP) PO SCH (10:18)
[2021-09-09] MEDS: NICOTINE 21 MG/24 HOURS TOPICAL PATCH TD SCH (10:18)
[2021-09-09] MEDS: ALBUTEROL SO4 HFA INHALER IH PRN (10:21)
[2021-09-09 13:23] VITALS: BP 134/79; PULSE 100; TEMP 98.1
[2021-09-09] MEDS ORDERED: FERROUS SO4 325 MG TABLET (FP) PO SCH (17:30)
[2021-09-10] MEDS ORDERED: chlordiazePOXIDE HCL 10 MG CAPSULE PO SCH (05:00)
[2021-09-11] MEDS ORDERED: chlordiazePOXIDE HCL 10 MG CAPSULE PO ONE (05:00)
== END 2021-09-09 15:41 | disposition home or self-care (01) | DRG 775 ==
LOC: YASAS 08:49 → Y6N 11:31
PROVIDERS: ADMIT Allergy & Immunology; ATTEND Allergy & Immunology
PROC: HZ2ZZZZ Detoxification Services for Substance Abuse Treatment (ICD-10-PCS; principal; 2021-09-06)
DX: F10.230 Alcohol dependence with withdrawal, uncomplicated (principal); F13.230 Sedative, hypnotic or anxiolytic dependence with withdrawal, uncomplicated; F12.20 Cannabis dependence, uncomplicated; F17.210 Nicotine dependence, cigarettes, uncomplicated; F19.282 Other psychoactive substance dependence with psychoactive substance-induced sleep disorder; F19.280 Other psychoactive substance dependence with psychoactive substance-induced anxiety disorder; F19.24 Other psychoactive substance dependence with psychoactive substance-induced mood disorder; F32.9 Major depressive disorder, single episode, unspecified; D50.9 Iron deficiency anemia, unspecified; I10 Essential (primary) hypertension; J45.20 Mild intermittent asthma, uncomplicated; E78.5 Hyperlipidemia, unspecified; M54.50 Low back pain, unspecified; G89.29 Other chronic pain; Z87.11 Personal history of peptic ulcer disease; Z86.69 Personal history of other diseases of the nervous system and sense organs; Z87.442 Personal history of urinary calculi
CPT/HCPCS: 36415; 80053; 82607; 82746; 83540; 83550; 85025; 85027; 85045; 86780; C9803; U0003; U0005

== ENCOUNTER 2021-10-17 05:27 | Inpatient (IN) | payer OTHER ==
[2021-10-17] MEDS ORDERED: ACETAMINOPHEN 325 MG TABLET (FP) PO PRN ×2 (09:27)
[2021-10-17] MEDS ORDERED: NICOTINE 10 MG CARTRIDGE (INHALER) IH PRN (09:27)
[2021-10-17] MEDS ORDERED: IBUPROFEN 400 MG TABLET (FP) PO PRN (09:27)
[2021-10-17] MEDS ORDERED: chlordiazePOXIDE HCL 25 MG CAPSULE PO PRN (09:27)
[2021-10-17] MEDS ORDERED: MAG HYDROX/AL HYDROX/SIMETH 30 ML UNIT-DOSE CUP PO PRN (09:27)
[2021-10-17] MEDS ORDERED: LOPERAMIDE HCL 2 MG CAPSULE PO PRN (09:27)
[2021-10-17] MEDS ORDERED: BISMUTH SUBSALICYLATE 524 MG/30 ML PO PRN (09:27)
[2021-10-17] MEDS ORDERED: ONDANSETRON *ODT* 4 MG TABLET SL PRN (09:27)
[2021-10-17] MEDS ORDERED: MAGNESIUM CITRATE 300 ML BOTTLE PO PRN (09:27)
[2021-10-17] MEDS ORDERED: MAGNESIUM HYDROX 2400MG/30ML ORAL SUSPENSION 30 ML CUP PO PRN (09:27)
[2021-10-17] MEDS ORDERED: MENTHOL/PHENOL 1 EACH UD MM PRN (09:27)
[2021-10-17] MEDS ORDERED: NICOTINE POLACRILEX 2 MG GUM BUC PRN (09:35)
[2021-10-17] MEDS: METHOCARBAMOL 500 MG TABLET PO PRN (10:02)
[2021-10-17] MEDS: levETIRAcetam 500 MG TABLET (FP) PO SCH ×2 (10:02→22:25)
[2021-10-17] MEDS: NICOTINE 21 MG/24 HOURS TOPICAL PATCH TD SCH (10:02)
[2021-10-17] MEDS: PANTOPRAZOLE 40 MG TABLET PO SCH (10:02)
[2021-10-17] MEDS: PRENATAL VITAMINS W/ FOLIC ACID TABLET (FP) PO SCH (10:02)
[2021-10-17] MEDS: ATORVASTATIN CA 10 MG TABLET (FP) PO SCH (10:03)
[2021-10-17] MEDS: chlordiazePOXIDE HCL 25 MG CAPSULE PO SCH ×3 (10:03→22:26)
[2021-10-17] MEDS: hydrOXYzine PAMOATE 25 MG CAPSULE (FP) PO SCH ×4 (10:03→22:25)
[2021-10-17] MEDS: NICOTINE 10 MG CARTRIDGE (INHALER) IH PRN (10:05)
[2021-10-17] MEDS: GABAPENTIN 300 MG CAPSULE PO SCH ×2 (14:37→22:25)
[2021-10-17] MEDS: FERROUS SO4 325 MG TABLET (FP) PO SCH (17:37)
[2021-10-17] MEDS ORDERED: MELATONIN 5 MG TABLETS PO SCH (22:00)
[2021-10-17] MEDS: THIAMINE HCL 100 MG TABLET (FP) PO SCH (22:26)
[2021-10-18] MEDS: chlordiazePOXIDE HCL 25 MG CAPSULE PO SCH ×2 (06:05→10:00)
[2021-10-18] MEDS: hydrOXYzine PAMOATE 25 MG CAPSULE (FP) PO SCH ×2 (06:06→09:56)
[2021-10-18] MEDS: GABAPENTIN 300 MG CAPSULE PO SCH ×3 (06:06→22:18)
[2021-10-18 09:53] LABS: BLOOD UREA NITROGEN 12.5 mg/dL (7-18); CALCIUM 9.2 mg/dL (8.5-10.1)
[2021-10-18 09:54] LABS: ALBUMIN 3.3 g/dl (3.4-5.0)
[2021-10-18] MEDS: METHOCARBAMOL 500 MG TABLET PO PRN ×2 (09:56→18:06)
[2021-10-18] MEDS: FERROUS SO4 325 MG TABLET (FP) PO SCH ×2 (09:56→18:05)
[2021-10-18] MEDS: PRENATAL VITAMINS W/ FOLIC ACID TABLET (FP) PO SCH (09:56)
[2021-10-18 09:57] LABS: CREATININE 0.7 mg/dL (0.55-1.3)
[2021-10-18] MEDS: ATORVASTATIN CA 10 MG TABLET (FP) PO SCH (09:57)
[2021-10-18] MEDS: PANTOPRAZOLE 40 MG TABLET PO SCH (09:57)
[2021-10-18] MEDS: levETIRAcetam 500 MG TABLET (FP) PO SCH ×2 (09:57→22:18)
[2021-10-18 09:58] LABS: BILIRUBIN,TOTAL 0.3 mg/dL (0.2-1); TOT PROT 6.1 g/dl (6.4-8.2)
[2021-10-18] MEDS: NICOTINE 21 MG/24 HOURS TOPICAL PATCH TD SCH (09:58)
[2021-10-18 10:04] LABS: HEMATOCRIT 35.4 % (35.4-49); HEMOGLOBIN 12.2 GM/dL (11.7-16.9); MCH 34.4 pg (25.7-33.7); MCHC 34.5 g/dl (32.0-35.9); MEAN CELL VOLUME 99.5 fl (80-96); MEAN PLT VOLUME 7.6 fl (7.5-11.1); PLATELET COUNT 224 10^3/uL (134-434); RBC 3.56 M/mm3 (4.00-5.60); RDW 14.8 % (11.9-15.9); WHITE BLOOD COUNT 5.1 K/mm3 (4.0-10.0)
[2021-10-18 10:34] LABS: HIV INTERPRETATION NEGATIVE (NEGATIVE)
[2021-10-18] MEDS ORDERED: diazePAM 5 MG TABLET PO PRN (11:32)
[2021-10-18] MEDS: QUEtiapine FUMARATE 200 MG TABLET PO SCH ×2 (12:24→22:18)
[2021-10-18] MEDS: diazePAM 5 MG TABLET PO SCH ×2 (13:00→22:18)
[2021-10-18] MEDS: FLUoxetine HCL 10 MG CAPSULE PO SCH (13:00)
[2021-10-18] MEDS: hydrOXYzine PAMOATE 25 MG CAPSULE (FP) PO PRN (18:05)
[2021-10-18] MEDS: THIAMINE HCL 100 MG TABLET (FP) PO SCH (22:18)
[2021-10-19] MEDS: hydrOXYzine PAMOATE 25 MG CAPSULE (FP) PO PRN ×4 (00:40→17:29)
[2021-10-19] MEDS: METHOCARBAMOL 500 MG TABLET PO PRN ×3 (00:40→17:28)
[2021-10-19] MEDS ORDERED: chlordiazePOXIDE HCL 25 MG CAPSULE PO SCH (05:00)
[2021-10-19] MEDS: diazePAM 5 MG TABLET PO SCH ×2 (06:02→17:29)
[2021-10-19] MEDS: GABAPENTIN 300 MG CAPSULE PO SCH ×3 (06:02→22:33)
[2021-10-19 06:06] LABS: SARS-CoV-2 NAA Not Detected (Not Detected)
[2021-10-19] MEDS: FERROUS SO4 325 MG TABLET (FP) PO SCH ×2 (08:02→17:28)
[2021-10-19] MEDS: PANTOPRAZOLE 40 MG TABLET PO SCH (09:59)
[2021-10-19] MEDS: PRENATAL VITAMINS W/ FOLIC ACID TABLET (FP) PO SCH (09:59)
[2021-10-19] MEDS: levETIRAcetam 500 MG TABLET (FP) PO SCH ×2 (09:59→22:32)
[2021-10-19] MEDS: FLUoxetine HCL 10 MG CAPSULE PO SCH (10:00)
[2021-10-19] MEDS: QUEtiapine FUMARATE 200 MG TABLET PO SCH ×2 (10:00→22:33)
[2021-10-19] MEDS: NICOTINE 21 MG/24 HOURS TOPICAL PATCH TD SCH (10:00)
[2021-10-19] MEDS: ATORVASTATIN CA 10 MG TABLET (FP) PO SCH (10:00)
[2021-10-19] MEDS: NICOTINE 10 MG CARTRIDGE (INHALER) IH PRN (10:29)
[2021-10-19] MEDS: THIAMINE HCL 100 MG TABLET (FP) PO SCH (22:33)
[2021-10-20] MEDS ORDERED: chlordiazePOXIDE HCL 10 MG CAPSULE PO PRN
[2021-10-20] MEDS ORDERED: chlordiazePOXIDE HCL 10 MG CAPSULE PO SCH (05:00)
[2021-10-20] MEDS ORDERED: diazePAM 5 MG TABLET PO ONE (05:00)
[2021-10-20] MEDS: GABAPENTIN 300 MG CAPSULE PO SCH (06:02)
[2021-10-20] MEDS: FERROUS SO4 325 MG TABLET (FP) PO SCH (07:22)
[2021-10-20 09:26] VITALS: BP 121/80; PULSE 109; TEMP 98.1
[2021-10-20] MEDS: ATORVASTATIN CA 10 MG TABLET (FP) PO SCH (10:05)
[2021-10-20] MEDS: QUEtiapine FUMARATE 200 MG TABLET PO SCH (10:05)
[2021-10-20] MEDS: PANTOPRAZOLE 40 MG TABLET PO SCH (10:05)
[2021-10-20] MEDS: hydrOXYzine PAMOATE 25 MG CAPSULE (FP) PO PRN (10:05)
[2021-10-20] MEDS: levETIRAcetam 500 MG TABLET (FP) PO SCH (10:05)
[2021-10-20] MEDS: METHOCARBAMOL 500 MG TABLET PO PRN (10:05)
[2021-10-20] MEDS: PRENATAL VITAMINS W/ FOLIC ACID TABLET (FP) PO SCH (10:07)
[2021-10-20] MEDS: FLUoxetine HCL 10 MG CAPSULE PO SCH (10:10)
[2021-10-20] MEDS: NICOTINE 21 MG/24 HOURS TOPICAL PATCH TD SCH (10:10)
[2021-10-20] MEDS: NICOTINE 10 MG CARTRIDGE (INHALER) IH PRN (10:12)
[2021-10-21] MEDS ORDERED: chlordiazePOXIDE HCL 10 MG CAPSULE PO SCH (05:00)
[2021-10-22] MEDS ORDERED: chlordiazePOXIDE HCL 10 MG CAPSULE PO ONE (05:00)
== END 2021-10-20 11:47 | disposition other institution (70) | DRG 775 ==
LOC: YASAS 05:27 → Y6N 07:10 → UNDOADMIN 07:10
PROVIDERS: ADMIT Allergy & Immunology; ATTEND Allergy & Immunology
PROC: HZ2ZZZZ Detoxification Services for Substance Abuse Treatment (ICD-10-PCS; principal; 2021-10-17)
DX: F10.230 Alcohol dependence with withdrawal, uncomplicated (principal); F13.230 Sedative, hypnotic or anxiolytic dependence with withdrawal, uncomplicated; F12.20 Cannabis dependence, uncomplicated; F17.210 Nicotine dependence, cigarettes, uncomplicated; F19.282 Other psychoactive substance dependence with psychoactive substance-induced sleep disorder; F19.280 Other psychoactive substance dependence with psychoactive substance-induced anxiety disorder; F33.9 Major depressive disorder, recurrent, unspecified; F25.9 Schizoaffective disorder, unspecified; I10 Essential (primary) hypertension; D64.9 Anemia, unspecified; M54.59 Other low back pain; G89.29 Other chronic pain; E78.5 Hyperlipidemia, unspecified; J45.909 Unspecified asthma, uncomplicated; Z86.69 Personal history of other diseases of the nervous system and sense organs; Z56.0 Unemployment, unspecified
CPT/HCPCS: 36415; 80053; 85027; 86780; 87389; C9803; U0003; U0005

== ENCOUNTER 2021-10-20 11:55 | Inpatient (IN) | payer OTHER ==
[2021-10-20] MEDS ORDERED: LOPERAMIDE HCL 2 MG CAPSULE PO PRN (14:59)
[2021-10-20] MEDS ORDERED: MAGNESIUM CITRATE 300 ML BOTTLE PO PRN (14:59)
[2021-10-20] MEDS ORDERED: IBUPROFEN 400 MG TABLET (FP) PO PRN (14:59)
[2021-10-20] MEDS ORDERED: guaiFENesin 200 MG/10 ML 10 ML UNIT-DOSE CUPS PO PRN (14:59)
[2021-10-20] MEDS ORDERED: MAGNESIUM HYDROX 2400MG/30ML ORAL SUSPENSION 30 ML CUP PO PRN (14:59)
[2021-10-20] MEDS ORDERED: MAG HYDROX/AL HYDROX/SIMETH 30 ML UNIT-DOSE CUP PO PRN (14:59)
[2021-10-20] MEDS ORDERED: ACETAMINOPHEN 325 MG TABLET (FP) PO PRN (14:59)
[2021-10-20] MEDS ORDERED: MENTHOL/PHENOL 1 EACH UD MM PRN (14:59)
[2021-10-20] MEDS ORDERED: NICOTINE POLACRILEX 2 MG GUM BUC PRN (14:59)
[2021-10-20] MEDS ORDERED: METHOCARBAMOL 500 MG TABLET PO PRN (15:01)
[2021-10-20] MEDS: hydrOXYzine PAMOATE 25 MG CAPSULE (FP) PO PRN (16:31)
[2021-10-20] MEDS ORDERED: FERROUS SO4 325 MG TABLET (FP) PO SCH (17:30)
[2021-10-20] MEDS: levETIRAcetam 500 MG TABLET (FP) PO SCH (21:10)
[2021-10-20] MEDS: QUEtiapine FUMARATE 200 MG TABLET PO SCH (21:10)
[2021-10-20] MEDS: MELATONIN 5 MG TABLETS PO SCH (21:10)
[2021-10-20] MEDS: GABAPENTIN 300 MG CAPSULE PO SCH (21:10)
[2021-10-20] MEDS: THIAMINE HCL 100 MG TABLET (FP) PO SCH (21:10)
[2021-10-21] MEDS: GABAPENTIN 300 MG CAPSULE PO SCH ×3 (06:12→21:13)
[2021-10-21] MEDS: levETIRAcetam 500 MG TABLET (FP) PO SCH ×2 (09:52→21:13)
[2021-10-21] MEDS: PANTOPRAZOLE 40 MG TABLET PO SCH (09:52)
[2021-10-21] MEDS: QUEtiapine FUMARATE 200 MG TABLET PO SCH ×2 (09:52→21:13)
[2021-10-21] MEDS: ATORVASTATIN CA 10 MG TABLET (FP) PO SCH (09:52)
[2021-10-21] MEDS: FERROUS SO4 325 MG TABLET (FP) PO SCH (09:52)
[2021-10-21] MEDS: FLUoxetine HCL 10 MG CAPSULE PO SCH (09:52)
[2021-10-21] MEDS: PRENATAL VITAMINS W/ FOLIC ACID TABLET (FP) PO SCH (09:52)
[2021-10-21] MEDS: NICOTINE 21 MG/24 HOURS TOPICAL PATCH TD SCH (10:16)
[2021-10-21] MEDS: MELATONIN 5 MG TABLETS PO SCH (21:13)
[2021-10-21] MEDS: THIAMINE HCL 100 MG TABLET (FP) PO SCH (21:13)
[2021-10-22] MEDS: GABAPENTIN 300 MG CAPSULE PO SCH ×3 (05:59→21:30)
[2021-10-22 08:08] LABS: SARS-CoV-2 NAA Not Detected (Not Detected)
[2021-10-22] MEDS: ATORVASTATIN CA 10 MG TABLET (FP) PO SCH (09:40)
[2021-10-22] MEDS: FLUoxetine HCL 10 MG CAPSULE PO SCH (09:40)
[2021-10-22] MEDS: PANTOPRAZOLE 40 MG TABLET PO SCH (09:40)
[2021-10-22] MEDS: levETIRAcetam 500 MG TABLET (FP) PO SCH ×2 (09:40→21:30)
[2021-10-22] MEDS: FERROUS SO4 325 MG TABLET (FP) PO SCH (09:40)
[2021-10-22] MEDS: QUEtiapine FUMARATE 200 MG TABLET PO SCH (09:40)
[2021-10-22] MEDS: PRENATAL VITAMINS W/ FOLIC ACID TABLET (FP) PO SCH (09:41)
[2021-10-22] MEDS: NICOTINE 21 MG/24 HOURS TOPICAL PATCH TD SCH (09:41)
[2021-10-22] MEDS: NICOTINE 10 MG CARTRIDGE (INHALER) IH PRN (09:43)
[2021-10-22] MEDS ORDERED: MODERNA COVID-19 VACC,MRNA/PF 50 MCG/0.25 ML EACH IM ONE (10:00)
[2021-10-22] MEDS ORDERED: QUEtiapine FUMARATE 200 MG TABLET PO SCH (12:45)
[2021-10-22] MEDS: FLUoxetine HCL 20 MG CAPSULE PO SCH (14:13)
[2021-10-22] MEDS ORDERED: QUEtiapine FUMARATE 200 MG TABLET ONE (20:09)
[2021-10-22] MEDS ORDERED: QUEtiapine FUMARATE 50 MG TABLET ONE (20:09)
[2021-10-22] MEDS: THIAMINE HCL 100 MG TABLET (FP) PO SCH (21:30)
[2021-10-22] MEDS: MELATONIN 5 MG TABLETS PO PRN (21:30)
[2021-10-22] MEDS: QUETIAPINE FUMARATE 200 MG, QUETIAPINE FUMARATE 50 MG PO SCH (21:31)
[2021-10-23] MEDS: GABAPENTIN 300 MG CAPSULE PO SCH ×3 (06:23→21:14)
[2021-10-23] MEDS: hydrOXYzine PAMOATE 25 MG CAPSULE (FP) PO PRN (06:24)
[2021-10-23] MEDS ORDERED: QUEtiapine FUMARATE 200 MG TABLET ONE ×2 (08:57→18:42)
[2021-10-23] MEDS ORDERED: QUEtiapine FUMARATE 50 MG TABLET ONE ×2 (08:57→18:42)
[2021-10-23] MEDS: PRENATAL VITAMINS W/ FOLIC ACID TABLET (FP) PO SCH (10:05)
[2021-10-23] MEDS: NICOTINE 21 MG/24 HOURS TOPICAL PATCH TD SCH (10:05)
[2021-10-23] MEDS: ATORVASTATIN CA 10 MG TABLET (FP) PO SCH (10:06)
[2021-10-23] MEDS: levETIRAcetam 500 MG TABLET (FP) PO SCH ×2 (10:06→21:14)
[2021-10-23] MEDS: FERROUS SO4 325 MG TABLET (FP) PO SCH (10:06)
[2021-10-23] MEDS: FLUoxetine HCL 20 MG CAPSULE PO SCH (10:06)
[2021-10-23] MEDS: PANTOPRAZOLE 40 MG TABLET PO SCH (10:06)
[2021-10-23] MEDS: QUETIAPINE FUMARATE 200 MG, QUETIAPINE FUMARATE 50 MG PO SCH ×2 (10:06→21:14)
[2021-10-23] MEDS: THIAMINE HCL 100 MG TABLET (FP) PO SCH (21:14)
[2021-10-23] MEDS: MELATONIN 5 MG TABLETS PO PRN (21:14)
[2021-10-24] MEDS: hydrOXYzine PAMOATE 25 MG CAPSULE (FP) PO PRN (06:15)
[2021-10-24] MEDS: GABAPENTIN 300 MG CAPSULE PO SCH ×3 (06:15→21:16)
[2021-10-24] MEDS: NICOTINE 10 MG CARTRIDGE (INHALER) IH PRN ×2 (08:20→21:16)
[2021-10-24] MEDS ORDERED: QUEtiapine FUMARATE 200 MG TABLET ONE ×2 (08:40→18:59)
[2021-10-24] MEDS ORDERED: QUEtiapine FUMARATE 50 MG TABLET ONE ×2 (08:40→18:59)
[2021-10-24] MEDS: PRENATAL VITAMINS W/ FOLIC ACID TABLET (FP) PO SCH (09:17)
[2021-10-24] MEDS: levETIRAcetam 500 MG TABLET (FP) PO SCH ×2 (09:17→21:16)
[2021-10-24] MEDS: PANTOPRAZOLE 40 MG TABLET PO SCH (09:17)
[2021-10-24] MEDS: ATORVASTATIN CA 10 MG TABLET (FP) PO SCH (09:17)
[2021-10-24] MEDS: NICOTINE 21 MG/24 HOURS TOPICAL PATCH TD SCH (09:17)
[2021-10-24] MEDS: FERROUS SO4 325 MG TABLET (FP) PO SCH (09:17)
[2021-10-24] MEDS: QUETIAPINE FUMARATE 200 MG, QUETIAPINE FUMARATE 50 MG PO SCH ×2 (09:18→21:16)
[2021-10-24] MEDS: FLUoxetine HCL 20 MG CAPSULE PO SCH (09:19)
[2021-10-24] MEDS: THIAMINE HCL 100 MG TABLET (FP) PO SCH (21:16)
[2021-10-24] MEDS: MELATONIN 5 MG TABLETS PO PRN (21:16)
[2021-10-25] MEDS: GABAPENTIN 300 MG CAPSULE PO SCH ×3 (06:57→21:42)
[2021-10-25] MEDS: hydrOXYzine PAMOATE 25 MG CAPSULE (FP) PO PRN ×4 (06:57→23:30)
[2021-10-25] MEDS: NICOTINE 10 MG CARTRIDGE (INHALER) IH PRN ×2 (07:59→21:46)
[2021-10-25] MEDS ORDERED: QUEtiapine FUMARATE 200 MG TABLET ONE ×2 (08:50→20:44)
[2021-10-25] MEDS ORDERED: QUEtiapine FUMARATE 50 MG TABLET ONE ×2 (08:50→20:45)
[2021-10-25] MEDS: NICOTINE 21 MG/24 HOURS TOPICAL PATCH TD SCH (10:05)
[2021-10-25] MEDS: ATORVASTATIN CA 10 MG TABLET (FP) PO SCH (10:05)
[2021-10-25] MEDS: FERROUS SO4 325 MG TABLET (FP) PO SCH (10:05)
[2021-10-25] MEDS: PRENATAL VITAMINS W/ FOLIC ACID TABLET (FP) PO SCH (10:05)
[2021-10-25] MEDS: QUETIAPINE FUMARATE 200 MG, QUETIAPINE FUMARATE 50 MG PO SCH ×2 (10:06→21:42)
[2021-10-25] MEDS: PANTOPRAZOLE 40 MG TABLET PO SCH (10:06)
[2021-10-25] MEDS: levETIRAcetam 500 MG TABLET (FP) PO SCH ×2 (10:06→21:41)
[2021-10-25] MEDS: FLUoxetine HCL 20 MG CAPSULE PO SCH (10:07)
[2021-10-25] MEDS ORDERED: FLU VACC QS2021-22(6MOS UP)/PF 60 MCG/0.5 ML SYRINGE IM ONE (12:00)
[2021-10-25] MEDS: THIAMINE HCL 100 MG TABLET (FP) PO SCH (21:41)
[2021-10-25] MEDS: MELATONIN 5 MG TABLETS PO PRN (21:45)
[2021-10-26] MEDS: hydrOXYzine PAMOATE 25 MG CAPSULE (FP) PO PRN ×3 (05:59→21:17)
[2021-10-26] MEDS: GABAPENTIN 300 MG CAPSULE PO SCH ×3 (05:59→21:16)
[2021-10-26] MEDS: NICOTINE 21 MG/24 HOURS TOPICAL PATCH TD SCH (10:29)
[2021-10-26] MEDS: PRENATAL VITAMINS W/ FOLIC ACID TABLET (FP) PO SCH (10:30)
[2021-10-26] MEDS: levETIRAcetam 500 MG TABLET (FP) PO SCH ×2 (10:30→21:16)
[2021-10-26] MEDS: ATORVASTATIN CA 10 MG TABLET (FP) PO SCH (10:31)
[2021-10-26] MEDS: FERROUS SO4 325 MG TABLET (FP) PO SCH (10:31)
[2021-10-26] MEDS ORDERED: QUEtiapine FUMARATE 200 MG TABLET ONE ×2 (10:31→18:53)
[2021-10-26] MEDS ORDERED: QUEtiapine FUMARATE 50 MG TABLET ONE ×2 (10:31→18:54)
[2021-10-26] MEDS: PANTOPRAZOLE 40 MG TABLET PO SCH (10:32)
[2021-10-26] MEDS: FLUoxetine HCL 20 MG CAPSULE PO SCH (10:32)
[2021-10-26] MEDS: QUETIAPINE FUMARATE 200 MG, QUETIAPINE FUMARATE 50 MG PO SCH ×2 (10:33→21:16)
[2021-10-26] MEDS: NICOTINE 10 MG CARTRIDGE (INHALER) IH PRN (12:04)
[2021-10-26] MEDS: NALTREXONE HCL 50 MG TABLET PO SCH (15:32)
[2021-10-26] MEDS: THIAMINE HCL 100 MG TABLET (FP) PO SCH (21:16)
[2021-10-26] MEDS: MELATONIN 5 MG TABLETS PO PRN (21:16)
[2021-10-27] MEDS: hydrOXYzine PAMOATE 25 MG CAPSULE (FP) PO PRN ×4 (05:32→21:16)
[2021-10-27] MEDS: GABAPENTIN 300 MG CAPSULE PO SCH ×3 (05:32→21:16)
[2021-10-27] MEDS: NICOTINE 10 MG CARTRIDGE (INHALER) IH PRN ×3 (06:18→21:38)
[2021-10-27] MEDS ORDERED: QUEtiapine FUMARATE 200 MG TABLET ONE ×2 (08:38→18:42)
[2021-10-27] MEDS ORDERED: QUEtiapine FUMARATE 50 MG TABLET ONE ×2 (08:38→18:42)
[2021-10-27] MEDS: PRENATAL VITAMINS W/ FOLIC ACID TABLET (FP) PO SCH (09:50)
[2021-10-27] MEDS: QUETIAPINE FUMARATE 200 MG, QUETIAPINE FUMARATE 50 MG PO SCH ×2 (09:50→21:16)
[2021-10-27] MEDS: FERROUS SO4 325 MG TABLET (FP) PO SCH (09:51)
[2021-10-27] MEDS: ATORVASTATIN CA 10 MG TABLET (FP) PO SCH (09:51)
[2021-10-27] MEDS: FLUoxetine HCL 20 MG CAPSULE PO SCH (09:51)
[2021-10-27] MEDS: NALTREXONE HCL 50 MG TABLET PO SCH (09:51)
[2021-10-27] MEDS: levETIRAcetam 500 MG TABLET (FP) PO SCH ×2 (09:51→21:16)
[2021-10-27] MEDS: PANTOPRAZOLE 40 MG TABLET PO SCH (09:51)
[2021-10-27] MEDS: NICOTINE 21 MG/24 HOURS TOPICAL PATCH TD SCH (09:52)
[2021-10-27] MEDS: MELATONIN 5 MG TABLETS PO PRN (21:15)
[2021-10-27] MEDS: THIAMINE HCL 100 MG TABLET (FP) PO SCH (21:15)
[2021-10-28] MEDS: hydrOXYzine PAMOATE 25 MG CAPSULE (FP) PO PRN ×3 (05:56→21:11)
[2021-10-28] MEDS: GABAPENTIN 300 MG CAPSULE PO SCH ×3 (05:56→21:11)
[2021-10-28] MEDS: NICOTINE 10 MG CARTRIDGE (INHALER) IH PRN ×4 (05:57→21:12)
[2021-10-28] MEDS ORDERED: QUEtiapine FUMARATE 50 MG TABLET ONE ×2 (08:52→18:51)
[2021-10-28] MEDS ORDERED: QUEtiapine FUMARATE 200 MG TABLET ONE ×2 (08:52→18:51)
[2021-10-28] MEDS: ATORVASTATIN CA 10 MG TABLET (FP) PO SCH (09:39)
[2021-10-28] MEDS: FERROUS SO4 325 MG TABLET (FP) PO SCH (09:39)
[2021-10-28] MEDS: levETIRAcetam 500 MG TABLET (FP) PO SCH ×2 (09:39→21:11)
[2021-10-28] MEDS: PRENATAL VITAMINS W/ FOLIC ACID TABLET (FP) PO SCH (09:40)
[2021-10-28] MEDS: NICOTINE 21 MG/24 HOURS TOPICAL PATCH TD SCH (09:40)
[2021-10-28] MEDS: PANTOPRAZOLE 40 MG TABLET PO SCH (09:40)
[2021-10-28] MEDS: FLUoxetine HCL 20 MG CAPSULE PO SCH (09:41)
[2021-10-28] MEDS: NALTREXONE HCL 50 MG TABLET PO SCH (09:41)
[2021-10-28] MEDS: QUETIAPINE FUMARATE 200 MG, QUETIAPINE FUMARATE 50 MG PO SCH ×2 (09:41→21:11)
[2021-10-28] MEDS: MELATONIN 5 MG TABLETS PO PRN (21:11)
[2021-10-28] MEDS: THIAMINE HCL 100 MG TABLET (FP) PO SCH (21:11)
[2021-10-29] MEDS: hydrOXYzine PAMOATE 25 MG CAPSULE (FP) PO PRN ×5 (01:25→21:02)
[2021-10-29] MEDS: GABAPENTIN 300 MG CAPSULE PO SCH ×3 (06:02→21:02)
[2021-10-29] MEDS: NICOTINE 10 MG CARTRIDGE (INHALER) IH PRN ×3 (07:15→21:23)
[2021-10-29] MEDS ORDERED: QUEtiapine FUMARATE 200 MG TABLET ONE ×2 (09:08→19:34)
[2021-10-29] MEDS ORDERED: QUEtiapine FUMARATE 50 MG TABLET ONE ×2 (09:08→19:34)
[2021-10-29] MEDS: NICOTINE 21 MG/24 HOURS TOPICAL PATCH TD SCH (09:48)
[2021-10-29] MEDS: QUETIAPINE FUMARATE 200 MG, QUETIAPINE FUMARATE 50 MG PO SCH ×2 (09:50→21:02)
[2021-10-29] MEDS: NALTREXONE HCL 50 MG TABLET PO SCH (09:50)
[2021-10-29] MEDS: FERROUS SO4 325 MG TABLET (FP) PO SCH (09:50)
[2021-10-29] MEDS: ATORVASTATIN CA 10 MG TABLET (FP) PO SCH (09:50)
[2021-10-29] MEDS: FLUoxetine HCL 20 MG CAPSULE PO SCH (09:50)
[2021-10-29] MEDS: levETIRAcetam 500 MG TABLET (FP) PO SCH ×2 (09:50→21:01)
[2021-10-29] MEDS: PRENATAL VITAMINS W/ FOLIC ACID TABLET (FP) PO SCH (09:51)
[2021-10-29] MEDS: PANTOPRAZOLE 40 MG TABLET PO SCH (09:51)
[2021-10-29] MEDS: MELATONIN 5 MG TABLETS PO PRN (21:03)
[2021-10-29] MEDS: THIAMINE HCL 100 MG TABLET (FP) PO SCH (21:23)
[2021-10-30] MEDS: GABAPENTIN 300 MG CAPSULE PO SCH ×3 (06:14→21:22)
[2021-10-30] MEDS: hydrOXYzine PAMOATE 25 MG CAPSULE (FP) PO PRN ×4 (06:14→21:24)
[2021-10-30] MEDS: NICOTINE 10 MG CARTRIDGE (INHALER) IH PRN ×3 (06:15→21:25)
[2021-10-30] MEDS ORDERED: QUEtiapine FUMARATE 200 MG TABLET ONE ×2 (09:10→20:13)
[2021-10-30] MEDS ORDERED: QUEtiapine FUMARATE 50 MG TABLET ONE ×2 (09:11→20:13)
[2021-10-30] MEDS: PRENATAL VITAMINS W/ FOLIC ACID TABLET (FP) PO SCH (09:36)
[2021-10-30] MEDS: QUETIAPINE FUMARATE 200 MG, QUETIAPINE FUMARATE 50 MG PO SCH ×2 (09:36→21:22)
[2021-10-30] MEDS: NICOTINE 21 MG/24 HOURS TOPICAL PATCH TD SCH (09:37)
[2021-10-30] MEDS: FLUoxetine HCL 20 MG CAPSULE PO SCH (09:37)
[2021-10-30] MEDS: NALTREXONE HCL 50 MG TABLET PO SCH (09:37)
[2021-10-30] MEDS: levETIRAcetam 500 MG TABLET (FP) PO SCH ×2 (09:37→21:22)
[2021-10-30] MEDS: PANTOPRAZOLE 40 MG TABLET PO SCH (09:37)
[2021-10-30] MEDS: ATORVASTATIN CA 10 MG TABLET (FP) PO SCH (09:37)
[2021-10-30] MEDS: FERROUS SO4 325 MG TABLET (FP) PO SCH (09:37)
[2021-10-30] MEDS: MELATONIN 5 MG TABLETS PO PRN (21:24)
[2021-10-30] MEDS: THIAMINE HCL 100 MG TABLET (FP) PO SCH (21:24)
[2021-10-31] MEDS: GABAPENTIN 300 MG CAPSULE PO SCH ×3 (06:20→21:33)
[2021-10-31] MEDS: hydrOXYzine PAMOATE 25 MG CAPSULE (FP) PO PRN ×4 (06:20→21:34)
[2021-10-31] MEDS: NICOTINE 10 MG CARTRIDGE (INHALER) IH PRN ×3 (06:21→21:33)
[2021-10-31 07:12] VITALS: PULSE 87
[2021-10-31] MEDS ORDERED: QUEtiapine FUMARATE 200 MG TABLET ONE ×2 (08:46→20:10)
[2021-10-31] MEDS ORDERED: QUEtiapine FUMARATE 50 MG TABLET ONE ×2 (08:47→20:10)
[2021-10-31] MEDS: ATORVASTATIN CA 10 MG TABLET (FP) PO SCH (09:39)
[2021-10-31] MEDS: PANTOPRAZOLE 40 MG TABLET PO SCH (09:39)
[2021-10-31] MEDS: FLUoxetine HCL 20 MG CAPSULE PO SCH (09:39)
[2021-10-31] MEDS: QUETIAPINE FUMARATE 200 MG, QUETIAPINE FUMARATE 50 MG PO SCH ×2 (09:39→21:33)
[2021-10-31] MEDS: levETIRAcetam 500 MG TABLET (FP) PO SCH ×2 (09:39→21:34)
[2021-10-31] MEDS: PRENATAL VITAMINS W/ FOLIC ACID TABLET (FP) PO SCH (09:39)
[2021-10-31] MEDS: FERROUS SO4 325 MG TABLET (FP) PO SCH (09:39)
[2021-10-31] MEDS: NICOTINE 21 MG/24 HOURS TOPICAL PATCH TD SCH (09:39)
[2021-10-31] MEDS ORDERED: NALTREXONE MICROSPHERES (VIVITROL) 380 MG DISP.SYRIN IM ONE (10:00)
[2021-10-31] MEDS: NALTREXONE HCL 50 MG TABLET PO SCH (13:43)
[2021-10-31] MEDS: THIAMINE HCL 100 MG TABLET (FP) PO SCH (21:34)
[2021-10-31] MEDS: MELATONIN 5 MG TABLETS PO PRN (21:34)
[2021-11-01] MEDS: hydrOXYzine PAMOATE 25 MG CAPSULE (FP) PO PRN ×2 (05:54→09:33)
[2021-11-01] MEDS: NICOTINE 10 MG CARTRIDGE (INHALER) IH PRN (05:54)
[2021-11-01] MEDS: GABAPENTIN 300 MG CAPSULE PO SCH (05:54)
[2021-11-01 07:10] VITALS: BP 123/84; TEMP 97.7
[2021-11-01] MEDS ORDERED: QUEtiapine FUMARATE 200 MG TABLET ONE (08:53)
[2021-11-01] MEDS ORDERED: QUEtiapine FUMARATE 50 MG TABLET ONE (08:54)
[2021-11-01] MEDS: PRENATAL VITAMINS W/ FOLIC ACID TABLET (FP) PO SCH (09:30)
[2021-11-01] MEDS: levETIRAcetam 500 MG TABLET (FP) PO SCH (09:31)
[2021-11-01] MEDS: FLUoxetine HCL 20 MG CAPSULE PO SCH (09:31)
[2021-11-01] MEDS: QUETIAPINE FUMARATE 200 MG, QUETIAPINE FUMARATE 50 MG PO SCH (09:31)
[2021-11-01] MEDS: PANTOPRAZOLE 40 MG TABLET PO SCH (09:33)
[2021-11-01] MEDS: FERROUS SO4 325 MG TABLET (FP) PO SCH (09:33)
[2021-11-01] MEDS: ATORVASTATIN CA 10 MG TABLET (FP) PO SCH (09:34)
[2021-11-01] MEDS: NALTREXONE HCL 50 MG TABLET PO SCH (09:35)
[2021-11-01] MEDS: NICOTINE 21 MG/24 HOURS TOPICAL PATCH TD SCH (09:36)
== END 2021-11-01 09:57 | disposition home or self-care (01) | DRG 772 ==
LOC: YASAS 11:55 → Y3W 11:57
PROVIDERS: ADMIT Allergy & Immunology; ATTEND Allergy & Immunology
PROC: HZ42ZZZ Group Counseling for Substance Abuse Treatment, Cognitive-Behavioral (ICD-10-PCS; principal; 2021-10-21)
DX: F10.20 Alcohol dependence, uncomplicated (principal); F13.20 Sedative, hypnotic or anxiolytic dependence, uncomplicated; F12.20 Cannabis dependence, uncomplicated; F17.210 Nicotine dependence, cigarettes, uncomplicated; F19.282 Other psychoactive substance dependence with psychoactive substance-induced sleep disorder; F19.280 Other psychoactive substance dependence with psychoactive substance-induced anxiety disorder; F19.24 Other psychoactive substance dependence with psychoactive substance-induced mood disorder; F32.A Depression, unspecified; E78.5 Hyperlipidemia, unspecified; G47.00 Insomnia, unspecified; M54.50 Low back pain, unspecified; G89.29 Other chronic pain
CPT/HCPCS: 0013A; 90686; 91301; C9803-CS; G0008; U0003; U0005

== ENCOUNTER 2022-05-23 10:24 | Inpatient (IN) | payer OTHER ==
[2022-05-23 11:14] VITALS: BMI 26.9
[2022-05-23] MEDS ORDERED: ACETAMINOPHEN 325 MG TABLET (FP) PO PRN ×2 (11:30)
[2022-05-23] MEDS ORDERED: MAGNESIUM HYDROX 2400MG/30ML ORAL SUSPENSION 30 ML CUP PO PRN (11:30)
[2022-05-23] MEDS ORDERED: NALOXONE HCL (KLOXXADO) 8 MG SPRAY NS PRN (11:30)
[2022-05-23] MEDS ORDERED: METHOCARBAMOL 500 MG TABLET PO PRN (11:30)
[2022-05-23] MEDS ORDERED: IBUPROFEN 400 MG TABLET (FP) PO PRN (11:30)
[2022-05-23] MEDS ORDERED: MAGNESIUM CITRATE 300 ML BOTTLE PO PRN (11:30)
[2022-05-23] MEDS ORDERED: IBUPROFEN 600 MG TABLET (FP) PO PRN (11:30)
[2022-05-23] MEDS ORDERED: chlordiazePOXIDE HCL 25 MG CAPSULE PO PRN (11:30)
[2022-05-23] MEDS ORDERED: BISMUTH SUBSALICYLATE 524 MG/30 ML PO PRN (11:30)
[2022-05-23] MEDS ORDERED: ONDANSETRON *ODT* 4 MG TABLET SL PRN (11:30)
[2022-05-23] MEDS ORDERED: LOPERAMIDE HCL 2 MG CAPSULE PO PRN (11:30)
[2022-05-23] MEDS ORDERED: BENZOCAINE/MENTHOL (CHLORASEPTIC ) LOZENGE MM PRN (11:30)
[2022-05-23] MEDS ORDERED: DICYCLOMINE HCL 10 MG CAPSULE PO PRN (11:30)
[2022-05-23] MEDS ORDERED: MAG HYDROX/AL HYDROX/SIMETH 30 ML UNIT-DOSE CUP PO PRN (11:30)
[2022-05-23] MEDS: levETIRAcetam 500 MG TABLET (FP) PO SCH ×2 (12:26→22:27)
[2022-05-23] MEDS: chlordiazePOXIDE HCL 25 MG CAPSULE PO SCH ×3 (12:26→22:28)
[2022-05-23] MEDS: PRENATAL VITAMINS W/ FOLIC ACID TABLET (FP) PO SCH (12:26)
[2022-05-23 14:52] LABS: HEMATOCRIT 43.8 % (35.4-49); HEMOGLOBIN 14.6 GM/dL (11.7-16.9); MCH 27.4 pg (25.7-33.7); MCHC 33.4 g/dl (32.0-35.9); MEAN CELL VOLUME 82.1 fl (80-96); MEAN PLT VOLUME 7.4 fl (7.5-11.1); PLATELET COUNT 508 10^3/uL (134-434); RBC 5.34 M/mm3 (4.00-5.60); RDW 17.8 % (11.9-15.9); WHITE BLOOD COUNT 16.1 K/mm3 (4.0-10.0)
[2022-05-23 15:14] LABS: BLOOD UREA NITROGEN 15.5 mg/dL (7-18); CALCIUM 10.1 mg/dL (8.5-10.1)
[2022-05-23 15:15] LABS: ALBUMIN 4.6 g/dl (3.4-5.0)
[2022-05-23 15:18] LABS: BILIRUBIN,TOTAL 0.8 mg/dL (0.2-1); CREATININE 0.9 mg/dL (0.55-1.3); TOT PROT 8.4 g/dl (6.4-8.2)
[2022-05-23] MEDS: FERROUS SO4 325 MG TABLET (FP) PO SCH (17:57)
[2022-05-23] MEDS: hydrOXYzine PAMOATE 25 MG CAPSULE (FP) PO PRN (17:58)
[2022-05-23] MEDS ORDERED: MELATONIN 5 MG TABLETS PO SCH (22:00)
[2022-05-23] MEDS: NICOTINE 10 MG CARTRIDGE (INHALER) IH PRN (22:28)
[2022-05-23] MEDS: THIAMINE HCL 100 MG TABLET (FP) PO SCH (22:29)
[2022-05-24] MEDS: chlordiazePOXIDE HCL 25 MG CAPSULE PO SCH ×4 (05:47→22:17)
[2022-05-24] MEDS: hydrOXYzine PAMOATE 25 MG CAPSULE (FP) PO PRN (06:12)
[2022-05-24] MEDS: FERROUS SO4 325 MG TABLET (FP) PO SCH ×2 (07:13→18:19)
[2022-05-24] MEDS: PRENATAL VITAMINS W/ FOLIC ACID TABLET (FP) PO SCH (10:21)
[2022-05-24] MEDS: levETIRAcetam 500 MG TABLET (FP) PO SCH ×2 (10:21→22:17)
[2022-05-24] MEDS: NICOTINE 21 MG/24 HOURS TOPICAL PATCH TD SCH (10:21)
[2022-05-24] MEDS: PANTOPRAZOLE 40 MG TABLET PO SCH (10:21)
[2022-05-24] MEDS: ATORVASTATIN CA 10 MG TABLET (FP) PO SCH (10:21)
[2022-05-24] MEDS: FLUoxetine HCL 20 MG CAPSULE PO SCH (14:36)
[2022-05-24] MEDS: GABAPENTIN 300 MG CAPSULE PO SCH ×2 (14:36→22:17)
[2022-05-24] MEDS: NICOTINE 10 MG CARTRIDGE (INHALER) IH PRN (14:37)
[2022-05-24] MEDS ORDERED: chlordiazePOXIDE HCL 25 MG CAPSULE ONE (18:08)
[2022-05-24] MEDS ORDERED: QUEtiapine FUMARATE 200 MG TABLET PO SCH (22:00)
[2022-05-24] MEDS: THIAMINE HCL 100 MG TABLET (FP) PO SCH (22:17)
[2022-05-24] MEDS: QUEtiapine FUMARATE 300 MG TABLET PO SCH (22:17)
[2022-05-25] MEDS: GABAPENTIN 300 MG CAPSULE PO SCH ×3 (05:58→22:20)
[2022-05-25] MEDS: chlordiazePOXIDE HCL 25 MG CAPSULE PO SCH ×4 (05:58→22:20)
[2022-05-25] MEDS: hydrOXYzine PAMOATE 25 MG CAPSULE (FP) PO PRN ×2 (06:00→17:14)
[2022-05-25] MEDS: FERROUS SO4 325 MG TABLET (FP) PO SCH ×2 (09:52→17:15)
[2022-05-25] MEDS: PRENATAL VITAMINS W/ FOLIC ACID TABLET (FP) PO SCH (10:49)
[2022-05-25] MEDS: PANTOPRAZOLE 40 MG TABLET PO SCH (10:49)
[2022-05-25] MEDS: FLUoxetine HCL 20 MG CAPSULE PO SCH (10:50)
[2022-05-25] MEDS: levETIRAcetam 500 MG TABLET (FP) PO SCH ×2 (10:50→22:20)
[2022-05-25] MEDS: ATORVASTATIN CA 10 MG TABLET (FP) PO SCH (10:50)
[2022-05-25] MEDS: NICOTINE 21 MG/24 HOURS TOPICAL PATCH TD SCH (10:50)
[2022-05-25] MEDS: NICOTINE 10 MG CARTRIDGE (INHALER) IH PRN ×3 (10:53→22:22)
[2022-05-25 14:12] LABS: HEMATOCRIT 38.5 % (35.4-49); HEMOGLOBIN 12.9 GM/dL (11.7-16.9); MCH 27.5 pg (25.7-33.7); MCHC 33.4 g/dl (32.0-35.9); MEAN CELL VOLUME 82.4 fl (80-96); MEAN PLT VOLUME 7.5 fl (7.5-11.1); PLATELET COUNT 376 10^3/uL (134-434); RBC 4.67 M/mm3 (4.00-5.60); RDW 17.3 % (11.9-15.9)
[2022-05-25] MEDS ORDERED: NICOTINE POLACRILEX 2 MG GUM BUC PRN (14:44)
[2022-05-25] MEDS: NICOTINE POLACRILEX 4 MG GUM BUC PRN (17:17)
[2022-05-25] MEDS: THIAMINE HCL 100 MG TABLET (FP) PO SCH (22:20)
[2022-05-25] MEDS: QUEtiapine FUMARATE 300 MG TABLET PO SCH (22:20)
[2022-05-26] MEDS ORDERED: chlordiazePOXIDE HCL 10 MG CAPSULE PO PRN
[2022-05-26] MEDS: chlordiazePOXIDE HCL 10 MG CAPSULE PO SCH ×4 (05:18→22:08)
[2022-05-26] MEDS: GABAPENTIN 300 MG CAPSULE PO SCH ×3 (05:18→22:08)
[2022-05-26] MEDS: hydrOXYzine PAMOATE 25 MG CAPSULE (FP) PO PRN (05:18)
[2022-05-26] MEDS: FERROUS SO4 325 MG TABLET (FP) PO SCH ×2 (09:13→17:22)
[2022-05-26] MEDS: NICOTINE POLACRILEX 4 MG GUM BUC PRN ×2 (09:15→17:52)
[2022-05-26] MEDS: levETIRAcetam 500 MG TABLET (FP) PO SCH ×2 (10:18→22:08)
[2022-05-26] MEDS: FLUoxetine HCL 20 MG CAPSULE PO SCH (10:18)
[2022-05-26] MEDS: ATORVASTATIN CA 10 MG TABLET (FP) PO SCH (10:18)
[2022-05-26] MEDS: PRENATAL VITAMINS W/ FOLIC ACID TABLET (FP) PO SCH (10:18)
[2022-05-26] MEDS: PANTOPRAZOLE 40 MG TABLET PO SCH (10:18)
[2022-05-26] MEDS: NICOTINE 21 MG/24 HOURS TOPICAL PATCH TD SCH (10:19)
[2022-05-26] MEDS: NICOTINE 10 MG CARTRIDGE (INHALER) IH PRN ×2 (10:20→22:09)
[2022-05-26] MEDS: QUEtiapine FUMARATE 300 MG TABLET PO SCH (22:08)
[2022-05-26] MEDS: THIAMINE HCL 100 MG TABLET (FP) PO SCH (22:08)
[2022-05-27] MEDS: hydrOXYzine PAMOATE 25 MG CAPSULE (FP) PO PRN (05:37)
[2022-05-27] MEDS: chlordiazePOXIDE HCL 10 MG CAPSULE PO SCH ×2 (05:37→17:20)
[2022-05-27] MEDS: GABAPENTIN 300 MG CAPSULE PO SCH ×3 (05:37→22:12)
[2022-05-27] MEDS: NICOTINE POLACRILEX 4 MG GUM BUC PRN ×2 (05:39→22:16)
[2022-05-27] MEDS: FERROUS SO4 325 MG TABLET (FP) PO SCH ×2 (07:05→17:20)
[2022-05-27] MEDS: levETIRAcetam 500 MG TABLET (FP) PO SCH ×2 (10:26→22:12)
[2022-05-27] MEDS: PANTOPRAZOLE 40 MG TABLET PO SCH (10:26)
[2022-05-27] MEDS: PRENATAL VITAMINS W/ FOLIC ACID TABLET (FP) PO SCH (10:26)
[2022-05-27] MEDS: FLUoxetine HCL 20 MG CAPSULE PO SCH (10:26)
[2022-05-27] MEDS: NICOTINE 21 MG/24 HOURS TOPICAL PATCH TD SCH (10:26)
[2022-05-27] MEDS: NICOTINE 10 MG CARTRIDGE (INHALER) IH PRN (10:26)
[2022-05-27] MEDS: ATORVASTATIN CA 10 MG TABLET (FP) PO SCH (11:02)
[2022-05-27] MEDS: QUEtiapine FUMARATE 300 MG TABLET PO SCH (22:12)
[2022-05-27] MEDS: THIAMINE HCL 100 MG TABLET (FP) PO SCH (22:12)
[2022-05-28] MEDS ORDERED: chlordiazePOXIDE HCL 10 MG CAPSULE PO ONE (05:00)
[2022-05-28] MEDS: GABAPENTIN 300 MG CAPSULE PO SCH ×2 (05:40→13:39)
[2022-05-28] MEDS: NICOTINE 10 MG CARTRIDGE (INHALER) IH PRN ×3 (05:41→18:10)
[2022-05-28] MEDS: FERROUS SO4 325 MG TABLET (FP) PO SCH ×2 (07:06→17:56)
[2022-05-28] MEDS: PRENATAL VITAMINS W/ FOLIC ACID TABLET (FP) PO SCH (10:27)
[2022-05-28] MEDS: levETIRAcetam 500 MG TABLET (FP) PO SCH (10:27)
[2022-05-28] MEDS: PANTOPRAZOLE 40 MG TABLET PO SCH (10:27)
[2022-05-28] MEDS: ATORVASTATIN CA 10 MG TABLET (FP) PO SCH (10:27)
[2022-05-28] MEDS: hydrOXYzine PAMOATE 25 MG CAPSULE (FP) PO PRN ×2 (10:27→17:57)
[2022-05-28] MEDS: FLUoxetine HCL 20 MG CAPSULE PO SCH (10:27)
[2022-05-28] MEDS: NICOTINE 21 MG/24 HOURS TOPICAL PATCH TD SCH (10:28)
[2022-05-28] MEDS: NICOTINE POLACRILEX 4 MG GUM BUC PRN (13:40)
[2022-05-28 17:01] VITALS: BP 131/79; PULSE 105; RESP 20; TEMP 98.6
== END 2022-05-28 20:30 | disposition other institution (70) | DRG 775 ==
LOC: YASAS 10:24 → Y6N 12:00
PROVIDERS: ADMIT Allergy & Immunology; ATTEND Surgery
PROC: HZ2ZZZZ Detoxification Services for Substance Abuse Treatment (ICD-10-PCS; principal; 2022-05-23)
DX: F10.230 Alcohol dependence with withdrawal, uncomplicated (principal); F13.20 Sedative, hypnotic or anxiolytic dependence, uncomplicated; F17.210 Nicotine dependence, cigarettes, uncomplicated; F19.282 Other psychoactive substance dependence with psychoactive substance-induced sleep disorder; F19.280 Other psychoactive substance dependence with psychoactive substance-induced anxiety disorder; F19.24 Other psychoactive substance dependence with psychoactive substance-induced mood disorder; F32.A Depression, unspecified; D64.9 Anemia, unspecified; I10 Essential (primary) hypertension; J45.20 Mild intermittent asthma, uncomplicated; E78.5 Hyperlipidemia, unspecified; M54.50 Low back pain, unspecified; Z86.69 Personal history of other diseases of the nervous system and sense organs; Z87.11 Personal history of peptic ulcer disease; Z87.442 Personal history of urinary calculi
CPT/HCPCS: 36415; 80053; 82140; 82962; 85027; 86780; C9803-CS; U0003; U0005

== ENCOUNTER 2022-05-28 20:40 | Inpatient (IN) | payer OTHER ==
[2022-05-28 21:28] VITALS: BMI 23.6
[2022-05-28] MEDS ORDERED: MAGNESIUM HYDROX 2400MG/30ML ORAL SUSPENSION 30 ML CUP PO PRN (23:10)
[2022-05-28] MEDS ORDERED: P-EPHED 60MG/TRIPROLIDI 2.5MG TABLET PO PRN (23:10)
[2022-05-28] MEDS ORDERED: guaiFENesin 200 MG/10 ML 10 ML UNIT-DOSE CUPS PO PRN (23:10)
[2022-05-28] MEDS ORDERED: ACETAMINOPHEN 325 MG TABLET (FP) PO PRN (23:10)
[2022-05-28] MEDS ORDERED: MAGNESIUM CITRATE 300 ML BOTTLE PO PRN (23:10)
[2022-05-28] MEDS ORDERED: LOPERAMIDE HCL 2 MG CAPSULE PO PRN (23:10)
[2022-05-28] MEDS: MELATONIN 5 MG TABLETS PO SCH (23:36)
[2022-05-28] MEDS: hydrOXYzine PAMOATE 25 MG CAPSULE (FP) PO PRN (23:36)
[2022-05-29] MEDS: hydrOXYzine PAMOATE 25 MG CAPSULE (FP) PO PRN (06:09)
[2022-05-29] MEDS: PRENATAL VITAMINS W/ FOLIC ACID TABLET (FP) PO SCH (10:11)
[2022-05-29] MEDS: NICOTINE 21 MG/24 HOURS TOPICAL PATCH TD SCH (10:12)
[2022-05-29] MEDS: NICOTINE POLACRILEX 2 MG GUM BUC PRN ×2 (10:15→13:51)
[2022-05-29] MEDS ORDERED: FLUoxetine HCL 20 MG CAPSULE PO SCH (10:45)
[2022-05-29] MEDS: FLUTICASONE/UMECLIDIN/VILANTER(100-62.5-25 TRELEGY ELLIPTA) INAHLER IH SCH (13:46)
[2022-05-29] MEDS: GABAPENTIN 300 MG CAPSULE PO SCH ×2 (13:49→21:28)
[2022-05-29] MEDS: levETIRAcetam 500 MG TABLET (FP) PO SCH ×2 (13:50→21:28)
[2022-05-29] MEDS: THIAMINE HCL 100 MG TABLET (FP) PO SCH (21:27)
[2022-05-29] MEDS: ATORVASTATIN CA 10 MG TABLET (FP) PO SCH (21:27)
[2022-05-29] MEDS: MELATONIN 5 MG TABLETS PO SCH (21:27)
[2022-05-29] MEDS: QUEtiapine FUMARATE 400 MG TABLET PO SCH (21:28)
[2022-05-29] MEDS: IBUPROFEN 400 MG TABLET (FP) PO PRN (21:29)
[2022-05-30] MEDS: GABAPENTIN 300 MG CAPSULE PO SCH ×3 (06:00→21:12)
[2022-05-30] MEDS: NICOTINE POLACRILEX 2 MG GUM BUC PRN ×3 (06:03→21:13)
[2022-05-30] MEDS: NICOTINE 21 MG/24 HOURS TOPICAL PATCH TD SCH (09:03)
[2022-05-30] MEDS: PRENATAL VITAMINS W/ FOLIC ACID TABLET (FP) PO SCH (09:03)
[2022-05-30] MEDS: levETIRAcetam 500 MG TABLET (FP) PO SCH ×2 (09:04→21:12)
[2022-05-30] MEDS: ATORVASTATIN CA 10 MG TABLET (FP) PO SCH (09:04)
[2022-05-30] MEDS: FLUoxetine HCL 10 MG CAPSULE PO SCH (09:06)
[2022-05-30] MEDS: FLUTICASONE/UMECLIDIN/VILANTER(100-62.5-25 TRELEGY ELLIPTA) INAHLER IH SCH (09:07)
[2022-05-30] MEDS ORDERED: FLUoxetine HCL 10 MG CAPSULE PO SCH (10:00)
[2022-05-30] MEDS ORDERED: FLUoxetine HCL 20 MG CAPSULE PO SCH (10:00)
[2022-05-30] MEDS: NICOTINE 10 MG CARTRIDGE (INHALER) IH PRN ×2 (14:33→19:22)
[2022-05-30] MEDS: THIAMINE HCL 100 MG TABLET (FP) PO SCH (21:12)
[2022-05-30] MEDS: MELATONIN 5 MG TABLETS PO SCH (21:12)
[2022-05-30] MEDS: QUEtiapine FUMARATE 400 MG TABLET PO SCH (21:12)
[2022-05-31] MEDS: GABAPENTIN 300 MG CAPSULE PO SCH ×3 (06:07→21:12)
[2022-05-31] MEDS: NICOTINE 10 MG CARTRIDGE (INHALER) IH PRN ×3 (06:08→21:13)
[2022-05-31] MEDS: PRENATAL VITAMINS W/ FOLIC ACID TABLET (FP) PO SCH (09:55)
[2022-05-31] MEDS: FLUoxetine HCL 10 MG CAPSULE PO SCH (09:56)
[2022-05-31] MEDS: ATORVASTATIN CA 10 MG TABLET (FP) PO SCH (09:57)
[2022-05-31] MEDS: levETIRAcetam 500 MG TABLET (FP) PO SCH ×2 (09:57→21:11)
[2022-05-31] MEDS: NICOTINE 21 MG/24 HOURS TOPICAL PATCH TD SCH (09:57)
[2022-05-31] MEDS: FLUTICASONE/UMECLIDIN/VILANTER(100-62.5-25 TRELEGY ELLIPTA) INAHLER IH SCH (09:59)
[2022-05-31] MEDS: NICOTINE POLACRILEX 2 MG GUM BUC PRN (10:00)
[2022-05-31] MEDS: hydrOXYzine PAMOATE 25 MG CAPSULE (FP) PO PRN ×2 (14:18→21:14)
[2022-05-31] MEDS: MELATONIN 5 MG TABLETS PO SCH (21:11)
[2022-05-31] MEDS: THIAMINE HCL 100 MG TABLET (FP) PO SCH (21:11)
[2022-05-31] MEDS ORDERED: QUEtiapine FUMARATE 100 MG TABLET (FP) ONE (21:12)
[2022-05-31] MEDS: QUEtiapine FUMARATE 300 MG TABLET PO SCH (21:13)
[2022-06-01] MEDS: NICOTINE 10 MG CARTRIDGE (INHALER) IH PRN ×4 (06:07→21:27)
[2022-06-01] MEDS: GABAPENTIN 300 MG CAPSULE PO SCH ×3 (06:07→21:26)
[2022-06-01] MEDS: hydrOXYzine PAMOATE 25 MG CAPSULE (FP) PO PRN ×3 (06:07→21:27)
[2022-06-01] MEDS: ATORVASTATIN CA 10 MG TABLET (FP) PO SCH (10:14)
[2022-06-01] MEDS: levETIRAcetam 500 MG TABLET (FP) PO SCH ×2 (10:14→21:26)
[2022-06-01] MEDS: FLUoxetine HCL 10 MG CAPSULE PO SCH (10:15)
[2022-06-01] MEDS: FLUTICASONE/UMECLIDIN/VILANTER(100-62.5-25 TRELEGY ELLIPTA) INAHLER IH SCH (10:15)
[2022-06-01] MEDS: PRENATAL VITAMINS W/ FOLIC ACID TABLET (FP) PO SCH (10:15)
[2022-06-01] MEDS: NICOTINE 21 MG/24 HOURS TOPICAL PATCH TD SCH (10:15)
[2022-06-01] MEDS ORDERED: QUEtiapine FUMARATE 100 MG TABLET (FP) ONE (18:54)
[2022-06-01] MEDS: MELATONIN 5 MG TABLETS PO SCH (21:26)
[2022-06-01] MEDS: THIAMINE HCL 100 MG TABLET (FP) PO SCH (21:26)
[2022-06-01] MEDS: QUEtiapine FUMARATE 300 MG TABLET PO SCH (21:27)
[2022-06-02] MEDS: GABAPENTIN 300 MG CAPSULE PO SCH ×3 (06:13→21:09)
[2022-06-02] MEDS: hydrOXYzine PAMOATE 25 MG CAPSULE (FP) PO PRN ×3 (06:13→21:09)
[2022-06-02] MEDS: NICOTINE 10 MG CARTRIDGE (INHALER) IH PRN ×4 (06:14→21:09)
[2022-06-02] MEDS: PRENATAL VITAMINS W/ FOLIC ACID TABLET (FP) PO SCH (09:56)
[2022-06-02] MEDS: ATORVASTATIN CA 10 MG TABLET (FP) PO SCH (09:57)
[2022-06-02] MEDS: levETIRAcetam 500 MG TABLET (FP) PO SCH ×2 (09:57→21:09)
[2022-06-02] MEDS: FLUoxetine HCL 10 MG CAPSULE PO SCH (09:57)
[2022-06-02] MEDS: NICOTINE POLACRILEX 2 MG GUM BUC PRN (09:58)
[2022-06-02] MEDS: FLUTICASONE/UMECLIDIN/VILANTER(100-62.5-25 TRELEGY ELLIPTA) INAHLER IH SCH (10:00)
[2022-06-02] MEDS: NICOTINE 21 MG/24 HOURS TOPICAL PATCH TD SCH (10:00)
[2022-06-02 11:44] LABS: CALCIUM 9.4 mg/dL (8.5-10.1)
[2022-06-02 11:45] LABS: BLOOD UREA NITROGEN 19.5 mg/dL (7-18)
[2022-06-02 11:48] LABS: CREATININE 0.9 mg/dL (0.55-1.3)
[2022-06-02 11:49] LABS: TOT PROT 6.5 g/dl (6.4-8.2)
[2022-06-02 11:50] LABS: BILIRUBIN,TOTAL 0.6 mg/dL (0.2-1)
[2022-06-02 11:53] LABS: ALBUMIN 3.5 g/dl (3.4-5.0)
[2022-06-02] MEDS ORDERED: QUEtiapine FUMARATE 100 MG TABLET (FP) ONE (18:52)
[2022-06-02] MEDS: QUEtiapine FUMARATE 300 MG TABLET PO SCH (21:09)
[2022-06-02] MEDS: THIAMINE HCL 100 MG TABLET (FP) PO SCH (21:09)
[2022-06-02] MEDS: MELATONIN 5 MG TABLETS PO SCH (21:09)
[2022-06-03] MEDS: GABAPENTIN 300 MG CAPSULE PO SCH ×3 (06:14→21:10)
[2022-06-03] MEDS: NICOTINE 10 MG CARTRIDGE (INHALER) IH PRN ×4 (06:14→21:08)
[2022-06-03] MEDS: hydrOXYzine PAMOATE 25 MG CAPSULE (FP) PO PRN ×2 (06:14→21:10)
[2022-06-03] MEDS: PRENATAL VITAMINS W/ FOLIC ACID TABLET (FP) PO SCH (09:55)
[2022-06-03] MEDS: levETIRAcetam 500 MG TABLET (FP) PO SCH ×2 (09:55→21:10)
[2022-06-03] MEDS: ATORVASTATIN CA 10 MG TABLET (FP) PO SCH (09:55)
[2022-06-03] MEDS: FLUoxetine HCL 10 MG CAPSULE PO SCH (09:55)
[2022-06-03] MEDS: NICOTINE 21 MG/24 HOURS TOPICAL PATCH TD SCH (09:56)
[2022-06-03] MEDS: FLUTICASONE/UMECLIDIN/VILANTER(100-62.5-25 TRELEGY ELLIPTA) INAHLER IH SCH (09:56)
[2022-06-03] MEDS: NICOTINE POLACRILEX 2 MG GUM BUC PRN (13:56)
[2022-06-03] MEDS ORDERED: QUEtiapine FUMARATE 100 MG TABLET (FP) ONE (20:54)
[2022-06-03] MEDS: THIAMINE HCL 100 MG TABLET (FP) PO SCH (21:10)
[2022-06-03] MEDS: MELATONIN 5 MG TABLETS PO SCH (21:11)
[2022-06-03] MEDS: QUEtiapine FUMARATE 300 MG TABLET PO SCH (22:21)
[2022-06-04] MEDS: GABAPENTIN 300 MG CAPSULE PO SCH ×3 (06:17→21:19)
[2022-06-04] MEDS: hydrOXYzine PAMOATE 25 MG CAPSULE (FP) PO PRN ×4 (06:17→21:20)
[2022-06-04] MEDS: NICOTINE 10 MG CARTRIDGE (INHALER) IH PRN ×5 (06:17→21:19)
[2022-06-04] MEDS: PRENATAL VITAMINS W/ FOLIC ACID TABLET (FP) PO SCH (10:11)
[2022-06-04] MEDS: ATORVASTATIN CA 10 MG TABLET (FP) PO SCH (10:11)
[2022-06-04] MEDS: levETIRAcetam 500 MG TABLET (FP) PO SCH ×2 (10:11→21:19)
[2022-06-04] MEDS: FLUoxetine HCL 10 MG CAPSULE PO SCH (10:12)
[2022-06-04] MEDS: FLUTICASONE/UMECLIDIN/VILANTER(100-62.5-25 TRELEGY ELLIPTA) INAHLER IH SCH (10:13)
[2022-06-04] MEDS: NICOTINE 21 MG/24 HOURS TOPICAL PATCH TD SCH (10:13)
[2022-06-04] MEDS: MAG HYDROX/AL HYDROX/SIMETH 30 ML UNIT-DOSE CUP PO PRN (10:15)
[2022-06-04] MEDS: MELATONIN 5 MG TABLETS PO SCH (21:18)
[2022-06-04] MEDS: QUEtiapine FUMARATE 300 MG TABLET PO SCH (21:19)
[2022-06-04] MEDS: THIAMINE HCL 100 MG TABLET (FP) PO SCH (21:19)
[2022-06-05] MEDS: NICOTINE 10 MG CARTRIDGE (INHALER) IH PRN ×4 (06:44→21:15)
[2022-06-05] MEDS: hydrOXYzine PAMOATE 25 MG CAPSULE (FP) PO PRN ×2 (06:44→21:15)
[2022-06-05] MEDS: GABAPENTIN 300 MG CAPSULE PO SCH ×3 (06:44→21:15)
[2022-06-05] MEDS: PRENATAL VITAMINS W/ FOLIC ACID TABLET (FP) PO SCH (09:30)
[2022-06-05] MEDS: ATORVASTATIN CA 10 MG TABLET (FP) PO SCH (09:31)
[2022-06-05] MEDS: NICOTINE 21 MG/24 HOURS TOPICAL PATCH TD SCH (09:31)
[2022-06-05] MEDS: levETIRAcetam 500 MG TABLET (FP) PO SCH ×2 (09:31→21:14)
[2022-06-05] MEDS: FLUoxetine HCL 10 MG CAPSULE PO SCH (09:32)
[2022-06-05] MEDS: FLUTICASONE/UMECLIDIN/VILANTER(100-62.5-25 TRELEGY ELLIPTA) INAHLER IH SCH (09:32)
[2022-06-05] MEDS: NICOTINE POLACRILEX 2 MG GUM BUC PRN (09:37)
[2022-06-05] MEDS: THIAMINE HCL 100 MG TABLET (FP) PO SCH (21:14)
[2022-06-05] MEDS: QUEtiapine FUMARATE 300 MG TABLET PO SCH (21:15)
[2022-06-05] MEDS: MELATONIN 5 MG TABLETS PO SCH (21:15)
[2022-06-06] MEDS: GABAPENTIN 300 MG CAPSULE PO SCH ×3 (06:22→21:47)
[2022-06-06] MEDS: hydrOXYzine PAMOATE 25 MG CAPSULE (FP) PO PRN ×2 (06:22→21:49)
[2022-06-06] MEDS: NICOTINE 10 MG CARTRIDGE (INHALER) IH PRN ×4 (06:22→21:49)
[2022-06-06] MEDS: PRENATAL VITAMINS W/ FOLIC ACID TABLET (FP) PO SCH (09:50)
[2022-06-06] MEDS: NICOTINE 21 MG/24 HOURS TOPICAL PATCH TD SCH (09:50)
[2022-06-06] MEDS: FLUTICASONE/UMECLIDIN/VILANTER(100-62.5-25 TRELEGY ELLIPTA) INAHLER IH SCH (09:51)
[2022-06-06] MEDS: ATORVASTATIN CA 10 MG TABLET (FP) PO SCH (09:51)
[2022-06-06] MEDS: levETIRAcetam 500 MG TABLET (FP) PO SCH ×2 (09:51→21:47)
[2022-06-06] MEDS: FLUoxetine HCL 10 MG CAPSULE PO SCH (09:51)
[2022-06-06] MEDS: NICOTINE POLACRILEX 2 MG GUM BUC PRN (12:03)
[2022-06-06] MEDS: MELATONIN 5 MG TABLETS PO SCH (21:47)
[2022-06-06] MEDS: QUEtiapine FUMARATE 300 MG TABLET PO SCH (21:48)
[2022-06-06] MEDS: THIAMINE HCL 100 MG TABLET (FP) PO SCH (21:48)
[2022-06-07] MEDS: NICOTINE 10 MG CARTRIDGE (INHALER) IH PRN ×3 (06:00→21:13)
[2022-06-07] MEDS: GABAPENTIN 300 MG CAPSULE PO SCH ×3 (06:00→21:12)
[2022-06-07] MEDS: hydrOXYzine PAMOATE 25 MG CAPSULE (FP) PO PRN ×2 (06:00→21:12)
[2022-06-07] MEDS: FLUoxetine HCL 10 MG CAPSULE PO SCH (10:02)
[2022-06-07] MEDS: PRENATAL VITAMINS W/ FOLIC ACID TABLET (FP) PO SCH (10:02)
[2022-06-07] MEDS: NICOTINE 21 MG/24 HOURS TOPICAL PATCH TD SCH (10:02)
[2022-06-07] MEDS: FLUTICASONE/UMECLIDIN/VILANTER(100-62.5-25 TRELEGY ELLIPTA) INAHLER IH SCH (10:03)
[2022-06-07] MEDS: levETIRAcetam 500 MG TABLET (FP) PO SCH ×2 (10:03→21:12)
[2022-06-07] MEDS: ATORVASTATIN CA 10 MG TABLET (FP) PO SCH (10:03)
[2022-06-07] MEDS: NICOTINE POLACRILEX 2 MG GUM BUC PRN (10:05)
[2022-06-07] MEDS: IBUPROFEN 400 MG TABLET (FP) PO PRN (10:06)
[2022-06-07] MEDS: MAG HYDROX/AL HYDROX/SIMETH 30 ML UNIT-DOSE CUP PO PRN (14:55)
[2022-06-07] MEDS: THIAMINE HCL 100 MG TABLET (FP) PO SCH (21:12)
[2022-06-07] MEDS: QUEtiapine FUMARATE 300 MG TABLET PO SCH (21:12)
[2022-06-07] MEDS: MELATONIN 5 MG TABLETS PO SCH (21:13)
[2022-06-08] MEDS: GABAPENTIN 300 MG CAPSULE PO SCH ×3 (06:16→21:49)
[2022-06-08] MEDS: hydrOXYzine PAMOATE 25 MG CAPSULE (FP) PO PRN ×2 (06:16→21:49)
[2022-06-08] MEDS: PRENATAL VITAMINS W/ FOLIC ACID TABLET (FP) PO SCH (09:56)
[2022-06-08] MEDS: FLUoxetine HCL 10 MG CAPSULE PO SCH (09:56)
[2022-06-08] MEDS: ATORVASTATIN CA 10 MG TABLET (FP) PO SCH (09:56)
[2022-06-08] MEDS: NICOTINE 21 MG/24 HOURS TOPICAL PATCH TD SCH (09:56)
[2022-06-08] MEDS: levETIRAcetam 500 MG TABLET (FP) PO SCH ×2 (09:56→21:47)
[2022-06-08] MEDS: FLUTICASONE/UMECLIDIN/VILANTER(100-62.5-25 TRELEGY ELLIPTA) INAHLER IH SCH (09:56)
[2022-06-08] MEDS: NICOTINE 10 MG CARTRIDGE (INHALER) IH PRN ×5 (09:58→21:50)
[2022-06-08] MEDS: NICOTINE POLACRILEX 2 MG GUM BUC PRN ×3 (09:58→21:52)
[2022-06-08] MEDS: MAG HYDROX/AL HYDROX/SIMETH 30 ML UNIT-DOSE CUP PO PRN ×2 (13:02→19:06)
[2022-06-08] MEDS ORDERED: QUEtiapine FUMARATE 100 MG TABLET (FP) ONE (20:11)
[2022-06-08] MEDS: QUEtiapine FUMARATE 300 MG TABLET PO SCH (21:48)
[2022-06-08] MEDS: THIAMINE HCL 100 MG TABLET (FP) PO SCH (21:48)
[2022-06-08] MEDS: MELATONIN 5 MG TABLETS PO SCH (21:49)
[2022-06-09] MEDS: hydrOXYzine PAMOATE 25 MG CAPSULE (FP) PO PRN ×2 (06:04→10:10)
[2022-06-09] MEDS: GABAPENTIN 300 MG CAPSULE PO SCH ×3 (06:04→21:05)
[2022-06-09] MEDS: NICOTINE 10 MG CARTRIDGE (INHALER) IH PRN ×5 (06:05→21:06)
[2022-06-09] MEDS: PRENATAL VITAMINS W/ FOLIC ACID TABLET (FP) PO SCH (10:07)
[2022-06-09] MEDS: NICOTINE POLACRILEX 2 MG GUM BUC PRN ×2 (10:08→13:19)
[2022-06-09] MEDS: FLUoxetine HCL 10 MG CAPSULE PO SCH (10:09)
[2022-06-09] MEDS: FLUTICASONE/UMECLIDIN/VILANTER(100-62.5-25 TRELEGY ELLIPTA) INAHLER IH SCH (10:09)
[2022-06-09] MEDS: ATORVASTATIN CA 10 MG TABLET (FP) PO SCH (10:09)
[2022-06-09] MEDS: levETIRAcetam 500 MG TABLET (FP) PO SCH ×2 (10:09→21:06)
[2022-06-09] MEDS: NICOTINE 21 MG/24 HOURS TOPICAL PATCH TD SCH (10:10)
[2022-06-09] MEDS: THIAMINE HCL 100 MG TABLET (FP) PO SCH (21:05)
[2022-06-09] MEDS: MELATONIN 5 MG TABLETS PO SCH (21:05)
[2022-06-09] MEDS: QUEtiapine FUMARATE 300 MG TABLET PO SCH (21:06)
[2022-06-09] MEDS: hydrOXYzine PAMOATE 50 MG CAPSULE (FP) PO PRN (21:06)
[2022-06-10] MEDS: hydrOXYzine PAMOATE 50 MG CAPSULE (FP) PO PRN ×2 (06:13→21:10)
[2022-06-10] MEDS: GABAPENTIN 300 MG CAPSULE PO SCH ×3 (06:13→21:10)
[2022-06-10] MEDS: NICOTINE 10 MG CARTRIDGE (INHALER) IH PRN ×5 (06:13→21:12)
[2022-06-10] MEDS: NICOTINE POLACRILEX 2 MG GUM BUC PRN (09:47)
[2022-06-10] MEDS: FLUoxetine HCL 10 MG CAPSULE PO SCH (09:47)
[2022-06-10] MEDS: PRENATAL VITAMINS W/ FOLIC ACID TABLET (FP) PO SCH (09:47)
[2022-06-10] MEDS: ATORVASTATIN CA 10 MG TABLET (FP) PO SCH (09:47)
[2022-06-10] MEDS: NICOTINE 21 MG/24 HOURS TOPICAL PATCH TD SCH (09:47)
[2022-06-10] MEDS: levETIRAcetam 500 MG TABLET (FP) PO SCH ×2 (09:47→21:10)
[2022-06-10] MEDS: FLUTICASONE/UMECLIDIN/VILANTER(100-62.5-25 TRELEGY ELLIPTA) INAHLER IH SCH (09:48)
[2022-06-10] MEDS: MELATONIN 5 MG TABLETS PO SCH (21:10)
[2022-06-10] MEDS: THIAMINE HCL 100 MG TABLET (FP) PO SCH (21:10)
[2022-06-10] MEDS: QUEtiapine FUMARATE 300 MG TABLET PO SCH (21:11)
[2022-06-11] MEDS: NICOTINE 10 MG CARTRIDGE (INHALER) IH PRN ×3 (06:29→21:46)
[2022-06-11] MEDS: GABAPENTIN 300 MG CAPSULE PO SCH ×3 (06:29→21:43)
[2022-06-11] MEDS: hydrOXYzine PAMOATE 50 MG CAPSULE (FP) PO PRN ×3 (06:30→21:45)
[2022-06-11 06:49] VITALS: RESP 18
[2022-06-11] MEDS: PRENATAL VITAMINS W/ FOLIC ACID TABLET (FP) PO SCH (09:58)
[2022-06-11] MEDS: levETIRAcetam 500 MG TABLET (FP) PO SCH ×2 (09:58→21:43)
[2022-06-11] MEDS: NICOTINE 21 MG/24 HOURS TOPICAL PATCH TD SCH (09:59)
[2022-06-11] MEDS: ATORVASTATIN CA 10 MG TABLET (FP) PO SCH (09:59)
[2022-06-11] MEDS: FLUTICASONE/UMECLIDIN/VILANTER(100-62.5-25 TRELEGY ELLIPTA) INAHLER IH SCH (10:01)
[2022-06-11] MEDS: FLUoxetine HCL 10 MG CAPSULE PO SCH (10:01)
[2022-06-11] MEDS: NICOTINE POLACRILEX 2 MG GUM BUC PRN ×2 (14:13→21:47)
[2022-06-11] MEDS ORDERED: QUEtiapine FUMARATE 100 MG TABLET (FP) ONE (18:46)
[2022-06-11] MEDS: MELATONIN 5 MG TABLETS PO SCH (21:44)
[2022-06-11] MEDS: THIAMINE HCL 100 MG TABLET (FP) PO SCH (21:44)
[2022-06-11] MEDS: QUEtiapine FUMARATE 300 MG TABLET PO SCH (21:45)
[2022-06-12] MEDS: NICOTINE 10 MG CARTRIDGE (INHALER) IH PRN ×3 (06:53→13:03)
[2022-06-12] MEDS: GABAPENTIN 300 MG CAPSULE PO SCH ×3 (06:53→21:30)
[2022-06-12] MEDS: MECLIZINE HCL 12.5 MG TABLET PO PRN (06:54)
[2022-06-12] MEDS: hydrOXYzine PAMOATE 50 MG CAPSULE (FP) PO PRN ×2 (06:55→21:33)
[2022-06-12] MEDS: PRENATAL VITAMINS W/ FOLIC ACID TABLET (FP) PO SCH (09:33)
[2022-06-12] MEDS: levETIRAcetam 500 MG TABLET (FP) PO SCH ×2 (09:34→21:30)
[2022-06-12] MEDS: FLUoxetine HCL 10 MG CAPSULE PO SCH (09:34)
[2022-06-12] MEDS: ATORVASTATIN CA 10 MG TABLET (FP) PO SCH (09:34)
[2022-06-12] MEDS: NICOTINE 21 MG/24 HOURS TOPICAL PATCH TD SCH (09:34)
[2022-06-12] MEDS: FLUTICASONE/UMECLIDIN/VILANTER(100-62.5-25 TRELEGY ELLIPTA) INAHLER IH SCH (09:35)
[2022-06-12] MEDS: NICOTINE POLACRILEX 2 MG GUM BUC PRN ×2 (09:37→13:03)
[2022-06-12] MEDS: MAG HYDROX/AL HYDROX/SIMETH 30 ML UNIT-DOSE CUP PO PRN (10:20)
[2022-06-12] MEDS ORDERED: QUEtiapine FUMARATE 100 MG TABLET (FP) ONE (18:57)
[2022-06-12] MEDS: QUEtiapine FUMARATE 300 MG TABLET PO SCH (21:31)
[2022-06-12] MEDS: MELATONIN 5 MG TABLETS PO SCH (21:33)
[2022-06-12] MEDS: THIAMINE HCL 100 MG TABLET (FP) PO SCH (21:52)
[2022-06-13] MEDS: GABAPENTIN 300 MG CAPSULE PO SCH ×3 (06:46→21:23)
[2022-06-13] MEDS: hydrOXYzine PAMOATE 50 MG CAPSULE (FP) PO PRN ×3 (06:46→21:23)
[2022-06-13] MEDS: NICOTINE 10 MG CARTRIDGE (INHALER) IH PRN ×4 (06:46→21:24)
[2022-06-13] MEDS: NICOTINE POLACRILEX 2 MG GUM BUC PRN ×2 (06:47→10:31)
[2022-06-13] MEDS: levETIRAcetam 500 MG TABLET (FP) PO SCH ×2 (10:25→21:24)
[2022-06-13] MEDS: MECLIZINE HCL 12.5 MG TABLET PO PRN (10:25)
[2022-06-13] MEDS: PRENATAL VITAMINS W/ FOLIC ACID TABLET (FP) PO SCH (10:25)
[2022-06-13] MEDS: ATORVASTATIN CA 10 MG TABLET (FP) PO SCH (10:25)
[2022-06-13] MEDS: NICOTINE 21 MG/24 HOURS TOPICAL PATCH TD SCH (10:28)
[2022-06-13] MEDS: FLUTICASONE/UMECLIDIN/VILANTER(100-62.5-25 TRELEGY ELLIPTA) INAHLER IH SCH (10:29)
[2022-06-13] MEDS: FLUoxetine HCL 10 MG CAPSULE PO SCH (11:16)
[2022-06-13] MEDS: THIAMINE HCL 100 MG TABLET (FP) PO SCH (21:23)
[2022-06-13] MEDS: MELATONIN 5 MG TABLETS PO SCH (21:23)
[2022-06-13] MEDS: QUEtiapine FUMARATE 300 MG TABLET PO SCH (21:23)
[2022-06-14] MEDS: GABAPENTIN 300 MG CAPSULE PO SCH ×3 (06:29→21:05)
[2022-06-14] MEDS: hydrOXYzine PAMOATE 50 MG CAPSULE (FP) PO PRN ×3 (06:29→21:06)
[2022-06-14] MEDS: NICOTINE 10 MG CARTRIDGE (INHALER) IH PRN ×5 (06:29→21:05)
[2022-06-14] MEDS: NICOTINE POLACRILEX 2 MG GUM BUC PRN ×2 (06:30→09:54)
[2022-06-14] MEDS: NICOTINE 21 MG/24 HOURS TOPICAL PATCH TD SCH (09:53)
[2022-06-14] MEDS: PRENATAL VITAMINS W/ FOLIC ACID TABLET (FP) PO SCH (09:53)
[2022-06-14] MEDS: FLUTICASONE/UMECLIDIN/VILANTER(100-62.5-25 TRELEGY ELLIPTA) INAHLER IH SCH (09:55)
[2022-06-14] MEDS: levETIRAcetam 500 MG TABLET (FP) PO SCH ×2 (09:56→21:05)
[2022-06-14] MEDS: ATORVASTATIN CA 10 MG TABLET (FP) PO SCH (09:56)
[2022-06-14] MEDS: FLUoxetine HCL 10 MG CAPSULE PO SCH (09:56)
[2022-06-14] MEDS: NICOTINE POLACRILEX 4 MG GUM BUC PRN (13:26)
[2022-06-14] MEDS: THIAMINE HCL 100 MG TABLET (FP) PO SCH (21:05)
[2022-06-14] MEDS: QUEtiapine FUMARATE 300 MG TABLET PO SCH (21:05)
[2022-06-14] MEDS: MELATONIN 5 MG TABLETS PO SCH (21:05)
[2022-06-15] MEDS: hydrOXYzine PAMOATE 50 MG CAPSULE (FP) PO PRN ×3 (06:15→21:02)
[2022-06-15] MEDS: GABAPENTIN 300 MG CAPSULE PO SCH ×3 (06:15→21:02)
[2022-06-15] MEDS: NICOTINE 10 MG CARTRIDGE (INHALER) IH PRN ×5 (06:16→21:03)
[2022-06-15] MEDS: NICOTINE POLACRILEX 4 MG GUM BUC PRN ×3 (06:16→16:31)
[2022-06-15] MEDS: FLUTICASONE/UMECLIDIN/VILANTER(100-62.5-25 TRELEGY ELLIPTA) INAHLER IH SCH (09:51)
[2022-06-15] MEDS: IBUPROFEN 400 MG TABLET (FP) PO PRN (09:51)
[2022-06-15] MEDS: PRENATAL VITAMINS W/ FOLIC ACID TABLET (FP) PO SCH (09:52)
[2022-06-15] MEDS: NICOTINE 21 MG/24 HOURS TOPICAL PATCH TD SCH (09:52)
[2022-06-15] MEDS: FLUoxetine HCL 10 MG CAPSULE PO SCH (09:52)
[2022-06-15] MEDS: levETIRAcetam 500 MG TABLET (FP) PO SCH ×2 (09:53→21:02)
[2022-06-15] MEDS: ATORVASTATIN CA 10 MG TABLET (FP) PO SCH (09:53)
[2022-06-15] MEDS: MAG HYDROX/AL HYDROX/SIMETH 30 ML UNIT-DOSE CUP PO PRN (11:50)
[2022-06-15] MEDS: THIAMINE HCL 100 MG TABLET (FP) PO SCH (21:02)
[2022-06-15] MEDS: MELATONIN 5 MG TABLETS PO SCH (21:02)
[2022-06-15] MEDS: QUEtiapine FUMARATE 300 MG TABLET PO SCH (21:02)
[2022-06-16] MEDS: GABAPENTIN 300 MG CAPSULE PO SCH ×3 (05:54→21:41)
[2022-06-16] MEDS: NICOTINE 10 MG CARTRIDGE (INHALER) IH PRN ×5 (05:56→21:40)
[2022-06-16] MEDS: PRENATAL VITAMINS W/ FOLIC ACID TABLET (FP) PO SCH (10:13)
[2022-06-16] MEDS: NICOTINE POLACRILEX 4 MG GUM BUC PRN ×3 (10:13→16:59)
[2022-06-16] MEDS: IBUPROFEN 400 MG TABLET (FP) PO PRN (10:13)
[2022-06-16] MEDS: FLUTICASONE/UMECLIDIN/VILANTER(100-62.5-25 TRELEGY ELLIPTA) INAHLER IH SCH (10:14)
[2022-06-16] MEDS: ATORVASTATIN CA 10 MG TABLET (FP) PO SCH (10:14)
[2022-06-16] MEDS: levETIRAcetam 500 MG TABLET (FP) PO SCH ×2 (10:14→21:39)
[2022-06-16] MEDS: FLUoxetine HCL 10 MG CAPSULE PO SCH (10:14)
[2022-06-16] MEDS: NICOTINE 21 MG/24 HOURS TOPICAL PATCH TD SCH (10:15)
[2022-06-16] MEDS: hydrOXYzine PAMOATE 50 MG CAPSULE (FP) PO PRN ×2 (10:16→21:40)
[2022-06-16] MEDS: THIAMINE HCL 100 MG TABLET (FP) PO SCH (21:39)
[2022-06-16] MEDS: QUEtiapine FUMARATE 300 MG TABLET PO SCH (21:39)
[2022-06-16] MEDS: MELATONIN 5 MG TABLETS PO SCH (21:39)
[2022-06-17] MEDS: GABAPENTIN 300 MG CAPSULE PO SCH ×3 (06:10→21:20)
[2022-06-17] MEDS: hydrOXYzine PAMOATE 50 MG CAPSULE (FP) PO PRN ×3 (06:10→21:21)
[2022-06-17] MEDS: NICOTINE 10 MG CARTRIDGE (INHALER) IH PRN ×4 (06:10→21:21)
[2022-06-17] MEDS: NICOTINE POLACRILEX 4 MG GUM BUC PRN ×3 (06:11→14:23)
[2022-06-17] MEDS: PRENATAL VITAMINS W/ FOLIC ACID TABLET (FP) PO SCH (09:50)
[2022-06-17] MEDS: levETIRAcetam 500 MG TABLET (FP) PO SCH ×2 (09:51→21:20)
[2022-06-17] MEDS: FLUTICASONE/UMECLIDIN/VILANTER(100-62.5-25 TRELEGY ELLIPTA) INAHLER IH SCH (09:51)
[2022-06-17] MEDS: ATORVASTATIN CA 10 MG TABLET (FP) PO SCH (09:51)
[2022-06-17] MEDS: NICOTINE 21 MG/24 HOURS TOPICAL PATCH TD SCH (09:51)
[2022-06-17] MEDS: FLUoxetine HCL 10 MG CAPSULE PO SCH (09:51)
[2022-06-17] MEDS: QUEtiapine FUMARATE 300 MG TABLET PO SCH (21:20)
[2022-06-17] MEDS: MELATONIN 5 MG TABLETS PO SCH (21:20)
[2022-06-17] MEDS: THIAMINE HCL 100 MG TABLET (FP) PO SCH (21:21)
[2022-06-18] MEDS: hydrOXYzine PAMOATE 50 MG CAPSULE (FP) PO PRN ×3 (06:15→21:23)
[2022-06-18] MEDS: GABAPENTIN 300 MG CAPSULE PO SCH ×3 (06:15→21:23)
[2022-06-18] MEDS: NICOTINE 10 MG CARTRIDGE (INHALER) IH PRN ×4 (06:15→21:23)
[2022-06-18] MEDS: PRENATAL VITAMINS W/ FOLIC ACID TABLET (FP) PO SCH (10:21)
[2022-06-18] MEDS: levETIRAcetam 500 MG TABLET (FP) PO SCH ×2 (10:22→21:23)
[2022-06-18] MEDS: ATORVASTATIN CA 10 MG TABLET (FP) PO SCH (10:22)
[2022-06-18] MEDS: FLUoxetine HCL 10 MG CAPSULE PO SCH (10:22)
[2022-06-18] MEDS: NICOTINE 21 MG/24 HOURS TOPICAL PATCH TD SCH (10:22)
[2022-06-18] MEDS: FLUTICASONE/UMECLIDIN/VILANTER(100-62.5-25 TRELEGY ELLIPTA) INAHLER IH SCH (10:23)
[2022-06-18] MEDS: MELATONIN 5 MG TABLETS PO SCH (21:22)
[2022-06-18] MEDS: THIAMINE HCL 100 MG TABLET (FP) PO SCH (21:22)
[2022-06-18] MEDS: QUEtiapine FUMARATE 300 MG TABLET PO SCH (21:23)
[2022-06-18] MEDS ORDERED: INSULIN (NOVOLOG) ASPART 100 UNITS/ML 10ML VIAL ONE (22:42)
[2022-06-19] MEDS: NICOTINE 10 MG CARTRIDGE (INHALER) IH PRN ×4 (06:21→21:35)
[2022-06-19] MEDS: NICOTINE POLACRILEX 4 MG GUM BUC PRN ×2 (06:21→14:23)
[2022-06-19] MEDS: GABAPENTIN 300 MG CAPSULE PO SCH ×3 (06:21→21:35)
[2022-06-19] MEDS: hydrOXYzine PAMOATE 50 MG CAPSULE (FP) PO PRN ×3 (06:21→21:35)
[2022-06-19] MEDS: ATORVASTATIN CA 10 MG TABLET (FP) PO SCH (10:07)
[2022-06-19] MEDS: PRENATAL VITAMINS W/ FOLIC ACID TABLET (FP) PO SCH (10:07)
[2022-06-19] MEDS: levETIRAcetam 500 MG TABLET (FP) PO SCH ×2 (10:08→21:35)
[2022-06-19] MEDS: NICOTINE 21 MG/24 HOURS TOPICAL PATCH TD SCH (10:08)
[2022-06-19] MEDS: FLUTICASONE/UMECLIDIN/VILANTER(100-62.5-25 TRELEGY ELLIPTA) INAHLER IH SCH (10:09)
[2022-06-19] MEDS: FLUoxetine HCL 10 MG CAPSULE PO SCH (10:09)
[2022-06-19] MEDS: QUEtiapine FUMARATE 300 MG TABLET PO SCH (21:35)
[2022-06-19] MEDS: THIAMINE HCL 100 MG TABLET (FP) PO SCH (21:35)
[2022-06-19] MEDS: MELATONIN 5 MG TABLETS PO SCH (21:35)
[2022-06-19] MEDS: BENZOCAINE/MENTHOL (CHLORASEPTIC ) LOZENGE MM PRN (21:36)
[2022-06-20] MEDS: NICOTINE 10 MG CARTRIDGE (INHALER) IH PRN ×4 (06:34→21:28)
[2022-06-20] MEDS: GABAPENTIN 300 MG CAPSULE PO SCH ×3 (06:35→21:26)
[2022-06-20] MEDS: FLUoxetine HCL 10 MG CAPSULE PO SCH (09:50)
[2022-06-20] MEDS: PRENATAL VITAMINS W/ FOLIC ACID TABLET (FP) PO SCH (09:51)
[2022-06-20] MEDS: NICOTINE 21 MG/24 HOURS TOPICAL PATCH TD SCH (09:52)
[2022-06-20] MEDS: levETIRAcetam 500 MG TABLET (FP) PO SCH ×2 (09:55→21:26)
[2022-06-20] MEDS: ATORVASTATIN CA 10 MG TABLET (FP) PO SCH (09:55)
[2022-06-20] MEDS: hydrOXYzine PAMOATE 50 MG CAPSULE (FP) PO PRN ×2 (09:55→21:26)
[2022-06-20] MEDS: FLUTICASONE/UMECLIDIN/VILANTER(100-62.5-25 TRELEGY ELLIPTA) INAHLER IH SCH (09:56)
[2022-06-20] MEDS: NICOTINE POLACRILEX 4 MG GUM BUC PRN ×3 (09:56→21:28)
[2022-06-20] MEDS: BENZOCAINE/MENTHOL (CHLORASEPTIC ) LOZENGE MM PRN (10:02)
[2022-06-20] MEDS ORDERED: NALTREXONE MICROSPHERES (VIVITROL) 380 MG DISP.SYRIN IM ONE (13:45)
[2022-06-20] MEDS: MELATONIN 5 MG TABLETS PO SCH (21:26)
[2022-06-20] MEDS: QUEtiapine FUMARATE 300 MG TABLET PO SCH (21:26)
[2022-06-20] MEDS: THIAMINE HCL 100 MG TABLET (FP) PO SCH (21:27)
[2022-06-21] MEDS: hydrOXYzine PAMOATE 50 MG CAPSULE (FP) PO PRN (05:49)
[2022-06-21] MEDS: GABAPENTIN 300 MG CAPSULE PO SCH (05:49)
[2022-06-21] MEDS: NICOTINE 10 MG CARTRIDGE (INHALER) IH PRN (05:49)
[2022-06-21] MEDS: NICOTINE POLACRILEX 4 MG GUM BUC PRN (05:49)
[2022-06-21 06:48] VITALS: BP 108/75; PULSE 104; TEMP 98
== END 2022-06-21 08:33 | disposition home or self-care (01) | DRG 772 ==
LOC: YASAS 20:40 → Y3W 20:42
PROVIDERS: ADMIT Allergy & Immunology; ATTEND Psychiatry & Neurology Pain Medicine
PROC: HZ42ZZZ Group Counseling for Substance Abuse Treatment, Cognitive-Behavioral (ICD-10-PCS; principal; 2022-05-28)
DX: F10.20 Alcohol dependence, uncomplicated (principal); F12.20 Cannabis dependence, uncomplicated; F17.210 Nicotine dependence, cigarettes, uncomplicated; F19.282 Other psychoactive substance dependence with psychoactive substance-induced sleep disorder; F19.280 Other psychoactive substance dependence with psychoactive substance-induced anxiety disorder; F41.9 Anxiety disorder, unspecified; F32.A Depression, unspecified; D64.9 Anemia, unspecified; E78.5 Hyperlipidemia, unspecified; G40.909 Epilepsy, unspecified, not intractable, without status epilepticus; I10 Essential (primary) hypertension; K21.9 Gastro-esophageal reflux disease without esophagitis; M54.50 Low back pain, unspecified; G89.29 Other chronic pain; Z59.01 Sheltered homelessness
CPT/HCPCS: 36415; 80053; 82962; C9803-CS; J2315; U0003; U0005

== ENCOUNTER 2022-10-10 16:04 | Inpatient (IN) | payer OTHER ==
[2022-10-10 16:48] VITALS: BMI 27.4
[2022-10-10] MEDS ORDERED: MECLIZINE HCL 12.5 MG TABLET PO PRN (17:37)
[2022-10-10] MEDS ORDERED: chlordiazePOXIDE HCL 25 MG CAPSULE PO ONE ×2 (18:01→19:30)
[2022-10-10] MEDS ORDERED: chlordiazePOXIDE HCL 25 MG CAPSULE PO PRN (18:01)
[2022-10-10] MEDS ORDERED: METOPROLOL TARTRATE 25 MG TABLET (FP) PO ONE (18:01)
[2022-10-10] MEDS ORDERED: MAG HYDROX/AL HYDROX/SIMETH 30 ML UNIT-DOSE CUP PO PRN (18:14)
[2022-10-10] MEDS ORDERED: POLYETHYLENE GLYCOL (HEALTHYLAX) 3350 17 GM PACKET PO PRN (18:14)
[2022-10-10] MEDS ORDERED: DICYCLOMINE HCL 10 MG CAPSULE PO PRN (18:14)
[2022-10-10] MEDS ORDERED: IBUPROFEN 400 MG TABLET (FP) PO PRN (18:14)
[2022-10-10] MEDS ORDERED: NICOTINE POLACRILEX 2 MG GUM BUC PRN (18:14)
[2022-10-10] MEDS ORDERED: ACETAMINOPHEN 325 MG TABLET (FP) PO PRN ×2 (18:14)
[2022-10-10] MEDS ORDERED: MELATONIN 5 MG TABLETS PO PRN (18:14)
[2022-10-10] MEDS ORDERED: LOPERAMIDE HCL 2 MG CAPSULE PO PRN (18:14)
[2022-10-10] MEDS ORDERED: MAGNESIUM HYDROX 2400MG/30ML ORAL SUSPENSION 30 ML CUP PO PRN (18:14)
[2022-10-10] MEDS ORDERED: BISMUTH SUBSALICYLATE 524 MG/30 ML PO PRN (18:14)
[2022-10-10] MEDS ORDERED: guaiFENesin 200 MG/10 ML 10 ML UNIT-DOSE CUPS PO PRN (18:14)
[2022-10-10] MEDS ORDERED: ONDANSETRON *ODT* 4 MG TABLET SL PRN (18:14)
[2022-10-10] MEDS ORDERED: IBUPROFEN 600 MG TABLET (FP) PO PRN (18:14)
[2022-10-10] MEDS ORDERED: BENZOCAINE/MENTHOL (CHLORASEPTIC ) LOZENGE MM PRN (18:14)
[2022-10-10] MEDS ORDERED: P-EPHED 60MG/TRIPROLIDI 2.5MG TABLET PO PRN (18:14)
[2022-10-10] MEDS ORDERED: METOPROLOL TARTRATE 50 MG TABLET (FP) PO ONE (19:30)
[2022-10-10] MEDS ORDERED: ATORVASTATIN CA 40 MG TABLET (FP) PO SCH (22:00)
[2022-10-10] MEDS ORDERED: ATORVASTATIN CA 10 MG TABLET (FP) PO SCH (22:00)
[2022-10-10] MEDS: levETIRAcetam 500 MG TABLET (FP) PO SCH (22:06)
[2022-10-10] MEDS: chlordiazePOXIDE HCL 25 MG CAPSULE PO SCH (22:07)
[2022-10-10] MEDS: THIAMINE HCL 100 MG TABLET (FP) PO SCH (22:07)
[2022-10-10] MEDS: ATORVASTATIN CA 40 MG TABLET (FP) PO SCH (22:07)
[2022-10-10] MEDS: METHOCARBAMOL 500 MG TABLET PO PRN (22:08)
[2022-10-10] MEDS: NICOTINE 10 MG CARTRIDGE (INHALER) IH SCH (22:11)
[2022-10-10] MEDS: OXcarbazepine 300 MG TABLET (UD) PO SCH (23:34)
[2022-10-11] MEDS: chlordiazePOXIDE HCL 25 MG CAPSULE PO SCH ×4 (05:16→22:08)
[2022-10-11] MEDS: OXcarbazepine 300 MG TABLET (UD) PO SCH ×2 (10:04→22:50)
[2022-10-11] MEDS: PRENATAL VITAMINS W/ FOLIC ACID TABLET (FP) PO SCH (10:04)
[2022-10-11] MEDS: levETIRAcetam 500 MG TABLET (FP) PO SCH ×2 (10:05→22:07)
[2022-10-11 11:01] LABS: HEMATOCRIT 40.8 % (35.4-49); HEMOGLOBIN 13.4 GM/dL (11.7-16.9); MCH 27.4 pg (25.7-33.7); MEAN CELL VOLUME 83.1 fl (80-96); MEAN PLT VOLUME 6.8 fl (7.5-11.1); PLATELET COUNT 440 10^3/uL (134-434); RBC 4.91 M/mm3 (4.00-5.60); RDW 13.1 % (11.9-15.9); WHITE BLOOD COUNT 9.8 K/mm3 (4.0-10.0)
[2022-10-11 11:20] LABS: CALCIUM 8.9 mg/dL (8.5-10.1)
[2022-10-11 11:21] LABS: ALBUMIN 4.2 g/dl (3.4-5.0); BLOOD UREA NITROGEN 27.2 mg/dL (7-18)
[2022-10-11 11:26] LABS: BILIRUBIN,TOTAL 1.4 mg/dL (0.2-1); TOT PROT 7.6 g/dl (6.4-8.2)
[2022-10-11] MEDS: NICOTINE 10 MG CARTRIDGE (INHALER) IH SCH ×2 (12:24→22:16)
[2022-10-11] MEDS: MIRTAZAPINE 15 MG TABLET (FP) PO SCH (22:07)
[2022-10-11] MEDS: THIAMINE HCL 100 MG TABLET (FP) PO SCH (22:07)
[2022-10-11] MEDS: ATORVASTATIN CA 40 MG TABLET (FP) PO SCH (22:07)
[2022-10-11] MEDS: QUEtiapine FUMARATE 100 MG TABLET (FP) PO SCH (22:07)
[2022-10-12] MEDS: chlordiazePOXIDE HCL 25 MG CAPSULE PO SCH ×4 (05:26→22:14)
[2022-10-12] MEDS: METHOCARBAMOL 500 MG TABLET PO PRN ×2 (05:28→22:15)
[2022-10-12] MEDS: levETIRAcetam 500 MG TABLET (FP) PO SCH ×2 (10:27→22:13)
[2022-10-12] MEDS: PRENATAL VITAMINS W/ FOLIC ACID TABLET (FP) PO SCH (10:27)
[2022-10-12] MEDS: SERTRALINE HCL 50 MG TABLET (FP) PO SCH (10:27)
[2022-10-12] MEDS: OXcarbazepine 300 MG TABLET (UD) PO SCH ×2 (10:44→22:13)
[2022-10-12] MEDS: QUEtiapine FUMARATE 100 MG TABLET (FP) PO SCH (22:12)
[2022-10-12] MEDS: MIRTAZAPINE 15 MG TABLET (FP) PO SCH (22:13)
[2022-10-12] MEDS: ATORVASTATIN CA 40 MG TABLET (FP) PO SCH (22:13)
[2022-10-12] MEDS: THIAMINE HCL 100 MG TABLET (FP) PO SCH (22:13)
[2022-10-13] MEDS ORDERED: chlordiazePOXIDE HCL 10 MG CAPSULE PO PRN
[2022-10-13] MEDS: chlordiazePOXIDE HCL 10 MG CAPSULE PO SCH ×4 (05:34→22:32)
[2022-10-13] MEDS: METHOCARBAMOL 500 MG TABLET PO PRN (05:36)
[2022-10-13] MEDS: PRENATAL VITAMINS W/ FOLIC ACID TABLET (FP) PO SCH (10:16)
[2022-10-13] MEDS: levETIRAcetam 500 MG TABLET (FP) PO SCH ×2 (10:16→22:32)
[2022-10-13] MEDS: SERTRALINE HCL 50 MG TABLET (FP) PO SCH (10:17)
[2022-10-13] MEDS: OXcarbazepine 300 MG TABLET (UD) PO SCH ×2 (10:17→22:32)
[2022-10-13] MEDS: hydrOXYzine PAMOATE 50 MG CAPSULE (FP) PO PRN ×2 (10:18→17:13)
[2022-10-13] MEDS: NICOTINE 10 MG CARTRIDGE (INHALER) IH SCH (10:55)
[2022-10-13] MEDS ORDERED: QUEtiapine FUMARATE 300 MG TABLET PO SCH (22:00)
[2022-10-13] MEDS ORDERED: MIRTAZAPINE 30 MG TABLET PO SCH (22:00)
[2022-10-13] MEDS: THIAMINE HCL 100 MG TABLET (FP) PO SCH (22:31)
[2022-10-13] MEDS: ATORVASTATIN CA 40 MG TABLET (FP) PO SCH (22:32)
[2022-10-14] MEDS ORDERED: chlordiazePOXIDE HCL 10 MG CAPSULE PO SCH (05:00)
[2022-10-14] MEDS: hydrOXYzine PAMOATE 50 MG CAPSULE (FP) PO PRN (05:52)
[2022-10-14] MEDS: levETIRAcetam 500 MG TABLET (FP) PO SCH (10:24)
[2022-10-14] MEDS: OXcarbazepine 300 MG TABLET (UD) PO SCH (10:24)
[2022-10-14] MEDS: SERTRALINE HCL 50 MG TABLET (FP) PO SCH (10:24)
[2022-10-14] MEDS: PRENATAL VITAMINS W/ FOLIC ACID TABLET (FP) PO SCH (10:24)
[2022-10-14] MEDS: METHOCARBAMOL 500 MG TABLET PO PRN (10:25)
[2022-10-14] MEDS: NICOTINE 10 MG CARTRIDGE (INHALER) IH SCH (10:26)
[2022-10-14 13:05] VITALS: BP 98/59; PULSE 87; RESP 19; TEMP 97.3
[2022-10-15] MEDS ORDERED: chlordiazePOXIDE HCL 10 MG CAPSULE PO ONE (05:00)
== END 2022-10-14 15:08 | disposition other institution (70) | DRG 775 ==
LOC: YASAS 16:04 → Y3N 18:33
PROVIDERS: ADMIT Allergy & Immunology; ATTEND Surgery
PROC: HZ2ZZZZ Detoxification Services for Substance Abuse Treatment (ICD-10-PCS; principal; 2022-10-10)
DX: F10.230 Alcohol dependence with withdrawal, uncomplicated (principal); F12.20 Cannabis dependence, uncomplicated; F17.210 Nicotine dependence, cigarettes, uncomplicated; F19.24 Other psychoactive substance dependence with psychoactive substance-induced mood disorder; F41.9 Anxiety disorder, unspecified; F32.A Depression, unspecified; E78.5 Hyperlipidemia, unspecified; I10 Essential (primary) hypertension; M54.50 Low back pain, unspecified; G89.29 Other chronic pain; Z86.16 Personal history of COVID-19; Z87.11 Personal history of peptic ulcer disease
CPT/HCPCS: 36415; 80053; 85027; 86780; 87811; C9803-CS; U0003; U0005

== ENCOUNTER 2022-10-14 15:07 | Inpatient (IN) | payer OTHER ==
[2022-10-14] MEDS ORDERED: POLYETHYLENE GLYCOL (HEALTHYLAX) 3350 17 GM PACKET PO PRN (15:54)
[2022-10-14] MEDS ORDERED: P-EPHED 60MG/TRIPROLIDI 2.5MG TABLET PO PRN (15:54)
[2022-10-14] MEDS ORDERED: MAGNESIUM HYDROX 2400MG/30ML ORAL SUSPENSION 30 ML CUP PO PRN (15:54)
[2022-10-14] MEDS ORDERED: guaiFENesin 200 MG/10 ML 10 ML UNIT-DOSE CUPS PO PRN (15:54)
[2022-10-14] MEDS ORDERED: BENZOCAINE/MENTHOL (CHLORASEPTIC ) LOZENGE MM PRN (15:54)
[2022-10-14] MEDS ORDERED: LOPERAMIDE HCL 2 MG CAPSULE PO PRN (15:54)
[2022-10-14] MEDS ORDERED: ACETAMINOPHEN 325 MG TABLET (FP) PO PRN (15:54)
[2022-10-14] MEDS: ATORVASTATIN CA 40 MG TABLET (FP) PO SCH (21:35)
[2022-10-14] MEDS: MIRTAZAPINE 30 MG TABLET PO SCH (21:35)
[2022-10-14] MEDS: levETIRAcetam 500 MG TABLET (FP) PO SCH (21:35)
[2022-10-14] MEDS: hydrOXYzine PAMOATE 25 MG CAPSULE (FP) PO PRN (21:36)
[2022-10-14] MEDS: THIAMINE HCL 100 MG TABLET (FP) PO SCH (21:36)
[2022-10-14] MEDS: MELATONIN 5 MG TABLETS PO SCH (21:36)
[2022-10-14] MEDS: QUEtiapine FUMARATE 400 MG TABLET PO SCH (21:37)
[2022-10-14] MEDS: NICOTINE 10 MG CARTRIDGE (INHALER) IH PRN (21:38)
[2022-10-14] MEDS ORDERED: QUEtiapine FUMARATE 300 MG TABLET PO SCH (22:00)
[2022-10-15] MEDS: OXcarbazepine 300 MG TABLET (UD) PO SCH ×3 (00:24→21:59)
[2022-10-15] MEDS: NICOTINE 10 MG CARTRIDGE (INHALER) IH PRN ×3 (06:24→22:02)
[2022-10-15] MEDS: levETIRAcetam 500 MG TABLET (FP) PO SCH ×2 (10:16→21:58)
[2022-10-15] MEDS: SERTRALINE HCL 50 MG TABLET (FP) PO SCH (10:16)
[2022-10-15] MEDS: NICOTINE 7 MG/24 HOURS TOPICAL PATCH TD SCH (10:16)
[2022-10-15] MEDS: PRENATAL VITAMINS W/ FOLIC ACID TABLET (FP) PO SCH (10:16)
[2022-10-15] MEDS: hydrOXYzine PAMOATE 25 MG CAPSULE (FP) PO PRN ×2 (10:18→22:01)
[2022-10-15] MEDS: MIRTAZAPINE 30 MG TABLET PO SCH (21:58)
[2022-10-15] MEDS: MELATONIN 5 MG TABLETS PO SCH (21:58)
[2022-10-15] MEDS: ATORVASTATIN CA 40 MG TABLET (FP) PO SCH (21:59)
[2022-10-15] MEDS: QUEtiapine FUMARATE 400 MG TABLET PO SCH (21:59)
[2022-10-15] MEDS: THIAMINE HCL 100 MG TABLET (FP) PO SCH (22:00)
[2022-10-16] MEDS: hydrOXYzine PAMOATE 25 MG CAPSULE (FP) PO PRN ×2 (06:23→21:17)
[2022-10-16] MEDS: levETIRAcetam 500 MG TABLET (FP) PO SCH ×2 (09:36→21:16)
[2022-10-16] MEDS: SERTRALINE HCL 50 MG TABLET (FP) PO SCH (09:36)
[2022-10-16] MEDS: OXcarbazepine 300 MG TABLET (UD) PO SCH ×2 (09:36→22:00)
[2022-10-16] MEDS: NICOTINE 7 MG/24 HOURS TOPICAL PATCH TD SCH (09:36)
[2022-10-16] MEDS: PRENATAL VITAMINS W/ FOLIC ACID TABLET (FP) PO SCH (09:36)
[2022-10-16] MEDS: NICOTINE 10 MG CARTRIDGE (INHALER) IH PRN ×2 (09:37→22:01)
[2022-10-16] MEDS: QUEtiapine FUMARATE 400 MG TABLET PO SCH (21:16)
[2022-10-16] MEDS: MELATONIN 5 MG TABLETS PO SCH (21:16)
[2022-10-16] MEDS: ATORVASTATIN CA 40 MG TABLET (FP) PO SCH (21:16)
[2022-10-16] MEDS: THIAMINE HCL 100 MG TABLET (FP) PO SCH (21:16)
[2022-10-16] MEDS: MIRTAZAPINE 30 MG TABLET PO SCH (21:17)
[2022-10-16] MEDS: IBUPROFEN 400 MG TABLET (FP) PO PRN (21:18)
[2022-10-17] MEDS: MAG HYDROX/AL HYDROX/SIMETH 30 ML UNIT-DOSE CUP PO PRN (01:15)
[2022-10-17] MEDS: PRENATAL VITAMINS W/ FOLIC ACID TABLET (FP) PO SCH (10:14)
[2022-10-17] MEDS: levETIRAcetam 500 MG TABLET (FP) PO SCH ×2 (10:15→21:33)
[2022-10-17] MEDS: NICOTINE 21 MG/24 HOURS TOPICAL PATCH TD SCH (10:15)
[2022-10-17] MEDS: SERTRALINE HCL 50 MG TABLET (FP) PO SCH (10:15)
[2022-10-17] MEDS: OXcarbazepine 300 MG TABLET (UD) PO SCH ×2 (10:15→21:33)
[2022-10-17] MEDS: hydrOXYzine PAMOATE 25 MG CAPSULE (FP) PO PRN (10:15)
[2022-10-17] MEDS: NICOTINE 7 MG/24 HOURS TOPICAL PATCH TD SCH (10:17)
[2022-10-17] MEDS ORDERED: ALBUTEROL SO4 HFA INHALER IH PRN (10:52)
[2022-10-17] MEDS: NICOTINE 10 MG CARTRIDGE (INHALER) IH PRN ×2 (11:56→21:34)
[2022-10-17] MEDS: FLUTICASONE/UMECLIDIN/VILANTER(100-62.5-25 TRELEGY ELLIPTA) INAHLER IH SCH (17:12)
[2022-10-17] MEDS: ATORVASTATIN CA 40 MG TABLET (FP) PO SCH (21:32)
[2022-10-17] MEDS: THIAMINE HCL 100 MG TABLET (FP) PO SCH (21:33)
[2022-10-17] MEDS: MIRTAZAPINE 30 MG TABLET PO SCH (21:33)
[2022-10-17] MEDS: QUEtiapine FUMARATE 400 MG TABLET PO SCH (21:33)
[2022-10-17] MEDS: MELATONIN 5 MG TABLETS PO SCH (21:33)
[2022-10-17] MEDS: IBUPROFEN 400 MG TABLET (FP) PO PRN (21:33)
[2022-10-18] MEDS: hydrOXYzine PAMOATE 25 MG CAPSULE (FP) PO PRN ×2 (06:17→21:48)
[2022-10-18] MEDS: FLUTICASONE/UMECLIDIN/VILANTER(100-62.5-25 TRELEGY ELLIPTA) INAHLER IH SCH (09:39)
[2022-10-18] MEDS: OXcarbazepine 300 MG TABLET (UD) PO SCH ×2 (09:39→21:48)
[2022-10-18] MEDS: PRENATAL VITAMINS W/ FOLIC ACID TABLET (FP) PO SCH (09:39)
[2022-10-18] MEDS: levETIRAcetam 500 MG TABLET (FP) PO SCH ×2 (09:39→21:48)
[2022-10-18] MEDS: SERTRALINE HCL 50 MG TABLET (FP) PO SCH (09:39)
[2022-10-18] MEDS: NICOTINE 21 MG/24 HOURS TOPICAL PATCH TD SCH (09:40)
[2022-10-18] MEDS: IBUPROFEN 400 MG TABLET (FP) PO PRN ×2 (09:42→21:48)
[2022-10-18] MEDS: NICOTINE 10 MG CARTRIDGE (INHALER) IH PRN ×2 (09:44→21:11)
[2022-10-18] MEDS: MAG HYDROX/AL HYDROX/SIMETH 30 ML UNIT-DOSE CUP PO PRN (13:25)
[2022-10-18] MEDS ORDERED: QUEtiapine FUMARATE 400 MG TABLET PO SCH (14:34)
[2022-10-18] MEDS: ATORVASTATIN CA 40 MG TABLET (FP) PO SCH (21:48)
[2022-10-18] MEDS: MELATONIN 5 MG TABLETS PO SCH (21:48)
[2022-10-18] MEDS: THIAMINE HCL 100 MG TABLET (FP) PO SCH (21:48)
[2022-10-18] MEDS: MIRTAZAPINE 30 MG TABLET PO SCH (21:48)
[2022-10-18] MEDS: QUETIAPINE FUMARATE 400 MG, QUETIAPINE FUMARATE 100 MG PO SCH (21:48)
[2022-10-19] MEDS: NICOTINE 10 MG CARTRIDGE (INHALER) IH PRN ×3 (06:24→19:31)
[2022-10-19] MEDS: hydrOXYzine PAMOATE 25 MG CAPSULE (FP) PO PRN ×3 (06:24→19:32)
[2022-10-19] MEDS: levETIRAcetam 500 MG TABLET (FP) PO SCH ×2 (09:34→21:29)
[2022-10-19] MEDS: NICOTINE 21 MG/24 HOURS TOPICAL PATCH TD SCH (09:35)
[2022-10-19] MEDS: OXcarbazepine 300 MG TABLET (UD) PO SCH ×2 (09:35→21:29)
[2022-10-19] MEDS: FLUTICASONE/UMECLIDIN/VILANTER(100-62.5-25 TRELEGY ELLIPTA) INAHLER IH SCH (09:35)
[2022-10-19] MEDS: PRENATAL VITAMINS W/ FOLIC ACID TABLET (FP) PO SCH (09:35)
[2022-10-19] MEDS: SERTRALINE HCL 50 MG TABLET (FP) PO SCH (09:36)
[2022-10-19] MEDS: GABAPENTIN 100 MG CAPSULE PO SCH ×2 (14:06→21:29)
[2022-10-19] MEDS: MAG HYDROX/AL HYDROX/SIMETH 30 ML UNIT-DOSE CUP PO PRN (19:32)
[2022-10-19] MEDS: MIRTAZAPINE 30 MG TABLET PO SCH (21:29)
[2022-10-19] MEDS: QUETIAPINE FUMARATE 400 MG, QUETIAPINE FUMARATE 100 MG PO SCH (21:29)
[2022-10-19] MEDS: ATORVASTATIN CA 40 MG TABLET (FP) PO SCH (21:29)
[2022-10-19] MEDS: MELATONIN 5 MG TABLETS PO SCH (21:29)
[2022-10-19] MEDS: THIAMINE HCL 100 MG TABLET (FP) PO SCH (21:30)
[2022-10-19] MEDS: IBUPROFEN 400 MG TABLET (FP) PO PRN (21:30)
[2022-10-20] MEDS: hydrOXYzine PAMOATE 25 MG CAPSULE (FP) PO PRN ×4 (03:24→22:46)
[2022-10-20] MEDS: MAG HYDROX/AL HYDROX/SIMETH 30 ML UNIT-DOSE CUP PO PRN (03:24)
[2022-10-20] MEDS: GABAPENTIN 100 MG CAPSULE PO SCH ×3 (06:38→21:26)
[2022-10-20] MEDS: FLUTICASONE/UMECLIDIN/VILANTER(100-62.5-25 TRELEGY ELLIPTA) INAHLER IH SCH (09:39)
[2022-10-20] MEDS: SERTRALINE HCL 50 MG TABLET (FP) PO SCH (09:40)
[2022-10-20] MEDS: levETIRAcetam 500 MG TABLET (FP) PO SCH ×2 (09:40→21:26)
[2022-10-20] MEDS: PRENATAL VITAMINS W/ FOLIC ACID TABLET (FP) PO SCH (09:40)
[2022-10-20] MEDS: NICOTINE 21 MG/24 HOURS TOPICAL PATCH TD SCH (09:40)
[2022-10-20] MEDS: OXcarbazepine 300 MG TABLET (UD) PO SCH ×2 (09:40→21:26)
[2022-10-20 15:17] LABS: INR 1.09 (0.83-1.09); PROTHROMBIN TIME (PATIENT) 12.6 SEC (9.7-13.0)
[2022-10-20] MEDS: MELATONIN 5 MG TABLETS PO SCH (21:26)
[2022-10-20] MEDS: ATORVASTATIN CA 40 MG TABLET (FP) PO SCH (21:26)
[2022-10-20] MEDS: THIAMINE HCL 100 MG TABLET (FP) PO SCH (21:26)
[2022-10-20] MEDS: MIRTAZAPINE 30 MG TABLET PO SCH (21:26)
[2022-10-20] MEDS: QUETIAPINE FUMARATE 400 MG, QUETIAPINE FUMARATE 100 MG PO SCH (21:26)
[2022-10-20] MEDS: IBUPROFEN 400 MG TABLET (FP) PO PRN (21:27)
[2022-10-20] MEDS: NICOTINE 10 MG CARTRIDGE (INHALER) IH PRN (21:28)
[2022-10-21] MEDS: hydrOXYzine PAMOATE 25 MG CAPSULE (FP) PO PRN ×3 (06:18→21:06)
[2022-10-21] MEDS: GABAPENTIN 100 MG CAPSULE PO SCH ×3 (06:18→21:06)
[2022-10-21] MEDS: NICOTINE 10 MG CARTRIDGE (INHALER) IH PRN ×4 (06:19→21:08)
[2022-10-21] MEDS: levETIRAcetam 500 MG TABLET (FP) PO SCH ×2 (10:17→21:05)
[2022-10-21] MEDS: PRENATAL VITAMINS W/ FOLIC ACID TABLET (FP) PO SCH (10:18)
[2022-10-21] MEDS: NICOTINE 21 MG/24 HOURS TOPICAL PATCH TD SCH (10:18)
[2022-10-21] MEDS: SERTRALINE HCL 50 MG TABLET (FP) PO SCH (10:18)
[2022-10-21] MEDS: OXcarbazepine 300 MG TABLET (UD) PO SCH ×2 (10:19→21:04)
[2022-10-21] MEDS: FLUTICASONE/UMECLIDIN/VILANTER(100-62.5-25 TRELEGY ELLIPTA) INAHLER IH SCH (10:19)
[2022-10-21] MEDS: IBUPROFEN 400 MG TABLET (FP) PO PRN ×2 (10:20→21:07)
[2022-10-21] MEDS: LACTULOSE 20 GM/30 ML UDC (FOR ORAL USE ONLY) PO SCH ×2 (13:44→21:04)
[2022-10-21] MEDS: QUETIAPINE FUMARATE 400 MG, QUETIAPINE FUMARATE 100 MG PO SCH (21:04)
[2022-10-21] MEDS: MIRTAZAPINE 30 MG TABLET PO SCH (21:05)
[2022-10-21] MEDS: ATORVASTATIN CA 40 MG TABLET (FP) PO SCH (21:05)
[2022-10-21] MEDS: THIAMINE HCL 100 MG TABLET (FP) PO SCH (21:06)
[2022-10-21] MEDS: MELATONIN 5 MG TABLETS PO SCH (21:07)
[2022-10-22] MEDS: MAG HYDROX/AL HYDROX/SIMETH 30 ML UNIT-DOSE CUP PO PRN ×2 (02:06→23:29)
[2022-10-22] MEDS: GABAPENTIN 100 MG CAPSULE PO SCH ×3 (05:58→21:09)
[2022-10-22] MEDS: hydrOXYzine PAMOATE 25 MG CAPSULE (FP) PO PRN ×3 (05:58→21:08)
[2022-10-22] MEDS: NICOTINE 10 MG CARTRIDGE (INHALER) IH PRN ×4 (06:07→21:09)
[2022-10-22] MEDS: LACTULOSE 20 GM/30 ML UDC (FOR ORAL USE ONLY) PO SCH ×3 (06:52→21:09)
[2022-10-22] MEDS: OXcarbazepine 300 MG TABLET (UD) PO SCH ×2 (09:42→21:07)
[2022-10-22] MEDS: PRENATAL VITAMINS W/ FOLIC ACID TABLET (FP) PO SCH (09:42)
[2022-10-22] MEDS: NICOTINE 21 MG/24 HOURS TOPICAL PATCH TD SCH (09:43)
[2022-10-22] MEDS: FLUTICASONE/UMECLIDIN/VILANTER(100-62.5-25 TRELEGY ELLIPTA) INAHLER IH SCH (09:43)
[2022-10-22] MEDS: levETIRAcetam 500 MG TABLET (FP) PO SCH ×2 (09:44→21:07)
[2022-10-22] MEDS: SERTRALINE HCL 50 MG TABLET (FP) PO SCH (09:44)
[2022-10-22] MEDS: THIAMINE HCL 100 MG TABLET (FP) PO SCH (21:07)
[2022-10-22] MEDS: ATORVASTATIN CA 40 MG TABLET (FP) PO SCH (21:07)
[2022-10-22] MEDS: MELATONIN 5 MG TABLETS PO SCH (21:07)
[2022-10-22] MEDS: MIRTAZAPINE 30 MG TABLET PO SCH (21:08)
[2022-10-22] MEDS: QUETIAPINE FUMARATE 400 MG, QUETIAPINE FUMARATE 100 MG PO SCH (21:08)
[2022-10-22] MEDS: IBUPROFEN 400 MG TABLET (FP) PO PRN (21:09)
[2022-10-23] MEDS: LACTULOSE 20 GM/30 ML UDC (FOR ORAL USE ONLY) PO SCH ×3 (06:14→21:20)
[2022-10-23] MEDS: GABAPENTIN 100 MG CAPSULE PO SCH ×3 (06:14→21:20)
[2022-10-23] MEDS: hydrOXYzine PAMOATE 25 MG CAPSULE (FP) PO PRN ×3 (06:14→21:20)
[2022-10-23] MEDS: IBUPROFEN 400 MG TABLET (FP) PO PRN ×2 (06:15→21:20)
[2022-10-23] MEDS: NICOTINE 10 MG CARTRIDGE (INHALER) IH PRN ×4 (06:21→21:22)
[2022-10-23] MEDS: PRENATAL VITAMINS W/ FOLIC ACID TABLET (FP) PO SCH (09:38)
[2022-10-23] MEDS: OXcarbazepine 300 MG TABLET (UD) PO SCH ×2 (09:39→21:20)
[2022-10-23] MEDS: SERTRALINE HCL 50 MG TABLET (FP) PO SCH (09:39)
[2022-10-23] MEDS: FLUTICASONE/UMECLIDIN/VILANTER(100-62.5-25 TRELEGY ELLIPTA) INAHLER IH SCH (09:39)
[2022-10-23] MEDS: levETIRAcetam 500 MG TABLET (FP) PO SCH ×2 (09:39→21:20)
[2022-10-23] MEDS: NICOTINE 21 MG/24 HOURS TOPICAL PATCH TD SCH (09:42)
[2022-10-23] MEDS: MAG HYDROX/AL HYDROX/SIMETH 30 ML UNIT-DOSE CUP PO PRN ×2 (13:50→21:22)
[2022-10-23] MEDS: ATORVASTATIN CA 40 MG TABLET (FP) PO SCH (21:20)
[2022-10-23] MEDS: MIRTAZAPINE 30 MG TABLET PO SCH (21:20)
[2022-10-23] MEDS: THIAMINE HCL 100 MG TABLET (FP) PO SCH (21:20)
[2022-10-23] MEDS: MELATONIN 5 MG TABLETS PO SCH (21:20)
[2022-10-23] MEDS: QUETIAPINE FUMARATE 400 MG, QUETIAPINE FUMARATE 100 MG PO SCH (21:20)
[2022-10-24] MEDS: LACTULOSE 20 GM/30 ML UDC (FOR ORAL USE ONLY) PO SCH ×3 (06:00→21:25)
[2022-10-24] MEDS: GABAPENTIN 100 MG CAPSULE PO SCH ×3 (06:02→21:25)
[2022-10-24] MEDS: hydrOXYzine PAMOATE 25 MG CAPSULE (FP) PO PRN ×3 (06:04→21:27)
[2022-10-24] MEDS: PRENATAL VITAMINS W/ FOLIC ACID TABLET (FP) PO SCH (10:26)
[2022-10-24] MEDS: SERTRALINE HCL 50 MG TABLET (FP) PO SCH (10:27)
[2022-10-24] MEDS: levETIRAcetam 500 MG TABLET (FP) PO SCH ×2 (10:27→21:26)
[2022-10-24] MEDS: OXcarbazepine 300 MG TABLET (UD) PO SCH ×2 (10:27→21:26)
[2022-10-24] MEDS: NICOTINE 21 MG/24 HOURS TOPICAL PATCH TD SCH (10:28)
[2022-10-24] MEDS: FLUTICASONE/UMECLIDIN/VILANTER(100-62.5-25 TRELEGY ELLIPTA) INAHLER IH SCH (10:28)
[2022-10-24] MEDS: NICOTINE 10 MG CARTRIDGE (INHALER) IH PRN ×2 (10:30→21:28)
[2022-10-24] MEDS: ATORVASTATIN CA 40 MG TABLET (FP) PO SCH (21:25)
[2022-10-24] MEDS: THIAMINE HCL 100 MG TABLET (FP) PO SCH (21:26)
[2022-10-24] MEDS: MIRTAZAPINE 30 MG TABLET PO SCH (21:26)
[2022-10-24] MEDS: QUETIAPINE FUMARATE 400 MG, QUETIAPINE FUMARATE 100 MG PO SCH (21:26)
[2022-10-24] MEDS: MELATONIN 5 MG TABLETS PO SCH (21:26)
[2022-10-24] MEDS: IBUPROFEN 400 MG TABLET (FP) PO PRN (21:27)
[2022-10-25] MEDS: LACTULOSE 20 GM/30 ML UDC (FOR ORAL USE ONLY) PO SCH ×3 (06:14→21:28)
[2022-10-25] MEDS: GABAPENTIN 100 MG CAPSULE PO SCH ×3 (06:14→21:28)
[2022-10-25] MEDS: hydrOXYzine PAMOATE 25 MG CAPSULE (FP) PO PRN ×3 (06:15→21:28)
[2022-10-25] MEDS: NICOTINE 10 MG CARTRIDGE (INHALER) IH PRN ×4 (06:50→18:42)
[2022-10-25] MEDS: SERTRALINE HCL 50 MG TABLET (FP) PO SCH (09:39)
[2022-10-25] MEDS: OXcarbazepine 300 MG TABLET (UD) PO SCH ×2 (09:39→21:28)
[2022-10-25] MEDS: PRENATAL VITAMINS W/ FOLIC ACID TABLET (FP) PO SCH (09:39)
[2022-10-25] MEDS: levETIRAcetam 500 MG TABLET (FP) PO SCH ×2 (09:39→21:29)
[2022-10-25] MEDS: FLUTICASONE/UMECLIDIN/VILANTER(100-62.5-25 TRELEGY ELLIPTA) INAHLER IH SCH (09:40)
[2022-10-25] MEDS: NICOTINE 21 MG/24 HOURS TOPICAL PATCH TD SCH (10:49)
[2022-10-25] MEDS: METHOCARBAMOL 500 MG TABLET PO SCH ×2 (11:35→21:27)
[2022-10-25] MEDS: MIRTAZAPINE 30 MG TABLET PO SCH (21:27)
[2022-10-25] MEDS: QUETIAPINE FUMARATE 400 MG, QUETIAPINE FUMARATE 100 MG PO SCH (21:28)
[2022-10-25] MEDS: ATORVASTATIN CA 40 MG TABLET (FP) PO SCH (21:28)
[2022-10-25] MEDS: THIAMINE HCL 100 MG TABLET (FP) PO SCH (21:28)
[2022-10-25] MEDS: MELATONIN 5 MG TABLETS PO SCH (21:28)
[2022-10-25] MEDS: IBUPROFEN 400 MG TABLET (FP) PO PRN (21:29)
[2022-10-26] MEDS: LACTULOSE 20 GM/30 ML UDC (FOR ORAL USE ONLY) PO SCH ×3 (06:07→21:07)
[2022-10-26] MEDS: hydrOXYzine PAMOATE 25 MG CAPSULE (FP) PO PRN ×2 (06:08→14:08)
[2022-10-26] MEDS: GABAPENTIN 100 MG CAPSULE PO SCH ×2 (06:08→14:07)
[2022-10-26] MEDS: PRENATAL VITAMINS W/ FOLIC ACID TABLET (FP) PO SCH (10:24)
[2022-10-26] MEDS: levETIRAcetam 500 MG TABLET (FP) PO SCH ×2 (10:24→21:06)
[2022-10-26] MEDS: NICOTINE 21 MG/24 HOURS TOPICAL PATCH TD SCH (10:24)
[2022-10-26] MEDS: SERTRALINE HCL 50 MG TABLET (FP) PO SCH (10:25)
[2022-10-26] MEDS: METHOCARBAMOL 500 MG TABLET PO SCH ×2 (10:25→21:06)
[2022-10-26] MEDS: OXcarbazepine 300 MG TABLET (UD) PO SCH ×2 (10:25→21:06)
[2022-10-26] MEDS: FLUTICASONE/UMECLIDIN/VILANTER(100-62.5-25 TRELEGY ELLIPTA) INAHLER IH SCH (10:26)
[2022-10-26] MEDS: NICOTINE 10 MG CARTRIDGE (INHALER) IH PRN ×2 (10:27→21:08)
[2022-10-26] MEDS: QUETIAPINE FUMARATE 400 MG, QUETIAPINE FUMARATE 100 MG PO SCH (21:06)
[2022-10-26] MEDS: MELATONIN 5 MG TABLETS PO SCH (21:06)
[2022-10-26] MEDS: THIAMINE HCL 100 MG TABLET (FP) PO SCH (21:06)
[2022-10-26] MEDS: MIRTAZAPINE 30 MG TABLET PO SCH (21:07)
[2022-10-26] MEDS: ATORVASTATIN CA 40 MG TABLET (FP) PO SCH (21:07)
[2022-10-26] MEDS: MAG HYDROX/AL HYDROX/SIMETH 30 ML UNIT-DOSE CUP PO PRN (21:08)
[2022-10-26] MEDS: IBUPROFEN 400 MG TABLET (FP) PO PRN (21:08)
[2022-10-26] MEDS: GABAPENTIN 400 MG CAPSULE PO SCH (21:08)
[2022-10-27] MEDS: hydrOXYzine PAMOATE 25 MG CAPSULE (FP) PO PRN ×3 (06:25→21:13)
[2022-10-27] MEDS: LACTULOSE 20 GM/30 ML UDC (FOR ORAL USE ONLY) PO SCH ×3 (06:25→21:13)
[2022-10-27] MEDS: GABAPENTIN 400 MG CAPSULE PO SCH ×3 (06:25→21:13)
[2022-10-27] MEDS: NICOTINE 10 MG CARTRIDGE (INHALER) IH PRN ×4 (06:25→21:14)
[2022-10-27] MEDS: SERTRALINE HCL 50 MG TABLET (FP) PO SCH (10:22)
[2022-10-27] MEDS: levETIRAcetam 500 MG TABLET (FP) PO SCH ×2 (10:22→21:13)
[2022-10-27] MEDS: FLUTICASONE/UMECLIDIN/VILANTER(100-62.5-25 TRELEGY ELLIPTA) INAHLER IH SCH (10:22)
[2022-10-27] MEDS: OXcarbazepine 300 MG TABLET (UD) PO SCH ×2 (10:22→21:13)
[2022-10-27] MEDS: METHOCARBAMOL 500 MG TABLET PO SCH ×2 (10:22→21:13)
[2022-10-27] MEDS: PRENATAL VITAMINS W/ FOLIC ACID TABLET (FP) PO SCH (10:22)
[2022-10-27] MEDS: NICOTINE 21 MG/24 HOURS TOPICAL PATCH TD SCH (10:23)
[2022-10-27] MEDS: IBUPROFEN 400 MG TABLET (FP) PO PRN ×2 (14:00→21:13)
[2022-10-27] MEDS: ATORVASTATIN CA 40 MG TABLET (FP) PO SCH (21:13)
[2022-10-27] MEDS: QUETIAPINE FUMARATE 400 MG, QUETIAPINE FUMARATE 100 MG PO SCH (21:13)
[2022-10-27] MEDS: MIRTAZAPINE 30 MG TABLET PO SCH (21:13)
[2022-10-27] MEDS: MELATONIN 5 MG TABLETS PO SCH (21:14)
[2022-10-27] MEDS: THIAMINE HCL 100 MG TABLET (FP) PO SCH (21:14)
[2022-10-28] MEDS: NICOTINE 10 MG CARTRIDGE (INHALER) IH PRN ×4 (06:24→21:25)
[2022-10-28] MEDS: LACTULOSE 20 GM/30 ML UDC (FOR ORAL USE ONLY) PO SCH ×3 (06:24→21:24)
[2022-10-28] MEDS: GABAPENTIN 400 MG CAPSULE PO SCH ×3 (06:25→21:24)
[2022-10-28] MEDS: IBUPROFEN 400 MG TABLET (FP) PO PRN ×2 (06:26→21:24)
[2022-10-28] MEDS: hydrOXYzine PAMOATE 25 MG CAPSULE (FP) PO PRN ×3 (06:26→21:24)
[2022-10-28] MEDS: NICOTINE 21 MG/24 HOURS TOPICAL PATCH TD SCH (09:36)
[2022-10-28] MEDS: PRENATAL VITAMINS W/ FOLIC ACID TABLET (FP) PO SCH (09:36)
[2022-10-28] MEDS: FLUTICASONE/UMECLIDIN/VILANTER(100-62.5-25 TRELEGY ELLIPTA) INAHLER IH SCH (09:37)
[2022-10-28] MEDS: levETIRAcetam 500 MG TABLET (FP) PO SCH ×2 (09:39→21:24)
[2022-10-28] MEDS: SERTRALINE HCL 50 MG TABLET (FP) PO SCH (09:39)
[2022-10-28] MEDS: METHOCARBAMOL 500 MG TABLET PO SCH ×2 (09:39→21:24)
[2022-10-28] MEDS: OXcarbazepine 300 MG TABLET (UD) PO SCH ×2 (09:39→21:24)
[2022-10-28] MEDS: THIAMINE HCL 100 MG TABLET (FP) PO SCH (21:23)
[2022-10-28] MEDS: MELATONIN 5 MG TABLETS PO SCH (21:23)
[2022-10-28] MEDS: QUETIAPINE FUMARATE 400 MG, QUETIAPINE FUMARATE 100 MG PO SCH (21:24)
[2022-10-28] MEDS: MIRTAZAPINE 30 MG TABLET PO SCH (21:24)
[2022-10-28] MEDS: ATORVASTATIN CA 40 MG TABLET (FP) PO SCH (21:24)
[2022-10-29] MEDS: GABAPENTIN 400 MG CAPSULE PO SCH ×3 (06:24→21:04)
[2022-10-29] MEDS: LACTULOSE 20 GM/30 ML UDC (FOR ORAL USE ONLY) PO SCH ×3 (06:24→21:06)
[2022-10-29] MEDS: NICOTINE 10 MG CARTRIDGE (INHALER) IH PRN ×4 (06:24→19:22)
[2022-10-29] MEDS: hydrOXYzine PAMOATE 25 MG CAPSULE (FP) PO PRN ×3 (06:25→21:04)
[2022-10-29] MEDS: FLUTICASONE/UMECLIDIN/VILANTER(100-62.5-25 TRELEGY ELLIPTA) INAHLER IH SCH (09:31)
[2022-10-29] MEDS: PRENATAL VITAMINS W/ FOLIC ACID TABLET (FP) PO SCH (09:31)
[2022-10-29] MEDS: levETIRAcetam 500 MG TABLET (FP) PO SCH ×2 (09:32→21:03)
[2022-10-29] MEDS: METHOCARBAMOL 500 MG TABLET PO SCH ×2 (09:32→21:03)
[2022-10-29] MEDS: SERTRALINE HCL 50 MG TABLET (FP) PO SCH (09:32)
[2022-10-29] MEDS: OXcarbazepine 300 MG TABLET (UD) PO SCH ×2 (09:32→21:05)
[2022-10-29] MEDS: NICOTINE 21 MG/24 HOURS TOPICAL PATCH TD SCH (10:11)
[2022-10-29] MEDS: IBUPROFEN 400 MG TABLET (FP) PO PRN ×2 (13:09→21:06)
[2022-10-29] MEDS: QUETIAPINE FUMARATE 400 MG, QUETIAPINE FUMARATE 100 MG PO SCH (21:03)
[2022-10-29] MEDS: ATORVASTATIN CA 40 MG TABLET (FP) PO SCH (21:03)
[2022-10-29] MEDS: THIAMINE HCL 100 MG TABLET (FP) PO SCH (21:04)
[2022-10-29] MEDS: MELATONIN 5 MG TABLETS PO SCH (21:04)
[2022-10-29] MEDS: MIRTAZAPINE 30 MG TABLET PO SCH (21:04)
[2022-10-30] MEDS: MAG HYDROX/AL HYDROX/SIMETH 30 ML UNIT-DOSE CUP PO PRN ×2 (00:53→23:49)
[2022-10-30] MEDS: GABAPENTIN 400 MG CAPSULE PO SCH ×3 (06:08→21:26)
[2022-10-30] MEDS: NICOTINE 10 MG CARTRIDGE (INHALER) IH PRN ×5 (06:08→21:28)
[2022-10-30] MEDS: LACTULOSE 20 GM/30 ML UDC (FOR ORAL USE ONLY) PO SCH ×3 (06:08→21:26)
[2022-10-30] MEDS: SERTRALINE HCL 50 MG TABLET (FP) PO SCH (09:59)
[2022-10-30] MEDS: METHOCARBAMOL 500 MG TABLET PO SCH ×2 (09:59→21:27)
[2022-10-30] MEDS: PRENATAL VITAMINS W/ FOLIC ACID TABLET (FP) PO SCH (09:59)
[2022-10-30] MEDS: OXcarbazepine 300 MG TABLET (UD) PO SCH ×2 (09:59→21:29)
[2022-10-30] MEDS: levETIRAcetam 500 MG TABLET (FP) PO SCH ×2 (09:59→21:28)
[2022-10-30] MEDS: FLUTICASONE/UMECLIDIN/VILANTER(100-62.5-25 TRELEGY ELLIPTA) INAHLER IH SCH (09:59)
[2022-10-30] MEDS: IBUPROFEN 400 MG TABLET (FP) PO PRN ×2 (10:00→21:27)
[2022-10-30] MEDS: NICOTINE 21 MG/24 HOURS TOPICAL PATCH TD SCH (10:02)
[2022-10-30] MEDS: hydrOXYzine PAMOATE 25 MG CAPSULE (FP) PO PRN ×2 (13:01→21:28)
[2022-10-30] MEDS: QUETIAPINE FUMARATE 400 MG, QUETIAPINE FUMARATE 100 MG PO SCH (21:26)
[2022-10-30] MEDS: ATORVASTATIN CA 40 MG TABLET (FP) PO SCH (21:27)
[2022-10-30] MEDS: MIRTAZAPINE 30 MG TABLET PO SCH (21:28)
[2022-10-30] MEDS: MELATONIN 5 MG TABLETS PO SCH (21:28)
[2022-10-30] MEDS: THIAMINE HCL 100 MG TABLET (FP) PO SCH (21:29)
[2022-10-31] MEDS: hydrOXYzine PAMOATE 25 MG CAPSULE (FP) PO PRN ×3 (05:59→21:41)
[2022-10-31] MEDS: GABAPENTIN 400 MG CAPSULE PO SCH ×3 (05:59→21:40)
[2022-10-31] MEDS: LACTULOSE 20 GM/30 ML UDC (FOR ORAL USE ONLY) PO SCH ×3 (05:59→21:39)
[2022-10-31] MEDS: NICOTINE 10 MG CARTRIDGE (INHALER) IH PRN ×5 (06:00→21:41)
[2022-10-31] MEDS: METHOCARBAMOL 500 MG TABLET PO SCH ×2 (09:33→21:40)
[2022-10-31] MEDS: OXcarbazepine 300 MG TABLET (UD) PO SCH ×2 (09:33→21:39)
[2022-10-31] MEDS: SERTRALINE HCL 50 MG TABLET (FP) PO SCH (09:33)
[2022-10-31] MEDS: PRENATAL VITAMINS W/ FOLIC ACID TABLET (FP) PO SCH (09:33)
[2022-10-31] MEDS: FLUTICASONE/UMECLIDIN/VILANTER(100-62.5-25 TRELEGY ELLIPTA) INAHLER IH SCH (09:33)
[2022-10-31] MEDS: levETIRAcetam 500 MG TABLET (FP) PO SCH ×2 (09:33→21:39)
[2022-10-31] MEDS: IBUPROFEN 400 MG TABLET (FP) PO PRN ×2 (09:34→21:39)
[2022-10-31] MEDS: NICOTINE 21 MG/24 HOURS TOPICAL PATCH TD SCH (10:04)
[2022-10-31] MEDS: QUETIAPINE FUMARATE 400 MG, QUETIAPINE FUMARATE 100 MG PO SCH (21:39)
[2022-10-31] MEDS: THIAMINE HCL 100 MG TABLET (FP) PO SCH (21:40)
[2022-10-31] MEDS: MIRTAZAPINE 30 MG TABLET PO SCH (21:40)
[2022-10-31] MEDS: ATORVASTATIN CA 40 MG TABLET (FP) PO SCH (21:40)
[2022-10-31] MEDS: MELATONIN 5 MG TABLETS PO SCH (21:40)
[2022-11-01] MEDS: LACTULOSE 20 GM/30 ML UDC (FOR ORAL USE ONLY) PO SCH ×3 (06:03→21:04)
[2022-11-01] MEDS: GABAPENTIN 400 MG CAPSULE PO SCH ×3 (06:03→21:04)
[2022-11-01] MEDS: NICOTINE 10 MG CARTRIDGE (INHALER) IH PRN ×4 (06:03→18:07)
[2022-11-01] MEDS: hydrOXYzine PAMOATE 25 MG CAPSULE (FP) PO PRN ×3 (06:03→21:04)
[2022-11-01 07:26] VITALS: RESP 18
[2022-11-01] MEDS: FLUTICASONE/UMECLIDIN/VILANTER(100-62.5-25 TRELEGY ELLIPTA) INAHLER IH SCH (10:15)
[2022-11-01] MEDS: NICOTINE 21 MG/24 HOURS TOPICAL PATCH TD SCH (10:16)
[2022-11-01] MEDS: levETIRAcetam 500 MG TABLET (FP) PO SCH ×2 (10:16→21:04)
[2022-11-01] MEDS: SERTRALINE HCL 50 MG TABLET (FP) PO SCH (10:16)
[2022-11-01] MEDS: IBUPROFEN 400 MG TABLET (FP) PO PRN ×2 (10:16→21:05)
[2022-11-01] MEDS: METHOCARBAMOL 500 MG TABLET PO SCH ×2 (10:16→21:04)
[2022-11-01] MEDS: PRENATAL VITAMINS W/ FOLIC ACID TABLET (FP) PO SCH (10:16)
[2022-11-01] MEDS: OXcarbazepine 300 MG TABLET (UD) PO SCH ×2 (10:16→21:04)
[2022-11-01] MEDS: ATORVASTATIN CA 40 MG TABLET (FP) PO SCH (21:04)
[2022-11-01] MEDS: MIRTAZAPINE 30 MG TABLET PO SCH (21:04)
[2022-11-01] MEDS: THIAMINE HCL 100 MG TABLET (FP) PO SCH (21:04)
[2022-11-01] MEDS: QUETIAPINE FUMARATE 400 MG, QUETIAPINE FUMARATE 100 MG PO SCH (21:04)
[2022-11-01] MEDS: MELATONIN 5 MG TABLETS PO SCH (21:04)
[2022-11-02] MEDS: LACTULOSE 20 GM/30 ML UDC (FOR ORAL USE ONLY) PO SCH ×3 (05:57→21:12)
[2022-11-02] MEDS: hydrOXYzine PAMOATE 25 MG CAPSULE (FP) PO PRN ×3 (05:58→21:12)
[2022-11-02] MEDS: GABAPENTIN 400 MG CAPSULE PO SCH ×3 (05:58→21:12)
[2022-11-02] MEDS: IBUPROFEN 400 MG TABLET (FP) PO PRN ×3 (05:58→21:12)
[2022-11-02] MEDS: NICOTINE 10 MG CARTRIDGE (INHALER) IH PRN ×4 (05:59→21:12)
[2022-11-02] MEDS: PRENATAL VITAMINS W/ FOLIC ACID TABLET (FP) PO SCH (10:51)
[2022-11-02] MEDS: METHOCARBAMOL 500 MG TABLET PO SCH ×2 (10:51→21:12)
[2022-11-02] MEDS: OXcarbazepine 300 MG TABLET (UD) PO SCH ×2 (10:52→21:12)
[2022-11-02] MEDS: SERTRALINE HCL 50 MG TABLET (FP) PO SCH (10:52)
[2022-11-02] MEDS: levETIRAcetam 500 MG TABLET (FP) PO SCH ×2 (10:52→21:12)
[2022-11-02] MEDS: FLUTICASONE/UMECLIDIN/VILANTER(100-62.5-25 TRELEGY ELLIPTA) INAHLER IH SCH (10:53)
[2022-11-02] MEDS: NICOTINE 21 MG/24 HOURS TOPICAL PATCH TD SCH (10:56)
[2022-11-02] MEDS: QUETIAPINE FUMARATE 400 MG, QUETIAPINE FUMARATE 100 MG PO SCH (21:11)
[2022-11-02] MEDS: ATORVASTATIN CA 40 MG TABLET (FP) PO SCH (21:12)
[2022-11-02] MEDS: THIAMINE HCL 100 MG TABLET (FP) PO SCH (21:12)
[2022-11-02] MEDS: MIRTAZAPINE 30 MG TABLET PO SCH (21:12)
[2022-11-02] MEDS: MELATONIN 5 MG TABLETS PO SCH (21:12)
[2022-11-03] MEDS: NICOTINE 10 MG CARTRIDGE (INHALER) IH PRN ×2 (06:02→09:06)
[2022-11-03] MEDS: LACTULOSE 20 GM/30 ML UDC (FOR ORAL USE ONLY) PO SCH (06:02)
[2022-11-03] MEDS: GABAPENTIN 400 MG CAPSULE PO SCH (06:02)
[2022-11-03] MEDS: hydrOXYzine PAMOATE 25 MG CAPSULE (FP) PO PRN (06:03)
[2022-11-03] MEDS: IBUPROFEN 400 MG TABLET (FP) PO PRN (06:03)
[2022-11-03 07:12] VITALS: BP 153/104; PULSE 84; TEMP 98
[2022-11-03] MEDS: FLUTICASONE/UMECLIDIN/VILANTER(100-62.5-25 TRELEGY ELLIPTA) INAHLER IH SCH (09:05)
[2022-11-03] MEDS: OXcarbazepine 300 MG TABLET (UD) PO SCH (09:05)
[2022-11-03] MEDS: NICOTINE 21 MG/24 HOURS TOPICAL PATCH TD SCH (09:05)
[2022-11-03] MEDS: levETIRAcetam 500 MG TABLET (FP) PO SCH (09:06)
[2022-11-03] MEDS: METHOCARBAMOL 500 MG TABLET PO SCH (09:06)
[2022-11-03] MEDS: PRENATAL VITAMINS W/ FOLIC ACID TABLET (FP) PO SCH (09:06)
[2022-11-03] MEDS: SERTRALINE HCL 50 MG TABLET (FP) PO SCH (09:06)
== END 2022-11-03 09:10 | disposition home or self-care (01) | DRG 772 ==
LOC: YASAS 15:07 → Y3W 15:08
PROVIDERS: ADMIT Allergy & Immunology; ATTEND Allergy & Immunology
PROC: HZ42ZZZ Group Counseling for Substance Abuse Treatment, Cognitive-Behavioral (ICD-10-PCS; principal; 2022-10-14)
DX: F10.20 Alcohol dependence, uncomplicated (principal); F12.20 Cannabis dependence, uncomplicated; F17.210 Nicotine dependence, cigarettes, uncomplicated; F19.24 Other psychoactive substance dependence with psychoactive substance-induced mood disorder; F41.9 Anxiety disorder, unspecified; F32.A Depression, unspecified; E72.20 Disorder of urea cycle metabolism, unspecified; E78.5 Hyperlipidemia, unspecified; I10 Essential (primary) hypertension; J45.20 Mild intermittent asthma, uncomplicated; M54.50 Low back pain, unspecified; G89.29 Other chronic pain
CPT/HCPCS: 36415; 82140; 83036; 85610

== ENCOUNTER 2023-03-16 10:56 | Inpatient (IN) | payer OTHER ==
[2023-03-16 11:30] VITALS: BMI 23.4
[2023-03-16] MEDS ORDERED: MAGNESIUM HYDROX 2400MG/30ML ORAL SUSPENSION 30 ML CUP PO PRN (14:59)
[2023-03-16] MEDS ORDERED: DICYCLOMINE HCL 10 MG CAPSULE PO PRN (14:59)
[2023-03-16] MEDS ORDERED: BENZOCAINE/MENTHOL (CHLORASEPTIC ) LOZENGE MM PRN (14:59)
[2023-03-16] MEDS ORDERED: MAG HYDROX/AL HYDROX/SIMETH 30 ML UNIT-DOSE CUP PO PRN (14:59)
[2023-03-16] MEDS ORDERED: ACETAMINOPHEN 325 MG TABLET (FP) PO PRN (14:59)
[2023-03-16] MEDS ORDERED: NALOXONE HCL 0.4 MG/ML VIAL IM PRN (14:59)
[2023-03-16] MEDS ORDERED: BENZONATATE 200 MG CAPSULE PO PRN (14:59)
[2023-03-16] MEDS ORDERED: guaiFENesin 600 MG TABLET.ER (FP) PO PRN (14:59)
[2023-03-16] MEDS ORDERED: ONDANSETRON *ODT* 4 MG TABLET SL PRN (14:59)
[2023-03-16] MEDS ORDERED: BISMUTH SUBSALICYLATE 524 MG/30 ML PO PRN (14:59)
[2023-03-16] MEDS ORDERED: POLYETHYLENE GLYCOL (HEALTHYLAX) 3350 17 GM PACKET PO PRN (14:59)
[2023-03-16] MEDS ORDERED: IBUPROFEN 400 MG TABLET (FP) PO PRN (14:59)
[2023-03-16] MEDS ORDERED: LOPERAMIDE HCL 2 MG CAPSULE PO PRN (14:59)
[2023-03-16] MEDS ORDERED: NALOXONE HCL (KLOXXADO) 8 MG SPRAY NS PRN (14:59)
[2023-03-16] MEDS ORDERED: LORazepam 1 MG TABLET PO PRN (15:06)
[2023-03-16] MEDS ORDERED: LORazepam 2 MG TABLET ONE (17:33)
[2023-03-16] MEDS: LORazepam 2 MG TABLET PO SCH ×2 (17:35→22:42)
[2023-03-16] MEDS: THIAMINE HCL 100 MG TABLET (FP) PO SCH (22:42)
[2023-03-16] MEDS: MELATONIN 5 MG TABLETS PO SCH (22:43)
[2023-03-16] MEDS: NICOTINE POLACRILEX 4 MG GUM BUC PRN (23:01)
[2023-03-17] MEDS: IBUPROFEN 600 MG TABLET (FP) PO PRN (05:17)
[2023-03-17] MEDS: hydrOXYzine PAMOATE 25 MG CAPSULE (FP) PO PRN ×2 (05:17→22:46)
[2023-03-17] MEDS: METHOCARBAMOL 500 MG TABLET PO PRN ×2 (05:17→22:47)
[2023-03-17] MEDS: LORazepam 2 MG TABLET PO SCH ×4 (05:17→22:46)
[2023-03-17] MEDS: PRENATAL VITAMINS W/ FOLIC ACID TABLET (FP) PO SCH (10:28)
[2023-03-17] MEDS: NICOTINE 21 MG/24 HOURS TOPICAL PATCH TD SCH (10:28)
[2023-03-17] MEDS: NICOTINE POLACRILEX 4 MG GUM BUC PRN (10:32)
[2023-03-17 10:42] LABS: HEMATOCRIT 41.1 % (35.4-49); HEMOGLOBIN 13.9 GM/dL (11.7-16.9); MCHC 33.7 g/dl (32.0-35.9); MEAN PLT VOLUME 7.7 fl (7.5-11.1); PLATELET COUNT 440 10^3/uL (134-434); RBC 4.62 M/mm3 (4.00-5.60); RDW 17.8 % (11.9-15.9); WHITE BLOOD COUNT 8.3 K/mm3 (4.0-10.0)
[2023-03-17 10:46] LABS: POTASSIUM 4.2 mmol/L (3.5-5.1)
[2023-03-17 10:47] LABS: CALCIUM 9.2 mg/dL (8.5-10.1)
[2023-03-17 10:48] LABS: ALBUMIN 3.7 g/dl (3.4-5.0); BLOOD UREA NITROGEN 12.8 mg/dL (7-18)
[2023-03-17 10:51] LABS: CREATININE 0.8 mg/dL (0.55-1.3)
[2023-03-17 10:53] LABS: BILIRUBIN,TOTAL 0.7 mg/dL (0.2-1); TOT PROT 6.8 g/dl (6.4-8.2)
[2023-03-17] MEDS: THIAMINE HCL 100 MG TABLET (FP) PO SCH (22:46)
[2023-03-17] MEDS: MELATONIN 5 MG TABLETS PO SCH (22:46)
[2023-03-18] MEDS: LORazepam 1 MG TABLET PO SCH ×4 (05:34→22:13)
[2023-03-18] MEDS: METHOCARBAMOL 500 MG TABLET PO PRN (05:35)
[2023-03-18] MEDS: NICOTINE 21 MG/24 HOURS TOPICAL PATCH TD SCH (10:21)
[2023-03-18] MEDS: FLUoxetine HCL 20 MG CAPSULE PO SCH (10:21)
[2023-03-18] MEDS: PRENATAL VITAMINS W/ FOLIC ACID TABLET (FP) PO SCH (10:21)
[2023-03-18] MEDS: hydrOXYzine PAMOATE 25 MG CAPSULE (FP) PO PRN (10:21)
[2023-03-18] MEDS: GABAPENTIN 300 MG CAPSULE PO SCH ×2 (13:43→22:13)
[2023-03-18] MEDS: NICOTINE POLACRILEX 4 MG GUM BUC PRN (17:47)
[2023-03-18] MEDS: IBUPROFEN 600 MG TABLET (FP) PO PRN (19:01)
[2023-03-18] MEDS: THIAMINE HCL 100 MG TABLET (FP) PO SCH (22:13)
[2023-03-18] MEDS: MELATONIN 5 MG TABLETS PO SCH (22:14)
[2023-03-18] MEDS: QUEtiapine FUMARATE 300 MG TABLET PO SCH (22:14)
[2023-03-19] MEDS ORDERED: LORazepam 0.5 MG TABLET PO PRN
[2023-03-19] MEDS: LORazepam 0.5 MG TABLET PO SCH ×4 (05:39→22:01)
[2023-03-19] MEDS: GABAPENTIN 300 MG CAPSULE PO SCH ×3 (05:39→22:00)
[2023-03-19] MEDS ORDERED: ALBUTEROL SO4 HFA INHALER IH PRN (08:40)
[2023-03-19] MEDS: levETIRAcetam 500 MG TABLET (FP) PO SCH ×2 (10:11→22:00)
[2023-03-19] MEDS: PRENATAL VITAMINS W/ FOLIC ACID TABLET (FP) PO SCH (10:11)
[2023-03-19] MEDS: METHOCARBAMOL 500 MG TABLET PO PRN ×2 (10:11→17:18)
[2023-03-19] MEDS: FLUoxetine HCL 20 MG CAPSULE PO SCH (10:11)
[2023-03-19] MEDS: hydrOXYzine PAMOATE 25 MG CAPSULE (FP) PO PRN (10:11)
[2023-03-19] MEDS: NICOTINE 21 MG/24 HOURS TOPICAL PATCH TD SCH (10:14)
[2023-03-19] MEDS: NICOTINE POLACRILEX 4 MG GUM BUC PRN (10:14)
[2023-03-19] MEDS: FLUTICASONE/UMECLIDIN/VILANTER(100-62.5-25 TRELEGY ELLIPTA) INAHLER IH SCH (12:30)
[2023-03-19] MEDS: IBUPROFEN 600 MG TABLET (FP) PO PRN (12:33)
[2023-03-19 20:53] VITALS: RESP 17
[2023-03-19] MEDS ORDERED: ATORVASTATIN CA 40 MG TABLET (FP) PO SCH (22:00)
[2023-03-19] MEDS: THIAMINE HCL 100 MG TABLET (FP) PO SCH (22:00)
[2023-03-19] MEDS: MELATONIN 5 MG TABLETS PO SCH (22:01)
[2023-03-19] MEDS: QUEtiapine FUMARATE 300 MG TABLET PO SCH (22:01)
[2023-03-20] MEDS ORDERED: LORazepam 0.5 MG TABLET PO ONE (05:00)
[2023-03-20] MEDS: GABAPENTIN 300 MG CAPSULE PO SCH (05:39)
[2023-03-20] MEDS: FLUoxetine HCL 20 MG CAPSULE PO SCH (09:32)
[2023-03-20] MEDS: levETIRAcetam 500 MG TABLET (FP) PO SCH (09:32)
[2023-03-20] MEDS: PRENATAL VITAMINS W/ FOLIC ACID TABLET (FP) PO SCH (09:32)
[2023-03-20] MEDS: FLUTICASONE/UMECLIDIN/VILANTER(100-62.5-25 TRELEGY ELLIPTA) INAHLER IH SCH (09:33)
[2023-03-20] MEDS: NICOTINE 21 MG/24 HOURS TOPICAL PATCH TD SCH (09:33)
[2023-03-20 09:37] VITALS: BP 129/90; PULSE 85; TEMP 97.6
== END 2023-03-20 10:20 | disposition home or self-care (01) | DRG 775 ==
LOC: YASAS 10:56 → Y6N 16:44
PROVIDERS: ADMIT Allergy & Immunology; ATTEND Psychiatry & Neurology Pain Medicine
PROC: HZ2ZZZZ Detoxification Services for Substance Abuse Treatment (ICD-10-PCS; principal; 2023-03-16)
DX: F10.230 Alcohol dependence with withdrawal, uncomplicated (principal); F12.20 Cannabis dependence, uncomplicated; F17.213 Nicotine dependence, cigarettes, with withdrawal; F25.1 Schizoaffective disorder, depressive type; F19.282 Other psychoactive substance dependence with psychoactive substance-induced sleep disorder; F41.9 Anxiety disorder, unspecified; F32.A Depression, unspecified; J43.0 Unilateral pulmonary emphysema [MacLeod's syndrome]; J45.20 Mild intermittent asthma, uncomplicated; M54.50 Low back pain, unspecified; G89.29 Other chronic pain; Z86.69 Personal history of other diseases of the nervous system and sense organs
CPT/HCPCS: 36415; 80053; 85027; 86780; 87635; Q0162

== ENCOUNTER 2023-03-25 14:23 | Inpatient (IN) | payer OTHER ==
[2023-03-25 15:16] VITALS: BMI 24.6
[2023-03-25] MEDS ORDERED: IBUPROFEN 600 MG TABLET (FP) PO PRN (15:24)
[2023-03-25] MEDS ORDERED: NALOXONE HCL (KLOXXADO) 8 MG SPRAY NS PRN (15:24)
[2023-03-25] MEDS ORDERED: BENZOCAINE/MENTHOL (CHLORASEPTIC ) LOZENGE MM PRN (15:24)
[2023-03-25] MEDS ORDERED: NALOXONE HCL 0.4 MG/ML VIAL IM PRN (15:24)
[2023-03-25] MEDS ORDERED: MAG HYDROX/AL HYDROX/SIMETH 30 ML UNIT-DOSE CUP PO PRN (15:24)
[2023-03-25] MEDS ORDERED: MAGNESIUM HYDROX 2400MG/30ML ORAL SUSPENSION 30 ML CUP PO PRN (15:24)
[2023-03-25] MEDS ORDERED: BENZONATATE 200 MG CAPSULE PO PRN (15:24)
[2023-03-25] MEDS ORDERED: hydrOXYzine PAMOATE 25 MG CAPSULE (FP) PO PRN (15:24)
[2023-03-25] MEDS ORDERED: guaiFENesin 600 MG TABLET.ER (FP) PO PRN (15:24)
[2023-03-25] MEDS ORDERED: LOPERAMIDE HCL 2 MG CAPSULE PO PRN (15:24)
[2023-03-25] MEDS ORDERED: ONDANSETRON *ODT* 4 MG TABLET SL PRN (15:24)
[2023-03-25] MEDS ORDERED: ACETAMINOPHEN 325 MG TABLET (FP) PO PRN (15:24)
[2023-03-25] MEDS ORDERED: POLYETHYLENE GLYCOL (HEALTHYLAX) 3350 17 GM PACKET PO PRN (15:24)
[2023-03-25] MEDS ORDERED: METHOCARBAMOL 500 MG TABLET PO PRN (15:24)
[2023-03-25] MEDS ORDERED: BISMUTH SUBSALICYLATE 524 MG/30 ML PO PRN (15:24)
[2023-03-25] MEDS ORDERED: DICYCLOMINE HCL 10 MG CAPSULE PO PRN (15:24)
[2023-03-25] MEDS ORDERED: ALBUTEROL SO4 HFA INHALER IH PRN (16:26)
[2023-03-25] MEDS ORDERED: MELATONIN 5 MG TABLETS PO SCH (22:00)
[2023-03-25] MEDS: ATORVASTATIN CA 40 MG TABLET (FP) PO SCH (22:28)
[2023-03-25] MEDS: THIAMINE HCL 100 MG TABLET (FP) PO SCH (22:29)
[2023-03-25] MEDS: levETIRAcetam 500 MG TABLET (FP) PO SCH (22:29)
[2023-03-25] MEDS: GABAPENTIN 400 MG CAPSULE PO SCH (22:29)
[2023-03-26] MEDS: GABAPENTIN 400 MG CAPSULE PO SCH ×3 (05:43→21:21)
[2023-03-26] MEDS: FLUTICASONE/UMECLIDIN/VILANTER(100-62.5-25 TRELEGY ELLIPTA) INAHLER IH SCH (10:30)
[2023-03-26] MEDS: NICOTINE 14 MG/24 HOURS TOPICAL PATCH TD SCH (10:30)
[2023-03-26] MEDS: PRENATAL VITAMINS W/ FOLIC ACID TABLET (FP) PO SCH (10:30)
[2023-03-26] MEDS: levETIRAcetam 500 MG TABLET (FP) PO SCH ×2 (10:30→21:21)
[2023-03-26] MEDS: FLUoxetine HCL 20 MG CAPSULE PO SCH (10:33)
[2023-03-26] MEDS: NICOTINE POLACRILEX 2 MG GUM BUC PRN ×2 (14:11→22:26)
[2023-03-26] MEDS ORDERED: diazePAM 5 MG TABLET PO PRN (14:48)
[2023-03-26 16:04] LABS: HEMATOCRIT 39.5 % (35.4-49); HEMOGLOBIN 13.6 GM/dL (11.7-16.9); MCH 31.3 pg (25.7-33.7); MCHC 34.6 g/dl (32.0-35.9); MEAN CELL VOLUME 90.5 fl (80-96); MEAN PLT VOLUME 7.4 fl (7.5-11.1); PLATELET COUNT 352 10^3/uL (134-434); RBC 4.36 M/mm3 (4.00-5.60); RDW 17.7 % (11.9-15.9); WHITE BLOOD COUNT 8.9 K/mm3 (4.0-10.0)
[2023-03-26 16:12] LABS: POTASSIUM 4.8 mmol/L (3.5-5.1)
[2023-03-26 16:20] LABS: CALCIUM 8.8 mg/dL (8.5-10.1)
[2023-03-26 16:21] LABS: ALBUMIN 3.6 g/dl (3.4-5.0); BLOOD UREA NITROGEN 16.8 mg/dL (7-18)
[2023-03-26 16:24] LABS: CREATININE 0.8 mg/dL (0.55-1.3)
[2023-03-26 16:26] LABS: BILIRUBIN,TOTAL 0.5 mg/dL (0.2-1); TOT PROT 6.5 g/dl (6.4-8.2)
[2023-03-26] MEDS: diazePAM 5 MG TABLET PO SCH ×2 (17:15→22:15)
[2023-03-26] MEDS: ATORVASTATIN CA 40 MG TABLET (FP) PO SCH (21:21)
[2023-03-26] MEDS: THIAMINE HCL 100 MG TABLET (FP) PO SCH (21:21)
[2023-03-26] MEDS ORDERED: QUEtiapine FUMARATE 300 MG TABLET PO SCH (22:00)
[2023-03-26] MEDS: IBUPROFEN 400 MG TABLET (FP) PO PRN (23:31)
[2023-03-27] MEDS: diazePAM 5 MG TABLET PO SCH ×2 (05:11→10:14)
[2023-03-27] MEDS: GABAPENTIN 400 MG CAPSULE PO SCH ×2 (05:11→14:22)
[2023-03-27 09:03] VITALS: RESP 18
[2023-03-27] MEDS: levETIRAcetam 500 MG TABLET (FP) PO SCH (10:14)
[2023-03-27] MEDS: FLUTICASONE/UMECLIDIN/VILANTER(100-62.5-25 TRELEGY ELLIPTA) INAHLER IH SCH (10:14)
[2023-03-27] MEDS: FLUoxetine HCL 20 MG CAPSULE PO SCH (10:14)
[2023-03-27] MEDS: PRENATAL VITAMINS W/ FOLIC ACID TABLET (FP) PO SCH (10:14)
[2023-03-27] MEDS: NICOTINE POLACRILEX 2 MG GUM BUC PRN (10:15)
[2023-03-27] MEDS: IBUPROFEN 400 MG TABLET (FP) PO PRN (10:17)
[2023-03-27] MEDS: NICOTINE 14 MG/24 HOURS TOPICAL PATCH TD SCH (10:19)
[2023-03-27 12:54] VITALS: BP 142/87; PULSE 81; TEMP 97.7
[2023-03-28] MEDS ORDERED: diazePAM 5 MG TABLET PO SCH (06:00)
[2023-03-29] MEDS ORDERED: diazePAM 5 MG TABLET PO SCH (06:00)
[2023-03-30] MEDS ORDERED: diazePAM 5 MG TABLET PO ONE (06:00)
== END 2023-03-27 16:52 | disposition left against medical advice (07) | DRG 770 ==
LOC: YASAS 14:23 → Y3N 15:19
PROVIDERS: ADMIT Allergy & Immunology; ATTEND Allergy & Immunology
PROC: HZ2ZZZZ Detoxification Services for Substance Abuse Treatment (ICD-10-PCS; principal; 2023-03-25)
DX: F10.230 Alcohol dependence with withdrawal, uncomplicated (principal); F12.20 Cannabis dependence, uncomplicated; F17.210 Nicotine dependence, cigarettes, uncomplicated; F10.280 Alcohol dependence with alcohol-induced anxiety disorder; F10.282 Alcohol dependence with alcohol-induced sleep disorder; F10.24 Alcohol dependence with alcohol-induced mood disorder; F32.9 Major depressive disorder, single episode, unspecified; E78.5 Hyperlipidemia, unspecified; I10 Essential (primary) hypertension; J45.20 Mild intermittent asthma, uncomplicated; Z86.69 Personal history of other diseases of the nervous system and sense organs; Z86.19 Personal history of other infectious and parasitic diseases; Z87.11 Personal history of peptic ulcer disease; Z86.2 Personal history of diseases of the blood and blood-forming organs and certain disorders involving the immune mechanism; Z87.442 Personal history of urinary calculi
CPT/HCPCS: 36415; 80053; 85027; 86780; 87635

== ENCOUNTER 2023-03-30 17:04 | Inpatient (IN) | payer OTHER ==
[2023-03-30 19:33] VITALS: BMI 26.9
[2023-03-30] MEDS ORDERED: ALBUTEROL SO4 HFA INHALER IH PRN (20:29)
[2023-03-30] MEDS ORDERED: BENZONATATE 200 MG CAPSULE PO PRN (20:30)
[2023-03-30] MEDS ORDERED: BENZOCAINE/MENTHOL (CHLORASEPTIC ) LOZENGE MM PRN (20:30)
[2023-03-30] MEDS ORDERED: NICOTINE POLACRILEX 4 MG GUM BUC PRN (20:30)
[2023-03-30] MEDS ORDERED: MAG HYDROX/AL HYDROX/SIMETH 30 ML UNIT-DOSE CUP PO PRN (20:30)
[2023-03-30] MEDS ORDERED: BISMUTH SUBSALICYLATE 524 MG/30 ML PO PRN (20:30)
[2023-03-30] MEDS ORDERED: LOPERAMIDE HCL 2 MG CAPSULE PO PRN (20:30)
[2023-03-30] MEDS ORDERED: POLYETHYLENE GLYCOL (HEALTHYLAX) 3350 17 GM PACKET PO PRN (20:30)
[2023-03-30] MEDS ORDERED: hydrOXYzine PAMOATE 25 MG CAPSULE (FP) PO PRN (20:30)
[2023-03-30] MEDS ORDERED: DICYCLOMINE HCL 10 MG CAPSULE PO PRN (20:30)
[2023-03-30] MEDS ORDERED: IBUPROFEN 400 MG TABLET (FP) PO PRN (20:30)
[2023-03-30] MEDS ORDERED: NALOXONE HCL (KLOXXADO) 8 MG SPRAY NS PRN (20:30)
[2023-03-30] MEDS ORDERED: MAGNESIUM HYDROX 2400MG/30ML ORAL SUSPENSION 30 ML CUP PO PRN (20:30)
[2023-03-30] MEDS ORDERED: ACETAMINOPHEN 325 MG TABLET (FP) PO PRN (20:30)
[2023-03-30] MEDS ORDERED: METHOCARBAMOL 500 MG TABLET PO PRN (20:30)
[2023-03-30] MEDS ORDERED: ONDANSETRON *ODT* 4 MG TABLET SL PRN (20:30)
[2023-03-30] MEDS ORDERED: IBUPROFEN 600 MG TABLET (FP) PO PRN (20:30)
[2023-03-30] MEDS ORDERED: NALOXONE HCL 0.4 MG/ML VIAL IM PRN (20:30)
[2023-03-30] MEDS ORDERED: guaiFENesin 600 MG TABLET.ER (FP) PO PRN (20:30)
[2023-03-30] MEDS ORDERED: MELATONIN 5 MG TABLETS PO SCH (22:00)
[2023-03-30] MEDS ORDERED: THIAMINE HCL 100 MG TABLET (FP) PO SCH (22:00)
[2023-03-30] MEDS: levETIRAcetam 500 MG TABLET (FP) PO SCH (22:50)
[2023-03-31] MEDS ORDERED: levETIRAcetam 500 MG TABLET (FP) PO ONE ×2 (00:20→09:35)
[2023-03-31] MEDS ORDERED: MELATONIN 5 MG TABLETS ONE (00:20)
[2023-03-31] MEDS ORDERED: NICOTINE 21 MG/24 HOURS TOPICAL PATCH ONE (09:35)
[2023-03-31] MEDS ORDERED: PRENATAL VITAMINS W/ FOLIC ACID TABLET (FP) PO ONE (09:35)
[2023-03-31] MEDS: levETIRAcetam 500 MG TABLET (FP) PO SCH (09:36)
[2023-03-31] MEDS: PRENATAL VITAMINS W/ FOLIC ACID TABLET (FP) PO SCH ×2 (09:36→11:08)
[2023-03-31] MEDS ORDERED: ONDANSETRON *ODT* 4 MG TABLET ONE (09:40)
[2023-03-31] MEDS ORDERED: NICOTINE 21 MG/24 HOURS TOPICAL PATCH TD SCH (10:00)
[2023-03-31] MEDS ORDERED: FLUTICASONE/UMECLIDIN/VILANTER(100-62.5-25 TRELEGY ELLIPTA) INAHLER IH SCH (10:00)
[2023-03-31 11:11] LABS: POTASSIUM 4.7 mmol/L (3.5-5.1)
[2023-03-31 11:15] LABS: ALBUMIN 3.8 g/dl (3.4-5.0); CALCIUM 8.9 mg/dL (8.5-10.1); CREATININE 0.8 mg/dL (0.55-1.3)
[2023-03-31 11:17] LABS: BILIRUBIN,TOTAL 0.5 mg/dL (0.2-1); TOT PROT 7.2 g/dl (6.4-8.2)
[2023-03-31 11:18] LABS: HEMATOCRIT 43.1 % (35.4-49); MCH 31.2 pg (25.7-33.7); MCHC 34.7 g/dl (32.0-35.9); MEAN PLT VOLUME 7.1 fl (7.5-11.1); PLATELET COUNT 416 10^3/uL (134-434); RBC 4.79 M/mm3 (4.00-5.60); RDW 17.5 % (11.9-15.9); WHITE BLOOD COUNT 7.5 K/mm3 (4.0-10.0)
[2023-03-31 17:44] VITALS: BP 126/78; PULSE 87; RESP 18; TEMP 97.6
[2023-03-31] MEDS ORDERED: QUEtiapine FUMARATE 200 MG TABLET PO SCH (22:00)
[2023-04-01] MEDS ORDERED: FLUoxetine HCL 20 MG CAPSULE PO SCH (10:00)
== END 2023-03-31 20:00 | disposition home or self-care (01) | DRG 775 ==
LOC: YASAS 17:04 → Y3N 03-31 10:22
PROVIDERS: ADMIT Allergy & Immunology; ATTEND Surgery
PROC: HZ2ZZZZ Detoxification Services for Substance Abuse Treatment (ICD-10-PCS; principal; 2023-03-31)
DX: F10.20 Alcohol dependence, uncomplicated (principal); F12.20 Cannabis dependence, uncomplicated; F17.210 Nicotine dependence, cigarettes, uncomplicated; F10.24 Alcohol dependence with alcohol-induced mood disorder; E78.5 Hyperlipidemia, unspecified; I10 Essential (primary) hypertension; Z86.16 Personal history of COVID-19; Z87.11 Personal history of peptic ulcer disease; Z86.59 Personal history of other mental and behavioral disorders
CPT/HCPCS: 36415; 80053; 85027; 86780; 87635; Q0162

== ENCOUNTER 2023-04-12 18:50 | Inpatient (IN) | payer OTHER ==
[2023-04-13] MEDS ORDERED: ONDANSETRON *ODT* 4 MG TABLET SL PRN (04:43)
[2023-04-13] MEDS ORDERED: ACETAMINOPHEN 325 MG TABLET (FP) PO PRN (04:43)
[2023-04-13] MEDS ORDERED: NALOXONE HCL 0.4 MG/ML VIAL IM PRN (04:43)
[2023-04-13] MEDS ORDERED: BENZOCAINE/MENTHOL (CHLORASEPTIC ) LOZENGE MM PRN (04:43)
[2023-04-13] MEDS ORDERED: BENZONATATE 200 MG CAPSULE PO PRN (04:43)
[2023-04-13] MEDS ORDERED: LOPERAMIDE HCL 2 MG CAPSULE PO PRN (04:43)
[2023-04-13] MEDS ORDERED: guaiFENesin 600 MG TABLET.ER (FP) PO PRN (04:43)
[2023-04-13] MEDS ORDERED: NALOXONE HCL (KLOXXADO) 8 MG SPRAY NS PRN (04:43)
[2023-04-13] MEDS ORDERED: DICYCLOMINE HCL 10 MG CAPSULE PO PRN (04:43)
[2023-04-13] MEDS ORDERED: IBUPROFEN 400 MG TABLET (FP) PO PRN (04:43)
[2023-04-13] MEDS ORDERED: MAG HYDROX/AL HYDROX/SIMETH 30 ML UNIT-DOSE CUP PO PRN (04:43)
[2023-04-13] MEDS ORDERED: POLYETHYLENE GLYCOL (HEALTHYLAX) 3350 17 GM PACKET PO PRN (04:43)
[2023-04-13] MEDS ORDERED: IBUPROFEN 600 MG TABLET (FP) PO PRN (04:43)
[2023-04-13] MEDS ORDERED: NICOTINE POLACRILEX 2 MG GUM BUC PRN (04:43)
[2023-04-13] MEDS ORDERED: MAGNESIUM HYDROX 2400MG/30ML ORAL SUSPENSION 30 ML CUP PO PRN (04:43)
[2023-04-13] MEDS ORDERED: BISMUTH SUBSALICYLATE 524 MG/30 ML PO PRN (04:43)
[2023-04-13] MEDS ORDERED: chlordiazePOXIDE HCL 25 MG CAPSULE PO PRN (04:48)
[2023-04-13 04:59] VITALS: BMI 25.8
[2023-04-13] MEDS ORDERED: chlordiazePOXIDE HCL 25 MG CAPSULE ONE (05:43)
[2023-04-13] MEDS: chlordiazePOXIDE HCL 25 MG CAPSULE PO SCH ×4 (05:46→22:14)
[2023-04-13] MEDS: METHOCARBAMOL 500 MG TABLET PO PRN ×3 (06:58→22:15)
[2023-04-13] MEDS: hydrOXYzine PAMOATE 25 MG CAPSULE (FP) PO PRN ×2 (06:58→14:26)
[2023-04-13] MEDS: PRENATAL VITAMINS W/ FOLIC ACID TABLET (FP) PO SCH (10:26)
[2023-04-13] MEDS: NICOTINE 21 MG/24 HOURS TOPICAL PATCH TD SCH (10:26)
[2023-04-13 12:27] LABS: POTASSIUM 3.8 mmol/L (3.5-5.1)
[2023-04-13 12:31] LABS: HEMATOCRIT 37.9 % (35.4-49); HEMOGLOBIN 12.8 GM/dL (11.7-16.9); MCHC 33.8 g/dl (32.0-35.9); MEAN CELL VOLUME 94.7 fl (80-96); MEAN PLT VOLUME 7.5 fl (7.5-11.1); PLATELET COUNT 337 10^3/uL (134-434); RDW 16.4 % (11.9-15.9); WHITE BLOOD COUNT 7.5 K/mm3 (4.0-10.0)
[2023-04-13 12:45] LABS: ALBUMIN 3.5 g/dl (3.4-5.0); BLOOD UREA NITROGEN 12.4 mg/dL (7-18); CALCIUM 8.9 mg/dL (8.5-10.1)
[2023-04-13 12:48] LABS: CREATININE 0.7 mg/dL (0.55-1.3)
[2023-04-13 12:50] LABS: BILIRUBIN,TOTAL 0.8 mg/dL (0.2-1); TOT PROT 6.4 g/dl (6.4-8.2)
[2023-04-13] MEDS: MIRTAZAPINE 15 MG TABLET (FP) PO SCH (22:14)
[2023-04-13] MEDS: QUEtiapine FUMARATE 200 MG TABLET PO SCH (22:14)
[2023-04-13] MEDS: MELATONIN 5 MG TABLETS PO SCH (22:14)
[2023-04-13] MEDS: THIAMINE HCL 100 MG TABLET (FP) PO SCH (22:14)
[2023-04-14] MEDS: hydrOXYzine PAMOATE 25 MG CAPSULE (FP) PO PRN ×3 (00:49→17:54)
[2023-04-14] MEDS: chlordiazePOXIDE HCL 25 MG CAPSULE PO SCH ×4 (05:39→22:09)
[2023-04-14] MEDS: METHOCARBAMOL 500 MG TABLET PO PRN (05:40)
[2023-04-14] MEDS: PRENATAL VITAMINS W/ FOLIC ACID TABLET (FP) PO SCH (10:13)
[2023-04-14] MEDS: FLUoxetine HCL 20 MG CAPSULE PO SCH (10:13)
[2023-04-14] MEDS: NICOTINE 21 MG/24 HOURS TOPICAL PATCH TD SCH (10:55)
[2023-04-14] MEDS: QUEtiapine FUMARATE 200 MG TABLET PO SCH (22:07)
[2023-04-14] MEDS: THIAMINE HCL 100 MG TABLET (FP) PO SCH (22:07)
[2023-04-14] MEDS: MELATONIN 5 MG TABLETS PO SCH (22:07)
[2023-04-14] MEDS: MIRTAZAPINE 15 MG TABLET (FP) PO SCH (22:07)
[2023-04-15] MEDS ORDERED: chlordiazePOXIDE HCL 10 MG CAPSULE PO PRN
[2023-04-15] MEDS: chlordiazePOXIDE HCL 10 MG CAPSULE PO SCH ×2 (05:18→10:17)
[2023-04-15] MEDS: METHOCARBAMOL 500 MG TABLET PO PRN (05:19)
[2023-04-15 07:49] VITALS: RESP 18
[2023-04-15 09:21] VITALS: TEMP 98.1
[2023-04-15] MEDS: FLUoxetine HCL 20 MG CAPSULE PO SCH (10:17)
[2023-04-15] MEDS: PRENATAL VITAMINS W/ FOLIC ACID TABLET (FP) PO SCH (10:17)
[2023-04-15] MEDS: NICOTINE 21 MG/24 HOURS TOPICAL PATCH TD SCH (10:17)
[2023-04-15] MEDS: hydrOXYzine PAMOATE 25 MG CAPSULE (FP) PO PRN (10:18)
[2023-04-15 14:13] VITALS: BP 143/93; PULSE 79
[2023-04-16] MEDS ORDERED: chlordiazePOXIDE HCL 10 MG CAPSULE PO SCH (05:00)
[2023-04-17] MEDS ORDERED: chlordiazePOXIDE HCL 10 MG CAPSULE PO ONE (05:00)
== END 2023-04-15 15:45 | disposition left against medical advice (07) | DRG 770 ==
LOC: YASAS 18:50 → Y3N 04-13 04:51
PROVIDERS: ADMIT Allergy & Immunology; ATTEND Surgery
PROC: HZ2ZZZZ Detoxification Services for Substance Abuse Treatment (ICD-10-PCS; principal; 2023-04-13)
DX: F10.230 Alcohol dependence with withdrawal, uncomplicated (principal); F12.20 Cannabis dependence, uncomplicated; F17.210 Nicotine dependence, cigarettes, uncomplicated; F19.24 Other psychoactive substance dependence with psychoactive substance-induced mood disorder; F43.10 Post-traumatic stress disorder, unspecified; E78.5 Hyperlipidemia, unspecified; I10 Essential (primary) hypertension; J45.20 Mild intermittent asthma, uncomplicated; Z86.59 Personal history of other mental and behavioral disorders; Z91.148 Patient's other noncompliance with medication regimen for other reason
CPT/HCPCS: 36415; 80053; 85027; 86780; 87635; 93005; 93010

== ENCOUNTER 2023-05-19 17:37 | Inpatient (IN) | payer OTHER ==
[2023-05-19 19:57] VITALS: BMI 22.8
[2023-05-19] MEDS ORDERED: chlordiazePOXIDE HCL 25 MG CAPSULE PO PRN (20:55)
[2023-05-19] MEDS ORDERED: P-EPHED 60MG/TRIPROLIDI 2.5MG TABLET PO PRN (21:11)
[2023-05-19] MEDS ORDERED: BENZONATATE 200 MG CAPSULE PO PRN (21:11)
[2023-05-19] MEDS ORDERED: guaiFENesin 600 MG TABLET.ER (FP) PO PRN (21:11)
[2023-05-19] MEDS ORDERED: MAG HYDROX/AL HYDROX/SIMETH 30 ML UNIT-DOSE CUP PO PRN (21:11)
[2023-05-19] MEDS ORDERED: MAGNESIUM HYDROX 2400MG/30ML ORAL SUSPENSION 30 ML CUP PO PRN (21:11)
[2023-05-19] MEDS ORDERED: BISMUTH SUBSALICYLATE 524 MG/30 ML PO PRN (21:11)
[2023-05-19] MEDS ORDERED: IBUPROFEN 400 MG TABLET (FP) PO PRN (21:11)
[2023-05-19] MEDS ORDERED: LOPERAMIDE HCL 2 MG CAPSULE PO PRN (21:11)
[2023-05-19] MEDS ORDERED: DICYCLOMINE HCL 10 MG CAPSULE PO PRN (21:11)
[2023-05-19] MEDS ORDERED: BENZOCAINE/MENTHOL (CHLORASEPTIC ) LOZENGE MM PRN (21:11)
[2023-05-19] MEDS ORDERED: ACETAMINOPHEN 325 MG TABLET (FP) PO PRN (21:11)
[2023-05-19] MEDS ORDERED: POLYETHYLENE GLYCOL (HEALTHYLAX) 3350 17 GM PACKET PO PRN (21:11)
[2023-05-19] MEDS: levETIRAcetam 500 MG TABLET (FP) PO SCH (22:18)
[2023-05-19] MEDS: MELATONIN 5 MG TABLETS PO SCH (22:18)
[2023-05-19] MEDS: chlordiazePOXIDE HCL 25 MG CAPSULE PO SCH (22:19)
[2023-05-19] MEDS: THIAMINE HCL 100 MG TABLET (FP) PO SCH (22:19)
[2023-05-19] MEDS: hydrOXYzine PAMOATE 25 MG CAPSULE (FP) PO PRN (22:20)
[2023-05-19] MEDS: METHOCARBAMOL 500 MG TABLET PO PRN (22:20)
[2023-05-20] MEDS: chlordiazePOXIDE HCL 25 MG CAPSULE PO SCH ×4 (05:44→22:15)
[2023-05-20] MEDS: levETIRAcetam 500 MG TABLET (FP) PO SCH ×2 (10:47→22:13)
[2023-05-20] MEDS: PRENATAL VITAMINS W/ FOLIC ACID TABLET (FP) PO SCH (10:47)
[2023-05-20] MEDS: METHOCARBAMOL 500 MG TABLET PO PRN ×2 (10:48→22:14)
[2023-05-20] MEDS: ONDANSETRON *ODT* 4 MG TABLET SL PRN (10:48)
[2023-05-20] MEDS: NICOTINE POLACRILEX 2 MG GUM BUC PRN ×2 (10:52→22:17)
[2023-05-20 12:22] LABS: HEMATOCRIT 39.5 % (35.4-49); HEMOGLOBIN 13.4 GM/dL (11.7-16.9); MCHC 33.9 g/dl (32.0-35.9); MEAN CELL VOLUME 94.3 fl (80-96); MEAN PLT VOLUME 7.5 fl (7.5-11.1); PLATELET COUNT 286 10^3/uL (134-434); RBC 4.18 M/mm3 (4.00-5.60); RDW 16.8 % (11.9-15.9); WHITE BLOOD COUNT 5.2 K/mm3 (4.0-10.0)
[2023-05-20 12:25] LABS: POTASSIUM 3.3 mmol/L (3.5-5.1)
[2023-05-20 12:28] LABS: ALBUMIN 3.4 g/dl (3.4-5.0); CALCIUM 8.7 mg/dL (8.5-10.1)
[2023-05-20 12:29] LABS: BLOOD UREA NITROGEN 8.1 mg/dL (7-18)
[2023-05-20 12:32] LABS: CREATININE 0.7 mg/dL (0.55-1.3)
[2023-05-20 12:34] LABS: BILIRUBIN,TOTAL 0.5 mg/dL (0.2-1); TOT PROT 6.1 g/dl (6.4-8.2)
[2023-05-20] MEDS: hydrOXYzine PAMOATE 25 MG CAPSULE (FP) PO PRN (12:59)
[2023-05-20] MEDS: IBUPROFEN 600 MG TABLET (FP) PO PRN (17:16)
[2023-05-20] MEDS: THIAMINE HCL 100 MG TABLET (FP) PO SCH (22:13)
[2023-05-20] MEDS: QUEtiapine FUMARATE 100 MG TABLET (FP) PO SCH (22:13)
[2023-05-20] MEDS: MELATONIN 5 MG TABLETS PO SCH (22:13)
[2023-05-20] MEDS: MIRTAZAPINE 15 MG TABLET (FP) PO SCH (22:14)
[2023-05-21] MEDS: hydrOXYzine PAMOATE 25 MG CAPSULE (FP) PO PRN (00:48)
[2023-05-21] MEDS: chlordiazePOXIDE HCL 25 MG CAPSULE PO SCH ×4 (05:52→22:10)
[2023-05-21] MEDS: PRENATAL VITAMINS W/ FOLIC ACID TABLET (FP) PO SCH (10:14)
[2023-05-21] MEDS: levETIRAcetam 500 MG TABLET (FP) PO SCH ×2 (10:14→21:44)
[2023-05-21] MEDS: FLUoxetine HCL 20 MG CAPSULE PO SCH (10:14)
[2023-05-21] MEDS ORDERED: POTASSIUM CHLORIDE ORAL LIQUID 20 MEQ/15 ML PO ONE (13:00)
[2023-05-21] MEDS: MIRTAZAPINE 15 MG TABLET (FP) PO SCH (21:43)
[2023-05-21] MEDS: THIAMINE HCL 100 MG TABLET (FP) PO SCH (21:43)
[2023-05-21] MEDS: MELATONIN 5 MG TABLETS PO SCH (21:43)
[2023-05-21] MEDS: QUEtiapine FUMARATE 100 MG TABLET (FP) PO SCH (21:44)
[2023-05-22] MEDS ORDERED: chlordiazePOXIDE HCL 10 MG CAPSULE PO PRN
[2023-05-22] MEDS: METHOCARBAMOL 500 MG TABLET PO PRN ×2 (01:32→22:05)
[2023-05-22] MEDS: IBUPROFEN 600 MG TABLET (FP) PO PRN (01:32)
[2023-05-22] MEDS: chlordiazePOXIDE HCL 10 MG CAPSULE PO SCH ×4 (05:51→22:06)
[2023-05-22] MEDS: levETIRAcetam 500 MG TABLET (FP) PO SCH ×2 (10:13→22:04)
[2023-05-22] MEDS: FLUoxetine HCL 20 MG CAPSULE PO SCH (10:13)
[2023-05-22] MEDS: PRENATAL VITAMINS W/ FOLIC ACID TABLET (FP) PO SCH (10:14)
[2023-05-22] MEDS: NICOTINE POLACRILEX 2 MG GUM BUC PRN ×2 (10:15→23:28)
[2023-05-22] MEDS: NICOTINE 21 MG/24 HOURS TOPICAL PATCH TD SCH (12:00)
[2023-05-22] MEDS: MIRTAZAPINE 15 MG TABLET (FP) PO SCH (22:04)
[2023-05-22] MEDS: MELATONIN 5 MG TABLETS PO SCH (22:04)
[2023-05-22] MEDS: QUEtiapine FUMARATE 100 MG TABLET (FP) PO SCH (22:04)
[2023-05-22] MEDS: THIAMINE HCL 100 MG TABLET (FP) PO SCH (22:05)
[2023-05-23] MEDS: hydrOXYzine PAMOATE 25 MG CAPSULE (FP) PO PRN ×2 (01:21→22:06)
[2023-05-23] MEDS: chlordiazePOXIDE HCL 10 MG CAPSULE PO SCH ×2 (05:41→17:35)
[2023-05-23] MEDS: NICOTINE 21 MG/24 HOURS TOPICAL PATCH TD SCH (10:29)
[2023-05-23] MEDS: PRENATAL VITAMINS W/ FOLIC ACID TABLET (FP) PO SCH (10:29)
[2023-05-23] MEDS: METHOCARBAMOL 500 MG TABLET PO PRN ×2 (10:29→22:05)
[2023-05-23] MEDS: levETIRAcetam 500 MG TABLET (FP) PO SCH ×2 (10:29→22:05)
[2023-05-23] MEDS: FLUoxetine HCL 20 MG CAPSULE PO SCH (10:29)
[2023-05-23 12:09] LABS: POTASSIUM 3.7 mmol/L (3.5-5.1)
[2023-05-23 12:22] LABS: CREATININE 0.7 mg/dL (0.55-1.3)
[2023-05-23 12:29] LABS: BLOOD UREA NITROGEN 9.6 mg/dL (7-18)
[2023-05-23] MEDS: NICOTINE POLACRILEX 2 MG GUM BUC PRN (17:38)
[2023-05-23] MEDS: MELATONIN 5 MG TABLETS PO SCH (22:04)
[2023-05-23] MEDS: QUEtiapine FUMARATE 100 MG TABLET (FP) PO SCH (22:05)
[2023-05-23] MEDS: THIAMINE HCL 100 MG TABLET (FP) PO SCH (22:05)
[2023-05-23] MEDS: MIRTAZAPINE 15 MG TABLET (FP) PO SCH (22:05)
[2023-05-24] MEDS: IBUPROFEN 600 MG TABLET (FP) PO PRN (02:44)
[2023-05-24] MEDS ORDERED: chlordiazePOXIDE HCL 10 MG CAPSULE PO ONE (05:00)
[2023-05-24] MEDS: hydrOXYzine PAMOATE 25 MG CAPSULE (FP) PO PRN (05:38)
[2023-05-24] MEDS: ONDANSETRON *ODT* 4 MG TABLET SL PRN (05:39)
[2023-05-24 06:07] VITALS: RESP 18
[2023-05-24] MEDS: levETIRAcetam 500 MG TABLET (FP) PO SCH (09:03)
[2023-05-24] MEDS: NICOTINE 21 MG/24 HOURS TOPICAL PATCH TD SCH (09:03)
[2023-05-24] MEDS: FLUoxetine HCL 20 MG CAPSULE PO SCH (09:03)
[2023-05-24] MEDS: PRENATAL VITAMINS W/ FOLIC ACID TABLET (FP) PO SCH (09:03)
[2023-05-24 09:22] VITALS: BP 139/94; PULSE 108; TEMP 96.6
== END 2023-05-24 08:57 | disposition home or self-care (01) | DRG 775 ==
LOC: YASAS 17:37 → Y3N 21:27
PROVIDERS: ADMIT Allergy & Immunology; ATTEND Surgery
PROC: HZ2ZZZZ Detoxification Services for Substance Abuse Treatment (ICD-10-PCS; principal; 2023-05-19)
DX: F10.230 Alcohol dependence with withdrawal, uncomplicated (principal); F12.20 Cannabis dependence, uncomplicated; F17.210 Nicotine dependence, cigarettes, uncomplicated; F10.24 Alcohol dependence with alcohol-induced mood disorder; F43.10 Post-traumatic stress disorder, unspecified; E87.6 Hypokalemia; E78.5 Hyperlipidemia, unspecified; I10 Essential (primary) hypertension; Z87.11 Personal history of peptic ulcer disease; Z86.69 Personal history of other diseases of the nervous system and sense organs; Z59.01 Sheltered homelessness; Z56.0 Unemployment, unspecified
CPT/HCPCS: 36415; 80048; 80053; 84132; 85027; 86780; 87635; Q0162

== ENCOUNTER 2023-06-19 15:53 | Inpatient (IN) | payer OTHER ==
[2023-06-19 16:30] VITALS: BMI 26.6
[2023-06-19] MEDS ORDERED: IBUPROFEN 400 MG TABLET (FP) PO PRN (19:36)
[2023-06-19] MEDS ORDERED: MAG HYDROX/AL HYDROX/SIMETH 30 ML UNIT-DOSE CUP PO PRN (19:36)
[2023-06-19] MEDS ORDERED: BENZOCAINE/MENTHOL (CHLORASEPTIC ) LOZENGE MM PRN (19:36)
[2023-06-19] MEDS ORDERED: BISMUTH SUBSALICYLATE 524 MG/30 ML PO PRN (19:36)
[2023-06-19] MEDS ORDERED: POLYETHYLENE GLYCOL (HEALTHYLAX) 3350 17 GM PACKET PO PRN (19:36)
[2023-06-19] MEDS ORDERED: BENZONATATE 200 MG CAPSULE PO PRN (19:36)
[2023-06-19] MEDS ORDERED: guaiFENesin 600 MG TABLET.ER (FP) PO PRN (19:36)
[2023-06-19] MEDS ORDERED: LOPERAMIDE HCL 2 MG CAPSULE PO PRN (19:36)
[2023-06-19] MEDS ORDERED: NALOXONE HCL (KLOXXADO) 8 MG SPRAY NS PRN (19:36)
[2023-06-19] MEDS ORDERED: ONDANSETRON *ODT* 4 MG TABLET SL PRN (19:36)
[2023-06-19] MEDS ORDERED: MAGNESIUM HYDROX 2400MG/30ML ORAL SUSPENSION 30 ML CUP PO PRN (19:36)
[2023-06-19] MEDS ORDERED: NALOXONE HCL 0.4 MG/ML VIAL IM PRN (19:36)
[2023-06-19] MEDS ORDERED: ACETAMINOPHEN 325 MG TABLET (FP) PO PRN (19:36)
[2023-06-19] MEDS ORDERED: chlordiazePOXIDE HCL 25 MG CAPSULE PO PRN (19:47)
[2023-06-19] MEDS ORDERED: MELATONIN 5 MG TABLETS PO SCH (22:00)
[2023-06-19] MEDS: THIAMINE HCL 100 MG TABLET (FP) PO SCH (22:38)
[2023-06-19] MEDS: chlordiazePOXIDE HCL 25 MG CAPSULE PO SCH (22:44)
[2023-06-20] MEDS: chlordiazePOXIDE HCL 25 MG CAPSULE PO SCH ×4 (05:27→22:35)
[2023-06-20] MEDS ORDERED: ALBUTEROL SO4 HFA INHALER IH PRN (10:02)
[2023-06-20] MEDS: PRENATAL VITAMINS W/ FOLIC ACID TABLET (FP) PO SCH (10:07)
[2023-06-20] MEDS: hydrOXYzine PAMOATE 25 MG CAPSULE (FP) PO PRN (10:08)
[2023-06-20] MEDS: METHOCARBAMOL 500 MG TABLET PO PRN (10:08)
[2023-06-20] MEDS: NICOTINE 21 MG/24 HOURS TOPICAL PATCH TD SCH (10:09)
[2023-06-20] MEDS: levETIRAcetam 500 MG TABLET (FP) PO SCH ×2 (11:09→22:34)
[2023-06-20 17:11] LABS: CHLORIDE 92 mmol/L (98-107); POTASSIUM 3.3 mmol/L (3.5-5.1); SODIUM 137 mmol/L (136-145)
[2023-06-20 17:13] LABS: HEMATOCRIT 45.2 % (35.4-49); HEMOGLOBIN 15.6 GM/dL (11.7-16.9); MCH 32.1 pg (25.7-33.7); MCHC 34.5 g/dl (32.0-35.9); MEAN CELL VOLUME 93.1 fl (80-96); MEAN PLT VOLUME 7.9 fl (7.5-11.1); PLATELET COUNT 263 10^3/uL (134-434); RBC 4.86 M/mm3 (4.00-5.60); RDW 17.7 % (11.9-15.9); WHITE BLOOD COUNT 6.7 K/mm3 (4.0-10.0)
[2023-06-20 17:20] LABS: ALBUMIN 4.4 g/dl (3.4-5.0); ANION GAP 11 mmol/L (4-13); BLOOD UREA NITROGEN 7.9 mg/dL (7-18); CALCIUM 9.9 mg/dL (8.5-10.1); CO2 33 mmol/L (21-32); GLUCOSE,RANDOM 107 mg/dL (74-106)
[2023-06-20 17:21] LABS: SGPT/ALT 83 U/L (13-61)
[2023-06-20 17:22] LABS: CREATININE 0.9 mg/dL (0.55-1.3)
[2023-06-20 17:23] LABS: BILIRUBIN,TOTAL 1.5 mg/dL (0.2-1); SGOT/AST 174 U/L (15-37)
[2023-06-20 17:24] LABS: ALK PHOS 119 U/L (45-117)
[2023-06-20] MEDS: NICOTINE POLACRILEX 4 MG GUM BUC PRN (19:48)
[2023-06-20] MEDS ORDERED: QUEtiapine FUMARATE 100 MG TABLET (FP) PO ONE (21:26)
[2023-06-20] MEDS: ATORVASTATIN CA 40 MG TABLET (FP) PO SCH (22:34)
[2023-06-20] MEDS: THIAMINE HCL 100 MG TABLET (FP) PO SCH (22:34)
[2023-06-21] MEDS: chlordiazePOXIDE HCL 25 MG CAPSULE PO SCH ×4 (05:40→22:05)
[2023-06-21] MEDS: levETIRAcetam 500 MG TABLET (FP) PO SCH ×2 (10:26→22:04)
[2023-06-21] MEDS: PRENATAL VITAMINS W/ FOLIC ACID TABLET (FP) PO SCH (10:26)
[2023-06-21] MEDS: METHOCARBAMOL 500 MG TABLET PO PRN (10:26)
[2023-06-21] MEDS: hydrOXYzine PAMOATE 25 MG CAPSULE (FP) PO PRN (10:26)
[2023-06-21] MEDS: FLUTICASONE/UMECLIDIN/VILANTER(100-62.5-25 TRELEGY ELLIPTA) INAHLER IH SCH (10:27)
[2023-06-21] MEDS: NICOTINE 21 MG/24 HOURS TOPICAL PATCH TD SCH (10:27)
[2023-06-21] MEDS: IBUPROFEN 600 MG TABLET (FP) PO PRN (10:28)
[2023-06-21] MEDS ORDERED: POTASSIUM CHLORIDE ORAL LIQUID 20 MEQ/15 ML PO ONE (11:15)
[2023-06-21] MEDS: FLUoxetine HCL 20 MG CAPSULE PO SCH (15:48)
[2023-06-21] MEDS: ATORVASTATIN CA 40 MG TABLET (FP) PO SCH (22:04)
[2023-06-21] MEDS: QUEtiapine FUMARATE 100 MG TABLET (FP) PO SCH (22:05)
[2023-06-21] MEDS: NICOTINE POLACRILEX 4 MG GUM BUC PRN (22:07)
[2023-06-21] MEDS: THIAMINE HCL 100 MG TABLET (FP) PO SCH (22:09)
[2023-06-22] MEDS ORDERED: chlordiazePOXIDE HCL 10 MG CAPSULE PO PRN
[2023-06-22] MEDS: chlordiazePOXIDE HCL 10 MG CAPSULE PO SCH ×4 (05:39→22:15)
[2023-06-22] MEDS: PRENATAL VITAMINS W/ FOLIC ACID TABLET (FP) PO SCH (10:38)
[2023-06-22] MEDS: IBUPROFEN 600 MG TABLET (FP) PO PRN ×2 (10:39→17:25)
[2023-06-22] MEDS: NICOTINE 21 MG/24 HOURS TOPICAL PATCH TD SCH (10:39)
[2023-06-22] MEDS: levETIRAcetam 500 MG TABLET (FP) PO SCH ×2 (10:39→22:14)
[2023-06-22] MEDS: FLUTICASONE/UMECLIDIN/VILANTER(100-62.5-25 TRELEGY ELLIPTA) INAHLER IH SCH (10:40)
[2023-06-22] MEDS: FLUoxetine HCL 20 MG CAPSULE PO SCH (10:41)
[2023-06-22 10:59] LABS: POTASSIUM 2.9 mmol/L (3.5-5.1)
[2023-06-22] MEDS ORDERED: POTASSIUM CHLORIDE ORAL LIQUID 20 MEQ/15 ML PO ONE ×3 (12:07→17:15)
[2023-06-22] MEDS: NICOTINE POLACRILEX 4 MG GUM BUC PRN (15:47)
[2023-06-22 21:19] VITALS: RESP 16
[2023-06-22] MEDS: ATORVASTATIN CA 40 MG TABLET (FP) PO SCH (22:14)
[2023-06-22] MEDS: QUEtiapine FUMARATE 100 MG TABLET (FP) PO SCH (22:15)
[2023-06-22] MEDS: THIAMINE HCL 100 MG TABLET (FP) PO SCH (22:15)
[2023-06-23] MEDS ORDERED: chlordiazePOXIDE HCL 10 MG CAPSULE PO SCH (05:00)
[2023-06-23 09:40] VITALS: BP 102/66; PULSE 79; TEMP 98.6
[2023-06-23] MEDS: NICOTINE 21 MG/24 HOURS TOPICAL PATCH TD SCH (09:51)
[2023-06-23] MEDS: METHOCARBAMOL 500 MG TABLET PO PRN (09:51)
[2023-06-23] MEDS: FLUTICASONE/UMECLIDIN/VILANTER(100-62.5-25 TRELEGY ELLIPTA) INAHLER IH SCH (09:51)
[2023-06-23] MEDS: FLUoxetine HCL 20 MG CAPSULE PO SCH (09:51)
[2023-06-23] MEDS: levETIRAcetam 500 MG TABLET (FP) PO SCH (09:51)
[2023-06-23] MEDS: PRENATAL VITAMINS W/ FOLIC ACID TABLET (FP) PO SCH (09:51)
[2023-06-24] MEDS ORDERED: chlordiazePOXIDE HCL 10 MG CAPSULE PO ONE (05:00)
== END 2023-06-23 11:05 | disposition home or self-care (01) | DRG 775 ==
LOC: YASAS 15:53 → Y6N 21:37
PROVIDERS: ADMIT Allergy & Immunology; ATTEND Surgery
PROC: HZ2ZZZZ Detoxification Services for Substance Abuse Treatment (ICD-10-PCS; principal; 2023-06-19)
DX: F10.230 Alcohol dependence with withdrawal, uncomplicated (principal); F12.20 Cannabis dependence, uncomplicated; F17.210 Nicotine dependence, cigarettes, uncomplicated; F10.280 Alcohol dependence with alcohol-induced anxiety disorder; F31.81 Bipolar II disorder; E78.5 Hyperlipidemia, unspecified; I10 Essential (primary) hypertension; J45.20 Mild intermittent asthma, uncomplicated; M54.50 Low back pain, unspecified; G89.29 Other chronic pain; Z86.69 Personal history of other diseases of the nervous system and sense organs; Z87.19 Personal history of other diseases of the digestive system; Z59.01 Sheltered homelessness
CPT/HCPCS: 36415; 80053; 80307; 84132; 85027; 86780; 87635

== ENCOUNTER 2023-06-30 18:18 | Inpatient (IN) | payer OTHER ==
[2023-06-30 20:20] VITALS: BMI 25.5
[2023-06-30] MEDS ORDERED: ALBUTEROL SO4 HFA INHALER IH PRN (22:13)
[2023-06-30] MEDS ORDERED: BENZOCAINE/MENTHOL (CHLORASEPTIC ) LOZENGE MM PRN (22:14)
[2023-06-30] MEDS ORDERED: NALOXONE HCL 0.4 MG/ML VIAL IM PRN (22:14)
[2023-06-30] MEDS ORDERED: BENZONATATE 200 MG CAPSULE PO PRN (22:14)
[2023-06-30] MEDS ORDERED: guaiFENesin 600 MG TABLET.ER (FP) PO PRN (22:14)
[2023-06-30] MEDS ORDERED: MAG HYDROX/AL HYDROX/SIMETH 30 ML UNIT-DOSE CUP PO PRN (22:14)
[2023-06-30] MEDS ORDERED: DICYCLOMINE HCL 10 MG CAPSULE PO PRN (22:14)
[2023-06-30] MEDS ORDERED: MAGNESIUM HYDROX 2400MG/30ML ORAL SUSPENSION 30 ML CUP PO PRN (22:14)
[2023-06-30] MEDS ORDERED: ACETAMINOPHEN 325 MG TABLET (FP) PO PRN (22:14)
[2023-06-30] MEDS ORDERED: ONDANSETRON *ODT* 4 MG TABLET SL PRN (22:14)
[2023-06-30] MEDS ORDERED: POLYETHYLENE GLYCOL (HEALTHYLAX) 3350 17 GM PACKET PO PRN (22:14)
[2023-06-30] MEDS ORDERED: BISMUTH SUBSALICYLATE 524 MG/30 ML PO PRN (22:14)
[2023-06-30] MEDS ORDERED: IBUPROFEN 400 MG TABLET (FP) PO PRN (22:14)
[2023-06-30] MEDS ORDERED: LOPERAMIDE HCL 2 MG CAPSULE PO PRN (22:14)
[2023-06-30] MEDS ORDERED: NALOXONE HCL (KLOXXADO) 8 MG SPRAY NS PRN (22:14)
[2023-07-01] MEDS: NICOTINE 21 MG/24 HOURS TOPICAL PATCH TD SCH (10:23)
[2023-07-01] MEDS: PRENATAL VITAMINS W/ FOLIC ACID TABLET (FP) PO SCH (10:23)
[2023-07-01] MEDS: levETIRAcetam 500 MG TABLET (FP) PO SCH ×2 (10:24→22:03)
[2023-07-01] MEDS: hydrOXYzine PAMOATE 25 MG CAPSULE (FP) PO PRN ×2 (10:27→22:04)
[2023-07-01] MEDS ORDERED: chlordiazePOXIDE HCL 25 MG CAPSULE PO PRN (10:29)
[2023-07-01] MEDS: chlordiazePOXIDE HCL 25 MG CAPSULE PO SCH ×3 (10:42→22:05)
[2023-07-01] MEDS: FLUTICASONE/UMECLIDIN/VILANTER(100-62.5-25 TRELEGY ELLIPTA) INAHLER IH SCH (11:52)
[2023-07-01] MEDS: IBUPROFEN 600 MG TABLET (FP) PO PRN (17:35)
[2023-07-01] MEDS: NICOTINE POLACRILEX 4 MG GUM BUC PRN ×2 (17:38→22:08)
[2023-07-01] MEDS: QUEtiapine FUMARATE 200 MG TABLET PO SCH (22:03)
[2023-07-01] MEDS: MELATONIN 5 MG TABLETS PO SCH (22:03)
[2023-07-01] MEDS: MIRTAZAPINE 15 MG TABLET (FP) PO SCH (22:04)
[2023-07-01] MEDS: THIAMINE HCL 100 MG TABLET (FP) PO SCH (22:04)
[2023-07-01] MEDS: METHOCARBAMOL 500 MG TABLET PO PRN (22:04)
[2023-07-02] MEDS: chlordiazePOXIDE HCL 25 MG CAPSULE PO SCH ×4 (05:50→22:01)
[2023-07-02] MEDS ORDERED: FLUoxetine HCL 20 MG CAPSULE PO SCH (10:00)
[2023-07-02] MEDS: PRENATAL VITAMINS W/ FOLIC ACID TABLET (FP) PO SCH (10:21)
[2023-07-02] MEDS: levETIRAcetam 500 MG TABLET (FP) PO SCH ×2 (10:21→22:01)
[2023-07-02] MEDS: hydrOXYzine PAMOATE 25 MG CAPSULE (FP) PO PRN ×2 (10:23→22:01)
[2023-07-02] MEDS: FLUTICASONE/UMECLIDIN/VILANTER(100-62.5-25 TRELEGY ELLIPTA) INAHLER IH SCH (10:25)
[2023-07-02] MEDS: NICOTINE 21 MG/24 HOURS TOPICAL PATCH TD SCH (10:25)
[2023-07-02] MEDS: IBUPROFEN 600 MG TABLET (FP) PO PRN (17:39)
[2023-07-02] MEDS: MELATONIN 5 MG TABLETS PO SCH (22:00)
[2023-07-02] MEDS: THIAMINE HCL 100 MG TABLET (FP) PO SCH (22:00)
[2023-07-02] MEDS: QUEtiapine FUMARATE 200 MG TABLET PO SCH (22:01)
[2023-07-02] MEDS: METHOCARBAMOL 500 MG TABLET PO PRN (22:01)
[2023-07-02] MEDS: MIRTAZAPINE 15 MG TABLET (FP) PO SCH (22:01)
[2023-07-03] MEDS ORDERED: chlordiazePOXIDE HCL 25 MG CAPSULE PO SCH (05:00)
[2023-07-03] MEDS: hydrOXYzine PAMOATE 25 MG CAPSULE (FP) PO PRN (05:56)
[2023-07-03 09:26] VITALS: BP 152/93; PULSE 71; RESP 16; TEMP 97.9
[2023-07-04] MEDS ORDERED: chlordiazePOXIDE HCL 10 MG CAPSULE PO PRN
[2023-07-04] MEDS ORDERED: chlordiazePOXIDE HCL 10 MG CAPSULE PO SCH (05:00)
[2023-07-05] MEDS ORDERED: chlordiazePOXIDE HCL 10 MG CAPSULE PO SCH (05:00)
[2023-07-06] MEDS ORDERED: chlordiazePOXIDE HCL 10 MG CAPSULE PO ONE (05:00)
== END 2023-07-03 09:25 | disposition left against medical advice (07) | DRG 770 ==
LOC: YASAS 18:18 → Y3N 23:52
PROVIDERS: ADMIT Allergy & Immunology; ATTEND Surgery
PROC: HZ2ZZZZ Detoxification Services for Substance Abuse Treatment (ICD-10-PCS; principal; 2023-06-30)
DX: F10.230 Alcohol dependence with withdrawal, uncomplicated (principal); F12.20 Cannabis dependence, uncomplicated; F17.210 Nicotine dependence, cigarettes, uncomplicated; F25.9 Schizoaffective disorder, unspecified; F19.24 Other psychoactive substance dependence with psychoactive substance-induced mood disorder; F32.A Depression, unspecified; F41.9 Anxiety disorder, unspecified; I10 Essential (primary) hypertension; J45.909 Unspecified asthma, uncomplicated; M54.50 Low back pain, unspecified; G89.29 Other chronic pain; Z86.69 Personal history of other diseases of the nervous system and sense organs; Z87.828 Personal history of other (healed) physical injury and trauma; Z56.0 Unemployment, unspecified; Z59.01 Sheltered homelessness
CPT/HCPCS: 36415; 80307; 87635

== ENCOUNTER 2023-07-19 12:03 | Inpatient (IN) | payer OTHER ==
[2023-07-19 12:26] VITALS: BMI 21.8
[2023-07-19] MEDS ORDERED: ALBUTEROL SO4 HFA INHALER IH PRN (16:31)
[2023-07-19] MEDS ORDERED: BISMUTH SUBSALICYLATE 524 MG/30 ML PO PRN (16:32)
[2023-07-19] MEDS ORDERED: ONDANSETRON *ODT* 4 MG TABLET SL PRN (16:32)
[2023-07-19] MEDS ORDERED: guaiFENesin 600 MG TABLET.ER (FP) PO PRN (16:32)
[2023-07-19] MEDS ORDERED: DICYCLOMINE HCL 10 MG CAPSULE PO PRN (16:32)
[2023-07-19] MEDS ORDERED: ACETAMINOPHEN 325 MG TABLET (FP) PO PRN (16:32)
[2023-07-19] MEDS ORDERED: LOPERAMIDE HCL 2 MG CAPSULE PO PRN (16:32)
[2023-07-19] MEDS ORDERED: MAG HYDROX/AL HYDROX/SIMETH 30 ML UNIT-DOSE CUP PO PRN (16:32)
[2023-07-19] MEDS ORDERED: P-EPHED 60MG/TRIPROLIDI 2.5MG TABLET PO PRN (16:32)
[2023-07-19] MEDS ORDERED: MAGNESIUM HYDROX 2400MG/30ML ORAL SUSPENSION 30 ML CUP PO PRN (16:32)
[2023-07-19] MEDS ORDERED: IBUPROFEN 400 MG TABLET (FP) PO PRN (16:32)
[2023-07-19] MEDS ORDERED: BENZONATATE 200 MG CAPSULE PO PRN (16:32)
[2023-07-19] MEDS ORDERED: BENZOCAINE/MENTHOL (CHLORASEPTIC ) LOZENGE MM PRN (16:32)
[2023-07-19] MEDS ORDERED: POLYETHYLENE GLYCOL (HEALTHYLAX) 3350 17 GM PACKET PO PRN (16:32)
[2023-07-19] MEDS ORDERED: chlordiazePOXIDE HCL 25 MG CAPSULE PO PRN (16:34)
[2023-07-19] MEDS: chlordiazePOXIDE HCL 25 MG CAPSULE PO SCH ×2 (18:06→22:12)
[2023-07-19] MEDS: MELATONIN 5 MG TABLETS PO SCH (22:11)
[2023-07-19] MEDS: levETIRAcetam 500 MG TABLET (FP) PO SCH (22:11)
[2023-07-19] MEDS: THIAMINE HCL 100 MG TABLET (FP) PO SCH (22:12)
[2023-07-19] MEDS: ATORVASTATIN CA 40 MG TABLET (FP) PO SCH (22:12)
[2023-07-19] MEDS: METHOCARBAMOL 500 MG TABLET PO PRN (22:12)
[2023-07-19] MEDS: IBUPROFEN 600 MG TABLET (FP) PO PRN (23:17)
[2023-07-20] MEDS: chlordiazePOXIDE HCL 25 MG CAPSULE PO SCH ×4 (05:51→22:11)
[2023-07-20] MEDS: FLUTICASONE/UMECLIDIN/VILANTER(100-62.5-25 TRELEGY ELLIPTA) INAHLER IH SCH (09:59)
[2023-07-20] MEDS: PRENATAL VITAMINS W/ FOLIC ACID TABLET (FP) PO SCH (09:59)
[2023-07-20] MEDS: levETIRAcetam 500 MG TABLET (FP) PO SCH ×2 (10:00→22:09)
[2023-07-20] MEDS: NICOTINE POLACRILEX 2 MG GUM BUC PRN (11:13)
[2023-07-20 13:29] LABS: HEMATOCRIT 42.8 % (35.4-49); HEMOGLOBIN 14.4 GM/dL (11.7-16.9); MCH 32.6 pg (25.7-33.7); MCHC 33.7 g/dl (32.0-35.9); MEAN CELL VOLUME 96.9 fl (80-96); PLATELET COUNT 233 10^3/uL (134-434); RBC 4.42 M/mm3 (4.00-5.60); RDW 18.7 % (11.9-15.9); WHITE BLOOD COUNT 6.1 K/mm3 (4.0-10.0)
[2023-07-20 14:13] LABS: POTASSIUM 3.3 mmol/L (3.5-5.1)
[2023-07-20] MEDS: NICOTINE 21 MG/24 HOURS TOPICAL PATCH TD SCH (14:16)
[2023-07-20] MEDS: hydrOXYzine PAMOATE 25 MG CAPSULE (FP) PO PRN (14:16)
[2023-07-20 14:17] LABS: ALBUMIN 4.2 g/dl (3.4-5.0); BLOOD UREA NITROGEN 8.9 mg/dL (7-18); CALCIUM 9.2 mg/dL (8.5-10.1)
[2023-07-20 14:22] LABS: BILIRUBIN,TOTAL 1.3 mg/dL (0.2-1); TOT PROT 7.4 g/dl (6.4-8.2)
[2023-07-20] MEDS ORDERED: POTASSIUM CHLORIDE ORAL LIQUID 20 MEQ/15 ML PO ONE (14:22)
[2023-07-20] MEDS: IBUPROFEN 600 MG TABLET (FP) PO PRN (17:42)
[2023-07-20] MEDS: QUEtiapine FUMARATE 200 MG TABLET PO SCH (22:09)
[2023-07-20] MEDS: METHOCARBAMOL 500 MG TABLET PO PRN (22:09)
[2023-07-20] MEDS: MELATONIN 5 MG TABLETS PO SCH (22:09)
[2023-07-20] MEDS: ATORVASTATIN CA 40 MG TABLET (FP) PO SCH (22:09)
[2023-07-20] MEDS: THIAMINE HCL 100 MG TABLET (FP) PO SCH (22:09)
[2023-07-20] MEDS: MIRTAZAPINE 15 MG TABLET (FP) PO SCH (22:09)
[2023-07-21] MEDS: hydrOXYzine PAMOATE 25 MG CAPSULE (FP) PO PRN ×3 (00:05→17:34)
[2023-07-21] MEDS: chlordiazePOXIDE HCL 25 MG CAPSULE PO SCH ×4 (05:55→22:13)
[2023-07-21] MEDS: METHOCARBAMOL 500 MG TABLET PO PRN ×2 (05:57→17:36)
[2023-07-21] MEDS: levETIRAcetam 500 MG TABLET (FP) PO SCH ×2 (10:02→22:12)
[2023-07-21] MEDS: FLUoxetine HCL 20 MG CAPSULE PO SCH (10:02)
[2023-07-21] MEDS: PRENATAL VITAMINS W/ FOLIC ACID TABLET (FP) PO SCH (10:02)
[2023-07-21] MEDS: FLUTICASONE/UMECLIDIN/VILANTER(100-62.5-25 TRELEGY ELLIPTA) INAHLER IH SCH (10:03)
[2023-07-21] MEDS: NICOTINE 21 MG/24 HOURS TOPICAL PATCH TD SCH (10:03)
[2023-07-21] MEDS ORDERED: POTASSIUM CHLORIDE ORAL LIQUID 20 MEQ/15 ML PO ONE (14:01)
[2023-07-21] MEDS: NICOTINE POLACRILEX 2 MG GUM BUC PRN ×2 (18:11→22:15)
[2023-07-21] MEDS: QUEtiapine FUMARATE 200 MG TABLET PO SCH (22:12)
[2023-07-21] MEDS: THIAMINE HCL 100 MG TABLET (FP) PO SCH (22:12)
[2023-07-21] MEDS: ATORVASTATIN CA 40 MG TABLET (FP) PO SCH (22:12)
[2023-07-21] MEDS: MELATONIN 5 MG TABLETS PO SCH (22:13)
[2023-07-21] MEDS: MIRTAZAPINE 15 MG TABLET (FP) PO SCH (22:13)
[2023-07-22] MEDS ORDERED: chlordiazePOXIDE HCL 10 MG CAPSULE PO PRN
[2023-07-22] MEDS: METHOCARBAMOL 500 MG TABLET PO PRN ×3 (00:31→22:11)
[2023-07-22] MEDS: hydrOXYzine PAMOATE 25 MG CAPSULE (FP) PO PRN ×3 (00:31→22:11)
[2023-07-22] MEDS: chlordiazePOXIDE HCL 10 MG CAPSULE PO SCH ×4 (05:34→22:11)
[2023-07-22] MEDS: FLUoxetine HCL 20 MG CAPSULE PO SCH (10:17)
[2023-07-22] MEDS: FLUTICASONE/UMECLIDIN/VILANTER(100-62.5-25 TRELEGY ELLIPTA) INAHLER IH SCH (10:17)
[2023-07-22] MEDS: PRENATAL VITAMINS W/ FOLIC ACID TABLET (FP) PO SCH (10:17)
[2023-07-22] MEDS: levETIRAcetam 500 MG TABLET (FP) PO SCH ×2 (10:17→22:11)
[2023-07-22] MEDS: NICOTINE 21 MG/24 HOURS TOPICAL PATCH TD SCH (10:18)
[2023-07-22] MEDS: MIRTAZAPINE 15 MG TABLET (FP) PO SCH (22:11)
[2023-07-22] MEDS: MELATONIN 5 MG TABLETS PO SCH (22:11)
[2023-07-22] MEDS: THIAMINE HCL 100 MG TABLET (FP) PO SCH (22:11)
[2023-07-22] MEDS: QUEtiapine FUMARATE 200 MG TABLET PO SCH (22:11)
[2023-07-22] MEDS: ATORVASTATIN CA 40 MG TABLET (FP) PO SCH (22:11)
[2023-07-23] MEDS: chlordiazePOXIDE HCL 10 MG CAPSULE PO SCH ×2 (05:54→17:09)
[2023-07-23] MEDS: METHOCARBAMOL 500 MG TABLET PO PRN (05:55)
[2023-07-23] MEDS: hydrOXYzine PAMOATE 25 MG CAPSULE (FP) PO PRN ×2 (05:55→10:21)
[2023-07-23] MEDS: levETIRAcetam 500 MG TABLET (FP) PO SCH ×2 (10:21→21:58)
[2023-07-23] MEDS: FLUoxetine HCL 20 MG CAPSULE PO SCH (10:21)
[2023-07-23] MEDS: PRENATAL VITAMINS W/ FOLIC ACID TABLET (FP) PO SCH (10:21)
[2023-07-23] MEDS: FLUTICASONE/UMECLIDIN/VILANTER(100-62.5-25 TRELEGY ELLIPTA) INAHLER IH SCH (10:22)
[2023-07-23] MEDS: NICOTINE 21 MG/24 HOURS TOPICAL PATCH TD SCH (10:22)
[2023-07-23] MEDS: ATORVASTATIN CA 40 MG TABLET (FP) PO SCH (21:58)
[2023-07-23] MEDS: THIAMINE HCL 100 MG TABLET (FP) PO SCH (21:58)
[2023-07-23] MEDS: MIRTAZAPINE 15 MG TABLET (FP) PO SCH (21:58)
[2023-07-23] MEDS: QUEtiapine FUMARATE 200 MG TABLET PO SCH (21:58)
[2023-07-23] MEDS: MELATONIN 5 MG TABLETS PO SCH (21:58)
[2023-07-24] MEDS: METHOCARBAMOL 500 MG TABLET PO PRN (01:33)
[2023-07-24] MEDS ORDERED: chlordiazePOXIDE HCL 10 MG CAPSULE PO ONE (05:00)
[2023-07-24 09:20] VITALS: BP 117/76; PULSE 90; RESP 20; TEMP 98
[2023-07-24] MEDS: PRENATAL VITAMINS W/ FOLIC ACID TABLET (FP) PO SCH (10:00)
[2023-07-24] MEDS: FLUTICASONE/UMECLIDIN/VILANTER(100-62.5-25 TRELEGY ELLIPTA) INAHLER IH SCH (10:00)
[2023-07-24] MEDS: levETIRAcetam 500 MG TABLET (FP) PO SCH (10:00)
[2023-07-24] MEDS: FLUoxetine HCL 20 MG CAPSULE PO SCH (10:00)
[2023-07-24] MEDS: NICOTINE 21 MG/24 HOURS TOPICAL PATCH TD SCH (10:01)
== END 2023-07-24 10:15 | disposition home or self-care (01) | DRG 775 ==
LOC: YASAS 12:03 → Y3N 16:45
PROVIDERS: ADMIT Allergy & Immunology; ATTEND Surgery
PROC: HZ2ZZZZ Detoxification Services for Substance Abuse Treatment (ICD-10-PCS; principal; 2023-07-19)
DX: F10.230 Alcohol dependence with withdrawal, uncomplicated (principal); F12.20 Cannabis dependence, uncomplicated; F17.210 Nicotine dependence, cigarettes, uncomplicated; F25.9 Schizoaffective disorder, unspecified; F43.10 Post-traumatic stress disorder, unspecified; F19.24 Other psychoactive substance dependence with psychoactive substance-induced mood disorder; E87.6 Hypokalemia; E78.5 Hyperlipidemia, unspecified; I10 Essential (primary) hypertension; J45.909 Unspecified asthma, uncomplicated; M54.50 Low back pain, unspecified; G89.29 Other chronic pain; R74.01 Elevation of levels of liver transaminase levels; Z86.16 Personal history of COVID-19; Z87.11 Personal history of peptic ulcer disease; Z91.148 Patient's other noncompliance with medication regimen for other reason; Z56.0 Unemployment, unspecified; Z59.01 Sheltered homelessness
CPT/HCPCS: 36415; 80053; 80307; 85027; 86780; 87635

== ENCOUNTER 2023-08-10 11:10 | Inpatient (IN) | payer OTHER ==
[2023-08-10 11:48] VITALS: BMI 20.5
[2023-08-10] MEDS ORDERED: MAG HYDROX/AL HYDROX/SIMETH 30 ML UNIT-DOSE CUP PO PRN (12:24)
[2023-08-10] MEDS ORDERED: BENZONATATE 200 MG CAPSULE PO PRN (12:24)
[2023-08-10] MEDS ORDERED: MAGNESIUM HYDROX 2400MG/30ML ORAL SUSPENSION 30 ML CUP PO PRN (12:24)
[2023-08-10] MEDS ORDERED: LOPERAMIDE HCL 2 MG CAPSULE PO PRN (12:24)
[2023-08-10] MEDS ORDERED: IBUPROFEN 600 MG TABLET (FP) PO PRN (12:24)
[2023-08-10] MEDS ORDERED: ACETAMINOPHEN 325 MG TABLET (FP) PO PRN (12:24)
[2023-08-10] MEDS ORDERED: ONDANSETRON *ODT* 4 MG TABLET SL PRN (12:24)
[2023-08-10] MEDS ORDERED: BENZOCAINE/MENTHOL (CHLORASEPTIC ) LOZENGE MM PRN (12:24)
[2023-08-10] MEDS ORDERED: DICYCLOMINE HCL 10 MG CAPSULE PO PRN (12:24)
[2023-08-10] MEDS ORDERED: POLYETHYLENE GLYCOL (HEALTHYLAX) 3350 17 GM PACKET PO PRN (12:24)
[2023-08-10] MEDS ORDERED: guaiFENesin 600 MG TABLET.ER (FP) PO PRN (12:24)
[2023-08-10] MEDS ORDERED: BISMUTH SUBSALICYLATE 262 MG/15 ML BTL PO PRN (12:24)
[2023-08-10] MEDS ORDERED: METHOCARBAMOL 500 MG TABLET PO PRN (12:24)
[2023-08-10] MEDS ORDERED: IBUPROFEN 400 MG TABLET (FP) PO PRN (12:24)
[2023-08-10] MEDS ORDERED: P-EPHED 60MG/TRIPROLIDI 2.5MG TABLET PO PRN (12:24)
[2023-08-10] MEDS ORDERED: chlordiazePOXIDE HCL 25 MG CAPSULE PO PRN (12:28)
[2023-08-10] MEDS ORDERED: ALBUTEROL SO4 HFA INHALER IH PRN (14:42)
[2023-08-10] MEDS ORDERED: METOPROLOL TARTRATE 25 MG TABLET (FP) PO ONE (15:16)
[2023-08-10] MEDS: levETIRAcetam 500 MG TABLET (FP) PO SCH ×2 (15:22→22:56)
[2023-08-10] MEDS: chlordiazePOXIDE HCL 25 MG CAPSULE PO SCH ×2 (17:45→22:56)
[2023-08-10] MEDS: MELATONIN 5 MG TABLETS PO SCH (22:55)
[2023-08-10] MEDS: hydrOXYzine PAMOATE 25 MG CAPSULE (FP) PO PRN (22:56)
[2023-08-10] MEDS: ATORVASTATIN CA 40 MG TABLET (FP) PO SCH (22:56)
[2023-08-10] MEDS: THIAMINE HCL 100 MG TABLET (FP) PO SCH (22:56)
[2023-08-11] MEDS: chlordiazePOXIDE HCL 25 MG CAPSULE PO SCH ×4 (05:43→22:41)
[2023-08-11] MEDS: FLUTICASONE/UMECLIDIN/VILANTER(100-62.5-25 TRELEGY ELLIPTA) INAHLER IH SCH (10:58)
[2023-08-11] MEDS: levETIRAcetam 500 MG TABLET (FP) PO SCH ×2 (10:59→22:40)
[2023-08-11] MEDS: PRENATAL VITAMINS W/ FOLIC ACID TABLET (FP) PO SCH (10:59)
[2023-08-11] MEDS: NICOTINE POLACRILEX 2 MG GUM BUC PRN (20:28)
[2023-08-11] MEDS: MELATONIN 5 MG TABLETS PO SCH (22:40)
[2023-08-11] MEDS: ATORVASTATIN CA 40 MG TABLET (FP) PO SCH (22:40)
[2023-08-11] MEDS: THIAMINE HCL 100 MG TABLET (FP) PO SCH (22:41)
[2023-08-12] MEDS: chlordiazePOXIDE HCL 25 MG CAPSULE PO SCH ×4 (05:58→22:31)
[2023-08-12] MEDS: PRENATAL VITAMINS W/ FOLIC ACID TABLET (FP) PO SCH (10:23)
[2023-08-12] MEDS: levETIRAcetam 500 MG TABLET (FP) PO SCH ×2 (10:23→22:31)
[2023-08-12] MEDS: FLUTICASONE/UMECLIDIN/VILANTER(100-62.5-25 TRELEGY ELLIPTA) INAHLER IH SCH (10:23)
[2023-08-12] MEDS: hydrOXYzine PAMOATE 25 MG CAPSULE (FP) PO PRN (18:04)
[2023-08-12] MEDS: MELATONIN 5 MG TABLETS PO SCH (22:31)
[2023-08-12] MEDS: THIAMINE HCL 100 MG TABLET (FP) PO SCH (22:31)
[2023-08-12] MEDS: ATORVASTATIN CA 40 MG TABLET (FP) PO SCH (22:31)
[2023-08-13] MEDS ORDERED: chlordiazePOXIDE HCL 10 MG CAPSULE PO PRN
[2023-08-13] MEDS: chlordiazePOXIDE HCL 10 MG CAPSULE PO SCH ×4 (05:52→22:52)
[2023-08-13] MEDS: PRENATAL VITAMINS W/ FOLIC ACID TABLET (FP) PO SCH (10:35)
[2023-08-13] MEDS: levETIRAcetam 500 MG TABLET (FP) PO SCH ×2 (10:36→22:52)
[2023-08-13] MEDS: FLUTICASONE/UMECLIDIN/VILANTER(100-62.5-25 TRELEGY ELLIPTA) INAHLER IH SCH (10:41)
[2023-08-13] MEDS: NICOTINE POLACRILEX 2 MG GUM BUC PRN (21:17)
[2023-08-13] MEDS: THIAMINE HCL 100 MG TABLET (FP) PO SCH (22:52)
[2023-08-13] MEDS: ATORVASTATIN CA 40 MG TABLET (FP) PO SCH (22:52)
[2023-08-13] MEDS: MELATONIN 5 MG TABLETS PO SCH (22:53)
[2023-08-14] MEDS: chlordiazePOXIDE HCL 10 MG CAPSULE PO SCH ×2 (05:53→17:34)
[2023-08-14] MEDS: PRENATAL VITAMINS W/ FOLIC ACID TABLET (FP) PO SCH (10:17)
[2023-08-14] MEDS: levETIRAcetam 500 MG TABLET (FP) PO SCH ×2 (10:17→22:24)
[2023-08-14] MEDS: FLUTICASONE/UMECLIDIN/VILANTER(100-62.5-25 TRELEGY ELLIPTA) INAHLER IH SCH (10:17)
[2023-08-14] MEDS: THIAMINE HCL 100 MG TABLET (FP) PO SCH (22:24)
[2023-08-14] MEDS: ATORVASTATIN CA 40 MG TABLET (FP) PO SCH (22:24)
[2023-08-14] MEDS: MELATONIN 5 MG TABLETS PO SCH (22:24)
[2023-08-15] MEDS ORDERED: chlordiazePOXIDE HCL 10 MG CAPSULE PO ONE (05:00)
[2023-08-15 06:28] VITALS: BP 107/74; PULSE 87; RESP 16; TEMP 98
[2023-08-15] MEDS: levETIRAcetam 500 MG TABLET (FP) PO SCH (09:37)
[2023-08-15] MEDS: FLUTICASONE/UMECLIDIN/VILANTER(100-62.5-25 TRELEGY ELLIPTA) INAHLER IH SCH (09:37)
[2023-08-15] MEDS: PRENATAL VITAMINS W/ FOLIC ACID TABLET (FP) PO SCH (09:37)
[2023-08-15] MEDS ORDERED: INSULIN ASPART SLIDING SCALE (NOVOLOG) 1 VIAL SQ ONE (11:40)
== END 2023-08-15 11:37 | disposition home or self-care (01) | DRG 775 ==
LOC: YASAS 11:10 → Y3N 12:38
PROVIDERS: ADMIT Allergy & Immunology; ATTEND Surgery
PROC: HZ2ZZZZ Detoxification Services for Substance Abuse Treatment (ICD-10-PCS; principal; 2023-08-10)
DX: F10.230 Alcohol dependence with withdrawal, uncomplicated (principal); F12.20 Cannabis dependence, uncomplicated; F17.210 Nicotine dependence, cigarettes, uncomplicated; U07.1 COVID-19; E78.5 Hyperlipidemia, unspecified; I10 Essential (primary) hypertension; M54.50 Low back pain, unspecified; G89.29 Other chronic pain
CPT/HCPCS: 87635; 87811

== ENCOUNTER 2023-08-20 01:05 | Inpatient (IN) | payer OTHER ==
[2023-08-20] MEDS ORDERED: NALOXONE HCL 0.4 MG/ML VIAL IM PRN (03:17)
[2023-08-20] MEDS ORDERED: MAG HYDROX/AL HYDROX/SIMETH 30 ML UNIT-DOSE CUP PO PRN (03:17)
[2023-08-20] MEDS ORDERED: ACETAMINOPHEN 325 MG TABLET (FP) PO PRN (03:17)
[2023-08-20] MEDS ORDERED: MAGNESIUM HYDROX 2400MG/30ML ORAL SUSPENSION 30 ML CUP PO PRN (03:17)
[2023-08-20] MEDS ORDERED: POLYETHYLENE GLYCOL (HEALTHYLAX) 3350 17 GM PACKET PO PRN (03:17)
[2023-08-20] MEDS ORDERED: BENZOCAINE/MENTHOL (CHLORASEPTIC ) LOZENGE MM PRN (03:17)
[2023-08-20] MEDS ORDERED: NALOXONE HCL (KLOXXADO) 8 MG SPRAY NS PRN (03:17)
[2023-08-20] MEDS ORDERED: BENZONATATE 200 MG CAPSULE PO PRN (03:17)
[2023-08-20] MEDS ORDERED: guaiFENesin 600 MG TABLET.ER (FP) PO PRN (03:17)
[2023-08-20 03:23] VITALS: BMI 20.7
[2023-08-20] MEDS: PRENATAL VITAMINS W/ FOLIC ACID TABLET (FP) PO SCH (10:17)
[2023-08-20] MEDS: NICOTINE 21 MG/24 HOURS TOPICAL PATCH TD SCH (10:18)
[2023-08-20] MEDS: IBUPROFEN 400 MG TABLET (FP) PO PRN (10:19)
[2023-08-20 11:46] LABS: PH,URINE 5.5 (5.0-8.0); URINE APPEARANCE CLEAR; URINE BILIRUBIN NEGATIVE (NEGATIVE); URINE COLOR YELLOW; URINE GLUCOSE (UA) NEGATIVE (NEGATIVE); URINE KETONE NEGATIVE (NEGATIVE); URINE LEUK ESTERASE NEGATIVE (NEGATIVE); URINE NITRITE NEGATIVE (NEGATIVE); URINE PROTEIN NEGATIVE (NEGATIVE); URINE UROBILINOGEN 0.2 mg/dL (0.2-1.0)
[2023-08-20] MEDS: MIRTAZAPINE 15 MG TABLET (FP) PO SCH (21:41)
[2023-08-20] MEDS: ATORVASTATIN CA 40 MG TABLET (FP) PO SCH (21:41)
[2023-08-20] MEDS: IBUPROFEN 600 MG TABLET (FP) PO PRN (21:41)
[2023-08-20] MEDS: levETIRAcetam 500 MG TABLET (FP) PO SCH (21:41)
[2023-08-20] MEDS: QUEtiapine FUMARATE 200 MG TABLET PO SCH (21:41)
[2023-08-20] MEDS: busPIRone HCL 5 MG TABLET PO SCH (21:43)
[2023-08-20] MEDS: hydrOXYzine PAMOATE 25 MG CAPSULE (FP) PO PRN (21:44)
[2023-08-20] MEDS ORDERED: MELATONIN 5 MG TABLETS PO SCH (22:00)
[2023-08-20] MEDS: THIAMINE HCL 100 MG TABLET (FP) PO SCH (22:10)
[2023-08-21] MEDS: ALBUTEROL SO4 HFA INHALER IH PRN (10:57)
[2023-08-21] MEDS: FLUoxetine HCL 20 MG CAPSULE PO SCH (11:29)
[2023-08-21 15:20] LABS: HEMATOCRIT 39.7 % (35.4-49); MCHC 32.9 g/dl (32.0-35.9); MEAN CELL VOLUME 100.4 fl (80-96); MEAN PLT VOLUME 7.7 fl (7.5-11.1); PLATELET COUNT 327 10^3/uL (134-434); RBC 3.95 M/mm3 (4.00-5.60); RDW 16.6 % (11.9-15.9); WHITE BLOOD COUNT 5.7 K/mm3 (4.0-10.0)
[2023-08-21 15:27] LABS: POTASSIUM 4.1 mmol/L (3.5-5.1)
[2023-08-21 15:33] LABS: CALCIUM 8.9 mg/dL (8.5-10.1)
[2023-08-21 15:34] LABS: ALBUMIN 3.3 g/dl (3.4-5.0); BLOOD UREA NITROGEN 6.7 mg/dL (7-18)
[2023-08-21 15:36] LABS: CREATININE 0.8 mg/dL (0.55-1.3)
[2023-08-21 15:38] LABS: BILIRUBIN,TOTAL 0.4 mg/dL (0.2-1); TOT PROT 6.3 g/dl (6.4-8.2)
[2023-08-21] MEDS: NICOTINE POLACRILEX 4 MG LOZENGE BC PRN (21:27)
[2023-08-22] MEDS: LACTULOSE 20 GM/30 ML UDC (FOR ORAL USE ONLY) PO SCH (15:02)
[2023-08-22] MEDS: CYANOCOBALAMIN (VITAMIN B-12) 100 MCG TABLET PO SCH (15:02)
[2023-08-22] MEDS: FLUTICASONE/UMECLIDIN/VILANTER(100-62.5-25 TRELEGY ELLIPTA) INAHLER IH SCH (15:03)
[2023-08-22] MEDS: MELATONIN 5 MG TABLETS PO PRN (21:30)
[2023-08-23] MEDS ORDERED: NALTREXONE HCL 50 MG TABLET PO SCH ×2 (10:00)
[2023-08-23] MEDS: NALTREXONE HCL 50 MG TABLET PO ONE (10:31)
[2023-08-23] MEDS: FLU VACCINE (FLULAVAL) PF 60 MCG/0.5 ML SYRINGE 2023-2024 IM ONE (13:39)
[2023-08-23] MEDS: NICOTINE POLACRILEX 4 MG GUM BUC PRN (13:49)
[2023-08-24] MEDS: NALTREXONE HCL 50 MG TABLET PO SCH (10:25)
[2023-08-26] MEDS: LOPERAMIDE HCL 2 MG CAPSULE PO PRN (13:54)
[2023-08-29] MEDS: METHYL SALICYLATE/MENTHOL OINT 30 GM TUBE TP PRN (10:29)
[2023-08-30] MEDS: NAPROXEN 500 MG TABLET PO PRN (10:08)
[2023-09-04] MEDS: NALTREXONE MICROSPHERES (VIVITROL) 380 MG DISP.SYRIN IM ONE (06:44)
[2023-09-05 07:07] VITALS: BP 127/79; PULSE 77; RESP 17; TEMP 97.7
== END 2023-09-05 10:35 | disposition home or self-care (01) | DRG 772 ==
LOC: YASAS 01:05 → Y3E 09:21
PROVIDERS: ADMIT Allergy & Immunology; ATTEND Psychiatry & Neurology Pain Medicine
PROC: HZ42ZZZ Group Counseling for Substance Abuse Treatment, Cognitive-Behavioral (ICD-10-PCS; principal; 2023-08-20)
DX: F10.20 Alcohol dependence, uncomplicated (principal); F12.20 Cannabis dependence, uncomplicated; F17.210 Nicotine dependence, cigarettes, uncomplicated; F31.81 Bipolar II disorder; F10.282 Alcohol dependence with alcohol-induced sleep disorder; F19.282 Other psychoactive substance dependence with psychoactive substance-induced sleep disorder; E72.20 Disorder of urea cycle metabolism, unspecified; G47.00 Insomnia, unspecified; I10 Essential (primary) hypertension; J45.909 Unspecified asthma, uncomplicated; M54.50 Low back pain, unspecified; G89.29 Other chronic pain; Z20.822 Contact with and (suspected) exposure to COVID-19; Z86.69 Personal history of other diseases of the nervous system and sense organs; Z86.19 Personal history of other infectious and parasitic diseases
CPT/HCPCS: 36415; 73110-TC-RT-FY; 73130-TC-RT-FY; 80053; 80307; 81003; 82140; 83036; 85027; 86780; 87635; 87811; 90686; G0008; J2315

== ENCOUNTER 2023-09-12 15:12 | Inpatient (IN) | payer BC ==
[2023-09-12 16:52] VITALS: BMI 26.6
[2023-09-12] MEDS ORDERED: NALOXONE HCL (KLOXXADO) 8 MG SPRAY NS PRN (17:55)
[2023-09-12] MEDS ORDERED: BISMUTH SUBSALICYLATE 524 MG/30 ML PO PRN (17:55)
[2023-09-12] MEDS ORDERED: BENZONATATE 200 MG CAPSULE PO PRN (17:55)
[2023-09-12] MEDS ORDERED: ONDANSETRON *ODT* 4 MG TABLET SL PRN (17:55)
[2023-09-12] MEDS ORDERED: BENZOCAINE/MENTHOL (CHLORASEPTIC ) LOZENGE MM PRN (17:55)
[2023-09-12] MEDS ORDERED: DICYCLOMINE HCL 10 MG CAPSULE PO PRN (17:55)
[2023-09-12] MEDS ORDERED: POLYETHYLENE GLYCOL (HEALTHYLAX) 3350 17 GM PACKET PO PRN (17:55)
[2023-09-12] MEDS ORDERED: MAG HYDROX/AL HYDROX/SIMETH 30 ML UNIT-DOSE CUP PO PRN (17:55)
[2023-09-12] MEDS ORDERED: guaiFENesin 600 MG TABLET.ER (FP) PO PRN (17:55)
[2023-09-12] MEDS ORDERED: NALOXONE HCL 0.4 MG/ML VIAL IM PRN (17:55)
[2023-09-12] MEDS ORDERED: LOPERAMIDE HCL 2 MG CAPSULE PO PRN (17:55)
[2023-09-12] MEDS ORDERED: IBUPROFEN 400 MG TABLET (FP) PO PRN (17:55)
[2023-09-12] MEDS ORDERED: MAGNESIUM HYDROX 2400MG/30ML ORAL SUSPENSION 30 ML CUP PO PRN (17:55)
[2023-09-12] MEDS ORDERED: chlordiazePOXIDE HCL 25 MG CAPSULE PO PRN (17:55)
[2023-09-12] MEDS ORDERED: chlordiazePOXIDE HCL 25 MG CAPSULE ONE (18:15)
[2023-09-12] MEDS: chlordiazePOXIDE HCL 25 MG CAPSULE PO ONE (18:15)
[2023-09-12] MEDS ORDERED: ALBUTEROL SO4 HFA INHALER IH PRN (18:49)
[2023-09-12] MEDS: levETIRAcetam 500 MG TABLET (FP) PO SCH (22:34)
[2023-09-12] MEDS: THIAMINE HCL 100 MG TABLET (FP) PO SCH (22:34)
[2023-09-12] MEDS: ATORVASTATIN CA 40 MG TABLET (FP) PO SCH (22:34)
[2023-09-12] MEDS: MELATONIN 5 MG TABLETS PO SCH (22:34)
[2023-09-12] MEDS: chlordiazePOXIDE HCL 25 MG CAPSULE PO SCH (22:35)
[2023-09-13] MEDS: FLUTICASONE/UMECLIDIN/VILANTER(100-62.5-25 TRELEGY ELLIPTA) INAHLER IH SCH (10:05)
[2023-09-13] MEDS: PRENATAL VITAMINS W/ FOLIC ACID TABLET (FP) PO SCH (10:05)
[2023-09-13] MEDS: hydrOXYzine PAMOATE 25 MG CAPSULE (FP) PO PRN (10:06)
[2023-09-13] MEDS: METHOCARBAMOL 500 MG TABLET PO PRN (10:07)
[2023-09-13 12:15] LABS: HEMATOCRIT 43.1 % (35.4-49); HEMOGLOBIN 14.7 GM/dL (11.7-16.9); MCH 33.3 pg (25.7-33.7); MEAN PLT VOLUME 7.3 fl (7.5-11.1); PLATELET COUNT 435 10^3/uL (134-434); RBC 4.39 M/mm3 (4.00-5.60); WHITE BLOOD COUNT 7.5 K/mm3 (4.0-10.0)
[2023-09-13 12:23] LABS: CHLORIDE 97 mmol/L (98-107); POTASSIUM 4.4 mmol/L (3.5-5.1); SODIUM 136 mmol/L (136-145)
[2023-09-13 12:30] LABS: ALBUMIN 4.1 g/dl (3.4-5.0); BLOOD UREA NITROGEN 11.5 mg/dL (7-18); GLUCOSE,RANDOM 171 mg/dL (74-106)
[2023-09-13 12:32] LABS: ANION GAP 6 mmol/L (4-13); CALCIUM 9.6 mg/dL (8.5-10.1); CO2 34 mmol/L (21-32); TOT PROT 7.7 g/dl (6.4-8.2)
[2023-09-13 12:34] LABS: ALK PHOS 125 U/L (45-117); SGOT/AST 85 U/L (15-37); SGPT/ALT 59 U/L (13-61)
[2023-09-13 12:35] LABS: BILIRUBIN,TOTAL 1.2 mg/dL (0.2-1)
[2023-09-13 12:38] LABS: CREATININE 0.8 mg/dL (0.55-1.3)
[2023-09-13] MEDS: NICOTINE 14 MG/24 HOURS TOPICAL PATCH TD SCH (13:37)
[2023-09-13] MEDS: IBUPROFEN 600 MG TABLET (FP) PO PRN (17:24)
[2023-09-13] MEDS: NICOTINE POLACRILEX 2 MG GUM BUC PRN (17:25)
[2023-09-13] MEDS: LIDOCAINE VISCOUS 2% ORAL/TOP 15 ML UNIT-DOSE CUP MM ONE ×2 (17:56→19:20)
[2023-09-13] MEDS: LIDOCAINE VISCOUS 2% ORAL/TOP 15 ML UNIT-DOSE CUP MM SCH (22:09)
[2023-09-14] MEDS: chlordiazePOXIDE HCL 25 MG CAPSULE PO SCH (05:39)
[2023-09-14] MEDS: ACETAMINOPHEN 325 MG TABLET (FP) PO PRN (17:17)
[2023-09-14] MEDS: QUEtiapine FUMARATE 200 MG TABLET PO SCH (22:09)
[2023-09-14] MEDS: busPIRone HCL 10 MG TABLET (FP) PO SCH (22:09)
[2023-09-14] MEDS: MIRTAZAPINE 15 MG TABLET (FP) PO SCH (22:09)
[2023-09-15] MEDS ORDERED: chlordiazePOXIDE HCL 10 MG CAPSULE PO PRN
[2023-09-15] MEDS: chlordiazePOXIDE HCL 10 MG CAPSULE PO SCH (05:52)
[2023-09-15] MEDS: FLUoxetine HCL 20 MG CAPSULE PO SCH (10:24)
[2023-09-16] MEDS: chlordiazePOXIDE HCL 10 MG CAPSULE PO SCH (05:26)
[2023-09-16 17:01] VITALS: RESP 18
[2023-09-17] MEDS: chlordiazePOXIDE HCL 10 MG CAPSULE PO ONE (05:33)
[2023-09-17 06:44] VITALS: TEMP 97.8
[2023-09-17 09:35] VITALS: BP 113/75; PULSE 103
[2023-09-17] MEDS: METHYL SALICYLATE/MENTHOL OINT 30 GM TUBE TP SCH (12:14)
== END 2023-09-17 09:31 | disposition home or self-care (01) | DRG 775 ==
LOC: YASAS 15:12 → Y3N 18:34
PROVIDERS: ADMIT Allergy & Immunology; ATTEND Surgery
PROC: HZ2ZZZZ Detoxification Services for Substance Abuse Treatment (ICD-10-PCS; principal; 2023-09-12)
DX: F10.230 Alcohol dependence with withdrawal, uncomplicated (principal); F12.20 Cannabis dependence, uncomplicated; F17.210 Nicotine dependence, cigarettes, uncomplicated; F31.81 Bipolar II disorder; F19.24 Other psychoactive substance dependence with psychoactive substance-induced mood disorder; F43.10 Post-traumatic stress disorder, unspecified; F20.9 Schizophrenia, unspecified; I10 Essential (primary) hypertension; M54.50 Low back pain, unspecified; G89.29 Other chronic pain; Z86.2 Personal history of diseases of the blood and blood-forming organs and certain disorders involving the immune mechanism; Z59.01 Sheltered homelessness; Z56.0 Unemployment, unspecified
CPT/HCPCS: 36415; 80053; 80307; 85027; 86780; 87635

== ENCOUNTER 2023-09-19 22:38 | Observation (INO) | payer BC ==
[2023-09-19 22:45] VITALS: BMI 29.5
[2023-09-19 23:23] LABS: HEMATOCRIT 38.8 % (35.4-49); HEMOGLOBIN 13.2 GM/dL (11.7-16.9); MCH 33.4 pg (25.7-33.7); MEAN CELL VOLUME 98.2 fl (80-96); MEAN PLT VOLUME 6.8 fl (7.5-11.1); PLATELET COUNT 282 10^3/uL (134-434); RBC 3.95 M/mm3 (4.00-5.60); RDW 14.7 % (11.9-15.9); WHITE BLOOD COUNT 8.1 K/mm3 (4.0-10.0)
[2023-09-19 23:26] LABS: INR 1.09 (0.83-1.09); PROTHROMBIN TIME (PATIENT) 12.6 SEC (9.7-13.0)
[2023-09-19 23:29] LABS: ACTIVATED PTT 27.3 SECONDS (25.2-36.5)
[2023-09-19 23:55] LABS: CHLORIDE 107 mmol/L (98-107); POTASSIUM 3.7 mmol/L (3.5-5.1); SODIUM 143 mmol/L (136-145)
[2023-09-19 23:58] LABS: ANION GAP 9 mmol/L (4-13); BLOOD UREA NITROGEN 17.1 mg/dL (7-18); CALCIUM 8.2 mg/dL (8.5-10.1); CO2 27 mmol/L (21-32); GLUCOSE,RANDOM 101 mg/dL (74-106)
[2023-09-19 23:59] LABS: ALBUMIN 3.6 g/dl (3.4-5.0); MAGNESIUM 2.3 mg/dL (1.8-2.4)
[2023-09-20 00:02] LABS: BILIRUBIN,TOTAL 0.2 mg/dL (0.2-1); SGOT/AST 68 U/L (15-37); SGPT/ALT 76 U/L (13-61)
[2023-09-20 00:03] LABS: MACROCYTOSIS 1+; TARGET CELLS 1+; TOT PROT 7.2 g/dl (6.4-8.2)
[2023-09-20 00:09] LABS: ALK PHOS 94 U/L (45-117)
[2023-09-20 00:12] LABS: PLATELET ESTIMATE ADEQUATE
[2023-09-20] MEDS ORDERED: LORazepam 1 MG TABLET PO PRN ×3 (03:10→09:20)
[2023-09-20] MEDS ORDERED: LORazepam 1 MG TABLET PO SCH (05:00)
[2023-09-20] MEDS: FOLIC ACID INJECTION - 1 MG, THIAMINE HCL 100 MG, MULTIVIT INJECTION ADULT 10 ML in SOD... IVPB ONE (05:09)
[2023-09-20 06:33] LABS: PH,URINE 5.5 (5.0-8.0); URINE APPEARANCE CLEAR; URINE BILIRUBIN NEGATIVE (NEGATIVE); URINE COLOR YELLOW; URINE GLUCOSE (UA) NEGATIVE (NEGATIVE); URINE KETONE NEGATIVE (NEGATIVE); URINE LEUK ESTERASE NEGATIVE (NEGATIVE); URINE NITRITE NEGATIVE (NEGATIVE); URINE PROTEIN NEGATIVE (NEGATIVE); URINE UROBILINOGEN 0.2 mg/dL (0.2-1.0)
[2023-09-20 08:06] LABS: BASO % 0.8 % (0-2.0); EOS % 5.6 % (0-4.5); HEMOGLOBIN 13.2 GM/dL (11.7-16.9); LYMPH % 56.5 % (8-40); MCHC 34.8 g/dl (32.0-35.9); MEAN CELL VOLUME 97.6 fl (80-96); MEAN PLT VOLUME 7.1 fl (7.5-11.1); MONO % 7.8 % (3.8-10.2); NEUT % 29.3 % (42.8-82.8); PLATELET COUNT 275 10^3/uL (134-434); RDW 14.9 % (11.9-15.9); WHITE BLOOD COUNT 5.6 K/mm3 (4.0-10.0)
[2023-09-20 08:16] LABS: POTASSIUM 3.9 mmol/L (3.5-5.1)
[2023-09-20 08:21] LABS: CALCIUM 7.7 mg/dL (8.5-10.1)
[2023-09-20 08:22] LABS: ALBUMIN 3.6 g/dl (3.4-5.0); BLOOD UREA NITROGEN 15.2 mg/dL (7-18); MAGNESIUM 2.4 mg/dL (1.8-2.4)
[2023-09-20 08:25] LABS: CREATININE 0.7 mg/dL (0.55-1.3); PHOSPHOROUS 3.6 mg/dL (2.5-4.9)
[2023-09-20 08:27] LABS: BILIRUBIN,TOTAL 0.2 mg/dL (0.2-1); TOT PROT 6.7 g/dl (6.4-8.2)
[2023-09-20 08:53] VITALS: BP 118/84; PULSE 96; RESP 18; TEMP 97
[2023-09-20] MEDS ORDERED: THIAMINE HCL 100 MG TABLET (FP) ONE (10:48)
[2023-09-20] MEDS ORDERED: LORazepam 1 MG TABLET ONE (10:48)
[2023-09-20] MEDS ORDERED: FOLIC ACID 1 MG TABLET (FP) ONE (10:48)
[2023-09-20] MEDS: FOLIC ACID 1 MG TABLET (FP) PO SCH (10:57)
[2023-09-20] MEDS: LORazepam 1 MG TABLET PO SCH (10:57)
[2023-09-20] MEDS: THIAMINE HCL 100 MG TABLET (FP) PO SCH (10:57)
[2023-09-21] MEDS ORDERED: LORazepam 1 MG TABLET PO SCH (05:00)
[2023-09-22] MEDS ORDERED: LORazepam 0.5 MG TABLET PO PRN
[2023-09-22] MEDS ORDERED: LORazepam 0.5 MG TABLET PO SCH (05:00)
[2023-09-22] MEDS ORDERED: LORazepam 1 MG TABLET PO SCH (05:00)
[2023-09-23] MEDS ORDERED: LORazepam 0.5 MG TABLET PO PRN
[2023-09-23] MEDS ORDERED: LORazepam 0.5 MG TABLET PO SCH (05:00)
[2023-09-23] MEDS ORDERED: LORazepam 0.5 MG TABLET PO ONE (05:00)
[2023-09-24] MEDS ORDERED: LORazepam 0.5 MG TABLET PO ONE (05:00)
== END 2023-09-20 15:07 ==
LOC: JER 22:38 → JERBED 09-20 01:50
PROVIDERS: ADMIT Internal Medicine; ATTEND Nurse Practitioner Family
PROC: 3E033GC Introduction of Other Therapeutic Substance into Peripheral Vein, Percutaneous Approach (ICD-10-PCS; principal; 2023-09-20)
DX: F10.920 Alcohol use, unspecified with intoxication, uncomplicated (principal); J45.909 Unspecified asthma, uncomplicated; M54.9 Dorsalgia, unspecified; G89.29 Other chronic pain; E78.5 Hyperlipidemia, unspecified; N20.0 Calculus of kidney; D64.9 Anemia, unspecified; K92.2 Gastrointestinal hemorrhage, unspecified; F41.8 Other specified anxiety disorders; R55 Syncope and collapse
CPT/HCPCS: 0241U-QW; 36415; 70450-TC; 72125-TC; 73090-TC-RT-FY; 73110-TC-RT-FY; 73130-TC-RT-FY; 80053; 80307; 81003; 82140; 82962; 83735; 84100; 85025; 85610; 85730; 87086; 93005; 93010; 96365; 99285-25; G0378

== ENCOUNTER 2023-09-20 23:32 | Inpatient (IN) | payer BC ==
[2023-09-21 01:26] VITALS: BMI 22.1
[2023-09-21] MEDS ORDERED: ONDANSETRON *ODT* 4 MG TABLET SL PRN (02:48)
[2023-09-21] MEDS ORDERED: guaiFENesin 600 MG TABLET.ER (FP) PO PRN (02:48)
[2023-09-21] MEDS ORDERED: POLYETHYLENE GLYCOL (HEALTHYLAX) 3350 17 GM PACKET PO PRN (02:48)
[2023-09-21] MEDS ORDERED: BISMUTH SUBSALICYLATE 524 MG/30 ML PO PRN (02:48)
[2023-09-21] MEDS ORDERED: LOPERAMIDE HCL 2 MG CAPSULE PO PRN (02:48)
[2023-09-21] MEDS ORDERED: BENZONATATE 200 MG CAPSULE PO PRN (02:48)
[2023-09-21] MEDS ORDERED: MAGNESIUM HYDROX 2400MG/30ML ORAL SUSPENSION 30 ML CUP PO PRN (02:48)
[2023-09-21] MEDS ORDERED: NALOXONE HCL (KLOXXADO) 8 MG SPRAY NS PRN (02:48)
[2023-09-21] MEDS ORDERED: IBUPROFEN 400 MG TABLET (FP) PO PRN (02:48)
[2023-09-21] MEDS ORDERED: BENZOCAINE/MENTHOL (CHLORASEPTIC ) LOZENGE MM PRN (02:48)
[2023-09-21] MEDS ORDERED: MAG HYDROX/AL HYDROX/SIMETH 30 ML UNIT-DOSE CUP PO PRN (02:48)
[2023-09-21] MEDS ORDERED: NALOXONE HCL 0.4 MG/ML VIAL IM PRN (02:48)
[2023-09-21] MEDS ORDERED: LORazepam 1 MG TABLET PO PRN (02:55)
[2023-09-21] MEDS: LORazepam 2 MG TABLET PO SCH (05:55)
[2023-09-21] MEDS ORDERED: ALBUTEROL SO4 HFA INHALER IH PRN (08:13)
[2023-09-21] MEDS: levETIRAcetam 500 MG TABLET (FP) PO SCH (10:15)
[2023-09-21] MEDS: PRENATAL VITAMINS W/ FOLIC ACID TABLET (FP) PO SCH (10:15)
[2023-09-21] MEDS: NICOTINE 21 MG/24 HOURS TOPICAL PATCH TD SCH (10:16)
[2023-09-21] MEDS: hydrOXYzine PAMOATE 25 MG CAPSULE (FP) PO PRN (10:17)
[2023-09-21] MEDS: ACETAMINOPHEN 325 MG TABLET (FP) PO PRN (16:39)
[2023-09-21] MEDS: NICOTINE POLACRILEX 2 MG GUM BUC PRN (16:40)
[2023-09-21] MEDS: ATORVASTATIN CA 40 MG TABLET (FP) PO SCH (22:13)
[2023-09-21] MEDS: MELATONIN 5 MG TABLETS PO SCH (22:14)
[2023-09-21] MEDS: THIAMINE HCL 100 MG TABLET (FP) PO SCH (22:14)
[2023-09-21] MEDS: METHYL SALICYLATE/MENTHOL OINT 30 GM TUBE TP SCH (23:01)
[2023-09-22] MEDS: LORazepam 1 MG TABLET PO SCH (05:28)
[2023-09-22 10:44] LABS: POTASSIUM 3.8 mmol/L (3.5-5.1)
[2023-09-22 10:48] LABS: HEMATOCRIT 33.1 % (35.4-49); HEMOGLOBIN 11.6 GM/dL (11.7-16.9); MCH 34.6 pg (25.7-33.7); MCHC 35.1 g/dl (32.0-35.9); MEAN CELL VOLUME 98.4 fl (80-96); MEAN PLT VOLUME 8.1 fl (7.5-11.1); PLATELET COUNT 281 10^3/uL (134-434); RBC 3.36 M/mm3 (4.00-5.60); RDW 14.6 % (11.9-15.9); WHITE BLOOD COUNT 6.6 K/mm3 (4.0-10.0)
[2023-09-22 10:51] LABS: ALBUMIN 3.4 g/dl (3.4-5.0); BLOOD UREA NITROGEN 14.2 mg/dL (7-18); CALCIUM 8.4 mg/dL (8.5-10.1)
[2023-09-22 10:54] LABS: CREATININE 0.8 mg/dL (0.55-1.3)
[2023-09-22 10:55] LABS: BILIRUBIN,TOTAL 0.2 mg/dL (0.2-1); TOT PROT 6.4 g/dl (6.4-8.2)
[2023-09-22] MEDS: FLUoxetine HCL 20 MG CAPSULE PO SCH (11:46)
[2023-09-22] MEDS: busPIRone HCL 10 MG TABLET (FP) PO SCH (11:46)
[2023-09-22] MEDS: IBUPROFEN 600 MG TABLET (FP) PO PRN (15:35)
[2023-09-22] MEDS: QUEtiapine FUMARATE 200 MG TABLET PO SCH (22:06)
[2023-09-22] MEDS: MIRTAZAPINE 15 MG TABLET (FP) PO SCH (22:06)
[2023-09-22] MEDS: MELATONIN 5 MG TABLETS PO ONE (23:25)
[2023-09-23] MEDS ORDERED: LORazepam 0.5 MG TABLET PO PRN
[2023-09-23] MEDS: LORazepam 0.5 MG TABLET PO SCH (05:36)
[2023-09-24] MEDS: LORazepam 0.5 MG TABLET PO ONE (05:19)
[2023-09-25 09:21] VITALS: BP 140/87; PULSE 96; RESP 17; TEMP 97.9
== END 2023-09-25 09:16 | disposition home or self-care (01) | DRG 775 ==
LOC: YASAS 23:32 → Y3N 09-21 03:40
PROVIDERS: ADMIT Allergy & Immunology; ATTEND Allergy & Immunology
PROC: HZ2ZZZZ Detoxification Services for Substance Abuse Treatment (ICD-10-PCS; principal; 2023-09-21)
DX: F10.230 Alcohol dependence with withdrawal, uncomplicated (principal); F19.282 Other psychoactive substance dependence with psychoactive substance-induced sleep disorder; F12.20 Cannabis dependence, uncomplicated; F17.210 Nicotine dependence, cigarettes, uncomplicated; F25.1 Schizoaffective disorder, depressive type; F31.81 Bipolar II disorder; E78.5 Hyperlipidemia, unspecified; I10 Essential (primary) hypertension; J45.909 Unspecified asthma, uncomplicated; M54.50 Low back pain, unspecified; G89.29 Other chronic pain; D64.9 Anemia, unspecified; Z87.19 Personal history of other diseases of the digestive system; S52.501D Unspecified fracture of the lower end of right radius, subsequent encounter for closed fracture with routine healing; W19.XXXD Unspecified fall, subsequent encounter
CPT/HCPCS: 36415; 80053; 80305; 80307; 85027; 86780; 87635; 93005; 93010

== ENCOUNTER 2023-09-26 18:49 | Inpatient (IN) | payer BC ==
[2023-09-26 19:28] VITALS: BMI 23.6
[2023-09-26] MEDS ORDERED: DOCUSATE SODIUM 100 MG CAPSULE (FP) PO PRN (19:40)
[2023-09-26] MEDS ORDERED: IBUPROFEN 400 MG TABLET (FP) PO PRN (19:40)
[2023-09-26] MEDS ORDERED: METHOCARBAMOL 500 MG TABLET PO PRN (19:40)
[2023-09-26] MEDS ORDERED: P-EPHED 60MG/TRIPROLIDI 2.5MG TABLET PO PRN (19:40)
[2023-09-26] MEDS ORDERED: BENZOCAINE/MENTHOL (CHLORASEPTIC ) LOZENGE MM PRN (19:40)
[2023-09-26] MEDS ORDERED: MAGNESIUM HYDROX 2400MG/30ML ORAL SUSPENSION 30 ML CUP PO PRN (19:40)
[2023-09-26] MEDS ORDERED: guaiFENesin 600 MG TABLET.ER (FP) PO PRN (19:40)
[2023-09-26] MEDS ORDERED: ACETAMINOPHEN 325 MG TABLET (FP) PO PRN (19:40)
[2023-09-26] MEDS ORDERED: LOPERAMIDE HCL 2 MG CAPSULE PO PRN (19:40)
[2023-09-26] MEDS ORDERED: MAG HYDROX/AL HYDROX/SIMETH 30 ML UNIT-DOSE CUP PO PRN (19:40)
[2023-09-26] MEDS ORDERED: POLYETHYLENE GLYCOL (HEALTHYLAX) 3350 17 GM PACKET PO PRN (19:40)
[2023-09-26] MEDS ORDERED: BENZONATATE 200 MG CAPSULE PO PRN (19:40)
[2023-09-26] MEDS ORDERED: IBUPROFEN 600 MG TABLET (FP) PO PRN (19:40)
[2023-09-26] MEDS ORDERED: ALBUTEROL SO4 HFA INHALER IH PRN (19:41)
[2023-09-26] MEDS ORDERED: MELATONIN 5 MG TABLETS ONE (23:28)
[2023-09-26] MEDS ORDERED: levETIRAcetam 500 MG TABLET (FP) PO ONE (23:28)
[2023-09-26] MEDS: ATORVASTATIN CA 40 MG TABLET (FP) PO SCH (23:47)
[2023-09-26] MEDS: levETIRAcetam 500 MG TABLET (FP) PO SCH (23:47)
[2023-09-26] MEDS: MELATONIN 5 MG TABLETS PO SCH (23:48)
[2023-09-26] MEDS: THIAMINE HCL 100 MG TABLET (FP) PO SCH (23:48)
[2023-09-27] MEDS: PRENATAL VITAMINS W/ FOLIC ACID TABLET (FP) PO SCH (09:25)
[2023-09-28 06:42] VITALS: TEMP 97.1
[2023-09-28 09:13] VITALS: BP 148/95; PULSE 74; RESP 16
[2023-09-28] MEDS: NICOTINE POLACRILEX 2 MG GUM BUC PRN (09:47)
== END 2023-09-28 11:45 | disposition left against medical advice (07) | DRG 770 ==
LOC: YASAS 18:49 → Y3NR 23:47 → Y3W 09-27 12:41
PROVIDERS: ADMIT Allergy & Immunology; ATTEND Psychiatry & Neurology Pain Medicine
PROC: HZ42ZZZ Group Counseling for Substance Abuse Treatment, Cognitive-Behavioral (ICD-10-PCS; principal; 2023-09-26)
DX: F10.20 Alcohol dependence, uncomplicated (principal); F12.20 Cannabis dependence, uncomplicated; F17.210 Nicotine dependence, cigarettes, uncomplicated; F31.81 Bipolar II disorder; F19.280 Other psychoactive substance dependence with psychoactive substance-induced anxiety disorder; F19.24 Other psychoactive substance dependence with psychoactive substance-induced mood disorder; F41.9 Anxiety disorder, unspecified; G47.00 Insomnia, unspecified; E78.5 Hyperlipidemia, unspecified; I10 Essential (primary) hypertension; Z86.59 Personal history of other mental and behavioral disorders; Z87.19 Personal history of other diseases of the digestive system; Z56.0 Unemployment, unspecified; Z59.00 Homelessness unspecified
CPT/HCPCS: 80305; 87635

== ENCOUNTER 2023-10-10 16:46 | Inpatient (IN) | payer BC ==
[2023-10-10 19:23] VITALS: BMI 23.6
[2023-10-10] MEDS ORDERED: MAG HYDROX/AL HYDROX/SIMETH 30 ML UNIT-DOSE CUP PO PRN (21:35)
[2023-10-10] MEDS ORDERED: BENZOCAINE/MENTHOL (CHLORASEPTIC ) LOZENGE MM PRN (21:35)
[2023-10-10] MEDS ORDERED: NALOXONE HCL 0.4 MG/ML VIAL IM PRN (21:35)
[2023-10-10] MEDS ORDERED: BISMUTH SUBSALICYLATE 524 MG/30 ML PO PRN (21:35)
[2023-10-10] MEDS ORDERED: DICYCLOMINE HCL 10 MG CAPSULE PO PRN (21:35)
[2023-10-10] MEDS ORDERED: NALOXONE HCL (KLOXXADO) 8 MG SPRAY NS PRN (21:35)
[2023-10-10] MEDS ORDERED: ACETAMINOPHEN 325 MG TABLET (FP) PO PRN (21:35)
[2023-10-10] MEDS ORDERED: guaiFENesin 600 MG TABLET.ER (FP) PO PRN (21:35)
[2023-10-10] MEDS ORDERED: POLYETHYLENE GLYCOL (HEALTHYLAX) 3350 17 GM PACKET PO PRN (21:35)
[2023-10-10] MEDS ORDERED: LOPERAMIDE HCL 2 MG CAPSULE PO PRN (21:35)
[2023-10-10] MEDS ORDERED: BENZONATATE 200 MG CAPSULE PO PRN (21:35)
[2023-10-10] MEDS ORDERED: IBUPROFEN 400 MG TABLET (FP) PO PRN (21:35)
[2023-10-10] MEDS ORDERED: MAGNESIUM HYDROX 2400MG/30ML ORAL SUSPENSION 30 ML CUP PO PRN (21:35)
[2023-10-10] MEDS ORDERED: LORazepam 1 MG TABLET PO PRN (22:28)
[2023-10-10] MEDS: LORazepam 2 MG TABLET PO SCH (23:07)
[2023-10-10] MEDS: MELATONIN 5 MG TABLETS PO SCH (23:08)
[2023-10-10] MEDS: THIAMINE HCL 100 MG TABLET (FP) PO SCH (23:09)
[2023-10-11] MEDS ORDERED: ALBUTEROL SO4 HFA INHALER IH PRN (09:41)
[2023-10-11] MEDS: PRENATAL VITAMINS W/ FOLIC ACID TABLET (FP) PO SCH (10:19)
[2023-10-11] MEDS: NICOTINE 21 MG/24 HOURS TOPICAL PATCH TD SCH (10:19)
[2023-10-11] MEDS: levETIRAcetam 500 MG TABLET (FP) PO SCH (10:23)
[2023-10-11 12:07] LABS: HEMATOCRIT 39.3 % (35.4-49); HEMOGLOBIN 13.5 GM/dL (11.7-16.9); MCH 33.6 pg (25.7-33.7); MCHC 34.3 g/dl (32.0-35.9); MEAN CELL VOLUME 97.9 fl (80-96); MEAN PLT VOLUME 7.6 fl (7.5-11.1); PLATELET COUNT 293 10^3/uL (134-434); RBC 4.01 M/mm3 (4.00-5.60); RDW 14.5 % (11.9-15.9); WHITE BLOOD COUNT 3.6 K/mm3 (4.0-10.0)
[2023-10-11 12:12] LABS: CHLORIDE 99 mmol/L (98-107); POTASSIUM 3.5 mmol/L (3.5-5.1); SODIUM 137 mmol/L (136-145)
[2023-10-11 12:18] LABS: ALBUMIN 3.8 g/dl (3.4-5.0); ANION GAP 7 mmol/L (4-13); BLOOD UREA NITROGEN 7.8 mg/dL (7-18); CALCIUM 9.3 mg/dL (8.5-10.1); CO2 31 mmol/L (21-32)
[2023-10-11 12:19] LABS: GLUCOSE,RANDOM 195 mg/dL (74-106)
[2023-10-11 12:21] LABS: SGPT/ALT 68 U/L (13-61)
[2023-10-11 12:22] LABS: CREATININE 0.7 mg/dL (0.55-1.3); SGOT/AST 112 U/L (15-37)
[2023-10-11 12:23] LABS: BILIRUBIN,TOTAL 1.5 mg/dL (0.2-1); TOT PROT 7.1 g/dl (6.4-8.2)
[2023-10-11 12:24] LABS: ALK PHOS 101 U/L (45-117)
[2023-10-11] MEDS: cloNIDine HCL 0.1 MG TABLET PO PRN (13:31)
[2023-10-11] MEDS: hydrOXYzine PAMOATE 25 MG CAPSULE (FP) PO PRN (17:12)
[2023-10-11] MEDS: ATORVASTATIN CA 40 MG TABLET (FP) PO SCH (22:16)
[2023-10-11] MEDS: METHOCARBAMOL 500 MG TABLET PO PRN (22:17)
[2023-10-12] MEDS: LORazepam 1 MG TABLET PO SCH (05:28)
[2023-10-12] MEDS: IBUPROFEN 600 MG TABLET (FP) PO PRN (05:29)
[2023-10-12] MEDS: ONDANSETRON *ODT* 4 MG TABLET SL PRN (10:04)
[2023-10-12] MEDS: FLUoxetine HCL 20 MG CAPSULE PO SCH (10:51)
[2023-10-12] MEDS: NICOTINE POLACRILEX 2 MG GUM BUC PRN (17:32)
[2023-10-12] MEDS: QUEtiapine FUMARATE 200 MG TABLET PO SCH (22:27)
[2023-10-13] MEDS ORDERED: LORazepam 0.5 MG TABLET PO PRN
[2023-10-13] MEDS: LORazepam 0.5 MG TABLET PO SCH (05:34)
[2023-10-14] MEDS: LORazepam 0.5 MG TABLET PO ONE (05:33)
[2023-10-14 06:57] VITALS: RESP 16
[2023-10-14 09:18] VITALS: BP 105/66; PULSE 69; TEMP 97.8
== END 2023-10-14 10:45 | disposition home or self-care (01) | DRG 775 ==
LOC: YASAS 16:46 → Y6N 22:28
PROVIDERS: ADMIT Allergy & Immunology; ATTEND Surgery
PROC: HZ2ZZZZ Detoxification Services for Substance Abuse Treatment (ICD-10-PCS; principal; 2023-10-10)
DX: F10.230 Alcohol dependence with withdrawal, uncomplicated (principal); F12.20 Cannabis dependence, uncomplicated; F17.210 Nicotine dependence, cigarettes, uncomplicated; F31.81 Bipolar II disorder; F25.1 Schizoaffective disorder, depressive type; F41.9 Anxiety disorder, unspecified; F43.10 Post-traumatic stress disorder, unspecified; E78.5 Hyperlipidemia, unspecified; I10 Essential (primary) hypertension; M54.50 Low back pain, unspecified; G89.29 Other chronic pain; Z86.69 Personal history of other diseases of the nervous system and sense organs; Z87.11 Personal history of peptic ulcer disease
CPT/HCPCS: 36415; 80053; 80305; 80307; 82247; 84450; 85027; 86780; 87635; 87811; 93005; 93010; Q0162

== ENCOUNTER 2023-10-19 15:27 | Inpatient (IN) | payer BC ==
[2023-10-19 17:54] VITALS: BMI 23.6
[2023-10-19] MEDS ORDERED: MAGNESIUM HYDROX 2400MG/30ML ORAL SUSPENSION 30 ML CUP PO PRN (21:52)
[2023-10-19] MEDS ORDERED: P-EPHED 60MG/TRIPROLIDI 2.5MG TABLET PO PRN (21:52)
[2023-10-19] MEDS ORDERED: ACETAMINOPHEN 325 MG TABLET (FP) PO PRN (21:52)
[2023-10-19] MEDS ORDERED: guaiFENesin 600 MG TABLET.ER (FP) PO PRN (21:52)
[2023-10-19] MEDS ORDERED: POLYETHYLENE GLYCOL (HEALTHYLAX) 3350 17 GM PACKET PO PRN (21:52)
[2023-10-19] MEDS ORDERED: DOCUSATE SODIUM 100 MG CAPSULE (FP) PO PRN (21:52)
[2023-10-19] MEDS ORDERED: BENZONATATE 200 MG CAPSULE PO PRN (21:52)
[2023-10-19] MEDS ORDERED: BENZOCAINE/MENTHOL (CHLORASEPTIC ) LOZENGE MM PRN (21:52)
[2023-10-19] MEDS ORDERED: MAG HYDROX/AL HYDROX/SIMETH 30 ML UNIT-DOSE CUP PO PRN (21:52)
[2023-10-19] MEDS ORDERED: LOPERAMIDE HCL 2 MG CAPSULE PO PRN (21:52)
[2023-10-20] MEDS: levETIRAcetam 500 MG TABLET (FP) PO SCH (01:39)
[2023-10-20] MEDS: ATORVASTATIN CA 40 MG TABLET (FP) PO SCH (01:39)
[2023-10-20] MEDS: THIAMINE 100 MG TABLET PO SCH (01:40)
[2023-10-20] MEDS: MELATONIN 5 MG TABLETS PO SCH (01:44)
[2023-10-20] MEDS: METOPROLOL TARTRATE 25 MG TABLET (FP) PO ONE ×2 (02:05→02:09)
[2023-10-20] MEDS: PRENATAL VITAMINS W/ FOLIC ACID TABLET (FP) PO SCH (10:22)
[2023-10-20] MEDS: hydrOXYzine PAMOATE 25 MG CAPSULE (FP) PO PRN (11:19)
[2023-10-21] MEDS: NICOTINE POLACRILEX 2 MG GUM BUC PRN (09:57)
[2023-10-21] MEDS: FLUoxetine HCL 20 MG CAPSULE PO SCH (11:05)
[2023-10-21] MEDS: busPIRone HCL 10 MG TABLET (FP) PO SCH (11:05)
[2023-10-21] MEDS: QUEtiapine FUMARATE 200 MG TABLET PO SCH (21:20)
[2023-10-21] MEDS: MIRTAZAPINE 15 MG TABLET (FP) PO SCH (21:20)
[2023-10-22] MEDS: NICOTINE POLACRILEX 2 MG LOZENGE BC PRN (21:21)
[2023-10-23] MEDS: IBUPROFEN 600 MG TABLET (FP) PO PRN (10:47)
[2023-10-23] MEDS: ALBUTEROL SO4 HFA INHALER IH PRN (10:48)
[2023-10-23] MEDS: NICOTINE 21 MG/24 HOURS TOPICAL PATCH TD SCH (10:59)
[2023-10-23] MEDS: FLUTICASONE/UMECLIDIN/VILANTER(100-62.5-25 TRELEGY ELLIPTA) INAHLER IH SCH (11:01)
[2023-10-23] MEDS: METHYL SALICYLATE/MENTHOL OINT 30 GM TUBE TP PRN (12:03)
[2023-10-23] MEDS: GABAPENTIN 400 MG CAPSULE PO SCH (13:09)
[2023-10-23] MEDS: METHOCARBAMOL 500 MG TABLET PO PRN (16:35)
[2023-10-24 12:50] LABS: INR 0.97 (0.83-1.09); PROTHROMBIN TIME (PATIENT) 11.3 SEC (9.7-13.0)
[2023-10-25] MEDS: LACTULOSE 20 GM/30 ML UDC (FOR ORAL USE ONLY) PO SCH (13:56)
[2023-10-26] MEDS: METHOCARBAMOL 500 MG TABLET PO PRN (21:05)
[2023-10-27] MEDS: IBUPROFEN 400 MG TABLET (FP) PO PRN (21:27)
[2023-10-31] MEDS: busPIRone HCL 10 MG TABLET (FP) PO SCH (21:12)
[2023-10-31] MEDS: SUVOREXANT 10 MG TABLET PO PRN (21:13)
[2023-11-02] MEDS: SUVOREXANT 10 MG TABLET PO PRN (21:32)
[2023-11-03] MEDS: CHOLECALCIFEROL (VIT D3) 400 UNIT (10 MCG) TABLET PO SCH (10:00)
[2023-11-03] MEDS: MAGNESIUM OXIDE 400 MG TABLET (FP) PO SCH (10:01)
[2023-11-03] MEDS: RIFAXIMIN 550 MG TABLET PO SCH (10:01)
[2023-11-06] MEDS: amLODIPine BESYLATE 2.5 MG TABLET (FP) PO SCH (11:55)
[2023-11-06] MEDS: SUVOREXANT 10 MG TABLET PO PRN (21:53)
[2023-11-08] MEDS: SUVOREXANT 10 MG TABLET PO PRN (21:11)
[2023-11-10] MEDS: SUVOREXANT 10 MG TABLET PO PRN (21:09)
[2023-11-11 07:17] VITALS: RESP 18
[2023-11-12] MEDS: SUVOREXANT 10 MG TABLET PO PRN (21:05)
[2023-11-13 07:23] VITALS: TEMP 97.7
[2023-11-13 09:14] VITALS: BP 130/76; PULSE 95
== END 2023-11-13 10:07 | disposition home or self-care (01) | DRG 772 ==
LOC: YASAS 15:27 → Y3NR 10-20 01:23 → Y3W 10-20 10:42
PROVIDERS: ADMIT Allergy & Immunology; ATTEND Psychiatry & Neurology Pain Medicine
PROC: HZ42ZZZ Group Counseling for Substance Abuse Treatment, Cognitive-Behavioral (ICD-10-PCS; principal; 2023-10-20)
DX: F10.20 Alcohol dependence, uncomplicated (principal); F17.210 Nicotine dependence, cigarettes, uncomplicated; F19.280 Other psychoactive substance dependence with psychoactive substance-induced anxiety disorder; F19.282 Other psychoactive substance dependence with psychoactive substance-induced sleep disorder; F25.1 Schizoaffective disorder, depressive type; F43.10 Post-traumatic stress disorder, unspecified; F41.9 Anxiety disorder, unspecified; E72.20 Disorder of urea cycle metabolism, unspecified; E78.5 Hyperlipidemia, unspecified; I10 Essential (primary) hypertension; J45.909 Unspecified asthma, uncomplicated; G47.00 Insomnia, unspecified; Z87.19 Personal history of other diseases of the digestive system; Z87.442 Personal history of urinary calculi
CPT/HCPCS: 36415; 80305; 82140; 82652; 83735; 85610; 87635

== ENCOUNTER 2023-11-22 13:41 | Inpatient (IN) | payer BC ==
[2023-11-22 15:32] VITALS: BMI 23.0
[2023-11-22] MEDS ORDERED: ACETAMINOPHEN 325 MG TABLET (FP) PO PRN (16:59)
[2023-11-22] MEDS ORDERED: BENZONATATE 200 MG CAPSULE PO PRN (16:59)
[2023-11-22] MEDS ORDERED: MAGNESIUM HYDROX 2400MG/30ML ORAL SUSPENSION 30 ML CUP PO PRN (16:59)
[2023-11-22] MEDS ORDERED: BENZOCAINE/MENTHOL (CHLORASEPTIC ) LOZENGE MM PRN (16:59)
[2023-11-22] MEDS ORDERED: ONDANSETRON *ODT* 4 MG TABLET SL PRN (16:59)
[2023-11-22] MEDS ORDERED: BISMUTH SUBSALICYLATE 524 MG/30 ML PO PRN (16:59)
[2023-11-22] MEDS ORDERED: LOPERAMIDE HCL 2 MG CAPSULE PO PRN (16:59)
[2023-11-22] MEDS ORDERED: guaiFENesin 600 MG TABLET.ER (FP) PO PRN (16:59)
[2023-11-22] MEDS ORDERED: POLYETHYLENE GLYCOL (HEALTHYLAX) 3350 17 GM PACKET PO PRN (16:59)
[2023-11-22] MEDS ORDERED: DICYCLOMINE HCL 10 MG CAPSULE PO PRN (16:59)
[2023-11-22] MEDS: METOPROLOL TARTRATE 25 MG TABLET (FP) PO ONE ×2 (18:50→18:51)
[2023-11-22] MEDS: levETIRAcetam 500 MG TABLET (FP) PO SCH (21:56)
[2023-11-22] MEDS: ATORVASTATIN CA 40 MG TABLET (FP) PO SCH (21:56)
[2023-11-22] MEDS: THIAMINE 100 MG TABLET PO SCH (21:56)
[2023-11-22] MEDS: MELATONIN 5 MG TABLETS PO SCH (22:27)
[2023-11-23] MEDS: NICOTINE POLACRILEX 2 MG GUM BUC PRN (08:24)
[2023-11-23] MEDS: PRENATAL VITAMINS W/ FOLIC ACID TABLET (FP) PO SCH (09:37)
[2023-11-23] MEDS: amLODIPine BESYLATE 2.5 MG TABLET (FP) PO SCH (09:37)
[2023-11-23] MEDS: FLUoxetine HCL 20 MG CAPSULE PO SCH (10:16)
[2023-11-23] MEDS: ALBUTEROL SO4 HFA INHALER IH PRN (10:18)
[2023-11-23] MEDS: FLUTICASONE/UMECLIDIN/VILANTER(100-62.5-25 TRELEGY ELLIPTA) INAHLER IH SCH (11:36)
[2023-11-23 12:14] LABS: HEMOGLOBIN 14.2 GM/dL (11.7-16.9); MCH 33.1 pg (25.7-33.7); MCHC 34.5 g/dl (32.0-35.9); MEAN CELL VOLUME 95.8 fl (80-96); MEAN PLT VOLUME 7.5 fl (7.5-11.1); PLATELET COUNT 326 10^3/uL (134-434); RBC 4.28 M/mm3 (4.00-5.60); RDW 14.2 % (11.9-15.9); WHITE BLOOD COUNT 9.8 K/mm3 (4.0-10.0)
[2023-11-23 13:10] LABS: CALCIUM 8.9 mg/dL (8.5-10.1)
[2023-11-23 13:11] LABS: ALBUMIN 3.8 g/dl (3.4-5.0); BLOOD UREA NITROGEN 15.4 mg/dL (7-18)
[2023-11-23 13:14] LABS: CREATININE 0.6 mg/dL (0.55-1.3)
[2023-11-23 13:16] LABS: BILIRUBIN,TOTAL 1.8 mg/dL (0.2-1)
[2023-11-23] MEDS: chlordiazePOXIDE HCL 25 MG CAPSULE PO ONE (13:23)
[2023-11-23] MEDS: METHOCARBAMOL 500 MG TABLET PO PRN (13:25)
[2023-11-23] MEDS: chlordiazePOXIDE HCL 25 MG CAPSULE PO SCH (17:34)
[2023-11-23] MEDS: QUEtiapine FUMARATE 200 MG TABLET PO SCH (22:16)
[2023-11-23] MEDS: METHYL SALICYLATE/MENTHOL OINT 30 GM TUBE TP PRN (22:16)
[2023-11-25] MEDS: chlordiazePOXIDE HCL 25 MG CAPSULE PO SCH (05:49)
[2023-11-25] MEDS: NAPROXEN 500 MG TABLET PO PRN (06:04)
[2023-11-25] MEDS: hydrOXYzine PAMOATE 25 MG CAPSULE (FP) PO PRN (17:19)
[2023-11-25] MEDS: chlordiazePOXIDE HCL 25 MG CAPSULE PO PRN (22:17)
[2023-11-26] MEDS ORDERED: chlordiazePOXIDE HCL 10 MG CAPSULE PO PRN
[2023-11-26] MEDS: chlordiazePOXIDE HCL 10 MG CAPSULE PO SCH (05:41)
[2023-11-26] MEDS: MAG HYDROX/AL HYDROX/SIMETH 30 ML UNIT-DOSE CUP PO PRN (05:44)
[2023-11-26] MEDS: METHYL SALICYLATE/MENTHOL OINT 30 GM TUBE TP SCH (22:19)
[2023-11-27] MEDS: chlordiazePOXIDE HCL 10 MG CAPSULE PO SCH (05:39)
[2023-11-27] MEDS: amLODIPine BESYLATE 5 MG TABLET (FP) PO SCH (10:55)
[2023-11-28] MEDS: chlordiazePOXIDE HCL 10 MG CAPSULE PO ONE (05:41)
[2023-11-28 06:35] VITALS: RESP 16
[2023-11-28 09:14] VITALS: BP 146/83; PULSE 92; TEMP 98
== END 2023-11-28 12:15 | disposition home or self-care (01) | DRG 775 ==
LOC: YASAS 13:41 → Y6N 18:06
PROVIDERS: ADMIT Allergy & Immunology; ATTEND Surgery
PROC: HZ2ZZZZ Detoxification Services for Substance Abuse Treatment (ICD-10-PCS; principal; 2023-11-22)
DX: F10.230 Alcohol dependence with withdrawal, uncomplicated (principal); F12.20 Cannabis dependence, uncomplicated; F17.210 Nicotine dependence, cigarettes, uncomplicated; F43.10 Post-traumatic stress disorder, unspecified; F32.9 Major depressive disorder, single episode, unspecified; G40.909 Epilepsy, unspecified, not intractable, without status epilepticus; E78.5 Hyperlipidemia, unspecified; I10 Essential (primary) hypertension; J45.909 Unspecified asthma, uncomplicated; M54.50 Low back pain, unspecified; G89.29 Other chronic pain; Z87.19 Personal history of other diseases of the digestive system
CPT/HCPCS: 36415; 80053; 82247; 84450; 85027; 86780; 87811

== ENCOUNTER 2023-12-06 13:51 | Inpatient (IN) | payer BC ==
[2023-12-06 14:28] VITALS: BMI 22.8
[2023-12-06] MEDS ORDERED: ONDANSETRON *ODT* 4 MG TABLET SL PRN (16:15)
[2023-12-06] MEDS ORDERED: IBUPROFEN 400 MG TABLET (FP) PO PRN (16:15)
[2023-12-06] MEDS ORDERED: POLYETHYLENE GLYCOL (HEALTHYLAX) 3350 17 GM PACKET PO PRN (16:15)
[2023-12-06] MEDS ORDERED: MAG HYDROX/AL HYDROX/SIMETH 30 ML UNIT-DOSE CUP PO PRN (16:15)
[2023-12-06] MEDS ORDERED: DICYCLOMINE HCL 10 MG CAPSULE PO PRN (16:15)
[2023-12-06] MEDS ORDERED: NALOXONE HCL 0.4 MG/ML VIAL IM PRN (16:15)
[2023-12-06] MEDS ORDERED: guaiFENesin 600 MG TABLET.ER (FP) PO PRN (16:15)
[2023-12-06] MEDS ORDERED: NALOXONE HCL (KLOXXADO) 8 MG SPRAY NS PRN (16:15)
[2023-12-06] MEDS ORDERED: BENZONATATE 200 MG CAPSULE PO PRN (16:15)
[2023-12-06] MEDS ORDERED: BENZOCAINE/MENTHOL (CHLORASEPTIC ) LOZENGE MM PRN (16:15)
[2023-12-06] MEDS ORDERED: LOPERAMIDE HCL 2 MG CAPSULE PO PRN (16:15)
[2023-12-06] MEDS ORDERED: MAGNESIUM HYDROX 2400MG/30ML ORAL SUSPENSION 30 ML CUP PO PRN (16:15)
[2023-12-06] MEDS ORDERED: ACETAMINOPHEN 325 MG TABLET (FP) PO PRN (16:15)
[2023-12-06] MEDS ORDERED: chlordiazePOXIDE HCL 25 MG CAPSULE ONE (18:50)
[2023-12-06] MEDS ORDERED: METHOCARBAMOL 500 MG TABLET ONE (18:50)
[2023-12-06] MEDS: chlordiazePOXIDE HCL 25 MG CAPSULE PO SCH ×2 (18:58→19:08)
[2023-12-06] MEDS: METHOCARBAMOL 500 MG TABLET PO PRN (18:59)
[2023-12-06] MEDS ORDERED: METHYL SALICYLATE/MENTHOL OINT 30 GM TUBE TP PRN (19:18)
[2023-12-06] MEDS: hydrOXYzine PAMOATE 25 MG CAPSULE (FP) PO PRN (19:39)
[2023-12-06] MEDS: MELATONIN 5 MG TABLETS PO SCH (22:24)
[2023-12-06] MEDS: ATORVASTATIN CA 40 MG TABLET (FP) PO SCH (22:24)
[2023-12-06] MEDS: THIAMINE 100 MG TABLET PO SCH (22:24)
[2023-12-06] MEDS: levETIRAcetam 500 MG TABLET (FP) PO SCH (22:25)
[2023-12-06] MEDS: NICOTINE POLACRILEX 2 MG GUM BUC PRN (22:27)
[2023-12-07 08:26] LABS: POTASSIUM 4.2 mmol/L (3.5-5.1)
[2023-12-07 08:28] LABS: HEMATOCRIT 36.5 % (35.4-49); MCH 31.8 pg (25.7-33.7); MEAN CELL VOLUME 96.3 fl (80-96); PLATELET COUNT 377 10^3/uL (134-434); RBC 3.78 M/mm3 (4.00-5.60); RDW 14.2 % (11.9-15.9); WHITE BLOOD COUNT 7.3 K/mm3 (4.0-10.0)
[2023-12-07 08:37] LABS: ALBUMIN 3.4 g/dl (3.4-5.0); CALCIUM 8.6 mg/dL (8.5-10.1)
[2023-12-07 08:40] LABS: CREATININE 0.7 mg/dL (0.55-1.3)
[2023-12-07 08:41] LABS: BILIRUBIN,TOTAL 0.4 mg/dL (0.2-1); TOT PROT 6.3 g/dl (6.4-8.2)
[2023-12-07] MEDS: PRENATAL VITAMINS W/ FOLIC ACID TABLET (FP) PO SCH (10:37)
[2023-12-07] MEDS: FLUoxetine HCL 20 MG CAPSULE PO SCH (10:37)
[2023-12-07] MEDS: amLODIPine BESYLATE 2.5 MG TABLET (FP) PO SCH (10:37)
[2023-12-07] MEDS: FLUTICASONE/UMECLIDIN/VILANTER(100-62.5-25 TRELEGY ELLIPTA) INAHLER IH SCH (10:40)
[2023-12-07] MEDS: ALBUTEROL SO4 HFA INHALER IH PRN (10:40)
[2023-12-07] MEDS: METHYL SALICYLATE/MENTHOL OINT 30 GM TUBE TP SCH (22:24)
[2023-12-07] MEDS: QUEtiapine FUMARATE 200 MG TABLET PO SCH (22:25)
[2023-12-08] MEDS: chlordiazePOXIDE HCL 25 MG CAPSULE PO SCH (05:02)
[2023-12-08] MEDS: chlordiazePOXIDE HCL 25 MG CAPSULE PO PRN (05:27)
[2023-12-08] MEDS: METHYL SALICYLATE/MENTHOL OINT 30 GM TUBE TP PRN (10:27)
[2023-12-08] MEDS: NICOTINE 21 MG/24 HOURS TOPICAL PATCH TD SCH (10:29)
[2023-12-09] MEDS ORDERED: chlordiazePOXIDE HCL 10 MG CAPSULE PO PRN
[2023-12-09] MEDS: chlordiazePOXIDE HCL 10 MG CAPSULE PO SCH (05:32)
[2023-12-09] MEDS: IBUPROFEN 600 MG TABLET (FP) PO PRN (22:10)
[2023-12-10] MEDS: BISMUTH SUBSALICYLATE 524 MG/30 ML PO PRN (01:39)
[2023-12-10] MEDS: chlordiazePOXIDE HCL 10 MG CAPSULE PO SCH (05:19)
[2023-12-11] MEDS: chlordiazePOXIDE HCL 10 MG CAPSULE PO ONE (05:48)
[2023-12-11 12:55] VITALS: BP 136/82; PULSE 101; RESP 16; TEMP 97.1
== END 2023-12-11 14:40 | disposition other institution (70) | DRG 775 ==
LOC: YASAS 13:51 → Y6N 17:01
PROVIDERS: ADMIT Allergy & Immunology; ATTEND Surgery
PROC: HZ2ZZZZ Detoxification Services for Substance Abuse Treatment (ICD-10-PCS; principal; 2023-12-06)
DX: F10.230 Alcohol dependence with withdrawal, uncomplicated (principal); F17.210 Nicotine dependence, cigarettes, uncomplicated; F25.1 Schizoaffective disorder, depressive type; F41.8 Other specified anxiety disorders; F43.10 Post-traumatic stress disorder, unspecified; E78.5 Hyperlipidemia, unspecified; I10 Essential (primary) hypertension; J45.909 Unspecified asthma, uncomplicated; M54.50 Low back pain, unspecified; G89.29 Other chronic pain; Z87.09 Personal history of other diseases of the respiratory system; Z86.69 Personal history of other diseases of the nervous system and sense organs
CPT/HCPCS: 36415; 73110-TC-RT-FY; 80053; 80305; 80307; 85027; 86780; 87811; 93005; 93010

== ENCOUNTER 2023-12-11 14:46 | Inpatient (IN) | payer BC ==
[2023-12-11] MEDS ORDERED: POLYETHYLENE GLYCOL (HEALTHYLAX) 3350 17 GM PACKET PO PRN (17:07)
[2023-12-11] MEDS ORDERED: MAG HYDROX/AL HYDROX/SIMETH 30 ML UNIT-DOSE CUP PO PRN (17:07)
[2023-12-11] MEDS ORDERED: ACETAMINOPHEN 325 MG TABLET (FP) PO PRN (17:07)
[2023-12-11] MEDS ORDERED: BENZONATATE 200 MG CAPSULE PO PRN (17:07)
[2023-12-11] MEDS ORDERED: NALOXONE HCL 0.4 MG/ML VIAL IVPUSH PRN (17:07)
[2023-12-11] MEDS ORDERED: NALOXONE (NYS OPIOID OVERDOSE PROGRAM) 4 MG/0.1 ML SPRAY NS PRN (17:07)
[2023-12-11] MEDS ORDERED: LOPERAMIDE HCL 2 MG CAPSULE PO PRN (17:07)
[2023-12-11] MEDS ORDERED: BENZOCAINE/MENTHOL (CHLORASEPTIC ) LOZENGE MM PRN (17:07)
[2023-12-11] MEDS ORDERED: guaiFENesin 600 MG TABLET.ER (FP) PO PRN (17:07)
[2023-12-11] MEDS ORDERED: MAGNESIUM HYDROX 2400MG/30ML ORAL SUSPENSION 30 ML CUP PO PRN (17:07)
[2023-12-11] MEDS: MELATONIN 5 MG TABLETS PO SCH (21:13)
[2023-12-11] MEDS: THIAMINE 100 MG TABLET PO SCH (21:13)
[2023-12-11] MEDS: QUEtiapine FUMARATE 200 MG TABLET PO SCH (21:14)
[2023-12-11] MEDS: METHOCARBAMOL 500 MG TABLET PO PRN (21:14)
[2023-12-11] MEDS: ATORVASTATIN CA 40 MG TABLET (FP) PO SCH (21:14)
[2023-12-11] MEDS: hydrOXYzine PAMOATE 25 MG CAPSULE (FP) PO PRN (21:14)
[2023-12-11] MEDS: levETIRAcetam 500 MG TABLET (FP) PO SCH (21:14)
[2023-12-11] MEDS: NICOTINE POLACRILEX 4 MG GUM BUC PRN (21:15)
[2023-12-11] MEDS: ALBUTEROL SO4 HFA INHALER IH PRN (21:15)
[2023-12-12] MEDS: NICOTINE POLACRILEX 4 MG LOZENGE BC PRN (06:43)
[2023-12-12] MEDS: PRENATAL VITAMINS W/ FOLIC ACID TABLET (FP) PO SCH ×2 (09:53→09:56)
[2023-12-12] MEDS: FLUoxetine HCL 20 MG CAPSULE PO SCH (09:53)
[2023-12-12] MEDS: FLUTICASONE/UMECLIDIN/VILANTER(100-62.5-25 TRELEGY ELLIPTA) INAHLER IH SCH (09:53)
[2023-12-12] MEDS: amLODIPine BESYLATE 2.5 MG TABLET (FP) PO SCH (09:53)
[2023-12-12] MEDS: NICOTINE 21 MG/24 HOURS TOPICAL PATCH TD SCH (09:54)
[2023-12-12] MEDS: MIRTAZAPINE 15 MG TABLET (FP) PO SCH (21:31)
[2023-12-12] MEDS: SUVOREXANT 10 MG TABLET PO PRN (23:25)
[2023-12-13] MEDS: GABAPENTIN 100 MG CAPSULE PO SCH (13:46)
[2023-12-13] MEDS: METHYL SALICYLATE/MENTHOL OINT 30 GM TUBE TP PRN (21:06)
[2023-12-14] MEDS: NALTREXONE HCL 50 MG TABLET PO SCH (09:53)
[2023-12-14] MEDS: METHYL SALICYLATE/MENTHOL OINT 30 GM TUBE TP PRN (09:56)
[2023-12-14 11:40] LABS: INR 1.02 (0.83-1.09); PROTHROMBIN TIME (PATIENT) 11.5 SEC (9.7-13.0)
[2023-12-14] MEDS: SUVOREXANT 10 MG TABLET PO PRN (21:30)
[2023-12-15] MEDS: LACTULOSE 20 GM/30 ML UDC (FOR ORAL USE ONLY) PO SCH (22:25)
[2023-12-16] MEDS: SUVOREXANT 10 MG TABLET PO PRN (21:05)
[2023-12-17] MEDS: IBUPROFEN 600 MG TABLET (FP) PO PRN (09:37)
[2023-12-18] MEDS: METHOCARBAMOL 500 MG TABLET PO SCH (10:25)
[2023-12-18] MEDS: SUVOREXANT 10 MG TABLET PO PRN (21:07)
[2023-12-22] MEDS: SUVOREXANT 10 MG TABLET PO PRN (21:14)
[2023-12-24 06:47] VITALS: TEMP 97.8
[2023-12-24] MEDS ORDERED: NALTREXONE MICROSPHERES (VIVITROL) 380 MG DISP.SYRIN IM ONE (18:00)
[2023-12-24] MEDS: NALTREXONE MICROSPHERES (VIVITROL) 380 MG DISP.SYRIN IM ONE (19:02)
[2023-12-24] MEDS: IBUPROFEN 400 MG TABLET (FP) PO PRN (21:59)
[2023-12-25 09:10] VITALS: BP 116/83; PULSE 96; RESP 17
[2023-12-25] MEDS ORDERED: SUVOREXANT 10 MG TABLET PO PRN (22:00)
== END 2023-12-25 10:05 | disposition home or self-care (01) | DRG 772 ==
LOC: YASAS 14:46 → Y3W 14:49
PROVIDERS: ADMIT Allergy & Immunology; ATTEND Psychiatry & Neurology Pain Medicine
PROC: HZ42ZZZ Group Counseling for Substance Abuse Treatment, Cognitive-Behavioral (ICD-10-PCS; principal; 2023-12-11)
DX: F10.20 Alcohol dependence, uncomplicated (principal); F12.20 Cannabis dependence, uncomplicated; F17.210 Nicotine dependence, cigarettes, uncomplicated; F19.282 Other psychoactive substance dependence with psychoactive substance-induced sleep disorder; F41.8 Other specified anxiety disorders; F43.10 Post-traumatic stress disorder, unspecified; G40.909 Epilepsy, unspecified, not intractable, without status epilepticus; E78.5 Hyperlipidemia, unspecified; I10 Essential (primary) hypertension; J45.909 Unspecified asthma, uncomplicated; M54.50 Low back pain, unspecified; G89.29 Other chronic pain
CPT/HCPCS: 36415; 82140; 82652; 83735; 85610; 86803; J2315

== ENCOUNTER 2024-01-10 09:07 | Inpatient (IN) | payer BC, OTHER ==
[2024-01-10 09:29] VITALS: BMI 24.0
[2024-01-10] MEDS ORDERED: LORazepam 1 MG TABLET PO PRN (10:43)
[2024-01-10] MEDS ORDERED: DICYCLOMINE HCL 10 MG CAPSULE PO PRN (10:43)
[2024-01-10] MEDS ORDERED: BISMUTH SUBSALICYLATE 262 MG/15 ML BTL PO PRN (10:43)
[2024-01-10] MEDS ORDERED: NALOXONE (NARCAN) HCL 4 MG/0.1 ML SPRAY NS PRN (10:43)
[2024-01-10] MEDS ORDERED: ONDANSETRON *ODT* 4 MG TABLET SL PRN (10:43)
[2024-01-10] MEDS ORDERED: ACETAMINOPHEN 325 MG TABLET (FP) PO PRN (10:43)
[2024-01-10] MEDS ORDERED: MAGNESIUM HYDROX 2400MG/30ML ORAL SUSPENSION 30 ML CUP PO PRN (10:43)
[2024-01-10] MEDS ORDERED: NALOXONE HCL 0.4 MG/ML VIAL IM PRN (10:43)
[2024-01-10] MEDS ORDERED: LOPERAMIDE HCL 2 MG CAPSULE PO PRN (10:43)
[2024-01-10] MEDS ORDERED: guaiFENesin 600 MG TABLET.ER (FP) PO PRN (10:43)
[2024-01-10] MEDS ORDERED: IBUPROFEN 400 MG TABLET (FP) PO PRN (10:43)
[2024-01-10] MEDS ORDERED: BENZOCAINE/MENTHOL (CHLORASEPTIC ) LOZENGE MM PRN (10:43)
[2024-01-10] MEDS ORDERED: POLYETHYLENE GLYCOL (HEALTHYLAX) 3350 17 GM PACKET PO PRN (10:43)
[2024-01-10] MEDS ORDERED: BENZONATATE 200 MG CAPSULE PO PRN (10:43)
[2024-01-10] MEDS ORDERED: LORazepam 2 MG TABLET ONE (11:19)
[2024-01-10] MEDS: LORazepam 2 MG TABLET PO SCH (11:21)
[2024-01-10] MEDS: PRENATAL VITAMINS W/ FOLIC ACID TABLET (FP) PO SCH (11:57)
[2024-01-10] MEDS: NICOTINE 21 MG/24 HOURS TOPICAL PATCH TD SCH (11:57)
[2024-01-10] MEDS: NICOTINE POLACRILEX 2 MG LOZENGE BC PRN (12:04)
[2024-01-10] MEDS: LACTULOSE 20 GM/30 ML UDC (FOR ORAL USE ONLY) PO SCH (14:32)
[2024-01-10] MEDS: ACAMPROSATE CALCIUM 333 MG TABLET.DR PO SCH (14:32)
[2024-01-10] MEDS: levETIRAcetam 500 MG TABLET (FP) PO SCH (22:50)
[2024-01-10] MEDS: ATORVASTATIN CA 40 MG TABLET (FP) PO SCH (22:51)
[2024-01-10] MEDS: THIAMINE 100 MG TABLET PO SCH (22:51)
[2024-01-10] MEDS: MELATONIN 5 MG TABLETS PO SCH (22:51)
[2024-01-10] MEDS: QUEtiapine FUMARATE 200 MG TABLET PO SCH (22:51)
[2024-01-10] MEDS: METHOCARBAMOL 500 MG TABLET PO PRN (22:51)
[2024-01-10] MEDS: hydrOXYzine PAMOATE 25 MG CAPSULE (FP) PO PRN (23:08)
[2024-01-11] MEDS: ALBUTEROL SO4 HFA INHALER IH PRN (05:43)
[2024-01-11] MEDS: amLODIPine BESYLATE 2.5 MG TABLET (FP) PO SCH (10:25)
[2024-01-11] MEDS: FLUoxetine HCL 20 MG CAPSULE PO SCH (10:25)
[2024-01-11] MEDS: FLUTICASONE/UMECLIDIN/VILANTER(100-62.5-25 TRELEGY ELLIPTA) INAHLER IH SCH (10:25)
[2024-01-11 10:45] LABS: HEMATOCRIT 43.4 % (35.4-49); HEMOGLOBIN 14.5 GM/dL (11.7-16.9); MCH 31.6 pg (25.7-33.7); MCHC 33.4 g/dl (32.0-35.9); MEAN CELL VOLUME 94.6 fl (80-96); MEAN PLT VOLUME 7.8 fl (7.5-11.1); PLATELET COUNT 446 10^3/uL (134-434); RBC 4.59 M/mm3 (4.00-5.60); RDW 13.2 % (11.9-15.9); WHITE BLOOD COUNT 9.9 K/mm3 (4.0-10.0)
[2024-01-11 10:48] LABS: POTASSIUM 3.9 mmol/L (3.5-5.1)
[2024-01-11 10:49] LABS: CALCIUM 9.3 mg/dL (8.5-10.1)
[2024-01-11 10:50] LABS: ALBUMIN 4.6 g/dl (3.4-5.0); BLOOD UREA NITROGEN 18.7 mg/dL (7-18)
[2024-01-11 10:53] LABS: CREATININE 0.9 mg/dL (0.55-1.3)
[2024-01-11 10:54] LABS: BILIRUBIN,TOTAL 0.4 mg/dL (0.2-1)
[2024-01-11 10:55] LABS: TOT PROT 8.1 g/dl (6.4-8.2)
[2024-01-11] MEDS: NICOTINE POLACRILEX 4 MG LOZENGE BC PRN (22:23)
[2024-01-12] MEDS: LORazepam 1 MG TABLET PO SCH (05:40)
[2024-01-12] MEDS: IBUPROFEN 600 MG TABLET (FP) PO PRN (22:36)
[2024-01-13] MEDS ORDERED: LORazepam 0.5 MG TABLET PO PRN
[2024-01-13] MEDS: MAG HYDROX/AL HYDROX/SIMETH 30 ML UNIT-DOSE CUP PO PRN (03:23)
[2024-01-13] MEDS: LORazepam 0.5 MG TABLET PO SCH (05:36)
[2024-01-13] MEDS: NAPROXEN 500 MG TABLET PO PRN (22:20)
[2024-01-14] MEDS: LORazepam 0.5 MG TABLET PO ONE (05:35)
[2024-01-14 08:54] VITALS: BP 112/78; PULSE 88; RESP 17; TEMP 98.4
== END 2024-01-14 08:56 | disposition home or self-care (01) | DRG 775 ==
LOC: YASAS 09:07 → Y3N 10:46
PROVIDERS: ADMIT Allergy & Immunology; ATTEND Surgery
PROC: HZ2ZZZZ Detoxification Services for Substance Abuse Treatment (ICD-10-PCS; principal; 2024-01-10)
DX: F10.230 Alcohol dependence with withdrawal, uncomplicated (principal); F12.20 Cannabis dependence, uncomplicated; F10.282 Alcohol dependence with alcohol-induced sleep disorder; F10.280 Alcohol dependence with alcohol-induced anxiety disorder; F31.9 Bipolar disorder, unspecified; F43.10 Post-traumatic stress disorder, unspecified; F41.9 Anxiety disorder, unspecified; E78.5 Hyperlipidemia, unspecified; G40.909 Epilepsy, unspecified, not intractable, without status epilepticus; I10 Essential (primary) hypertension; J44.9 Chronic obstructive pulmonary disease, unspecified; M54.50 Low back pain, unspecified; G89.29 Other chronic pain
CPT/HCPCS: 36415; 80053; 80305; 80307; 82140; 85027; 86780; 93005; 93010

== ENCOUNTER 2024-03-23 15:30 | Inpatient (IN) | payer BC ==
[2024-03-23 16:32] VITALS: BMI 23.6
[2024-03-23] MEDS ORDERED: BISMUTH SUBSALICYLATE 524 MG/30 ML PO PRN (17:38)
[2024-03-23] MEDS ORDERED: MAGNESIUM HYDROX 2400MG/30ML ORAL SUSPENSION 30 ML CUP PO PRN (17:38)
[2024-03-23] MEDS ORDERED: NALOXONE HCL 0.4 MG/ML VIAL IM PRN (17:38)
[2024-03-23] MEDS ORDERED: NALOXONE (NARCAN) HCL 4 MG/0.1 ML SPRAY NS PRN (17:38)
[2024-03-23] MEDS ORDERED: BENZONATATE 200 MG CAPSULE PO PRN (17:38)
[2024-03-23] MEDS ORDERED: BENZOCAINE/MENTHOL (CHLORASEPTIC ) LOZENGE MM PRN (17:38)
[2024-03-23] MEDS ORDERED: guaiFENesin 600 MG TABLET.ER (FP) PO PRN (17:38)
[2024-03-23] MEDS ORDERED: POLYETHYLENE GLYCOL (HEALTHYLAX) 3350 17 GM PACKET PO PRN (17:38)
[2024-03-23] MEDS ORDERED: IBUPROFEN 400 MG TABLET (FP) PO PRN (17:38)
[2024-03-23] MEDS ORDERED: LOPERAMIDE HCL 2 MG CAPSULE PO PRN (17:38)
[2024-03-23] MEDS ORDERED: ACETAMINOPHEN 325 MG TABLET (FP) PO PRN (17:38)
[2024-03-23] MEDS ORDERED: DICYCLOMINE HCL 10 MG CAPSULE PO PRN (17:38)
[2024-03-23] MEDS ORDERED: ONDANSETRON *ODT* 4 MG TABLET SL PRN (17:38)
[2024-03-23] MEDS: METHOCARBAMOL 500 MG TABLET PO PRN (22:07)
[2024-03-23] MEDS: THIAMINE 100 MG TABLET PO SCH (22:07)
[2024-03-23] MEDS: MELATONIN 5 MG TABLETS PO SCH (22:07)
[2024-03-23] MEDS: hydrOXYzine PAMOATE 25 MG CAPSULE (FP) PO PRN (22:09)
[2024-03-24 09:03] LABS: HEMATOCRIT 42.1 % (35.4-49); HEMOGLOBIN 14.4 GM/dL (11.7-16.9); MCH 31.7 pg (25.7-33.7); MCHC 34.3 g/dl (32.0-35.9); MEAN CELL VOLUME 92.5 fl (80-96); MEAN PLT VOLUME 7.3 fl (7.5-11.1); PLATELET COUNT 453 10^3/uL (134-434); RBC 4.55 M/mm3 (4.00-5.60); RDW 14.4 % (11.9-15.9); WHITE BLOOD COUNT 9.3 K/mm3 (4.0-10.0)
[2024-03-24 09:05] LABS: CHLORIDE 98 mmol/L (98-107); POTASSIUM 3.9 mmol/L (3.5-5.1); SODIUM 137 mmol/L (136-145)
[2024-03-24 09:09] LABS: ALBUMIN 4.2 g/dl (3.4-5.0)
[2024-03-24 09:11] LABS: ANION GAP 8 mmol/L (4-13); BLOOD UREA NITROGEN 16.4 mg/dL (7-18); CALCIUM 9.5 mg/dL (8.5-10.1); CO2 31 mmol/L (21-32); GLUCOSE,RANDOM 117 mg/dL (74-106)
[2024-03-24 09:12] LABS: SGPT/ALT 40 U/L (13-61)
[2024-03-24 09:13] LABS: CREATININE 0.8 mg/dL (0.55-1.3); SGOT/AST 52 U/L (15-37)
[2024-03-24 09:14] LABS: BILIRUBIN,TOTAL 1.2 mg/dL (0.2-1); TOT PROT 7.1 g/dl (6.4-8.2)
[2024-03-24 09:15] LABS: ALK PHOS 84 U/L (45-117)
[2024-03-24] MEDS: PRENATAL VITAMINS W/ FOLIC ACID TABLET (FP) PO SCH (09:51)
[2024-03-24] MEDS: NICOTINE 21 MG/24 HOURS TOPICAL PATCH TD SCH (09:51)
[2024-03-24] MEDS: FLUoxetine HCL 20 MG CAPSULE PO SCH (10:42)
[2024-03-24] MEDS: levETIRAcetam XR 750 MG TAB PO SCH (10:42)
[2024-03-24] MEDS ORDERED: chlordiazePOXIDE HCL 25 MG CAPSULE PO PRN (13:09)
[2024-03-24] MEDS: chlordiazePOXIDE HCL 25 MG CAPSULE PO ONE (13:19)
[2024-03-24] MEDS ORDERED: levETIRAcetam 500 MG TABLET (FP) PO SCH (14:00)
[2024-03-24] MEDS: chlordiazePOXIDE HCL 25 MG CAPSULE PO SCH (17:21)
[2024-03-24] MEDS: NICOTINE POLACRILEX 2 MG GUM BUC PRN (17:22)
[2024-03-24] MEDS: QUEtiapine FUMARATE 300 MG TABLET PO SCH (22:13)
[2024-03-25] MEDS: FLUTICASONE/UMECLIDIN/VILANTER(200-62.5-25 TRELEGY ELLIPTA) INAHLER IH SCH (10:17)
[2024-03-25] MEDS: NALTREXONE HCL 50 MG TABLET PO SCH (10:18)
[2024-03-25] MEDS: ALBUTEROL SO4 HFA INHALER IH PRN (10:23)
[2024-03-26] MEDS: chlordiazePOXIDE HCL 25 MG CAPSULE PO SCH (05:24)
[2024-03-26] MEDS: IBUPROFEN 600 MG TABLET (FP) PO PRN (09:41)
[2024-03-26] MEDS: MAG HYDROX/AL HYDROX/SIMETH 30 ML UNIT-DOSE CUP PO PRN (14:33)
[2024-03-27] MEDS ORDERED: chlordiazePOXIDE HCL 10 MG CAPSULE PO PRN
[2024-03-27] MEDS: chlordiazePOXIDE HCL 10 MG CAPSULE PO SCH (05:18)
[2024-03-28] MEDS: chlordiazePOXIDE HCL 10 MG CAPSULE PO SCH (05:31)
[2024-03-29] MEDS: chlordiazePOXIDE HCL 10 MG CAPSULE PO ONE (05:29)
[2024-03-29 06:08] VITALS: RESP 16
[2024-03-29 09:54] VITALS: BP 144/96; PULSE 90; TEMP 97.6
== END 2024-03-29 12:18 | disposition other institution (70) | DRG 775 ==
LOC: YASAS 15:30 → Y6N 18:14
PROVIDERS: ADMIT Allergy & Immunology; ATTEND Surgery
PROC: HZ2ZZZZ Detoxification Services for Substance Abuse Treatment (ICD-10-PCS; principal; 2024-03-23)
DX: F10.230 Alcohol dependence with withdrawal, uncomplicated (principal); F10.282 Alcohol dependence with alcohol-induced sleep disorder; F10.280 Alcohol dependence with alcohol-induced anxiety disorder; F12.20 Cannabis dependence, uncomplicated; F17.210 Nicotine dependence, cigarettes, uncomplicated; F32.9 Major depressive disorder, single episode, unspecified; F25.1 Schizoaffective disorder, depressive type; I10 Essential (primary) hypertension; E78.5 Hyperlipidemia, unspecified; J44.9 Chronic obstructive pulmonary disease, unspecified; M54.59 Other low back pain; Z86.16 Personal history of COVID-19; G89.29 Other chronic pain; Z86.69 Personal history of other diseases of the nervous system and sense organs; Z91.51 Personal history of suicidal behavior; Z56.0 Unemployment, unspecified; Z59.01 Sheltered homelessness
CPT/HCPCS: 36415; 80053; 80305; 80307; 85027; 86780; 87811; 93005; 93010

== ENCOUNTER 2024-03-29 12:34 | Inpatient (IN) | payer BC ==
[2024-03-29] MEDS ORDERED: BENZONATATE 200 MG CAPSULE PO PRN (13:49)
[2024-03-29] MEDS ORDERED: BENZOCAINE/MENTHOL (CHLORASEPTIC ) LOZENGE MM PRN (13:49)
[2024-03-29] MEDS ORDERED: guaiFENesin 600 MG TABLET.ER (FP) PO PRN (13:49)
[2024-03-29] MEDS ORDERED: NALOXONE (NARCAN) HCL 4 MG/0.1 ML SPRAY NS PRN (13:49)
[2024-03-29] MEDS ORDERED: IBUPROFEN 400 MG TABLET (FP) PO PRN (13:49)
[2024-03-29] MEDS ORDERED: LOPERAMIDE HCL 2 MG CAPSULE PO PRN (13:49)
[2024-03-29] MEDS ORDERED: MAGNESIUM HYDROX 2400MG/30ML ORAL SUSPENSION 30 ML CUP PO PRN (13:49)
[2024-03-29] MEDS ORDERED: POLYETHYLENE GLYCOL (HEALTHYLAX) 3350 17 GM PACKET PO PRN (13:49)
[2024-03-29] MEDS ORDERED: NALOXONE HCL 0.4 MG/ML VIAL IVPUSH PRN (13:49)
[2024-03-29] MEDS: NICOTINE 14 MG/24 HOURS TOPICAL PATCH TD SCH (14:37)
[2024-03-29] MEDS: PRENATAL VITAMINS W/ FOLIC ACID TABLET (FP) PO SCH (14:37)
[2024-03-29] MEDS ORDERED: QUEtiapine FUMARATE 100 MG TABLET (FP) ONE (21:42)
[2024-03-29] MEDS ORDERED: QUEtiapine FUMARATE 300 MG TABLET PO SCH (22:00)
[2024-03-29] MEDS: MELATONIN 5 MG TABLETS PO SCH (22:01)
[2024-03-29] MEDS: THIAMINE 100 MG TABLET PO SCH (22:01)
[2024-03-29] MEDS: hydrOXYzine PAMOATE 25 MG CAPSULE (FP) PO PRN (22:02)
[2024-03-29] MEDS: QUEtiapine FUMARATE 300 MG TABLET PO SCH (22:02)
[2024-03-29] MEDS: METHOCARBAMOL 500 MG TABLET PO PRN (22:02)
[2024-03-30] MEDS: NALTREXONE HCL 50 MG TABLET PO SCH (10:05)
[2024-03-30] MEDS: FLUoxetine HCL 20 MG CAPSULE PO SCH (10:05)
[2024-03-30] MEDS: ALBUTEROL SO4 HFA INHALER IH PRN (10:06)
[2024-03-30] MEDS: NICOTINE POLACRILEX 2 MG GUM BUC PRN (15:32)
[2024-03-30] MEDS: FLUTICASONE/UMECLIDIN/VILANTER(200-62.5-25 TRELEGY ELLIPTA) INAHLER IH SCH (16:00)
[2024-03-30] MEDS: levETIRAcetam XR 750 MG TAB PO SCH (21:36)
[2024-03-31] MEDS: MAG HYDROX/AL HYDROX/SIMETH 30 ML UNIT-DOSE CUP PO PRN (02:42)
[2024-03-31] MEDS ORDERED: QUEtiapine FUMARATE 100 MG TABLET (FP) ONE (21:51)
[2024-03-31] MEDS: MIRTAZAPINE 15 MG TABLET (FP) PO SCH (21:53)
[2024-04-01] MEDS ORDERED: QUEtiapine FUMARATE 100 MG TABLET (FP) ONE (20:35)
[2024-04-02] MEDS ORDERED: QUEtiapine FUMARATE 100 MG TABLET (FP) ONE (19:47)
[2024-04-03] MEDS: IBUPROFEN 600 MG TABLET (FP) PO PRN (09:27)
[2024-04-03] MEDS: GABAPENTIN 100 MG CAPSULE PO SCH (14:02)
[2024-04-03] MEDS ORDERED: QUEtiapine FUMARATE 100 MG TABLET (FP) ONE (20:43)
[2024-04-04 09:23] VITALS: RESP 18
[2024-04-04] MEDS: GABAPENTIN 400 MG CAPSULE PO SCH (14:05)
[2024-04-04] MEDS ORDERED: QUEtiapine FUMARATE 100 MG TABLET (FP) ONE (21:09)
[2024-04-05] MEDS ORDERED: QUEtiapine FUMARATE 100 MG TABLET (FP) ONE (21:03)
[2024-04-06] MEDS ORDERED: QUEtiapine FUMARATE 100 MG TABLET (FP) ONE (20:31)
[2024-04-07] MEDS ORDERED: QUEtiapine FUMARATE 100 MG TABLET (FP) ONE (20:46)
[2024-04-08] MEDS: ACETAMINOPHEN 325 MG TABLET (FP) PO PRN (10:46)
[2024-04-08] MEDS ORDERED: QUEtiapine FUMARATE 100 MG TABLET (FP) ONE (20:44)
[2024-04-09 07:11] VITALS: TEMP 97.3
[2024-04-09 09:16] VITALS: BP 163/95; PULSE 84
== END 2024-04-09 10:52 | disposition home or self-care (01) | DRG 772 ==
LOC: YASAS 12:34 → Y3NR 12:37 → Y3W 04-01 12:14
PROVIDERS: ADMIT Psychiatry & Neurology Pain Medicine; ATTEND Psychiatry & Neurology Pain Medicine
PROC: HZ42ZZZ Group Counseling for Substance Abuse Treatment, Cognitive-Behavioral (ICD-10-PCS; principal; 2024-03-29)
DX: F10.20 Alcohol dependence, uncomplicated (principal); F12.20 Cannabis dependence, uncomplicated; F17.210 Nicotine dependence, cigarettes, uncomplicated; F19.280 Other psychoactive substance dependence with psychoactive substance-induced anxiety disorder; F19.282 Other psychoactive substance dependence with psychoactive substance-induced sleep disorder; F19.24 Other psychoactive substance dependence with psychoactive substance-induced mood disorder; F31.9 Bipolar disorder, unspecified; F41.9 Anxiety disorder, unspecified; F43.10 Post-traumatic stress disorder, unspecified; E78.5 Hyperlipidemia, unspecified; I10 Essential (primary) hypertension; J44.9 Chronic obstructive pulmonary disease, unspecified
CPT/HCPCS: 36415; 86803

== ENCOUNTER 2024-08-03 09:19 | Inpatient (IN) | payer BC ==
[2024-08-03 09:43] VITALS: BMI 23.6
[2024-08-03] MEDS ORDERED: BENZONATATE 200 MG CAPSULE PO PRN (11:50)
[2024-08-03] MEDS ORDERED: IBUPROFEN 400 MG TABLET (FP) PO PRN (11:50)
[2024-08-03] MEDS ORDERED: BISMUTH SUBSALICYLATE 524 MG/30 ML PO PRN (11:50)
[2024-08-03] MEDS ORDERED: DICYCLOMINE HCL 10 MG CAPSULE PO PRN (11:50)
[2024-08-03] MEDS ORDERED: BENZOCAINE/MENTHOL (CHLORASEPTIC ) LOZENGE MM PRN (11:50)
[2024-08-03] MEDS ORDERED: POLYETHYLENE GLYCOL (HEALTHYLAX) 3350 17 GM PACKET PO PRN (11:50)
[2024-08-03] MEDS ORDERED: LOPERAMIDE HCL 2 MG CAPSULE PO PRN (11:50)
[2024-08-03] MEDS ORDERED: NALOXONE (NARCAN) HCL 4 MG/0.1 ML SPRAY NS PRN (11:50)
[2024-08-03] MEDS ORDERED: MAGNESIUM HYDROX 2400MG/30ML ORAL SUSPENSION 30 ML CUP PO PRN (11:50)
[2024-08-03] MEDS ORDERED: guaiFENesin 600 MG TABLET.ER (FP) PO PRN (11:50)
[2024-08-03] MEDS ORDERED: cloNIDine HCL 0.1 MG TABLET ONE (12:09)
[2024-08-03] MEDS: cloNIDine HCL 0.1 MG TABLET PO ONE (12:10)
[2024-08-03] MEDS: chlordiazePOXIDE HCL 25 MG CAPSULE PO PRN (13:19)
[2024-08-03] MEDS: NICOTINE POLACRILEX 2 MG GUM BUC PRN (13:20)
[2024-08-03] MEDS: GABAPENTIN 400 MG CAPSULE PO SCH (15:37)
[2024-08-03] MEDS: FLUoxetine HCL 20 MG CAPSULE PO SCH (15:37)
[2024-08-03] MEDS: chlordiazePOXIDE HCL 25 MG CAPSULE PO SCH (17:10)
[2024-08-03] MEDS: METHOCARBAMOL 500 MG TABLET PO PRN (22:16)
[2024-08-03] MEDS: MIRTAZAPINE 15 MG TABLET (FP) PO SCH (22:17)
[2024-08-03] MEDS: QUEtiapine FUMARATE 300 MG TABLET PO SCH (22:17)
[2024-08-03] MEDS: levETIRAcetam XR 750 MG TAB PO SCH (22:17)
[2024-08-03] MEDS: MELATONIN 5 MG TABLETS PO SCH (22:18)
[2024-08-03] MEDS: THIAMINE 100 MG TABLET PO SCH (22:18)
[2024-08-03] MEDS: IBUPROFEN 600 MG TABLET (FP) PO PRN (22:19)
[2024-08-04 08:47] LABS: CHLORIDE 103 mmol/L (98-107); POTASSIUM 3.1 mmol/L (3.5-5.1); SODIUM 137 mmol/L (136-145)
[2024-08-04 08:50] LABS: HEMATOCRIT 38.8 % (35.4-49); HEMOGLOBIN 13.4 GM/dL (11.7-16.9); MCH 33.1 pg (25.7-33.7); MCHC 34.5 g/dl (32.0-35.9); MEAN CELL VOLUME 95.8 fl (80-96); MEAN PLT VOLUME 7.5 fl (7.5-11.1); PLATELET COUNT 348 10^3/uL (134-434); RBC 4.05 M/mm3 (4.00-5.60); RDW 13.7 % (11.9-15.9); WHITE BLOOD COUNT 9.4 K/mm3 (4.0-10.0)
[2024-08-04 08:51] LABS: ALBUMIN 3.5 g/dl (3.4-5.0)
[2024-08-04 08:52] LABS: ANION GAP 9 mmol/L (4-13); BLOOD UREA NITROGEN 18.4 mg/dL (7-18); CALCIUM 9.1 mg/dL (8.5-10.1); CO2 25 mmol/L (21-32)
[2024-08-04 08:53] LABS: GLUCOSE,RANDOM 180 mg/dL (74-106)
[2024-08-04 08:54] LABS: CREATININE 1.1 mg/dL (0.55-1.3); SGOT/AST 26 U/L (15-37); SGPT/ALT 37 U/L (13-61)
[2024-08-04 08:56] LABS: TOT PROT 6.6 g/dl (6.4-8.2)
[2024-08-04 08:57] LABS: ALK PHOS 72 U/L (45-117)
[2024-08-04 08:58] LABS: BILIRUBIN,TOTAL 1.3 mg/dL (0.2-1)
[2024-08-04] MEDS: PRENATAL VITAMINS W/ FOLIC ACID TABLET (FP) PO SCH (09:39)
[2024-08-04] MEDS: FLUTICASONE/UMECLIDIN/VILANTER(200-62.5-25 TRELEGY ELLIPTA) INAHLER IH SCH (09:42)
[2024-08-04] MEDS: ALBUTEROL SO4 HFA INHALER IH PRN (09:44)
[2024-08-04] MEDS: NICOTINE 21 MG/24 HOURS TOPICAL PATCH TD SCH (10:00)
[2024-08-04] MEDS: hydrOXYzine PAMOATE 25 MG CAPSULE (FP) PO PRN (10:02)
[2024-08-04] MEDS: ONDANSETRON *ODT* 4 MG TABLET SL PRN (10:03)
[2024-08-04] MEDS: POTASSIUM CHLORIDE ORAL LIQUID 20 MEQ/15 ML PO SCH (13:06)
[2024-08-04] MEDS: POTASSIUM CHLORIDE ORAL LIQUID 20 MEQ/15 ML PO ONE (20:31)
[2024-08-04 21:04] LABS: URINE APPEARANCE CLEAR; URINE BILIRUBIN NEGATIVE (NEGATIVE); URINE COLOR YELLOW; URINE GLUCOSE (UA) NEGATIVE (NEGATIVE); URINE KETONE TRACE (NEGATIVE); URINE LEUK ESTERASE NEGATIVE (NEGATIVE); URINE NITRITE NEGATIVE (NEGATIVE); URINE PROTEIN TRACE (NEGATIVE)
[2024-08-05] MEDS: chlordiazePOXIDE HCL 25 MG CAPSULE PO SCH (05:44)
[2024-08-05] MEDS: MAG HYDROX/AL HYDROX/SIMETH 30 ML UNIT-DOSE CUP PO PRN (15:34)
[2024-08-05] MEDS: ACETAMINOPHEN 325 MG TABLET (FP) PO PRN (17:20)
[2024-08-05] MEDS: MELATONIN 5 MG TABLETS PO SCH (22:11)
[2024-08-06] MEDS ORDERED: chlordiazePOXIDE HCL 10 MG CAPSULE PO PRN
[2024-08-06] MEDS: chlordiazePOXIDE HCL 10 MG CAPSULE PO SCH (05:38)
[2024-08-06] MEDS: NALTREXONE HCL 50 MG TABLET PO SCH (15:50)
[2024-08-07] MEDS: chlordiazePOXIDE HCL 10 MG CAPSULE PO SCH (05:54)
[2024-08-07] MEDS: NALOXONE (NYS OPIOID OVERDOSE PROGRAM) 4 MG/0.1 ML SPRAY NS SCH (13:42)
[2024-08-08] MEDS: chlordiazePOXIDE HCL 10 MG CAPSULE PO ONE (05:41)
[2024-08-08 08:56] VITALS: BP 138/88; PULSE 102; RESP 18; TEMP 97.8
== END 2024-08-08 11:40 | disposition other institution (70) | DRG 775 ==
LOC: YASAS 09:19 → Y6N 12:07
PROVIDERS: ADMIT Allergy & Immunology; ATTEND Surgery
PROC: HZ2ZZZZ Detoxification Services for Substance Abuse Treatment (ICD-10-PCS; principal; 2024-08-03)
DX: F10.230 Alcohol dependence with withdrawal, uncomplicated (principal); F13.230 Sedative, hypnotic or anxiolytic dependence with withdrawal, uncomplicated; F31.9 Bipolar disorder, unspecified; F25.9 Schizoaffective disorder, unspecified; F10.24 Alcohol dependence with alcohol-induced mood disorder; F10.280 Alcohol dependence with alcohol-induced anxiety disorder; F10.282 Alcohol dependence with alcohol-induced sleep disorder; F43.10 Post-traumatic stress disorder, unspecified; F41.8 Other specified anxiety disorders; E87.6 Hypokalemia; E86.0 Dehydration; I10 Essential (primary) hypertension; J44.9 Chronic obstructive pulmonary disease, unspecified; Z86.69 Personal history of other diseases of the nervous system and sense organs
CPT/HCPCS: 36415; 80053; 80305; 80307; 81003; 83036; 84132; 85027; 86780; 87811; 93005; 93010; Q0162